=== PATIENT | male | born 1960 | race Caucasian/White ===

== ENCOUNTER 2018-10-25 10:05 | Outpatient (CLI) | payer BC, SELFPAY | END 2018-10-25 10:25 | PROVIDERS: PCP Internal Medicine; Visit Provider Internal Medicine | DX: R73.09 Other abnormal glucose (principal) | CPT/HCPCS: 36415; 83036 ==

== ENCOUNTER 2019-02-09 09:26 | Outpatient (CLI) | payer BC, SELFPAY ==
--- NOTE | 2019-02-09 09:41 | DI.RAD_ITS ---
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 The lungs are clear. The mediastinal structures and pleura appear intact. CONCLUSION: Normal chest.
[2019-02-09 10:16] LABS: TSH 2.57 uIU/mL (0.358-3.74)
== END 2019-02-09 09:46 ==
PROVIDERS: PCP Internal Medicine; Visit Provider Nurse Practitioner Adult Health
DX: C09.9 Malignant neoplasm of tonsil, unspecified (principal)
CPT/HCPCS: 36415; 71046; 84443

== ENCOUNTER 2019-10-29 10:21 | Outpatient (CLI) | payer BC, SELFPAY ==
[2019-10-29 13:05] LABS: ALT 49 U/L (16-63); AST 24 U/L (15-37); Albumin 4.4 g/dL (3.4-5.0); Alkaline Phosphatase 62 U/L (46-116); Anion Gap 9.6 mmol/L (3-11); BUN 18 mg/dL (7-18); Bilirubin, Total 1.1 mg/dL (0.2-1.0); CO2 28.4 mmol/L (21.0-32.0); CREATININE 0.83 mg/dL (0.70-1.30); Calcium 9.5 mg/dL (8.5-10.1); Chloride 102 mmol/L (98-107); Glucose 104 mg/dL (74-106); Potassium 4.2 mmol/L (3.5-5.1); Sodium 140 mmol/L (136-145); TSH 3.53 uIU/mL (0.36-3.74); Total Protein 7.6 g/dL (6.4-8.2)
[2019-10-29 13:22] LABS: Absolute Basophil Count 0.02 k/cumm (0.0-0.2); Absolute Eosinophil Count 0.05 k/cumm (0.0-0.7); Absolute Lymphocyte Count 0.96 k/cumm (1.2-3.4); Absolute Monocyte Count 0.39 k/cumm (0.11-0.7); Absolute Neutrophil Count 3.01 k/cumm (1.2-6.7); Basophils % 0.5; Eosinophils % 1.1; HCT 41.8 % (40.0-50.0); HGB 14.4 g/dL (13.5-17.5); Lymphocytes % 21.7; Mean Corp. HGB Concentration 34.4 g/dL (32.0-36.0); Mean Corpuscular Hemoglobin 32.5 pg (27.0-33.0); Mean Corpuscular Volume 94.4 fL (80-95); Mean Platelet Volume 10.2 fL (8.0-11.0); Monocytes % 8.8; Neutrophils % 67.9; Platelet Count 233 x1000/uL (130-400); RBC 4.43 m/cumm (4.50-6.00); RBC Distribution Width 12.2 % (11.8-14.1); White Blood Cell Count 4.43 k/cumm (4.4-10.8)
[2019-10-30 12:40] LABS: PSA, Screening 2.7 ng/mL (0.0-4.5)
== END 2019-10-29 10:41 ==
PROVIDERS: PCP Internal Medicine; Visit Provider Internal Medicine
DX: Z00.00 Encounter for general adult medical examination without abnormal findings (principal); I10 Essential (primary) hypertension; R50.9 Fever, unspecified; R35.1 Nocturia; E03.9 Hypothyroidism, unspecified; Z12.5 Encounter for screening for malignant neoplasm of prostate
CPT/HCPCS: 36415; 80053; 84153; 84443; 85025

== ENCOUNTER 2020-11-11 02:20 | Outpatient (CLI) | payer BC, SELFPAY ==
[2020-11-11 08:47] LABS: Hemoglobin A1C 5.8 % (<5.7)
[2020-11-11 09:31] LABS: CREATININE 1.08 mg/dL (0.70-1.30); Calculated LDL 128 mg/dL (<100); Cholesterol 203 mg/dL (<200); HDL Cholesterol 40 mg/dL (40-60); Potassium 4.2 mmol/L (3.5-5.1); TSH 4.54 uIU/mL (0.36-3.74); Triglyceride 177 mg/dL (<150)
== END 2020-11-11 02:40 ==
PROVIDERS: PCP Nurse Practitioner; Visit Provider Nurse Practitioner
DX: E03.9 Hypothyroidism, unspecified (principal); I10 Essential (primary) hypertension; Z13.1 Encounter for screening for diabetes mellitus; Z13.6 Encounter for screening for cardiovascular disorders; Z12.5 Encounter for screening for malignant neoplasm of prostate; Z80.42 Family history of malignant neoplasm of prostate
CPT/HCPCS: 36415; 80061; 84153; 82565; 83036; 84132; 84443

== ENCOUNTER 2020-11-28 10:50 | Outpatient (CLI) | payer BC, SELFPAY ==
--- NOTE | 2020-11-28 08:45 | DI.RAD_ITS ---
EXAM: XR KNEE RT 4V AP,LAT,MARLIN,PAT CLINICAL HISTORY: rt knee pain. TECHNIQUE: 2D digital imaging was performed. COMPARISON: CR RIGHT KNEE 3 VIEWS from 01/27/2017 FINDINGS: There is no evidence of acute fracture but there is a joint effusion signifying probable internal saurabh angement. There has been progression of degenerative disease with [id number] apposition in the medial compart ment evident on the AP view. No narrowing of the lateral compartment. Moderate degenerative changes in the patellofemoral compartment. IMPRESSION: Advanced narrowing of the medial compartment-degenerative changes. Significant progression when comp ared to 2017. There is also a joint effusion which may signify an independent internal derangement. DATA REPOSITORY: RADIATION DOSE DELIVERED:
== END 2020-11-28 11:10 ==
PROVIDERS: PCP Nurse Practitioner; Visit Provider Physician Assistant Surgical
DX: M17.11 Unilateral primary osteoarthritis, right knee (principal); M25.461 Effusion, right knee
CPT/HCPCS: 73564

== ENCOUNTER 2020-12-31 04:21 | Outpatient (CLI) | payer BC, SELFPAY ==
[2020-12-31 11:37] LABS: Calculated LDL 43 mg/dL (<100); Cholesterol 108 mg/dL (<200); HDL Cholesterol 46 mg/dL (40-60); TSH 1.95 uIU/mL (0.36-3.74); Triglyceride 96 mg/dL (<150)
== END 2020-12-31 04:22 | disposition home or self-care (01) ==
LOC: LBO 04:21
PROVIDERS: PCP Nurse Practitioner; Visit Provider Nurse Practitioner
DX: E78.5 Hyperlipidemia, unspecified (principal); E03.9 Hypothyroidism, unspecified
CPT/HCPCS: 36415; 80061; 84443

== ENCOUNTER 2021-01-02 11:15 | Outpatient (CLI) | payer BC, SELFPAY ==
--- NOTE | 2021-01-02 09:15 | DI.CT_ITS ---
EXAM: CT ABDOMEN PELVIS W CLINICAL HISTORY: r/o appendicitis R10.31 RLQ PAIN TECHNIQUE: Imaging Protocol: Axial computed tomography images with coronal and sagittal reformatted images were created and reviewed CONTRAST MATERIAL: Intravenous: Omnipaque 350 Contrast volume:100 mL Oral: Yes COMPARISON: CT CT Chest With Contrast from 02/07/2012 FINDINGS: ABDOMEN: Lung Bases: Normal where visualized. Liver: Normal density. There are a few tiny hypodensities in the liver which are too small for furthe r characterization. These likely reflect small cysts. Portal, Superior Mesenteric, and Splenic Veins: Unremarkable. Gallbladder and Biliary Tract: No radiodense calculus or dilation. Pancreas: Normal density, no abnormal calcifications or inflammatory process. Spleen: Normal. Adrenals: There again seen bilateral adrenal calcifications. Kidneys: Normal size, contour and axis. No radiodense stones or obstructive uropathy. There is a 1 cm simple cyst in the superior pole of the right kidney. No further workup is recommended. Abdominal Aorta: Abdominal portion non-dilated. Mild atherosclerosis. Bowel: No obstruction or bowel wall thickening. The appendix is distended measuring 1.7 cm in diamete r. Juliette appendiceal inflammatory changes are seen. There is a hyperdense focus in the proximal append ix which may represent a the appendicoliths. There is a small area of extraluminal air adjacent to th e appendix. No focal fluid collection is seen to suggest an abscess. Small hiatal hernia. Peritoneal Cavity: No ascites, collection or mesenteric inflammatory response. Lymph Nodes: Within normal limits. Bones: Within normal limits for the patient's age. Soft Tissues: There is a small fat containing umbilical and a small fat containing paraumbilical angélica ia. There is a moderate-sized fat containing left inguinal hernia. PELVIS: Bladder: Symmetric distention, no gross wall thickening. Reproductive Organs: Mildly enlarged prostate gland. Lymph Nodes: Within normal limits. Bones: Within normal limits for the patient's age. IMPRESSION: Findings consistent with acute appendicitis with appendicoliths. A small amount of free air is noted adjacent to the appendix suggesting perforation. RADIATION DOSE DELIVERED: 1,408.07mGy.cm Total DLP DATA REPOSITORY: All CT scans at this facility are submitted to the National Radiology Data Registry (NRDR) Dose Index Registry (DIR) with the [employer] [place] [employer] (ACR). RADIATION OPTIMIZATION: All CT scans at this facility use at least one of these dose optimization te chniques: automated exposure control; mA and/or kV adjustment per patient size (includes targeted exa ms where dose is matched to clinical indication); or iterative reconstruction.
[2021-01-02] MEDS: Breeza Beverage 473 ML BTL PO (09:49)
[2021-01-02] MEDS: Omnipaque 350 MG/ML 50 ML BTL IJ ×2 (11:13→11:14)
[2021-01-02] MEDS: Normal Saline - Diluent 50 ML VIAL IV (11:13)
== END 2021-01-02 11:35 ==
PROVIDERS: PCP Nurse Practitioner; Visit Provider Nurse Practitioner
DX: R10.31 Right lower quadrant pain (principal)
CPT/HCPCS: 74177; 82565; Q9967

== ENCOUNTER 2021-01-02 12:05 | Day surgery (SDC) | payer BC, SELFPAY ==
[2021-01-02] VITALS (11 sets, daily range): BP systolic 92–127; BP diastolic 44–78; PULSE 68–79; RESP 14–31; TEMP 36.3–36.8; O2SAT 94–96
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
[2021-01-02 12:31] LABS: Abs Immature Grans 0.04 10^3/uL (0.0-0.06); Absolute Basophil Count 0.03 10^3/uL (0.0-0.2); Absolute Eosinophil Count 0.03 10^3/uL (0.0-0.7); Absolute Monocyte Count 1.17 10^3/uL (0.1-0.8); Basophils % 0.3; Eosinophils % 0.3; HCT 37.8 % (40.0-50.0); HGB 13.2 g/dL (13.5-17.5); Immature Grans % 0.4; Lymphocytes % 5.9; MCH 32.8 pg (27.0-33.0); MCHC 34.9 % (32.0-36.0); Monocytes % 10.5; Neutrophils % 82.6; Nucleated RBC 0 %; Platelet Count 217 10^3/uL (130-400); RBC 4.02 10^6/uL (4.36-5.78); RDW 11.9 % (11.8-14.1); RDW-SD 40.9 fL; WBC 11.11 10^3/uL (4.4-10.8)
[2021-01-02 12:35] LABS: Absolute Lymphocyte Count 0.66 10^3/uL (1.2-3.4); Absolute Neutrophil Count 9.18 10^3/uL (1.2-6.7)
[2021-01-02] MEDS: PIPERACILLIN/TAZO 4.5 GM in Normal Saline 100 ML IVPB (12:41)
[2021-01-02] MEDS: Normal Saline Flush 10 ML SYR IVP (12:43)
[2021-01-02 12:44] LABS: ALT 46 U/L (16-63); AST 18 U/L (15-37); Albumin 3.8 g/dL (3.4-5.0); Alkaline Phosphatase 69 U/L (46-116); Anion Gap 8.6 mmol/L (3-11); BUN 18 mg/dL (7-18); Bilirubin, Total 2.2 mg/dL (0.2-1.0); CO2 29.4 mmol/L (21.0-32.0); Chloride 94 mmol/L (98-107); Glucose 118 mg/dL (74-106); Potassium 3.9 mmol/L (3.5-5.1); Sodium 132 mmol/L (136-145); Total Protein 7.7 g/dL (6.4-8.2)
[2021-01-02 12:47] LABS: PTT Activated 26.1 sec (21.0-27.5); Prothrombin Time 10.3 sec (9.3-11.0)
[2021-01-02] MEDS: HYDROmorphone 2 MG/ML VIAL 1 MG IVP (13:08)
[2021-01-02] MEDS: Normal Saline 1,000 ML 1000 ML IV (13:09)
[2021-01-02 13:11] LABS: Bilirubin Negative (Negative); Blood Trace-intact (Negative); Clarity Clear (Clear); Glucose Negative (Negative); Ketones Negative (Negative); Leukocyte Esterase Negative (Negative); Nitrite Negative (Negative); Urobilinogen 0.2 EU/dL (Up TO 0.2)
[2021-01-02 13:20] LABS: Bacteria Negative HPF (Negative); C & S Indicated? No; Casts Negative LPF (Negative); Crystals Negative HPF (Negative); Epithelial Cells Rare HPF (Negative); Mucus Trace (Negative); WBC 0-2 HPF (0-5)
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
[2021-01-02] MEDS: Lactated Ringers 1,000 ML 30 ML IV (14:59)
[2021-01-02 15:21] LABS: COVID-19 PCR Negative (Negative); Influenza A PCR Negative (Negative); Influenza B PCR Negative (Negative); RSV PCR Negative (Negative)
[2021-01-02] MEDS: Lidocaine 1% Multi-Dose 50 ML VIAL (15:52)
--- NOTE | 2021-01-02 17:05 | APP_PTH ---
PATIENT: Johnathon Shea V LOC: [facility] U#:[id number] AGE/SX: 60/M ROOM: RE01/02/[address]: Jeffrey Guevara MD : [id number] BED: DIS: 01/02/2021 SPEC #: [id number] RECD: 01/02/21 17:53 STATUS: NATALI REQ #: [id number] MATHEUS: 01/02/21 17:[address]: Jeffrey Guevara DEPT: Surgical Specimen RECD BY: Yenny Mendez ENTERED: 01/02/21 17:53 SP TYPE: Appendix OTHR DR: Brandi Mak, PhD AURIST Tissues: 1 - APPENDIX NOT INCIDENTAL Procedures: GROSS AND MICRO LEVEL 3 Comments: [id number]
--- NOTE | 2021-01-02 17:23 | W.PM.OP ---
Date of service: 01/02/21 Time of Service: 15:50 Operative Note Operative Note DATE OF PROCEDURE: 01/02/21 PRE-OP DIAGNOSIS: perforated appendicitis POST-OP DIAGNOSIS: same PROCEDURE: laparoscopic emergency appendectomy SURGEON: Jeffrey Guevara ASSISTING SURGEON: Nisha Larry ANESTHESIA TYPE: General LMA/ETT Refer to Anesthesia Record ESTIMATED BLOOD LOSS: 20 PATHOLOGY: other (appendix) COMPLICATIONS: None Patient was transported to: PACU Patient's condition: stable Indications: CT diagnosed perforated appendix Findings: inflamed thickend appendix with perforation 2cm from base. surrounding rind with inflammation of the mesoappendix Procedure Description: supine, patient prepped/draped. timeout performed. veress needle entry and optiview technique used to gain access through a 5mm incision at palmers point. no entry injury seen. inflammatory changes seein in the RLQ. 1.5cm port placed throug small hernia supraumbilically, and 5mm ports placed in the LLQ and suprapubically. cecum was mobilized up the white line of toldt. large inflammatory changes seen in the RLQ, and appendix base was identified surrounded by thickened mesoappendix. the appendix and mesentery were dissected free from the side wall and the TI. a window was created at the base of the appendix. as the meso was divided a perforation in the appendix was seen with a fecalith about 2cm distal to the appendiceal base. with the base fully dissected, a stapler was placed around the base and fired. staple line was clean, healthy-appearing, and intact. The mesoappendix was then divided distally towards the tip with the ligasure. area was suctioned and irrigated. no purulence or feculence seen. Appendix placed in an endocatch bag and removed from the abdomen. final inspection revealed no abnormalities. ports removed under direct vision and abdomen desufflated. transfascial incision closed with 0 vicryl figure of 8, and skin closed with 4-0 monocryl. patient awakened and taken to PACu in stable condition. all counts correct.
--- NOTE | 2021-01-02 17:55 | PDOC.DSDIS_ITS ---
Discharge Plan Disposition Patient Disposition: HOME Condition: Good Discharge Details Reason For Visit: appendicitis Attending Provider: Jeffrey Guevara Primary Care Provider: Brandi Mak Home Meds and New Rx's Prescriptions: New oxycodone-acetaminophen 5-325 mg tablet 1 tab PO Q4H PRN (Reason: pain) Qty: 20 RF: 0 No Action ibuprofen 600 mg tablet 600 mg PO Q6H PRN Qty: 60 RF: 5 sildenafil [Viagra] 100 mg tablet 100 mg PO PRN Qty: 30 RF: 3 levothyroxine 75 mcg tablet 75 mcg PO DAILY Qty: 60 RF: 0 atorvastatin 40 mg tablet 40 mg PO QPM Qty: 90 RF: 4 hydrochlorothiazide 25 mg tablet 25 mg PO DAILY Qty: 90 RF: 3 lisinopril 40 mg tablet 40 mg PO DAILY Qty: 90 RF: 4 clindamycin HCl [Cleocin HCl] 300 mg capsule 300 mg PO Q6H RF: 0 Discharge Instructions Instructions: Laparoscopic Appendectomy (DC) Additional Instructions: 1) no driving on pain medication 2) shower daily, no baths 3) no lifting over 30 lbs for 6 weeks 4) diet as tolerated 5) call office or seen emergency care for fever >101.5, shaking chills, foul- smelling discharge or spreading redness from incisions, severe right lower quadrant pain, inability to tolerate food or drink 6) F/U with [facility] 1-2 weeks, call [phone] for appointment Activity:: no lifting greater than 30 lbs x 6 weeks Shower/Bathe:: 24 hours Diet:: As Tolerated Discharge Orders Discharge Orders: Discharge Order (Routine); Ordered 01/02/21 Ordered By: Jeffrey Guevara DS: Diagnosis Discharge Diagnosis (1) Acute perforated appendicitis: Status: Acute
[2021-01-02] MEDS: Ibuprofen 600 MG TAB PO (18:38)
[2021-01-02] MEDS: oxyCODONE 5 mg/Acetaminophen 325 mg TAB 1 TAB PO (18:38)
[2021-01-02] MEDS: Clindamycin 300 MG CAP PO (18:38)
[2021-01-02] MEDS: Atorvastatin 40 MG TAB PO (19:43)
== END 2021-01-02 20:26 | disposition home or self-care (01) ==
LOC: ER 13:05 → SUR 14:13 → ER 18:12 → DSU 18:12 → MS 18:13
PROVIDERS: Physician Assistant; Emergency Provider Physician Assistant; PCP Nurse Practitioner; Visit Provider Surgery
PROC: 0DTJ4ZZ Resection of Appendix, Percutaneous Endoscopic Approach (ICD-10-PCS; CPT 44970; principal; 2021-01-02 13:30)
DX: K35.32 Acute appendicitis with perforation, localized peritonitis, and gangrene, without abscess (principal)
CPT/HCPCS: 44970; 36415; 80053; 83690; 96361; 96365; 96366; 96375; 99235; 99285; 81003; 81015; 85025; 85610; 85730; 88304; 99284; G0378; J1100; J1885; J2405; J2543; J2704

== ENCOUNTER 2021-01-08 15:08 | Inpatient (IN) | payer BC, SELFPAY ==
[2021-01-08] VITALS (32 sets, daily range): BP systolic 88–137; BP diastolic 51–84; PULSE 61–71; RESP 17–37; TEMP 36.1–36.9; O2SAT 91–100
[2021-01-08] MEDS: Lactated Ringers 1,000 ML 1000 ML IV ×2 (15:30→16:50)
--- NOTE | 2021-01-08 15:30 | DI.CT_ITS ---
EXAM: CT ABDOMEN PELVIS W CLINICAL HISTORY: abd pain diffuse, distended abd, 5d sp perf appy. TECHNIQUE: Imaging Protocol: Axial computed tomography images with coronal and sagittal reformatted images were created and reviewed CONTRAST MATERIAL: Intravenous: Omnipaque 350 Contrast volume:100cc Oral: no COMPARISON: CT CT ABDOMEN PELVIS W from 01/02/2021 FINDINGS: ABDOMEN: Lung Bases: Mild basilar atelectasis. Liver: Normal density. No measurable mass. Gallbladder and biliary tract: No radiodense calculus or dilation. Pancreas: Normal density, no abnormal calcifications or inflammatory process. Spleen: Normal. Kidneys: Normal size, contour and axis. No radiodense stones or obstructive uropathy. No masses seen. Small cyst upper pole right kidney. Adrenal glands: Bilateral calcifications. No masses seen. Abdominal Aorta: Abdominal portion non-dilated. No significant atherosclerotic changes. Small amount of fluid within previously noted umbilical hernia. PELVIS: Bladder: Symmetric distention, no gross wall thickening. Fatty containing left inguinal hernia. Bowel: Moderate dilatation of loops of small bowel with transition point in the right lower quadrant anteriorly. Distal ileum and colon are decompressed. There is no pneumatosis.. Peritoneal cavity: No free air. There is a fluid collection seen anterior to the cecum measuring 2.6 x 3.2 x 2.5 cm. Posterior inferior to the cecum, there is a fluid collection with air bubbles measu ring 4 x 2.7 x 5 cm. This is located at the site of the previous appendiceal abscess. An additional fluid collection is seen in the low pelvis measuring 3.7 x 2.3 x 2.2 cm. Bones: Degenerative changes. Reproductive organs: Within normal limits. Lymph nodes: Unremarkable. Impression: 1. Mechanical small bowel obstruction with transition point in the right lower quadrant. 2. Developing right lower quadrant abscess measuring 5 cm in greatest dimension. Additional fluid c ollections seen anterior to the cecum and in the low pelvis. RADIATION DOSE DELIVERED: 1,592.35mGy.cm Total DLP DATA REPOSITORY: All CT scans at this facility are submitted to the National Radiology Data Registry (NRDR) Dose Index Registry (DIR) with the [employer] ([employer]). RADIATION OPTIMIZATION: All CT scans at this facility use at least one of these dose optimization te chniques: automated exposure control; mA and/or kV adjustment per patient size (includes targeted exa ms where dose is matched to clinical indication); or iterative reconstruction.
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
[2021-01-08 15:48] LABS: Abs Immature Grans 0.04 10^3/uL (0.0-0.06); Absolute Basophil Count 0.03 10^3/uL (0.0-0.2); Absolute Lymphocyte Count 0.74 10^3/uL (1.2-3.4); Absolute Neutrophil Count 4.12 10^3/uL (1.2-6.7); Basophils % 0.5; Eosinophils % 1.6; HCT 36.9 % (40.0-50.0); HGB 12.8 g/dL (13.5-17.5); Immature Grans % 0.6; Lactate 1.3 mmol/L (0.6-1.4); Lymphocytes % 11.9; MCH 32.4 pg (27.0-33.0); MCHC 34.7 % (32.0-36.0); MCV 93.4 fL (80-95); MPV 9.1 fL (8.0-11.0); Monocytes % 19.3; Neutrophils % 66.1; Nucleated RBC 0 %; RBC 3.95 10^6/uL (4.36-5.78); RDW 12.8 % (11.8-14.1); WBC 6.23 10^3/uL (4.4-10.8)
[2021-01-08] MEDS: Omnipaque 350 MG/ML 100 ML BTL IJ (15:54)
[2021-01-08] MEDS: Normal Saline - Diluent 50 ML VIAL IV (15:55)
[2021-01-08] MEDS: Normal Saline Flush 10 ML SYR IVP ×3 (15:56→18:29)
[2021-01-08 16:02] LABS: Lipase 124 U/L (73-393)
[2021-01-08 16:04] LABS: INR 1.1 (0.9-1.1); Prothrombin Time 10.6 sec (9.3-11.0)
[2021-01-08] MEDS: PIPERACILLIN/TAZO 4.5 GM in Normal Saline 100 ML IVPB ×2 (16:08→23:47)
[2021-01-08 16:14] LABS: ALT 103 U/L (16-63); AST 64 U/L (15-37); Albumin 3.2 g/dL (3.4-5.0); Alkaline Phosphatase 74 U/L (46-116); Anion Gap 11.2 mmol/L (3-11); Bilirubin, Total 1.4 mg/dL (0.2-1.0); CO2 28.8 mmol/L (21.0-32.0); Chloride 93 mmol/L (98-107); Estimated GFR 21.31 (mL/min/1.73m2); Glucose 142 mg/dL (74-106); Potassium 3.5 mmol/L (3.5-5.1); Sodium 133 mmol/L (136-145); Total Protein 7.9 g/dL (6.4-8.2)
[2021-01-08 16:18] LABS: BUN 100 mg/dL (7-18); Platelet Count 388 10^3/uL (130-400); Troponin I < 0.05 ng/mL (<0.06)
[2021-01-08 16:23] LABS: Diff Comment Agrees w/ Instrument; RBC Morphology Normal
--- NOTE | 2021-01-08 16:25 | DI.VRAD_ITS ---
PROCEDURE INFORMATION: Exam: CT Abdomen And Pelvis With Contrast Exam date and time: 01/08/2021 3:51 PM Age: 60 years old Clinical indication: Abdominal pain; Prior surgery; Surgery date: 3-7 days post-operative; Surgery type: Five days post perf appy; Patient HX: Abd pain diffuse, distended abd TECHNIQUE: Imaging protocol: Computed tomography of the abdomen and pelvis with contrast. COMPARISON: CT ABDOMEN PELVIS W 01/02/2021 11:08 AM FINDINGS: Lungs: Mild bibasilar atelectasis. Liver: Diffuse decrease in hepatic parenchymal density, consistent with fatty infiltration. Gallbladder and bile ducts: Normal. No calcified stones. No ductal dilation. Pancreas: Normal. No ductal dilation. Spleen: Normal. No splenomegaly. Adrenal glands: Normal. No mass. Kidneys and ureters: 9 mm cyst right kidney. No hydronephrosis. No ureteral stones. Stomach and bowel: Moderate dilation of proximal small bowel loops, consistent with mechanical small bowel obstruction. Distal small bowel nondistended. Appendix: Status post appendectomy. Several fluid collections right lower quadrant consistent with developing abscesses, 4 x 2.7 by 5 cm posterior cecum and 2.6 x 3.2 by 2.5 cm anterior to the cecum and right colon. Fluid collection at the low pelvis anterior to the rectosigmoid 3.7 x 2.3 by 2.2 cm. Intraperitoneal space: No intraperitoneal free air. Vasculature: Unremarkable. No abdominal aortic aneurysm. Lymph nodes: Unremarkable. No enlarged lymph nodes. Urinary bladder: Unremarkable as visualized. Reproductive: Unremarkable as visualized. Bones/joints: Unremarkable. No acute fracture. Soft tissues: Fat-containing left inguinal hernia without incarceration. Small amount of fluid noted within the previously noted umbilical hernia 2.2 x 0.9 by 1.2 cm. IMPRESSION: 1. Status post appendectomy. Several fluid collections right lower quadrant consistent with developing abscesses, 4 x 2.7 by 5 cm posterior cecum and 2.6 x 3.2 by 2.5 cm anterior to the cecum and right colon. Fluid collection at the low pelvis anterior to the rectosigmoid 3.7 x 2.3 by 2.2 cm. 2. Moderate dilation of proximal small bowel loops, consistent with mechanical small bowel obstruction. 3. Small amount of fluid noted within the previously noted umbilical hernia 2.2 x 0.9 by 1.2 cm. Dictated and Authenticated by: Nirmal Gibson MD. Ordering:EN Mansfield MD
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
[2021-01-08] MEDS: Pantoprazole 40 MG VIAL IVP (18:30)
[2021-01-08 18:44] LABS: Magnesium 2.9 mg/dL (1.8-2.4)
[2021-01-08] MEDS: Lidocaine 2% Jelly 11 ML SYR UR (18:47)
[2021-01-08] MEDS: Normal Saline 1,000 ML 125 ML IV (20:23)
[2021-01-08 22:14] LABS: COVID-19 PCR Negative (Negative)
[2021-01-08] MEDS: ACETAMINOPHEN 1,000 MG/100 ML BTL 400 MG IVPB (22:15)
[2021-01-09] VITALS (7 sets, daily range): BP systolic 102–122; BP diastolic 61–73; PULSE 56–70; RESP 16–18; TEMP 36.2–36.8; O2SAT 95–97
[2021-01-09] MEDS: Normal Saline 1,000 ML 125 ML IV ×3 (04:57→22:22)
[2021-01-09] MEDS: Levothyroxine 75 MCG TAB PO (05:57)
[2021-01-09] MEDS: ACETAMINOPHEN 1,000 MG/100 ML BTL 400 MG IVPB ×3 (05:57→21:57)
[2021-01-09 07:06] LABS: Abs Immature Grans 0.03 10^3/uL (0.0-0.06); HCT 33.6 % (40.0-50.0); HGB 11.6 g/dL (13.5-17.5); MCH 32.6 pg (27.0-33.0); MCHC 34.5 % (32.0-36.0); MCV 94.4 fL (80-95); MPV 8.9 fL (8.0-11.0); Nucleated RBC 0 %; RBC 3.56 10^6/uL (4.36-5.78); RDW-SD 45.1 fL; WBC 6.15 10^3/uL (4.4-10.8)
[2021-01-09 07:24] LABS: ALT 79 U/L (16-63); AST 37 U/L (15-37); Albumin 2.6 g/dL (3.4-5.0); Alkaline Phosphatase 66 U/L (46-116); Anion Gap 6.4 mmol/L (3-11); Bilirubin, Total 1.3 mg/dL (0.2-1.0); C-Reactive Protein 7.32 mg/dL (0.0-0.3); CO2 29.6 mmol/L (21.0-32.0); CREATININE 2.3 mg/dL (0.70-1.30); Calcium 9.1 mg/dL (8.5-10.1); Chloride 98 mmol/L (98-107); Estimated GFR 28.96 (mL/min/1.73m2); Glucose 122 mg/dL (74-106); Magnesium 2.4 mg/dL (1.8-2.4); Potassium 3.8 mmol/L (3.5-5.1); Sodium 134 mmol/L (136-145)
[2021-01-09 07:26] LABS: BUN 80 mg/dL (7-18)
[2021-01-09 07:35] LABS: Absolute Basophil Count 0.06 10^3/uL (0.0-0.2); Absolute Lymphocyte Count 0.68 10^3/uL (1.2-3.4); Absolute Monocyte Count 1.17 10^3/uL (0.1-0.8); Atypical Lymphocytes % 3
[2021-01-09 07:36] LABS: Diff Comment Manual Differential; RBC Morphology Normal
--- NOTE | 2021-01-09 08:08 | PGE_ITS ---
Date of Service Date of service: 01/09/21 Time of Service: 08:08 Assessment and Plan Assessment and plan (1) MORAIMA (acute kidney injury): Status: Acute (2) ATN (acute tubular necrosis): Status: Acute (3) Fluid collection at surgical site: Status: Acute (4) Hypothyroidism: Status: Acute (5) Hypertension: Status: Acute (6) Elevated PSA: Status: Acute (7) Prediabetes: Status: Acute (8) Acute perforated appendicitis: Status: Acute (9) Ileus: Status: Acute Assessment and plan: resolving. -Patient has no fever or white count today. -Patient has passed minimal flatus. He has been up walking around. -Patient has had good urine output and his creatinine is slowly improving. We will DC the Ryan. We will continue IV fluids. Electrolytes were balanced today. -I did review the case with IR at [facility]. I do think it is a beginnings of an abscess. Unfortunately they have not received radiation today and states he is stable and they would not give her with the weekend. I do have him scheduled for 2:00 on Tuesday he would need to be at [facility] by 130 so he would need to leave here at noon. We will see how patient does in the next 36 hours. And I will leave it up to Dr. Daly's discretion. If she thinks he is doing well and does not need to be drained and his ileus resolves then we will cancel appointment on Tuesday otherwise he is on the schedule for IR drainage on Tuesday with drain placement and culture. Continue supportive care -His BP is normal I am going to continue to hold his L lisinopril until his creatinine normalizes/and not going to start any IV beta-abdelrahman at this point. -Continue Zosyn Subjective Subjective Interval history since last seen: in the processes of seeing if the fluid collection is amendable to percutaneous drainage and if [facility] is able to do this today. From 1300 Patient says he is feeling much better than yesterday. He has had good yellow and adequate amount and urine output. He has less pain distention and nausea. He has had about 300 cc of bilious material out of his NG tube since 8 AM. But he is drinking a lot of ice chips and water-this is probably a 50-50 mix. He fowler s not passed any stool. He has had a few puffs of air. He is definitely much less distended and less tender than yesterday. I still do not hear good bowel sounds today however no headaches. No CP or SOB. no productive cough. no dysuria. no leg pain or swelling. No thrush. Exam Narrative Exam Narrative: PHYSICAL EXAM GENERAL APPEARANCE: Alert, healthy appearance, oriented, in no acute distress SKIN: No rashes. No breakdown HYDRATION: Well hydrated HEAD, EYES, EARS, NECK, THROAT: Head is normocephalic, pupils equal, round, reactive to light and accommodation, ocular movement intact, sclera clear and no jaundice. Dentition intact. No sore throat. No jaw pain. No thrush NECK: Supple, Trachea midline. No JVD. LUNGS: normal respiration/nl chest excursion. Clear to auscultation B/l no R/R/W HEART: Regular rate and rhythm, EXTREMITY: No edema or cyanosis no leg pain, redness, swelling. No IV infiltration ABDOMEN: mild tenderness to palpation, mild distention. no hernias. minimal bowel sounds NEURO: no focal neuro deficits. Objective Last Vital Signs Temp 36.2 C L 01/09/21 07:22 Pulse 62 01/09/21 07:22 Resp 18 01/09/21 07:22 BP 113/61 01/09/21 07:22 Pulse Ox 95 01/09/21 07:22 Laboratory Results - last 24 hr 01/08/21 01/08/21 01/08/21 15:35 15:35 15:35 WBC RBC Hgb Hct MCV MCH MCHC RDW Plt Count MPV Immature Gran % Neutrophils % Lymphocytes % Atypical Lymphs % Monocytes % Eosinophils % Basophils % Nucleated RBC % Absolute Neutrophils Absolute Lymphocytes Absolute Monocytes Absolute Eosinophils Absolute Basophils RBC Morphology PT 10.6 INR 1.1 VBG Lactate 1.3 Sodium Potassium Chloride Carbon Dioxide Anion Gap BUN Creatinine Estimated GFR/1.73 m2 Glucose Calcium Magnesium Total Bilirubin AST ALT Alkaline Phosphatase Troponin I C-Reactive Protein Total Protein Albumin Lipase 124 COVID-19 Source SARS-CoV-2 (PCR) Patient ABO/Rh Antibody Screen 01/08/21 01/08/21 01/08/21 15:35 15:35 16:00 WBC 6.23 RBC 3.95 L Hgb 12.8 L Hct 36.9 L MCV 93.4 MCH 32.4 MCHC 34.7 RDW 12.8 Plt Count 388 D MPV 9.1 Immature Gran % 0.6 Neutrophils % 66.1 Lymphocytes % 11.9 Atypical Lymphs % Monocytes % 19.3 Eosinophils % 1.6 Basophils % 0.5 Nucleated RBC % 0 Absolute Neutrophils 4.12 Absolute Lymphocytes 0.74 L Absolute Monocytes 1.20 H Absolute Eosinophils 0.10 Absolute Basophils 0.03 RBC Morphology Normal PT INR VBG Lactate Sodium 133 L Potassium 3.5 Chloride 93 L Carbon Dioxide 28.8 Anion Gap 11.2 H BUN 100 H* Creatinine 3.0 H Estimated GFR/1.73 m2 21.31 Glucose 142 H Calcium 10.0 Magnesium 2.9 H Total Bilirubin 1.4 H AST 64 H ALT 103 H Alkaline Phosphatase 74 Troponin I < 0.05 C-Reactive Protein Total Protein 7.9 Albumin 3.2 L Lipase COVID-19 Source SARS-CoV-2 (PCR) Patient ABO/Rh O Negative Antibody Screen Negative 01/08/21 01/09/21 01/09/21 17:28 06:58 06:58 WBC 6.15 RBC 3.56 L Hgb 11.6 L Hct 33.6 L MCV 94.4 MCH 32.6 MCHC 34.5 RDW 13.0 Plt Count MPV 8.9 Immature Gran % 0.0 Neutrophils % 65.0 Lymphocytes % 8.0 Atypical Lymphs % 3 Monocytes % 19.0 Eosinophils % 0.0 Basophils % 1.0 Nucleated RBC % 0 Absolute Neutrophils 4.00 Absolute Lymphocytes 0.68 L Absolute Monocytes 1.17 H Absolute Eosinophils 0.00 Absolute Basophils 0.06 RBC Morphology Normal PT INR VBG Lactate Sodium 134 L Potassium 3.8 Chloride 98 Carbon Dioxide 29.6 Anion Gap 6.4 BUN 80 H Creatinine 2.3 H D Estimated GFR/1.73 m2 28.96 Glucose 122 H Calcium 9.1 Magnesium 2.4 Total Bilirubin 1.3 H AST 37 ALT 79 H Alkaline Phosphatase 66 Troponin I C-Reactive Protein 7.32 H Total Protein 7.0 Albumin 2.6 L Lipase COVID-19 Source Nasopharyx SARS-CoV-2 (PCR) Negative Patient ABO/Rh Antibody Screen
[2021-01-09] MEDS: PIPERACILLIN/TAZO 4.5 GM in Normal Saline 100 ML IVPB ×3 (08:29→23:50)
--- NOTE | 2021-01-09 10:23 | DI.RAD_ITS ---
EXAM: 2D digital imaging was performed. CLINICAL HISTORY: ILEUS. COMPARISON: CT CT ABDOMEN PELVIS W from 01/08/[address] ABDOMEN PELVIS W from 01/08/2021 TECHNIQUE: Supine views of the abdomen performed. FINDINGS: A nasogastric tube has been placed which projects in the stomach. There has been interval decrease i n dilatation of loops of small bowel when compared with the previous CT. There is mild persistent pr oximal to mid small bowel dilatation. IMPRESSION: 1. Improvement in bowel distention status post placement of NG tube. DATA REPOSITORY: RADIATION DOSE DELIVERED:
[2021-01-09] MEDS: Normal Saline Flush 10 ML SYR IVP ×2 (13:48→17:59)
--- NOTE | 2021-01-09 15:40 | CHAPLAIN ---
Johnathon was up in a chair when I visited. He was pleasant and easily engaged in a conversation. He's feeling better he said. He's been in touch with family by phone. [place]. I explained my role and offered support.
--- NOTE | 2021-01-09 15:48 | NUR.NOTE ---
Denise from case management notified the pt need to be in [facility] at 2pm area 32 for an appointment on tuesday. also he will be NPO after midnight on tuesday Nursing Note:
[2021-01-09] MEDS: Pantoprazole 40 MG VIAL IVP (17:58)
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
[2021-01-10] VITALS (8 sets, daily range): BP systolic 113–122; BP diastolic 65–80; PULSE 55–75; RESP 16–18; TEMP 36.4–37; O2SAT 95–97
[2021-01-10] MEDS: Levothyroxine 75 MCG TAB PO (05:24)
[2021-01-10] MEDS: ACETAMINOPHEN 1,000 MG/100 ML BTL 400 MG IVPB ×3 (05:24→21:21)
[2021-01-10] MEDS: Normal Saline 1,000 ML 125 ML IV ×3 (06:38→23:20)
[2021-01-10 06:52] LABS: Abs Immature Grans 0.06 10^3/uL (0.0-0.06); Absolute Basophil Count 0.04 10^3/uL (0.0-0.2); Absolute Eosinophil Count 0.12 10^3/uL (0.0-0.7); Absolute Lymphocyte Count 0.71 10^3/uL (1.2-3.4); Absolute Monocyte Count 0.99 10^3/uL (0.1-0.8); Absolute Neutrophil Count 5.24 10^3/uL (1.2-6.7); Basophils % 0.6; Eosinophils % 1.7; HCT 33.5 % (40.0-50.0); HGB 11.2 g/dL (13.5-17.5); Immature Grans % 0.8; Lymphocytes % 9.9; MCH 32.7 pg (27.0-33.0); MCHC 33.4 % (32.0-36.0); MPV 9.1 fL (8.0-11.0); Monocytes % 13.8; Neutrophils % 73.2; Nucleated RBC 0 %; Platelet Count 329 10^3/uL (130-400); RBC 3.42 10^6/uL (4.36-5.78); RDW 13.2 % (11.8-14.1); RDW-SD 47.9 fL; WBC 7.16 10^3/uL (4.4-10.8)
[2021-01-10 07:21] LABS: ALT 52 U/L (16-63); AST 22 U/L (15-37); Albumin 2.6 g/dL (3.4-5.0); Alkaline Phosphatase 62 U/L (46-116); Anion Gap 7.3 mmol/L (3-11); BUN 58 mg/dL (7-18); Bilirubin, Total 1.2 mg/dL (0.2-1.0); C-Reactive Protein 5.18 mg/dL (0.0-0.3); CO2 28.7 mmol/L (21.0-32.0); CREATININE 1.7 mg/dL (0.70-1.30); Calcium 8.6 mg/dL (8.5-10.1); Chloride 103 mmol/L (98-107); Estimated GFR 41.04 (mL/min/1.73m2); Glucose 96 mg/dL (74-106); Magnesium 2.2 mg/dL (1.8-2.4); Potassium 3.8 mmol/L (3.5-5.1); Sodium 139 mmol/L (136-145); Total Protein 6.7 g/dL (6.4-8.2)
[2021-01-10] MEDS: PIPERACILLIN/TAZO 4.5 GM in Normal Saline 100 ML IVPB ×3 (08:20→23:20)
--- NOTE | 2021-01-10 10:56 | W.PM.PROGNOT ---
Date of Service Date of service: 01/10/21 Time of Service: 10:56 Assessment and Plan Assessment and plan (1) MORAIMA (acute kidney injury): Status: Acute (2) ATN (acute tubular necrosis): Status: Acute (3) Fluid collection at surgical site: Status: Acute (4) Hypothyroidism: Status: Acute (5) Hypertension: Status: Acute (6) Elevated PSA: Status: Acute (7) Prediabetes: Status: Acute (8) Acute perforated appendicitis: Status: Acute (9) Ileus: Status: Acute Assessment and plan: resolving. -Patient has no fever or white count today. -Patient has passed minimal flatus. He has been up walking around. -Patient has had good urine output and his creatinine is slowly improving. We will continue IV fluids. Electrolytes were balanced today. -CRP is improving -I did review the case with IR at [facility]. I do think it is a beginnings of an abscess. Unfortunately they have not received radiation today and states he is stable and they would not give her with the weekend. I do have him scheduled for 2:00 on Tuesday he would need to be at [facility] by 130 so he would need to leave here at noon. We will see how patient does in the next 36 hours. Continue supportive care -His BP is normal I am going to continue to hold his L lisinopril until his creatinine normalizes/and not going to start any IV beta-abdelrahman at this point. -Continue Zosyn His BS are normoactive. Will clamp his NG tube for 2 hours and check residuals. Recheck labs in am. I spent 45 minutes in reviewing the record, seeing the patient and documenting in the medical record. Subjective Subjective Interval history since last seen: Mr. Shea is doing OK today. He is passing minimal flatus. He has had some crampy abdominal pain which gets better after he passes a little gas. He still has a lot coming from his NG which still looks bilious. He is taking a lot of ice chips though. Exam Const General: cooperative, comfortable and no acute distress Orientation: alert and oriented x3 HENMT Head: normocephalic and atraumatic Resp Effort & Inspection: normal respiratory effort Auscultation: clear to auscultation bilaterally Cardio Rate: regular rate Rhythm: regular rhythm Heart Sounds: no gallops, no murmurs and no rubs GI Inspection: normal to inspection and obesity Palpation: soft, no hepatosplenomegaly and tender (mild lower abdominal tenderness) Auscultation: normal bowel sounds and normoactive bowel sounds Objective Last Vital Signs Temp 98.6 F 01/10/21 03:48 Pulse 55 L 01/10/21 07:00 Resp 17 01/10/21 03:48 BP 115/67 01/10/21 03:48 Pulse Ox 96 01/10/21 03:48 Laboratory Results - last 24 hr 01/10/21 01/10/21 06:05 06:05 WBC 7.16 RBC 3.42 L Hgb 11.2 L Hct 33.5 L MCV 98.0 H D MCH 32.7 MCHC 33.4 RDW 13.2 Plt Count 329 MPV 9.1 Immature Gran % 0.8 Neutrophils % 73.2 Lymphocytes % 9.9 Monocytes % 13.8 Eosinophils % 1.7 Basophils % 0.6 Nucleated RBC % 0 Absolute Neutrophils 5.24 Absolute Lymphocytes 0.71 L Absolute Monocytes 0.99 H Absolute Eosinophils 0.12 Absolute Basophils 0.04 Sodium 139 Potassium 3.8 Chloride 103 Carbon Dioxide 28.7 Anion Gap 7.3 BUN 58 H D Creatinine 1.7 H Estimated GFR/1.73 m2 41.04 Glucose 96 Calcium 8.6 Magnesium 2.2 Total Bilirubin 1.2 H AST 22 ALT 52 Alkaline Phosphatase 62 C-Reactive Protein 5.18 H Total Protein 6.7 Albumin 2.6 L
--- NOTE | 2021-01-10 10:59 | CMPROGNOTE_ITS ---
Care Management Progress Note S/O: Johnathon continues to be closely monitored and treated at this time. He is up independently and his lab values are improving; per MD. Due to continued concern for abscess, Johnathon has an appointment at [facility] IR on Tuesday at 1400. Anticipate if he remains medically stable he will remain at [facility] at this time. CM continues to follow. A: 60 year old male admitted to [facility] 01/08/21 for Ileus P: Johnathon will be closely monitored over the weekend. If he improves, he will likely return home. If he does not improve, he will transfer to [facility]. Transportation will be dependent on disposition. He will follow up with the surgeon, his PCP and discharge plan of care. CM will continue to follow.
--- NOTE | 2021-01-10 12:42 | PHA.REVIEW ---
Pharmacy Admission Review - Admission Clinical Review (Last Updated 01/08/21 @ 21:59 by Kimberly Merida DO) Prerenal azotemia (Acute) MORAIMA (acute kidney injury) (Acute) ATN (acute tubular necrosis) (Acute) Fluid collection at surgical site (Acute) Hypothyroidism (Acute) Hypertension (Acute) Elevated PSA (Acute) Prediabetes (Acute) Hyperlipidemia (Acute) Acute perforated appendicitis (Acute) Ileus (Acute) tramadol Adverse Reaction (Intermediate, Verified 01/08/21 15:18) Dizziness/Lightheaded, shakes Height 6 ft Weight 117.1 kg - Renal Dosing Renal Dosing: BUN 58 mg/dL (7-18) H D 01/10/21 06:05 Creatinine 1.7 mg/dL (0.70-1.30) H 01/10/21 06:05 Medications needing adjustments: Reviewed (crcl ~49ML/MIN) - Anticoagulation Anticoagulation: Hgb 11.2 g/dL (13.5-17.5) L 01/10/21 06:05 Hct 33.5 % (40.0-50.0) L 01/10/21 06:05 Plt Count 329 10^3/uL (130-400) 01/10/21 06:05 INR 1.1 (0.9-1.1) 01/08/21 15:35 Creatinine 1.7 mg/dL (0.70-1.30) H 01/10/21 06:05 DVT Prohphylaxis: N/A (Using SCDS) - Relevant Labs Sodium 139 mmol/L (136-145) 01/10/21 06:05 Potassium 3.8 mmol/L (3.5-5.1) 01/10/21 06:05 Chloride 103 mmol/L (98-107) 01/10/21 06:05 Magnesium 2.2 mg/dL (1.8-2.4) 01/10/21 06:05 C-Reactive Protein 5.18 mg/dL (0.0-0.3) H 01/10/21 06:05 - DM Control DM Control: Glucose 96 mg/dL (74-106) 01/10/21 06:05 - Heart Failure/WV Heart Failure/WV: Troponin I < 0.05 ng/mL (<0.06) 01/08/21 15:35 - BP Control BP Control: Blood Pressure 113/71 Blood Pressure 121/77 Blood Pressure 115/67 If elevated: N/A - Qtc Review If Elevated: N/A - IV to PO Switch IV Medications: Reviewed (has NG tube taking in ice chips, has po order for levothyroxine) - Home Meds Home Med List reviewed: Reviewed Relevent Home Meds Not ordered & why?: atovastatin, hctz, lisinopril - Comments Comments/Follow Ups: will be monitored here over the weekend. If he improves, he will likely return home. If he does not improve, he will transfer to [facility] [place]. possibly beginnings of an abscess. consulted with [facility] [place] [facility]
[2021-01-10] MEDS: Pantoprazole 40 MG VIAL IVP (18:13)
[2021-01-10] MEDS: Normal Saline Flush 10 ML SYR IVP ×2 (18:13→23:29)
[2021-01-11 04:12] VITALS: BP 121/72; PULSE 58; RESP 16; TEMP 36.4; O2SAT 97
[2021-01-11] MEDS: Levothyroxine 75 MCG TAB PO (05:47)
[2021-01-11] MEDS: ACETAMINOPHEN 1,000 MG/100 ML BTL 400 MG IVPB ×3 (05:47→21:51)
[2021-01-11 07:27] LABS: Abs Immature Grans 0.07 10^3/uL (0.0-0.06); Absolute Basophil Count 0.04 10^3/uL (0.0-0.2); Absolute Lymphocyte Count 0.75 10^3/uL (1.2-3.4); Absolute Monocyte Count 0.66 10^3/uL (0.1-0.8); Absolute Neutrophil Count 6.01 10^3/uL (1.2-6.7); Basophils % 0.5; Eosinophils % 1.3; HCT 33.4 % (40.0-50.0); Immature Grans % 0.9; Lymphocytes % 9.8; MCH 32.4 pg (27.0-33.0); MCHC 32.9 % (32.0-36.0); MCV 98.5 fL (80-95); MPV 8.9 fL (8.0-11.0); Monocytes % 8.7; Neutrophils % 78.8; Nucleated RBC 0 %; Platelet Count 318 10^3/uL (130-400); RBC 3.39 10^6/uL (4.36-5.78); RDW-SD 46.7 fL; WBC 7.63 10^3/uL (4.4-10.8)
[2021-01-11 07:42] LABS: ALT 40 U/L (16-63); AST 18 U/L (15-37); Albumin 2.8 g/dL (3.4-5.0); Alkaline Phosphatase 65 U/L (46-116); BUN 38 mg/dL (7-18); Bilirubin, Total 1.1 mg/dL (0.2-1.0); CREATININE 1.5 mg/dL (0.70-1.30); Calcium 8.4 mg/dL (8.5-10.1); Chloride 103 mmol/L (98-107); Estimated GFR 47.42 (mL/min/1.73m2); Glucose 95 mg/dL (74-106); Potassium 3.8 mmol/L (3.5-5.1); Sodium 140 mmol/L (136-145); Total Protein 6.8 g/dL (6.4-8.2)
[2021-01-11] MEDS: PIPERACILLIN/TAZO 4.5 GM in Normal Saline 100 ML IVPB ×2 (08:07→16:40)
[2021-01-11] MEDS: Normal Saline Flush 10 ML SYR IVP ×3 (08:07→17:58)
[2021-01-11] MEDS: Normal Saline 1,000 ML 125 ML IV (09:01)
--- NOTE | 2021-01-11 10:54 | PGE_ITS ---
Date of Service Date of service: 01/11/21 Time of Service: 11:38 Assessment and Plan Assessment and plan (1) MORAIMA (acute kidney injury): Status: Acute (2) ATN (acute tubular necrosis): Status: Acute Assessment and plan: His CR is coming down slowely He is making good urine Will continue to monitor (3) Fluid collection at surgical site: Status: Acute Assessment and plan: No leukocytosis but black oxide coating equipment tender in the RLQ To [facility] [place] Interventional radiology tomorrow for CT guided drain placement Paperwork filled out Qualifiers: Encounter type: subsequent encounter Qualified Code(s): T88.8XXD - Other specified complications of surgical and medical care, not elsewhere classified, subsequent encounter (4) Hypothyroidism: Status: Acute Assessment and plan: Continue Levothyroxin Qualifiers: Hypothyroidism type: unspecified Qualified Code(s): E03.9 - Hypothyroidism, unspecified (5) Hypertension: Status: Acute Assessment and plan: BP's are still within normal range Continue to hold his lisinopril for now No need for IV beta abdelrahman Qualifiers: Hypertension type: essential hypertension Qualified Code(s): I10 - Essential (primary) hypertension (6) Elevated PSA: Status: Acute (7) Prediabetes: Status: Acute (8) Acute perforated appendicitis: Status: Acute (9) Ileus: Status: Acute Assessment and plan: resolved Will start patient on clear liquids. NPO after Breakfast tomorrow I spent 45 minutes in reviewing the record, seeing the patient and documenting in the medical record. Subjective Subjective Interval history since last seen: Ray is doing well this morning. He has had several small soft BM's and is passing more flatus. He is still having some crampy abdominal pain RLQ > LLQ. No N/V. NG tube was accidentaly pulled out yesterday afternoon when he was trying to wash up a little. BP's are still within normal range Exam Const General: cooperative, comfortable and no acute distress Orientation: alert and oriented x3 Resp Effort & Inspection: normal respiratory effort Auscultation: clear to auscultation bilaterally Cardio Rate: regular rate Rhythm: regular rhythm GI Inspection: normal to inspection and obesity Palpation: soft and tender (RLQ with some guarding) Auscultation: normal bowel sounds Objective Last Vital Signs Temp 97.5 F L 01/11/21 04:12 Pulse 58 L 01/11/21 04:12 Resp 16 01/11/21 04:12 BP 121/72 01/11/21 04:12 Pulse Ox 97 01/11/21 04:12 Laboratory Results - last 24 hr 01/11/21 01/11/21 07:20 07:20 WBC 7.63 RBC 3.39 L Hgb 11.0 L Hct 33.4 L MCV 98.5 H MCH 32.4 MCHC 32.9 RDW 13.0 Plt Count 318 MPV 8.9 Immature Gran % 0.9 Neutrophils % 78.8 Lymphocytes % 9.8 Monocytes % 8.7 Eosinophils % 1.3 Basophils % 0.5 Nucleated RBC % 0 Absolute Neutrophils 6.01 Absolute Lymphocytes 0.75 L Absolute Monocytes 0.66 Absolute Eosinophils 0.10 Absolute Basophils 0.04 Sodium 140 Potassium 3.8 Chloride 103 Carbon Dioxide 25.0 Anion Gap 12.0 H BUN 38 H D Creatinine 1.5 H Estimated GFR/1.73 m2 47.42 Glucose 95 Calcium 8.4 L Magnesium 2.0 Total Bilirubin 1.1 H AST 18 ALT 40 Alkaline Phosphatase 65 Total Protein 6.8 Albumin 2.8 L
--- NOTE | 2021-01-11 11:11 | PDOC.CMPRO ---
Care Management Progress Note S/O: Johnathon continues to be closely monitored and treated at this time. He is up independently and his lab values are improving; per MD. Due to continued concern for abscess, Johnathon has an appointment at [facility] on Tuesday at 1400. Anticipate if he remains medically stable he will remain at [facility] at this time. CM continues to follow. A: 60 year old male admitted to [facility] 01/08/21 for Ileus P: Johnathon will be closely monitored over the weekend. If he improves, he will likely return home. If he does not improve, he will transfer to [facility]. Transportation will be dependent on disposition. He will follow up with the surgeon, his PCP and discharge plan of care. CM will continue to follow.
[2021-01-11 11:24] VITALS: BP 125/75; PULSE 60; RESP 18; TEMP 36.6; O2SAT 98
[2021-01-11 15:18] VITALS: BP 139/80; PULSE 62; RESP 18; TEMP 37; O2SAT 98
[2021-01-11] MEDS: Pantoprazole 40 MG VIAL IVP (17:58)
[2021-01-11 19:53] VITALS: BP 127/75; PULSE 59; RESP 17; TEMP 36.5; O2SAT 96
[2021-01-11 23:24] VITALS: BP 146/70; PULSE 56; RESP 17; TEMP 36.5; O2SAT 96
[2021-01-12] MEDS: PIPERACILLIN/TAZO 4.5 GM in Normal Saline 100 ML IVPB ×3 (00:22→19:11)
[2021-01-12 03:25] VITALS: BP 122/74; PULSE 55; RESP 17; TEMP 36.5; O2SAT 97
[2021-01-12] MEDS: Normal Saline 1,000 ML 30 ML IV (04:20)
[2021-01-12] MEDS: Normal Saline Flush 10 ML SYR IVP ×3 (04:20→19:11)
[2021-01-12] MEDS: ACETAMINOPHEN 1,000 MG/100 ML BTL 400 MG IVPB ×2 (06:11→22:30)
[2021-01-12] MEDS: Levothyroxine 75 MCG TAB PO (06:11)
[2021-01-12 07:12] LABS: C-Reactive Protein 2.89 mg/dL (0.0-0.3)
--- NOTE | 2021-01-12 07:46 | W.PM.PROGNOT ---
Documented by User: ISAIAH Baron 01/12/21 07:50 Date of Service Date of service: 01/12/21 Time of Service: 07:46 Assessment and Plan Assessment and plan (1) MORAIMA (acute kidney injury): Status: Acute (2) ATN (acute tubular necrosis): Status: Acute Assessment and plan: His CR is coming down slowely He is making good urine Will continue to monitor (3) Fluid collection at surgical site: Status: Acute Assessment and plan: Appointment later today with [facility] Interventional radiology for CT guided drain placement Paperwork filled out Qualifiers: Encounter type: subsequent encounter Qualified Code(s): T88.8XXD - Other specified complications of surgical and medical care, not elsewhere classified, subsequent encounter (4) Hypothyroidism: Status: Acute Assessment and plan: Continue Levothyroxin Qualifiers: Hypothyroidism type: unspecified Qualified Code(s): E03.9 - Hypothyroidism, unspecified (5) Hypertension: Status: Acute Assessment and plan: BP's are still within normal range Continue to hold his lisinopril for now No need for IV beta abdelrahman Qualifiers: Hypertension type: essential hypertension Qualified Code(s): I10 - Essential (primary) hypertension (6) Elevated PSA: Status: Acute (7) Prediabetes: Status: Acute (8) Acute perforated appendicitis: Status: Acute (9) Ileus: Status: Acute Assessment and plan: resolved Tolerating clear liquids. NPO after Breakfast today. I spent 25 minutes in reviewing the record, seeing the patient and documenting in the medical record. Subjective Subjective Interval history since last seen: Patient reports that he is progressively felt better over the weekend. He is passing flatus and going to the bathroom without any problems. Denies having pain at this time, states that he feels pressure in his abdomen. Exam Const General: cooperative, healthy appearing and comfortable Orientation: alert and oriented x3 Resp Effort & Inspection: normal respiratory effort, no audible wheezes and no cough GI Inspection: non-distended Palpation: soft, no guarding and tender in the LLQ Auscultation: normal bowel sounds Objective Last Vital Signs Temp 36.5 C 01/12/21 03:25 Pulse 55 L 01/12/21 03:25 Resp 17 01/12/21 03:25 BP 122/74 01/12/21 03:25 Pulse Ox 97 01/12/21 03:25 Laboratory Results - last 24 hr 01/12/21 06:45 C-Reactive Protein 2.89 H Documented by User: Ayaka Daly MD 01/12/21 14:23
[2021-01-12 08:05] VITALS: BP 143/82; PULSE 58; RESP 16; TEMP 36.6; O2SAT 97
--- NOTE | 2021-01-12 10:04 | CMPROGNOTE_ITS ---
- If Service Date Differs Date of service: 01/12/21 Time of Service: 10:04 Care Management Progress Note S/O: Johnathon was sitting up in bed when CM met with him. He informed CM that he was feeling much improved and that his pain is better. Due to continued concern for abscess, Johnathon has an appointment at [facility] today at 1400. The plan would be for him to return to [facility] if he remains medically stable. Johnathon denies the need for any services at home as his is home to assist. CM continues to follow. A: 60 year old male admitted to [facility] 01/08/21 for Ileus P: Johnathon will will likely return home with no new services. He will follow up with his community providers and plan of care and transport with family. CM will continue to support patient and assess for discharge planning needs.
[2021-01-12 11:23] VITALS: BP 136/73; PULSE 57; RESP 16; TEMP 36.4; O2SAT 96
[2021-01-12 19:08] VITALS: BP 145/86; PULSE 73; RESP 18; TEMP 35.9; O2SAT 97
[2021-01-12] MEDS: Pantoprazole 40 MG VIAL IVP (19:11)
[2021-01-12 23:32] VITALS: BP 134/20; PULSE 60; RESP 17; TEMP 36.4; O2SAT 98
[2021-01-13 03:14] VITALS: BP 130/24; PULSE 62; RESP 18; TEMP 36.8; O2SAT 98
[2021-01-13] MEDS: PIPERACILLIN/TAZO 4.5 GM in Normal Saline 100 ML IVPB ×3 (04:56→19:38)
[2021-01-13] MEDS: ACETAMINOPHEN 1,000 MG/100 ML BTL 400 MG IVPB ×3 (05:00→22:32)
[2021-01-13] MEDS: Levothyroxine 75 MCG TAB PO (05:00)
[2021-01-13 07:38] VITALS: BP 134/89; PULSE 64; RESP 16; TEMP 36.6; O2SAT 98
--- NOTE | 2021-01-13 09:06 | PGE_ITS ---
Documented by User: ISAIAH Baron 01/13/21 09:11 Date of Service Date of service: 01/13/21 Time of Service: 09:06 Assessment and Plan Assessment and plan (1) MORAIMA (acute kidney injury): Status: Acute (2) ATN (acute tubular necrosis): Status: Acute Assessment and plan: He is making good urine Will continue to monitor (3) Fluid collection at surgical site: Status: Deleted Assessment and plan: s/p visit with interventional radiology yest. 01/12. Drain in place. Mild discomfort around the site. Dressing in place. Patient education on drain management. Qualifiers: Encounter type: subsequent encounter Qualified Code(s): T88.8XXD - Other specified complications of surgical and medical care, not elsewhere classified, subsequent encounter (4) Hypothyroidism: Status: Acute Assessment and plan: Continue Levothyroxin Qualifiers: Hypothyroidism type: unspecified Qualified Code(s): E03.9 - Hypothyroidism, unspecified (5) Hypertension: Status: Acute Qualifiers: Hypertension type: essential hypertension Qualified Code(s): I10 - Essential (primary) hypertension (6) Elevated PSA: Status: Acute (7) Prediabetes: Status: Acute (8) Acute perforated appendicitis: Status: Acute (9) Ileus: Status: Acute Assessment and plan: Resolved Continue clear liquids will progress diet slowly as tolerated by the patient Encouraged ambulation and activity OOB. Continue use of incentive spirometer. I spent 25 minutes in reviewing the record, seeing the patient and documenting in the medical record. Subjective Subjective Interval history since last seen: Patient reports he slept well last night, first night of sleep in a week. He reports working [place] [facility] [place] learning how to empty his drain. He reports that he continues to have lower abdominal 'soreness'. Exam Const General: cooperative, healthy appearing and comfortable Orientation: alert and oriented x3 Resp Effort & Inspection: normal respiratory effort, no audible wheezes and no cough GI Palpation: soft, no guarding and tender in the LLQ and in the RLQ Other: Drain in place in the RLQ. Had recently been emptied by [facility] [place]. Bloody drainage noted in tubing. Objective Last Vital Signs Temp 36.6 C 01/13/21 07:38 Pulse 64 01/13/21 07:38 Resp 16 01/13/21 07:38 BP 134/89 01/13/21 07:38 Pulse Ox 98 01/13/21 07:38 Documented by User: Kimberly Merida DO 01/13/21 22:21 Assessment and Plan Assessment and plan (1) Postoperative intra-abdominal abscess: Status: Acute Assessment and plan: Patient seen and examined. Agree with above. Patient is doing much better. His labs are significantly improved. He is up walking around. He has a little tenderness at the actual drain site but for the most part his pain is much better. He is having purulent drainage from the drain site. The cultures from [facility] show: Citrobacter freundii, gram-negative rods, gram-positive bacilli. He is on Zosyn. We will check a CT tomorrow to make sure the fluid collection is resolving. And decide on his discharge. Continue supportive care. 30 minutes spent today with the patient in examination, and discussing his care plan. Reviewing his cultures from [facility] and his lab work from [facility] including CBC/see MP/CRP discussing his care plan with the nurses and reviewing his medications and in documentation.
--- NOTE | 2021-01-13 10:55 | PDOC.CMPRO ---
- If Service Date Differs Date of service: 01/13/21 Time of Service: 10:56 Care Management Progress Note S/O: Johnathon was sitting up in bed when CM met with him. He remains pleasant and interactive with CM. He denies abdominal pain but admits to soreness especially at the site of the drain that was placed at [facility] yesterday. Johnathon shared that he has been walking in the halls frequently for exercise. CM has seen him on several occasions. Today he received liquids for mealtime and tolerated them well. He shared that he hopes he can have solid food for dinner or at least full liquids. A: 60 year old male admitted to [facility] 01/08/21 for Ileus P: Johnathon will will likely return home with no new services. He will follow up with his community providers and plan of care and transport with family. CM will continue to support patient and assess for discharge planning needs.
[2021-01-13 11:07] VITALS: BP 131/79; PULSE 59; RESP 18; TEMP 37; O2SAT 97
--- NOTE | 2021-01-13 11:17 | CHAPLAIN ---
Johnathon said he is sore, but feeling better. He hopes to be going home soon. Johnathon was admitted on 01/08. He remains pleasant in conversation and seems comfortable being here, but looks forward to discharge.
--- NOTE | 2021-01-13 13:01 | W.NUTRFU ---
Date of service: 01/13/21 Time of Service: 13:01 Nutritional Follow up NOTE: 60 year old male admitted s/p appendectomy(01/02/21) with ileus. BMI indicates class 2 obesity. Diet advanced to clears, tolerating. Will continue to follow. Time Spent in Nutritional Counseling and Treatment: 0
[2021-01-13 15:50] VITALS: BP 119/80; PULSE 60; RESP 18; TEMP 36; O2SAT 97
[2021-01-13] MEDS: Normal Saline Flush 10 ML SYR IVP ×2 (17:41→19:39)
[2021-01-13] MEDS: Pantoprazole 40 MG VIAL IVP (17:41)
[2021-01-13 19:53] VITALS: BP 117/70; PULSE 74; RESP 20; TEMP 36.9; O2SAT 97
[2021-01-13 23:44] VITALS: BP 134/75; PULSE 61; RESP 20; TEMP 36.4; O2SAT 97
[2021-01-14 03:06] VITALS: BP 123/75; PULSE 64; RESP 20; TEMP 36.7; O2SAT 97
[2021-01-14] MEDS: PIPERACILLIN/TAZO 4.5 GM in Normal Saline 100 ML IVPB ×3 (03:48→19:54)
[2021-01-14] MEDS: Levothyroxine 75 MCG TAB PO (05:47)
[2021-01-14] MEDS: ACETAMINOPHEN 1,000 MG/100 ML BTL 400 MG IVPB ×3 (05:47→23:33)
[2021-01-14 07:40] VITALS: BP 121/76; PULSE 71; RESP 20; TEMP 36.7; O2SAT 98
[2021-01-14 07:53] LABS: Abs Immature Grans 0.04 10^3/uL (0.0-0.06); Absolute Basophil Count 0.06 10^3/uL (0.0-0.2); Absolute Eosinophil Count 0.15 10^3/uL (0.0-0.7); Absolute Lymphocyte Count 0.63 10^3/uL (1.2-3.4); Absolute Monocyte Count 0.57 10^3/uL (0.1-0.8); Absolute Neutrophil Count 7.76 10^3/uL (1.2-6.7); Basophils % 0.7; Eosinophils % 1.6; HCT 34.4 % (40.0-50.0); HGB 11.6 g/dL (13.5-17.5); Immature Grans % 0.4; Lymphocytes % 6.8; MCH 32.8 pg (27.0-33.0); MCHC 33.7 % (32.0-36.0); MCV 97.2 fL (80-95); Monocytes % 6.2; Neutrophils % 84.3; Nucleated RBC 0 %; Platelet Count 343 10^3/uL (130-400); RBC 3.54 10^6/uL (4.36-5.78); RDW 12.5 % (11.8-14.1); RDW-SD 45.1 fL; WBC 9.21 10^3/uL (4.4-10.8)
[2021-01-14 08:01] LABS: Anion Gap 8.4 mmol/L (3-11); BUN 12 mg/dL (7-18); CO2 26.6 mmol/L (21.0-32.0); CREATININE 1.2 mg/dL (0.70-1.30); Calcium 8.7 mg/dL (8.5-10.1); Chloride 105 mmol/L (98-107); Glucose 112 mg/dL (74-106); Magnesium 1.8 mg/dL (1.8-2.4); Potassium 4.2 mmol/L (3.5-5.1); Sodium 140 mmol/L (136-145)
[2021-01-14] MEDS: Omnipaque 350 MG/ML 50 ML BTL IJ (08:26)
[2021-01-14] MEDS: Breeza Beverage 473 ML BTL PO ×2 (08:27→08:28)
[2021-01-14] MEDS: Omnipaque 350 MG/ML 100 ML BTL IJ (09:47)
[2021-01-14] MEDS: Normal Saline - Diluent 50 ML VIAL IV (09:49)
--- NOTE | 2021-01-14 09:56 | CMPROGNOTE_ITS ---
- If Service Date Differs Date of service: 01/14/21 Time of Service: 09:56 Care Management Progress Note S/O: Johnathon was ambulating in the hallway when CM met with him. He invited CM to accompany him for a few laps which was done. Johnathon remains pleasant and interactive with CM. he informed CM that he was now eating a regular diet and tolerating it well. The drainage tube placed on Tuesday is draining small amounts - 30 cc yesterday and 5cc so far today. She stated that the tube causes some discomfort but that it is tolerable. He anticipates being able to discharge tomorrow or Tuesday. A: 60 year old male admitted to [facility] 01/08/21 for Ileus P: Johnathon will will likely return home with no new services. He will follow up with his community providers and plan of care and transport with family. CM will continue to support patient and assess for discharge planning needs.
--- NOTE | 2021-01-14 09:58 | W.PM.PROGNOT ---
Date of Service Date of service: 01/14/21 Time of Service: 09:58 Assessment and Plan Assessment and plan (1) MORAIMA (acute kidney injury): Status: Acute (2) ATN (acute tubular necrosis): Status: Acute Assessment and plan: He is making good urine Will continue to monitor (3) Fluid collection at surgical site: Status: Deleted Assessment and plan: s/p visit with interventional radiology yest. 01/12. Drain in place. Mild discomfort around the site. Dressing in place. Patient education on drain management. Awaiting CT scan results for today to reassess fluid collections. Qualifiers: Encounter type: subsequent encounter Qualified Code(s): T88.8XXD - Other specified complications of surgical and medical care, not elsewhere classified, subsequent encounter (4) Hypothyroidism: Status: Acute Assessment and plan: Continue Levothyroxin Qualifiers: Hypothyroidism type: unspecified Qualified Code(s): E03.9 - Hypothyroidism, unspecified (5) Hypertension: Status: Acute Qualifiers: Hypertension type: essential hypertension Qualified Code(s): I10 - Essential (primary) hypertension (6) Elevated PSA: Status: Acute (7) Prediabetes: Status: Acute (8) Acute perforated appendicitis: Status: Acute (9) Ileus: Status: Acute Assessment and plan: Resolved Tolerating regular diet. Encouraged ambulation and activity OOB. Continue use of incentive spirometer. I spent 25 minutes in reviewing the record, seeing the patient and documenting in the medical record. Subjective Subjective Interval history since last seen: Patient is ambulating in the hallway. He reports continues to feel better. He is tolerating a regular diet. He also reports taking an active role in learning about his drain and how to manage it's care. Exam Const General: cooperative, healthy appearing and comfortable Orientation: alert and oriented x3 Resp Effort & Inspection: normal respiratory effort, no audible wheezes and no cough Objective Last Vital Signs Temp 36.7 C 01/14/21 07:40 Pulse 71 01/14/21 07:40 Resp 20 01/14/21 07:40 BP 121/76 01/14/21 07:40 Pulse Ox 98 01/14/21 07:40 Laboratory Results - last 24 hr 01/14/21 01/14/21 07:35 07:35 WBC 9.21 RBC 3.54 L Hgb 11.6 L Hct 34.4 L MCV 97.2 H MCH 32.8 MCHC 33.7 RDW 12.5 Plt Count 343 MPV 9.0 Immature Gran % 0.4 Neutrophils % 84.3 Lymphocytes % 6.8 Monocytes % 6.2 Eosinophils % 1.6 Basophils % 0.7 Nucleated RBC % 0 Absolute Neutrophils 7.76 H Absolute Lymphocytes 0.63 L Absolute Monocytes 0.57 Absolute Eosinophils 0.15 Absolute Basophils 0.06 Sodium 140 Potassium 4.2 Chloride 105 Carbon Dioxide 26.6 Anion Gap 8.4 BUN 12 Creatinine 1.2 Estimated GFR/1.73 m2 >= 60.00 Glucose 112 H Calcium 8.7 Magnesium 1.8
[2021-01-14 11:14] VITALS: BP 132/78; PULSE 67; RESP 19; TEMP 36.8; O2SAT 97
[2021-01-14] MEDS: Normal Saline Flush 10 ML SYR IVP ×4 (12:40→22:24)
[2021-01-14] MEDS: Normal Saline 500 ML 30 ML IV ×2 (12:41→19:55)
--- NOTE | 2021-01-14 14:00 | DI.CT_ITS ---
EXAM: CT ABDOMEN PELVIS W CLINICAL HISTORY: f/u abscess. TECHNIQUE: Imaging Protocol: Axial computed tomography images with coronal and sagittal reformatted images were created and reviewed CONTRAST MATERIAL: Intravenous: Omnipaque 100cc Oral: Yes COMPARISON: CT CT ABDOMEN PELVIS W from 01/08/2021 FINDINGS: VISUALIZED LUNG BASES: No nodules nor pleural effusions evident. ABDOMEN: There is now a pigtail drainage catheter in the upper right iliac fossa servicing the previously desc ribed area of abscess and the size of the abscess at this location has almost completely resolved.. However, the fluid collection-probable smaller abscess in the dependent aspect of the pelvis interpos ed between the seminal vesicles and rectum is still present, presently measuring 3.2 cm wide by 1.8 c m AP, perhaps minimally decreased in size but still present. There are no new additional abscesses i n the abdomen and pelvis. There is no ascites. There has also been significant improvement in the previously present bowel obstruction pattern. There is abnormal density in the proximal stomach just beyond the GE junction noted. This requires e ndoscopy to rule out malignancy. LIVER: There are no obvious focal hepatic lesions evident. No evidence of intrahepatic abscess. No air-gas seen within intrahepatic portal veins. GALLBLADDER/BILIARY: No obvious gallbladder pathology. CBD is not dilated. PANCREAS: No evidence of pancreatic mass nor dilatation of the pancreatic duct. SPLEEN: Spleen is not enlarged. No obvious intrasplenic lesions. Splenic and portal veins are paten t. ADRENALS: Multiple calcifications are again noted in the right adrenal gland. A single calcification is noted in the opposite-left adrenal gland. There are no ominous adrenal masses KIDNEYS:There is a small benign cyst in the superior pole of the right kidney again noted measuring 7 millimeters. No other significant focal renal findings. No calculi nor hydronephrosis. No hydrour eter. Urinary bladder is not distended. There is no gas in the urinary bladder.. ABDOMINAL AORTA: Abdominal aorta is not enlarged. LYMPH NODES:There is no prominent retroperitineal nor paraaortic adenopathy. ABDOMINAL WALL/GI: There is anterior abdominal wall umbilical hernia which contains small amount of p reviously described fluid, unchanged. PELVIS: GI: As above.No evidence of sigmoid diverticulitis. LYMPH NODES: There is no intrapelvic nor inguinal adenopathy. REPRODUCTIVE: Prostate size upper normal. URINARY BLADDER: Not distended. No gas therein to suggest fistulous communication. No calculi. OSSEOUS: No significant osseous lesions. IMPRESSION: 1. Compared to prior CT scan 01/08/2021 there has been interval placement of right iliac fossa pigtai l drainage catheter and there has been almost complete resolution of the abscess at this level. [place], the previously described other fluid collection-probable abscess in the deep pelvis interposed b etween the seminal vesicles and rectum is again noted. 2. Previously present small-bowel obstruction has mostly resolved. 3. Small fluid containing umbilical hernia is again noted, unchanged. Adrenal calcifications are again noted RADIATION DOSE DELIVERED: 1,370.59mGy.cm Total DLP DATA REPOSITORY: All CT scans at this facility are submitted to the National Radiology Data Registry (NRDR) Dose Index Registry (DIR) with the [employer] (A[employer]). RADIATION OPTIMIZATION: All CT scans at this facility use at least one of these dose optimization te chniques: automated exposure control; mA and/or kV adjustment per patient size (includes targeted exa ms where dose is matched to clinical indication); or iterative reconstruction.
[2021-01-14 15:43] VITALS: BP 117/78; PULSE 67; RESP 18; TEMP 36.3; O2SAT 97
[2021-01-14] MEDS: Pantoprazole 40 MG VIAL IVP (18:50)
[2021-01-14 19:47] VITALS: BP 123/70; PULSE 64; RESP 18; TEMP 36.1; O2SAT 97
[2021-01-14 23:43] VITALS: BP 112/83; PULSE 63; RESP 18; TEMP 36.6; O2SAT 98
[2021-01-15 02:55] VITALS: BP 127/83; PULSE 55; RESP 16; TEMP 36.3; O2SAT 98
[2021-01-15] MEDS: Levothyroxine 75 MCG TAB PO (05:06)
[2021-01-15] MEDS: PIPERACILLIN/TAZO 4.5 GM in Normal Saline 100 ML IVPB ×3 (05:07→20:09)
[2021-01-15] MEDS: Normal Saline Flush 10 ML SYR IVP ×4 (05:07→20:10)
[2021-01-15 07:47] VITALS: BP 119/73; PULSE 60; RESP 19; TEMP 36; O2SAT 97
[2021-01-15 11:24] VITALS: BP 153/75; PULSE 69; RESP 19; TEMP 35.9; O2SAT 97
[2021-01-15 15:53] VITALS: BP 130/74; PULSE 63; RESP 19; TEMP 36.5; O2SAT 98
--- NOTE | 2021-01-15 17:55 | PDOC.CMPRO ---
- If Service Date Differs Date of service: 01/15/21 Time of Service: 17:55 Care Management Progress Note S/O: Johnathon was walking the halls today, and CM greeted him in the miles. CM later met with him in his room, and he reported that he was hoping to return home today or tomorrow. CM discussed HH services, as it was recommended by the provider. He stated that he does not feel that he needs any services at home at this time. CM will continue to follow. A: 60 year old male admitted to [facility] 01/08/21 for Ileus P: Johnathon will will likely return home with no new services. He will follow up with his community providers and plan of care and transport with family. CM will continue to support patient and assess for discharge planning needs.
[2021-01-15] MEDS: Pantoprazole 40 MG VIAL IVP (17:56)
[2021-01-15] MEDS: Normal Saline 500 ML 30 ML IV (20:09)
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
[2021-01-15 23:54] VITALS: BP 128/77; PULSE 50; RESP 17; TEMP 36.1; O2SAT 97
[2021-01-16] MEDS: PIPERACILLIN/TAZO 4.5 GM in Normal Saline 100 ML IVPB (04:07)
[2021-01-16] MEDS: Levothyroxine 75 MCG TAB PO (05:50)
[2021-01-16 07:35] VITALS: BP 120/75; PULSE 63; RESP 18; TEMP 36.5; O2SAT 96
--- NOTE | 2021-01-16 07:54 | W.PM.PROGNOT ---
Date of Service Date of service: 01/16/21 Time of Service: 07:54 Assessment and Plan Assessment and plan (1) MORAIMA (acute kidney injury): Status: Acute (2) ATN (acute tubular necrosis): Status: Acute Assessment and plan: He is making good urine (3) Fluid collection at surgical site: Status: Deleted Assessment and plan: Mild discomfort around the site where the drain was. Qualifiers: Encounter type: subsequent encounter Qualified Code(s): T88.8XXD - Other specified complications of surgical and medical care, not elsewhere classified, subsequent encounter (4) Hypothyroidism: Status: Acute Assessment and plan: Continue Levothyroxin Qualifiers: Hypothyroidism type: unspecified Qualified Code(s): E03.9 - Hypothyroidism, unspecified (5) Hypertension: Status: Acute Qualifiers: Hypertension type: essential hypertension Qualified Code(s): I10 - Essential (primary) hypertension (6) Acute perforated appendicitis: Status: Acute Assessment and plan: Will continue PO antibiotics upon d/c for fluid collections. D/C later today. (7) Ileus: Status: Acute Assessment and plan: Resolved I spent 25 minutes in reviewing the record, seeing the patient and documenting in the medical record. Subjective Subjective Interval history since last seen: Patient is feeling great. He reports soreness around his drain site. Exam Const General: cooperative, healthy appearing and comfortable Orientation: alert and oriented x3 Resp Effort & Inspection: normal respiratory effort, no audible wheezes and no cough Objective Last Vital Signs Temp 36.5 C 01/16/21 07:35 Pulse 63 01/16/21 07:35 Resp 18 01/16/21 07:35 BP 120/75 01/16/21 07:35 Pulse Ox 96 01/16/21 07:35
--- NOTE | 2021-01-16 18:18 | PDOC.CMDIS ---
- If Service Date Differs Date of service: 01/16/21 Time of Service: 18:18 LACE Index Scoring Tool - Questions: Length of Stay (in days): 7 - 13 Acuity (Admit via E.D.?): Yes Comorbidities: Any Tumor E.D. Visits: 2 - Answers: Total Score: 12 Risk of Readmission: High Risk Care Management Discharge Reason for Hospitalization: Ileus Discharge Plan: Ray will return home with no new services. He will follow up with his community providers and plan of care and transport with family. Patient/Family Education Needs: Discharge plan, limitations, follow up plan, Ask Me Three
== END 2021-01-16 10:34 | disposition home or self-care (01) | DRG 862 ==
LOC: ER 17:22 → MS 17:31
PROVIDERS: Surgery; Admitting Provider Surgery; Emergency Provider Student in an Organized Health Care Education/Training Program; PCP Nurse Practitioner; Visit Provider Surgery
DX: T81.43XA Infection following a procedure, organ and space surgical site, initial encounter (principal); N17.0 Acute kidney failure with tubular necrosis; K65.1 Peritoneal abscess; K56.7 Ileus, unspecified; E03.9 Hypothyroidism, unspecified; I10 Essential (primary) hypertension; R73.03 Prediabetes; I95.9 Hypotension, unspecified; Z85.818 Personal history of malignant neoplasm of other sites of lip, oral cavity, and pharynx; K76.0 Fatty (change of) liver, not elsewhere classified; H91.90 Unspecified hearing loss, unspecified ear; E89.0 Postprocedural hypothyroidism; R97.20 Elevated prostate specific antigen [PSA]
CPT/HCPCS: 36415; 80048; 80053; 83690; 86850; 86900; 86901; 87040; 96361; 96365; 99223; 99232; 99233; 99238; 99285; 74018; 74177; 83605; 83735; 84484; 85025; 85610; 86140; J0131; J1650; J2543; J3490; Q9967

== ENCOUNTER 2021-01-22 08:27 | Outpatient (CLI) | payer BC, SELFPAY ==
[2021-01-22 10:46] LABS: Source Nasal/Nares
[2021-01-22 14:32] LABS: COVID-19 PCR Negative (Negative)
== END 2021-01-22 08:28 | disposition home or self-care (01) ==
PROVIDERS: PCP Nurse Practitioner; Visit Provider Family Medicine
DX: Z20.822 Contact with and (suspected) exposure to COVID-19 (principal)
CPT/HCPCS: 87635

== ENCOUNTER 2021-05-07 02:51 | Outpatient (CLI) | payer BC, SELFPAY ==
[2021-05-07 12:30] LABS: Abs Immature Grans 0.03 10^3/uL (0.0-0.06); Absolute Basophil Count 0.03 10^3/uL (0.0-0.2); Absolute Eosinophil Count 0.14 10^3/uL (0.0-0.7); Absolute Lymphocyte Count 0.73 10^3/uL (1.2-3.4); Absolute Neutrophil Count 5.87 10^3/uL (1.2-6.7); Basophils % 0.4; Eosinophils % 1.9; HCT 39.4 % (40.0-50.0); HGB 13.4 g/dL (13.5-17.5); Immature Grans % 0.4; Lymphocytes % 9.9; MCH 32.7 pg (27.0-33.0); MCV 96.1 fL (80-95); MPV 8.9 fL (8.0-11.0); Monocytes % 8.1; Neutrophils % 79.3; Nucleated RBC 0 %; Platelet Count 183 10^3/uL (130-400); RDW 11.9 % (11.8-14.1); RDW-SD 41.9 fL
[2021-05-07 12:46] LABS: ALT 42 U/L (16-63); AST 24 U/L (15-37); Albumin 4.1 g/dL (3.4-5.0); Alkaline Phosphatase 79 U/L (46-116); Bilirubin, Direct 0.3 mg/dL (0.0-0.2); Bilirubin, Total 1.4 mg/dL (0.2-1.0); Total Protein 7.7 g/dL (6.4-8.2)
[2021-05-07 13:15] LABS: C-Reactive Protein 0.77 mg/dL (0.0-0.3)
[2021-05-10 16:18] LABS: Testosterone, Total 302 ng/dL (240-950)
== END 2021-05-07 02:52 | disposition home or self-care (01) ==
LOC: LBO 02:52
PROVIDERS: Surgery; PCP Nurse Practitioner; Visit Provider Radiology Radiation Oncology
DX: C61 Malignant neoplasm of prostate (principal); T81.43XA Infection following a procedure, organ and space surgical site, initial encounter
CPT/HCPCS: 36415; 80076; 84153; 84403; 85025; 86140

== ENCOUNTER 2021-06-05 13:25 | Outpatient (CLI) | payer BC, SELFPAY ==
[2021-06-05 14:32] LABS: ALT 76 U/L (16-63); AST 43 U/L (15-37); Albumin 4.4 g/dL (3.4-5.0); Alkaline Phosphatase 79 U/L (46-116); Bilirubin, Direct 0.3 mg/dL (0.0-0.2); Bilirubin, Total 1.4 mg/dL (0.2-1.0); Total Protein 7.4 g/dL (6.4-8.2)
[2021-06-08 12:05] LABS: PSA, Ultrasensitive 3.3 ng/mL (<= 4.5)
[2021-06-10 14:13] LABS: Testosterone, Total 27 ng/dL (240-950)
== END 2021-06-05 13:26 | disposition home or self-care (01) ==
LOC: LBO 13:25
PROVIDERS: PCP Nurse Practitioner; Visit Provider Radiology Radiation Oncology
DX: C61 Malignant neoplasm of prostate (principal)
CPT/HCPCS: 36415; 80076; 84153; 84403

== ENCOUNTER 2021-06-10 10:59 | Outpatient (CLI) | payer BC, SELFPAY ==
[2021-06-10 14:10] LABS: ALT 73 U/L (16-63); AST 45 U/L (15-37); Albumin 4.5 g/dL (3.4-5.0); Alkaline Phosphatase 75 U/L (46-116); Bilirubin, Direct 0.4 mg/dL (0.0-0.2); Bilirubin, Total 1.6 mg/dL (0.2-1.0); Total Protein 7.5 g/dL (6.4-8.2)
[2021-06-11 17:52] LABS: PSA, Ultrasensitive 2.4 ng/mL (<= 4.5)
[2021-06-14 11:32] LABS: Testosterone, Total 19 ng/dL (240-950)
== END 2021-06-10 11:00 | disposition home or self-care (01) ==
LOC: LBO 11:00
PROVIDERS: PCP Nurse Practitioner; Visit Provider Radiology Radiation Oncology
DX: C61 Malignant neoplasm of prostate (principal)
CPT/HCPCS: 36415; 80076; 84153; 84403

== ENCOUNTER 2021-10-13 03:11 | Outpatient (CLI) | payer BC, SELFPAY ==
[2021-10-13 10:12] LABS: ALT 86 U/L (16-63); AST 39 U/L (15-37); Albumin 4.4 g/dL (3.4-5.0); Alkaline Phosphatase 50 U/L (46-116); Bilirubin, Direct 0.3 mg/dL (0.0-0.2); Bilirubin, Total 1.1 mg/dL (0.2-1.0); Total Protein 7.2 g/dL (6.4-8.2)
[2021-10-14 22:47] LABS: PSA, Ultrasensitive 0.31 ng/mL (<= 4.5)
[2021-10-16 16:55] LABS: Testosterone, Total 16 ng/dL (240-950)
== END 2021-10-13 03:12 | disposition home or self-care (01) ==
LOC: LBO 03:11
PROVIDERS: PCP Nurse Practitioner; Visit Provider Radiology Radiation Oncology
DX: C61 Malignant neoplasm of prostate (principal)
CPT/HCPCS: 36415; 80076; 84153; 84403

== ENCOUNTER 2021-12-01 02:15 | Outpatient (CLI) | payer BC, SELFPAY ==
[2021-12-01 09:27] LABS: Hemoglobin A1C 5.6 % (<5.7)
[2021-12-01 10:43] LABS: Anion Gap 10.2 mmol/L (3-11); BUN 19 mg/dL (7-18); CO2 27.8 mmol/L (21.0-32.0); CREATININE 0.9 mg/dL (0.70-1.30); Calcium 9.1 mg/dL (8.5-10.1); Calculated LDL 59 mg/dL (<100); Chloride 101 mmol/L (98-107); Cholesterol 123 mg/dL (<200); Glucose 98 mg/dL (74-106); HDL Cholesterol 53 mg/dL (40-60); Potassium 4.1 mmol/L (3.5-5.1); Sodium 139 mmol/L (136-145); Triglyceride 56 mg/dL (<150)
== END 2021-12-01 02:16 | disposition home or self-care (01) ==
LOC: LBO 02:15
PROVIDERS: PCP Nurse Practitioner; Visit Provider Nurse Practitioner
DX: I10 Essential (primary) hypertension (principal); E78.5 Hyperlipidemia, unspecified; E03.9 Hypothyroidism, unspecified; R73.03 Prediabetes
CPT/HCPCS: 36415; 80048; 80061; 83036; 84443

== ENCOUNTER 2022-01-13 02:37 | Outpatient (CLI) | payer BC, SELFPAY ==
[2022-01-14 20:28] LABS: PSA, Ultrasensitive 0.23 ng/mL (<= 4.5)
[2022-01-16 12:11] LABS: Testosterone, Total 11 ng/dL (240-950)
== END 2022-01-13 02:38 | disposition home or self-care (01) ==
LOC: LBO 02:37
PROVIDERS: PCP Nurse Practitioner; Visit Provider Radiology Radiation Oncology
DX: C61 Malignant neoplasm of prostate (principal)
CPT/HCPCS: 36415; 84153; 84403

== ENCOUNTER 2022-01-21 11:07 | Outpatient (RCR) | payer BC, SELFPAY ==
[2022-01-21 12:07] LABS: Absolute Basophil Count 0.03 10^3/uL (0.0-0.2); Absolute Eosinophil Count 0.07 10^3/uL (0.0-0.7); Absolute Lymphocyte Count 0.56 10^3/uL (1.2-3.4); Absolute Monocyte Count 0.38 10^3/uL (0.1-0.8); Absolute Neutrophil Count 1.97 10^3/uL (1.2-6.7); Eosinophils % 2.3; HCT 34.2 % (40.0-50.0); HGB 11.7 g/dL (13.5-17.5); Lymphocytes % 18.6; MCH 33.7 pg (27.0-33.0); MCHC 34.2 % (32.0-36.0); MCV 98.6 fL (80-95); MPV 8.9 fL (8.0-11.0); Monocytes % 12.6; Neutrophils % 65.5; Nucleated RBC 0 %; Platelet Count 170 10^3/uL (130-400); RBC 3.47 10^6/uL (4.36-5.78); RDW-SD 43.7 fL; WBC 3.01 10^3/uL (4.4-10.8)
[2022-01-21 12:24] LABS: ALT 76 U/L (16-63); AST 37 U/L (15-37); Albumin 4.6 g/dL (3.4-5.0); Alkaline Phosphatase 65 U/L (46-116); Anion Gap 9.1 mmol/L (3-11); BUN 21 mg/dL (7-18); Bilirubin, Total 1.4 mg/dL (0.2-1.0); CO2 27.9 mmol/L (21.0-32.0); CREATININE 0.9 mg/dL (0.70-1.30); Calcium 9.3 mg/dL (8.5-10.1); Chloride 101 mmol/L (98-107); Glucose 104 mg/dL (74-106); Potassium 3.9 mmol/L (3.5-5.1); Sodium 138 mmol/L (136-145); Total Protein 7.8 g/dL (6.4-8.2)
== END 2022-01-28 23:59 | disposition home or self-care (01) ==
LOC: INF 11:07
PROVIDERS: Nurse Practitioner Family; PCP Nurse Practitioner; Visit Provider Radiology Radiation Oncology
DX: C61 Malignant neoplasm of prostate (principal)
CPT/HCPCS: 36415; 80053; 85025

== ENCOUNTER 2022-01-29 02:00 | Outpatient (CLI) | payer BC, SELFPAY ==
[2022-01-29 11:41] LABS: Source Nasal/Nares
[2022-01-29 14:08] LABS: COVID-19 PCR Negative (Negative)
== END 2022-01-29 02:01 | disposition home or self-care (01) ==
PROVIDERS: PCP Nurse Practitioner; Visit Provider Surgery
DX: Z20.822 Contact with and (suspected) exposure to COVID-19 (principal)
CPT/HCPCS: 87635

== ENCOUNTER 2022-02-01 09:05 | Day surgery (SDC) | payer BC, SELFPAY ==
--- NOTE | 2022-02-01 06:44 | W.COLOREPORT ---
Colonoscopy Report Date of procedure: 02/01/22 Pre-op diagnosis general: Colon Cancer Screening/ Hx of polyps Post-op diagnosis procedure note: other (polyps) Procedure: Colonoscopy with polypectomy Surgeon: Ayaka Daly Anesthesia Type: General:No Airway Complications: None Disposition: same day Indications: Mr. Shea is a pleasant 61-year-old gentleman who is here today to discuss another colonoscopy.? His last colonoscopy was in 2014 and he was noted to have a tubular adenoma.? He also has a family history of colon cancer in his brother and father.? The procedure was described in detail using a picture.? Risks, benefits and complications were reviewed in layman's terms. Risks, benefits and complications have been reviewed. Complications include but are not limited to bleeding, pain, perforation, missed small lesion/polyp, sore throat, aspiration and adverse reaction to the medications. Questions were entertained and answered to their satisfaction and they wished to proceed. No guarantees were given or implied. Proceed with colonoscopy under sedation Prep: Miralax/Dulcolax Procedure Start Time: 11:12 Procedure End Time: 11:38 Retraction Time: 12 minutes Findings: 3 small polyps Procedure Description: After informed consent was obtained the patient was taken to the procedure room and placed in a left decubitous position. Monitors were applied and a time out was done. The patients name, date of , procedure, allergies to medications and metal in their body was reviewed. The patient was then sedated. Once sedated and comfortable a rectal exam was done. External exam was normal. Internal exam revealed a normal sphincter tone and no palpable masses. Prostate was not felt. The scope was then introduced and retro-flexed. No internal hemorrhoids, polyps or masses were identified on retro-flexion. The scope was then advanced to the cecum without difficulty. The ileocecal vlave and appendiceal orifice were identified. The prep was good. The scope was then slowly retracted over 12 minutes back into the rectum. Polyps were removed with cold forceps in the cecum, ascending colon and descending colon. There was no diverticulosis noted. The scope was removed and the patient was woken up and taken back to Same day surgery in stable condition. The patient tolerated the procedure well and there were no immediate complications. Follow up: The patient should follow up in 5 years unless they develop changes in bowel habits or other new gastrointestinal complaints.
--- NOTE | 2022-02-01 06:45 | W.PM.DSUDISC ---
Discharge Plan Disposition Patient Disposition: HOME Condition: Good Discharge Details Reason For Visit: Colonoscopy Attending Provider: Ayaka Daly Primary Care Provider: Brandi Mak Home Meds and New Rx's Prescriptions: Continued ibuprofen 600 mg tablet 600 mg PO Q6H PRN Qty: 60 5RF cholecalciferol (vitamin D3) 25 mcg (1,000 unit) capsule 25 mcg PO DAILY 0RF One-A-Day Maximum Formula Tablet 1 tab PO DAILY 0RF atorvastatin 40 mg tablet 40 mg PO QPM Qty: 90 4RF levothyroxine 75 mcg tablet 75 mcg PO DAILY Qty: 90 4RF lisinopril 40 mg tablet 40 mg PO DAILY Qty: 90 4RF Hold Instructions: Home Medication placed on hold at Doctor's office tamsulosin 0.4 mg capsule 0.4 mg PO DAILY 0RF omega 7-qxo-vsy-fish oil [Fish Oil] 60-90-500 mg capsule 1 cap PO DAILY 0RF sildenafil [Viagra] 100 mg tablet 100 mg PO PRN Qty: 30 3RF Rx Instructions: take one hour prior to intercourse diclofenac sodium [Voltaren] 1 % gel 2 g topical QID Qty: 100 11RF Rx Instructions: apply to single elbow, wrist or hand; for hand includes palm/fingers/back of hand Discontinued bisacodyl [Dulcolax (bisacodyl)] 5 mg tablet,delayed release (DR/EC) 5 mg PO ONCE Qty: 4 0RF Rx Instructions: Take according to provider's instructions for colonoscopy prep. polyethylene glycol 3350 17 gram/dose powder 17 g PO ONCE Qty: 238 0RF Rx Instructions: To be taken as directed by prescriber's office for colonoscopy prep. Discharge Instructions Instructions: Colorectal Polyps (DC) Additional Instructions: Findings: 3 polyps Follow up: 5 years Please call if you develop: fevers >101.5 Nausea or Vomiting Abdominal pain that is not transient Rectal bleeding that is more then a tbsp A hard abdomen and inability to pass gas DAY SURGERY UNIT POST ENDOSCOPY INSTRUCTIONS Instructions for everyone who is given Anesthesia: For your safety, please do the following for the next 24 Hours: a. Do not drive or operate dangerous equipment b. Do not drink alcohol beverages or use any recreational drugs for the first 24 hours or while taking pain medications. The medications in your body may have a reaction that can be dangerous. c. Do not make any important decisions or sign any important papers 1. Generally there are no restrictions on your activity after a day or so has gone by, but you may feel a bit fatigued for a few days. 2. After you arrive home you may have a light meal and return to a normal diet as you can tolerate it without feeling sick to your stomach. 3. After surgery, you may feel pain or discomfort. This should be only transient, but if it persists please contact your doctor. 4. If there are any questions regarding the findings of your procedure, please feel free to contact your doctor. 6. If you are unable to contact your doctor with a problem, contact the hospital at [phone]. 7. Continue all your regular medications unless directed otherwise. I understand the above instructions and have no questions. Signature of Patient or Responsible Adult Escort Date/Time Name of Responsible Adult Escort Signature of Nurse Date/Time Activity:: Activity as Tolerated Diet:: As Tolerated Discharge Orders Discharge Orders: Discharge Order (Routine); Ordered 02/01/22 Ordered By: Ayaka Daly
[2022-02-01 09:33] VITALS: BP 117/89; PULSE 60; RESP 16; TEMP 36; O2SAT 99
[2022-02-01] MEDS: Lactated Ringers 1,000 ML 80 ML IV (09:53)
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
[2022-02-01 10:04] VITALS: BMI 32.5
--- NOTE | 2022-02-01 11:25 | BOWEL_PTH ---
PATIENT: Johnathon Shea V LOC: [facility] U#:[id number] AGE/SX: 61/M ROOM: RE02/01/[address]: Ayaka Daly MD : 1960 BED: DIS: 02/01/2022 SPEC #: [id number] RECD: 02/01/22 12:57 STATUS: NATALI RE #: [id number] MATHEUS: 02/01/22 11:[address]: Ayaka Daly DEPT: Surgical Specimen RECD BY: Yenny Mendez ENTERED: 02/01/22 12:59 SP TYPE: Bowel OTHR DR: Brandi Mak, PhD [employer] Tissues: 1 - BIOPSY BOWEL 2 - BIOPSY BOWEL 3 - BIOPSY BOWEL Procedures: GROSS AND MICRO LEVEL 4 Comments: [id number]
[2022-02-01 12:14] VITALS: BP 126/91; PULSE 54; RESP 16; TEMP 36; O2SAT 99
--- NOTE | 2022-02-01 12:18 | W.ANESPOSTOP ---
Postoperative Evaluation Date, Time and Location Date Performed: 02/01/22 Time Performed: 12:18 Patient Location: Day Surgery Unit Vital Signs Most Recent Imported Vital Signs: Most Recent Vital Signs Temp Pulse Resp BP Pulse Ox 36 C L 54 L 16 126/91 H 99 02/01/22 12:14 02/01/22 12:14 02/01/22 12:14 02/01/22 12:14 02/01/22 12:14 Pain Score Most Recent Pain Score: Most Recent Pain Score Pain Level 0 02/01/22 12:14 Assessment Mental Status: Awake (Alert & Oriented to Patient Baseline) Airway and Respiratory Function: Patent airway with normal (patient baseline) respiratory exam Cardiovascular Function: Hemodynamically Stable Hydration Status: Adequately Hydrated Nausea & Vomiting: No Nausea or Vomiting Pain: Pt. Denies Any Pain Peripheral Nerve Block: Patient did not receive a nerve block
== END 2022-02-01 12:40 | disposition home or self-care (01) ==
LOC: SUR 09:05
PROVIDERS: PCP Nurse Practitioner; Visit Provider Surgery
PROC: 0DJD8ZZ Inspection of Lower Intestinal Tract, Via Natural or Artificial Opening Endoscopic (ICD-10-PCS; CPT 45378; principal; 2022-02-01 10:45)
DX: Z12.11 Encounter for screening for malignant neoplasm of colon (principal); Z86.010 Personal history of colon polyps; Z80.0 Family history of malignant neoplasm of digestive organs; K63.5 Polyp of colon
CPT/HCPCS: 45380; 88305

== ENCOUNTER 2022-04-22 03:30 | Outpatient (CLI) | payer BC, SELFPAY ==
[2022-04-22 12:21] LABS: Abs Immature Grans 0.01 10^3/uL (0.0-0.06); Absolute Basophil Count 0.02 10^3/uL (0.0-0.2); Absolute Eosinophil Count 0.07 10^3/uL (0.0-0.7); Absolute Lymphocyte Count 0.52 10^3/uL (1.2-3.4); Absolute Monocyte Count 0.44 10^3/uL (0.1-0.8); Basophils % 0.5; Eosinophils % 1.8; HCT 32.3 % (40.0-50.0); HGB 11.4 g/dL (13.5-17.5); Immature Grans % 0.3; Lymphocytes % 13.1; MCH 34.4 pg (27.0-33.0); MCHC 35.3 % (32.0-36.0); MCV 98 fL (80-95); MPV 9.1 fL (8.0-11.0); Monocytes % 11.1; Neutrophils % 73.2; Platelet Count 189 10^3/uL (130-400); RBC 3.31 10^6/uL (4.36-5.78); RDW 11.7 % (11.8-14.1); RDW-SD 42.4 fL; WBC 3.96 10^3/uL (4.4-10.8)
[2022-04-22 12:58] LABS: ALT 69 U/L (16-63); AST 39 U/L (15-37); Albumin 4.2 g/dL (3.4-5.0); Alkaline Phosphatase 63 U/L (46-116); Anion Gap 7.7 mmol/L (3-11); BUN 18 mg/dL (7-18); Bilirubin, Total 1.5 mg/dL (0.2-1.0); CO2 28.3 mmol/L (21.0-32.0); CREATININE 0.9 mg/dL (0.70-1.30); Calcium 9.7 mg/dL (8.5-10.1); Chloride 100 mmol/L (98-107); Glucose 104 mg/dL (74-106); Potassium 3.9 mmol/L (3.5-5.1); Sodium 136 mmol/L (136-145); Total Protein 7.3 g/dL (6.4-8.2)
[2022-04-23 17:51] LABS: PSA, Ultrasensitive 0.85 ng/mL (<= 4.5)
[2022-04-27 09:22] LABS: Testosterone, Total 11 ng/dL (240-950)
== END 2022-04-22 03:31 | disposition home or self-care (01) ==
LOC: LBO 03:30
PROVIDERS: PCP Nurse Practitioner; Visit Provider Nurse Practitioner Family
DX: C61 Malignant neoplasm of prostate (principal)
CPT/HCPCS: 36415; 80053; 84153; 84403; 85025

== ENCOUNTER 2022-05-10 07:33 | Inpatient (IN) | payer BC, SELFPAY ==
[2022-05-10] VITALS (31 sets, daily range): BP systolic 133–162; BP diastolic 75–91; PULSE 52–62; RESP 16–20; TEMP 36.3–36.7; O2SAT 96–100
--- NOTE | 2022-05-10 08:15 | DI.CT_ITS ---
Exam(s) CT THORAX ABD/PEL CTA EXAM: CT THORAX ABD/PEL CTA CLINICAL HISTORY: abdominal pain, back pain. TECHNIQUE: Imaging Protocol: Axial computed tomography images with coronal and sagittal reformatted images were created and reviewed CONTRAST MATERIAL: Intravenous: Omnipaque 350 Contrast volume:100 ml Oral: None COMPARISON: CT CT ABDOMEN PELVIS W from 01/14/2021 FINDINGS: CHEST: AORTA: The diameter of the ascending thoracic aorta is 3.6 cm and there is no evidence of dissection. Appearance of the junction of the aortic arch and descending thoracic aorta is that of pseudo-coarc tation. Diameter of the proximal descending thoracic aorta is prominent measuring 3.7 cm. Diameter of the descending thoracic aorta is slightly prominent, measuring 3 cm mid aspect and 2.9 cm distally . There is no evidence of aortic dissection nor pseudoaneurysm nor other acute aortic wall abnormali ty. Abdominal aorta diameter is within normal limits. Aortoiliac segments are patent as are the com mon femoral arteries. No dissection. No significant atherosclerotic plaque within the abdominal aor ta nor within the aortoiliac segments and there is no evidence of significant disease at the aortic b ifurcation. Celiac and superior mesenteric arteries are patent as is the inferior mesenteric artery. Renal arteries are patent with no significant ostial stenosis. LUNGS: No infiltrates nor significant nodules. No pleural effusions. No significant focal findings in the trachea and mainstem bronchi.. MEDIASTINUM: There is no hilar nor mediastinal adenopathy. Visualized thyroid unremarkable. CARDIAC: Heart size upper normal. No pericardial effusion. AORTA: As abovethere is no evidence of aortic dissection. ABDOMEN: There is no ascites. LIVER: Liver is hypodense implying steatosis. GALLBLADDER/BILIARY: Gallbladder is distended. No obvious gallbladder wall edema. No calcified gall stones seen CBD diameter is upper normal. PANCREAS: No evidence of pancreatic mass nor dilatation of the pancreatic duct. SPLEEN: Spleen is not enlarged. There are no intrasplenic lesions. Splenic and portal veins are baron nt. ADRENALS: Right adrenal gland calcifications again noted. No new mass. Left adrenal gland remains u nremarkable. KIDNEYS: Small cyst in the superior pole of the right kidney again noted. Measures less than 1 cm. No calculi nor hydronephrosis. No solid renal masses. ABDOMINAL AORTA: The abdominal aorta is not enlarged. LYMPH NODES: There is no retroperitoneal nor para-aortic adenopathy. No obvious mesenteric masses. ABDOMINAL WALL: No evidence of significant anterior abdominal wall hernia. GI: There is no evidence of bowel obstruction, free air, nor abscess.Previously present right-side pi gtail drainage catheter has been removed. No remaining abscess at this time. No bowel obstruction. PELVIS: LYMPH NODES: There is no intrapelvic nor inguinal adenopathy. GI: Appendix is surgically absent.There are few sigmoid diverticuli. No diverticulitis. URINARY BLADDER: No calculi nor masses evident REPRODUCTIVE: Radiation seeds are now noted in the prostate gland. Prostate size normal. Seminal ve sicles unremarkable. OSSEOUS: No significant osseous lesions. Advanced disc space narrowing at L4-5 and L5-S1 levels noted. IMPRESSION: 1. No evidence of aortic dissection, as per request. See aortic discussion above. However, gallblad saurabh is distended. Clinically indicated gallbladder ultrasound could be performed. 2. No evidence of abdominal aortic aneurysm. However, the descending thoracic aorta is slightly prom inent in caliber and the aortic arch-proximal descending thoracic aorta configuration is that of pseu do-coarctation. 3. The previously present abscess in the right-side of the abdomen has resolved and the pigtail drain age catheter previously present is no longer seen. 4. There are now radiation seeds in the prostate gland, not previously present. No obturator adenopa thy nor adenopathy elsewhere in the pelvis. No blastic nor lytic lesions identified Called to ER physician. RADIATION DOSE DELIVERED: 1,388.19mGy.cm Total DLP DATA REPOSITORY: All CT scans at this facility are submitted to the National Radiology Data Registry (NRDR) Dose Index Registry (DIR) with the [employer] ([employer]). RADIATION OPTIMIZATION: All CT scans at this facility use at least one of these dose optimization te chniques: automated exposure control; mA and/or kV adjustment per patient size (includes targeted exa ms where dose is matched to clinical indication); or iterative reconstruction.
--- NOTE | 2022-05-10 08:15 | RT.EKG_ITS ---
APPROVED REPORT Exam: Resting ECG Reason for Exam: upper abdominal pain Patient Location: E HR:54 bpm ECG Measurements Heart Rate 54 AXIS TX 149 P 43 QRSd 111 QRS -19 QT 452 T 21 QTc 429 Conclusion Sinus bradycardia...rate< 60 sinus bradycardia 54, normal axis, no STEMI, nondiagnostic EKG
[2022-05-10 08:48] LABS: Absolute Basophil Count 0.01 10^3/uL (0.0-0.2); Absolute Eosinophil Count 0.03 10^3/uL (0.0-0.7); Absolute Lymphocyte Count 0.26 10^3/uL (1.2-3.4); Absolute Monocyte Count 0.42 10^3/uL (0.1-0.8); Absolute Neutrophil Count 2.41 10^3/uL (1.2-6.7); Basophils % 0.3; HCT 35.1 % (40.0-50.0); Lymphocytes % 8.3; MCH 33.4 pg (27.0-33.0); MCHC 34.2 % (32.0-36.0); MCV 98 fL (80-95); MPV 9.1 fL (8.0-11.0); Monocytes % 13.4; Platelet Count 204 10^3/uL (130-400); RBC 3.59 10^6/uL (4.36-5.78); RDW 11.9 % (11.8-14.1); RDW-SD 43.1 fL; WBC 3.13 10^3/uL (4.4-10.8)
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
[2022-05-10 08:58] LABS: ALT 440 U/L (16-63); AST 303 U/L (15-37); Albumin 4.1 g/dL (3.4-5.0); Alkaline Phosphatase 283 U/L (46-116); Anion Gap 8.5 mmol/L (3-11); BUN 20 mg/dL (7-18); Bilirubin, Total 4.2 mg/dL (0.2-1.0); CO2 27.5 mmol/L (21.0-32.0); CREATININE 0.9 mg/dL (0.70-1.30); Calcium 9.4 mg/dL (8.5-10.1); Chloride 101 mmol/L (98-107); Glucose 112 mg/dL (74-106); Lipase 343 U/L (73-393); Potassium 3.9 mmol/L (3.5-5.1); Sodium 137 mmol/L (136-145); Total Protein 7.4 g/dL (6.4-8.2); Troponin I < 50 ng/L (<or=60)
[2022-05-10 09:10] LABS: Bilirubin Small (Negative); Blood Negative (Negative); Clarity Sl Cloudy (Clear); Glucose Negative (Negative); Ketones 15 mg/dL (Negative); Leukocyte Esterase Negative (Negative); Nitrite Negative (Negative); pH 7.5 (5-8)
[2022-05-10] MEDS: Omnipaque 350 MG/ML 100 ML BTL IJ (09:27)
--- NOTE | 2022-05-10 10:00 | DI.US_ITS ---
Exam(s) US ABDOMEN LIMITED EXAM: US ABDOMEN LIMITED CLINICAL HISTORY: upper abdominal pain, enlarged GB on CT TECHNIQUE: Ultrasound abdomen performed using standard protocol. COMPARISON: CT CT THORAX ABD/PEL CTA from 05/10/2022 FINDINGS: There is no ascites evident. LIVER: Slightly prominent size. Mildly heterogeneous echotexture. No focal hepatic lesions identifi ed. GALLBLADDER/BILIARY: The gallbladder is distended, as evident on CT scan, measuring approximately 13 x 5 cm. There are few small gallstones in the dependent wall of the gallbladder. Gallbladder wall t hickness is normal and there is no pericholecystic fluid. The cystic duct is dilated (15 millimeters ). Common hepatic duct is also dilated, measuring 11 millimeters.. PANCREAS: There is no evidence of pancreatic mass nor dilatation of the pancreatic duct. RIGHT KIDNEY:No evidence of solid mass, calculus, nor hydronephrosis. No cortical cysts evident. IMPRESSION: 1. Small gallstones noted in the gallbladder lumen. No obvious gallstones seen in the gallbladder n amy and cystic duct but the cystic duct is significantly dilated (15 millimeters). The common hepati c duct is also dilated (11 millimeters). 2. No other significant ultrasound findings in the right upper quadrant. 3. Clinically indicated follow-up nuclear hepatobiliary imaging can be performed to determine if the re is obstruction of the cystic duct. DATA REPOSITORY:
--- NOTE | 2022-05-10 12:00 | RT.EKG_ITS ---
APPROVED REPORT Exam: Resting ECG Reason for Exam: 2nd trop Patient Location: E HR:59 bpm ECG Measurements Heart Rate 59 AXIS NM 143 P 39 QRSd 117 QRS -12 QT 469 T 30 QTc 466 Conclusion Sinus bradycardia...rate< 60 Nonspecific intraventricular conduction delay...QRSd >115mS, not LBBB/RBBB sinus bradycardia at 59, normal axis, no STEMI, nondiagnostic EKG
[2022-05-10 12:44] LABS: Troponin I < 50 ng/L (<or=60)
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
[2022-05-10 12:52] LABS: Source Nasal/Nares
[2022-05-10 13:45] LABS: COVID-19 PCR Negative (Negative)
[2022-05-10] MEDS: Lactated Ringers 1,000 ML 125 ML IV ×2 (14:08→22:16)
[2022-05-10] MEDS: Pantoprazole 40 MG VIAL IVP (16:16)
[2022-05-10] MEDS: Normal Saline Flush 10 ML SYR IVP (16:16)
[2022-05-10] MEDS: PIPERACILLIN/TAZO 3.375 GM in Normal Saline 50 ML IVPB ×2 (16:16→20:58)
[2022-05-10] MEDS: ACETAMINOPHEN 1,000 MG/100 ML BTL 400 MG IVPB (17:15)
[2022-05-10] MEDS: Tamsulosin 0.4 MG CAPCR PO (22:18)
[2022-05-11] MEDS: PIPERACILLIN/TAZO 3.375 GM in Normal Saline 50 ML IVPB ×4 (02:33→19:53)
[2022-05-11] MEDS: Normal Saline Flush 10 ML SYR IVP ×4 (02:33→19:54)
[2022-05-11 02:39] VITALS: BP 123/70; PULSE 58; RESP 16; TEMP 36.5; O2SAT 94
[2022-05-11 06:21] LABS: Absolute Basophil Count 0.03 10^3/uL (0.0-0.2); Absolute Eosinophil Count 0.06 10^3/uL (0.0-0.7); Absolute Lymphocyte Count 0.48 10^3/uL (1.2-3.4); Absolute Neutrophil Count 1.66 10^3/uL (1.2-6.7); Basophils % 1.2; Eosinophils % 2.4; HCT 35.1 % (40.0-50.0); HGB 11.9 g/dL (13.5-17.5); MCH 34.3 pg (27.0-33.0); MCHC 33.9 % (32.0-36.0); MCV 101 fL (80-95); MPV 9.2 fL (8.0-11.0); Monocytes % 11.9; Neutrophils % 65.5; Platelet Count 183 10^3/uL (130-400); RBC 3.47 10^6/uL (4.36-5.78); RDW 12.5 % (11.8-14.1); RDW-SD 46.5 fL; WBC 2.53 10^3/uL (4.4-10.8)
[2022-05-11 06:41] LABS: ALT 331 U/L (16-63); AST 151 U/L (15-37); Albumin 3.9 g/dL (3.4-5.0); Alkaline Phosphatase 262 U/L (46-116); Anion Gap 7.6 mmol/L (3-11); BUN 14 mg/dL (7-18); Bilirubin, Total 2.4 mg/dL (0.2-1.0); CO2 29.4 mmol/L (21.0-32.0); Calcium 9.5 mg/dL (8.5-10.1); Chloride 106 mmol/L (98-107); Glucose 106 mg/dL (74-106); Lipase 91 U/L (73-393); Potassium 4.4 mmol/L (3.5-5.1); Sodium 143 mmol/L (136-145); Total Protein 7.1 g/dL (6.4-8.2)
[2022-05-11] MEDS: Levothyroxine 25 MCG TAB 75 MCG PO (06:42)
[2022-05-11] MEDS: Lactated Ringers 1,000 ML 125 ML IV ×2 (06:42→21:31)
--- NOTE | 2022-05-11 07:35 | W.PM.PROGNOT ---
Date of Service Date of service: 05/11/22 Time of Service: 07:36 Assessment and Plan Assessment and plan (1) Prostate cancer: Status: Chronic (2) Hypothyroidism: Status: Acute Qualifiers: Hypothyroidism type: unspecified Qualified Code(s): E03.9 - Hypothyroidism, unspecified (3) Hypertension: Status: Acute Qualifiers: Hypertension type: essential hypertension Qualified Code(s): I10 - Essential (primary) hypertension (4) Prediabetes: Status: Acute (5) Hyperlipidemia: Status: Acute (6) Cancer of neck: (7) Snuff user: (8) Cholelithiasis and acute cholecystitis with obstruction: Status: Acute Assessment and plan: ERCP at [facility] [place] this morning Continue antibiotics supportive care plan lap samara in 2 wks time pain is well controlled at this time. (9) Acute cholecystitis due to biliary calculus: Status: Acute (10) Gallstones, common bile duct: Status: Acute (11) S/P ERCP: Status: Acute Assessment and plan: Patient did well following his ERCP and sphincterotomy. They found sludge and sand. He has no pain currently. Clear liquids today. continues zosyn labs in am. ADAT Hopefully DC home in a.m. and follow-up in the office in a week or 2 to schedule lap samara Subjective Subjective Interval history since last seen: Arrived with patient resting comfortably in bed. He states his pain is well controlled at this time. He denies any nausea or vomiting. Denies fevers, chills or night sweats. Exam Const General: cooperative, healthy appearing and comfortable Orientation: alert and oriented x3 Resp Effort & Inspection: normal respiratory effort, no audible wheezes and no cough Objective Last Vital Signs Temp 36.5 C 05/11/22 02:39 Pulse 58 L 05/11/22 02:39 Resp 16 05/11/22 02:39 BP 123/70 05/11/22 02:39 Pulse Ox 94 05/11/22 02:39 Laboratory Results - last 24 hr 05/10/22 05/10/22 05/10/22 08:29 08:29 08:52 WBC 3.13 L RBC 3.59 L Hgb 12.0 L Hct 35.1 L MCV 98 H MCH 33.4 H MCHC 34.2 RDW 11.9 Plt Count 204 MPV 9.1 Immature Gran % 0.0 Neutrophils % 77.0 Lymphocytes % 8.3 Monocytes % 13.4 Eosinophils % 1.0 Basophils % 0.3 Nucleated RBC % 0.0 Absolute Neutrophils 2.41 Absolute Lymphocytes 0.26 L Absolute Monocytes 0.42 Absolute Eosinophils 0.03 Absolute Basophils 0.01 Sodium 137 Potassium 3.9 Chloride 101 Carbon Dioxide 27.5 Anion Gap 8.5 BUN 20 H Creatinine 0.9 Estimated GFR/1.73 m2 >= 60.00 Glucose 112 H Calcium 9.4 Total Bilirubin 4.2 H AST 303 H ALT 440 H Alkaline Phosphatase 283 H Troponin I < 50 Total Protein 7.4 Albumin 4.1 Lipase 343 Urine Color Yellow Urine Clarity Sl Cloudy Urine pH 7.5 Ur Specific Stanford 1.020 Urine Protein Negative Urine Ketones 15 H Urine Blood Negative Urine Nitrite Negative Urine Bilirubin Small H Urine Urobilinogen 1.0 H Ur Leukocyte Esterase Negative Urine Glucose Negative COVID-19 Source SARS-CoV-2 (PCR) 05/10/22 05/10/22 05/11/22 12:05 12:15 06:00 WBC RBC Hgb Hct MCV MCH MCHC RDW Plt Count MPV Immature Gran % Neutrophils % Lymphocytes % Monocytes % Eosinophils % Basophils % Nucleated RBC % Absolute Neutrophils Absolute Lymphocytes Absolute Monocytes Absolute Eosinophils Absolute Basophils Sodium 143 Potassium 4.4 Chloride 106 Carbon Dioxide 29.4 Anion Gap 7.6 BUN 14 Creatinine 1.0 Estimated GFR/1.73 m2 >= 60.00 Glucose 106 Calcium 9.5 Total Bilirubin 2.4 H AST 151 H ALT 331 H Alkaline Phosphatase 262 H Troponin I < 50 Total Protein 7.1 Albumin 3.9 Lipase 91 Urine Color Urine Clarity Urine pH Ur Specific Stanford Urine Protein Urine Ketones Urine Blood Urine Nitrite Urine Bilirubin Urine Urobilinogen Ur Leukocyte Esterase Urine Glucose COVID-19 Source Nasal/Nares SARS-CoV-2 (PCR) Negative 05/11/22 06:00 WBC 2.53 L RBC 3.47 L Hgb 11.9 L Hct 35.1 L MCV 101 H MCH 34.3 H MCHC 33.9 RDW 12.5 Plt Count 183 MPV 9.2 Immature Gran % 0.0 Neutrophils % 65.5 Lymphocytes % 19.0 Monocytes % 11.9 Eosinophils % 2.4 Basophils % 1.2 Nucleated RBC % 0.0 Absolute Neutrophils 1.66 Absolute Lymphocytes 0.48 L Absolute Monocytes 0.30 Absolute Eosinophils 0.06 Absolute Basophils 0.03 Sodium Potassium Chloride Carbon Dioxide Anion Gap BUN Creatinine Estimated GFR/1.73 m2 Glucose Calcium Total Bilirubin AST ALT Alkaline Phosphatase Troponin I Total Protein Albumin Lipase Urine Color Urine Clarity Urine pH Ur Specific Stanford Urine Protein Urine Ketones Urine Blood Urine Nitrite Urine Bilirubin Urine Urobilinogen Ur Leukocyte Esterase Urine Glucose COVID-19 Source SARS-CoV-2 (PCR) PAWSS Have you Been Recently Intoxicated or Drunk Within the Last 30 days?: No Have you Ever Experienced Previous Episodes of Alcohol Withdrawal?: No Have you ever Experienced Withdrawal Seizures?: No Have you ever Experienced Delirium Tremens(DT)s?: No Have you ever undergone Alcohol Rehabilitation Treatment (i.e, inpt ot outpatient treatment programs)?: No Have you ever Experienced Blackouts?: No Have you ever Combined Alcohol with other Downers within the last 90 days?: No Have you ever Combined Alcohol with any other Substance of Abuse during the last 90 days?: No Positive Blood Alcohol level on Presentation? [PCS.BAL]: No Evidence of Increased Autonomic Activity (i.e. HR>120, tremor, sweating, agitation, nausea)?: No Result: 0
[2022-05-11] MEDS: Pantoprazole 40 MG VIAL IVP (07:50)
[2022-05-11 07:59] VITALS: BP 158/86; PULSE 54; RESP 18; TEMP 36.8; O2SAT 96
--- NOTE | 2022-05-11 08:40 | NUR.NOTE ---
Addendum entered by Tg Erickson RN 05/11/22 10:54: Report given to SOHA Roberts at [facility] [place]. Original Note: Nursing Note:
--- NOTE | 2022-05-11 11:59 | NUR.NOTE ---
Nursing Note:Report received from SOHA Roberts at [facility] [place]. Patient to be transferred back to [facility] in about 30 mins.
[2022-05-11 14:05] VITALS: BP 145/75; PULSE 57; RESP 12; TEMP 35.6; O2SAT 98
[2022-05-11 15:16] VITALS: BP 126/82; PULSE 58; RESP 18; TEMP 36.8; O2SAT 99
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
[2022-05-11] MEDS: Tamsulosin 0.4 MG CAPCR PO (19:54)
[2022-05-11 23:16] VITALS: BP 133/82; PULSE 52; RESP 18; TEMP 35.7; O2SAT 97
[2022-05-12] VITALS (15 sets, daily range): BP systolic 112–198; BP diastolic 70–95; PULSE 53–66; RESP 16–24; TEMP 35.4–36.5; O2SAT 97–100; BMI 32.2
[2022-05-12] MEDS: Normal Saline 500 ML 30 ML IV (02:47)
[2022-05-12] MEDS: Normal Saline Flush 10 ML SYR IVP ×2 (02:47→09:00)
[2022-05-12] MEDS: PIPERACILLIN/TAZO 3.375 GM in Normal Saline 50 ML IVPB ×4 (02:47→20:02)
[2022-05-12] MEDS: Levothyroxine 25 MCG TAB 75 MCG PO (05:40)
[2022-05-12] MEDS: Lactated Ringers 1,000 ML 125 ML IV ×2 (06:47→19:03)
[2022-05-12 07:09] LABS: ALT 238 U/L (16-63); AST 76 U/L (15-37); Albumin 3.7 g/dL (3.4-5.0); Alkaline Phosphatase 202 U/L (46-116); Anion Gap 9.8 mmol/L (3-11); BUN 14 mg/dL (7-18); Bilirubin, Total 1.8 mg/dL (0.2-1.0); CO2 27.2 mmol/L (21.0-32.0); Calcium 9.1 mg/dL (8.5-10.1); Chloride 103 mmol/L (98-107); Glucose 106 mg/dL (74-106); Lipase 81 U/L (73-393); Potassium 3.6 mmol/L (3.5-5.1); Sodium 140 mmol/L (136-145); Total Protein 6.8 g/dL (6.4-8.2)
[2022-05-12] MEDS: Pantoprazole 40 MG VIAL IVP (09:00)
--- NOTE | 2022-05-12 09:09 | PDOC.CMPRO ---
- If Service Date Differs Date of service: 05/12/22 Time of Service: 09:09 Care Management Progress Note S/O: Johnathon was sitting up in bed when CM met with him. He is alert, oriented and easy to engage in conversation. He is NPO and waiting to go to the OR this afternoon to have his gallbladder out. He is staying busy with puzzle books and TV. He has no questions of concerns at this time. CM will continue to support Johnathon and his discharge planning needs. A:61 year old male admitted to [facility] on 05/10/22 for Acute cholecystitis/CBD stones. P: Johnathon will return home when ready per MD. He will follow up with his PCP and plan of care as prescribed. He will transport via private vehicle with his .
--- NOTE | 2022-05-12 12:44 | CHAPLAIN ---
Johnathon said he was waiting to go to the OR to have his gallbladder removed. He has his apendix out before and expects this to be a similar surgery and recovery. He's been in touch with his by phone a couple of times this morning to keep her updated.
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
[2022-05-12] MEDS: Lactated Ringers 1,000 ML 30 ML IV (14:45)
[2022-05-12] MEDS: Bupivacaine 0.25% Pres-Free 30 ML VIAL (16:27)
--- NOTE | 2022-05-12 16:27 | GB_PTH ---
PATIENT: Johnathon Shea V LOC: [facility]#:[id number] AGE/SX: 61/M ROOM: 231 RE05/10/[address]: Kimberly Merida : 1960 BED: A DIS: 05/13/2022 SPEC #: [id number] RECD: 05/12/22 17:30 STATUS: NATALI REQ #: [id number] MATHEUS: 05/12/22 16:[address]: Kimberly Merida DEPT: Surgical Specimen RECD BY: Yenny Mendez ENTERED: 05/12/22 17:30 SP TYPE: GB OTHR DR: Brandi Mak, PhD ANTHROPOLOGY INSTRUCTOR Tissues: 1 - GALLBLADDER Procedures: GROSS AND MICRO LEVEL 3 Comments: [id number]
--- NOTE | 2022-05-12 16:36 | ROE_ITS ---
Date of service: 05/12/22 Time of Service: 16:36 Operative Note Operative Note DATE OF PROCEDURE: 05/12/22 PRE-OP DIAGNOSIS: Acute cholecystitis Acute cholecystitis PROCEDURE: Laparoscopic cholecystectomy SURGEON: Remy Rush VACUUM SYSTEM TESTER: Nisha Larry ANESTHESIA TYPE: General LMA/ETT Refer to Anesthesia Record ESTIMATED BLOOD LOSS: 50 PATHOLOGY: other (Gallbladder) COMPLICATIONS: None Patient was transported to: PACU Patient's condition: stable Indications: Johnathon Shea is a 61-year-old male who presented with a chief complaint of abdominal pain. He underwent a CAT scan of the abdomen and pelvis that demonstrated cholelithiasis and some inflammation of the gallbladder suggesting acute cholecystitis. Additionally, he had mild dilatation of his common bile duct and elevated liver function test. He was admitted to the hospital, ultrasound did not support the diagnosis of acute cholecystitis. He was brought [facility] to [facility] for an ERCP which was negative for choledocholithiasis. Upon return to [facility], he was interested in urgent cholecystectomy to reduce future complications of cholelithiasis. Findings: Acute cholecystitis with gallbladder wall inflammation and adhesions. Procedure Description: We started by prepping and draping the anterior abdominal wall. Next, I made a supraumbilical incision and dissected down to the fascia using blunt dissection. I grasped the fascia and elevated into the operative field. I opened it longitudinally and entered the peritoneal cavity under direct vision. Next I fixed 10 mm port with an 0 Vicryl suture. I then inserted a 10 mm 0 degree scope. I inspected the underlying viscera and found no evidence of injury created upon entry into the peritoneal cavity. I then turned my attention to the right upper quadrant. There was evidence of acute and chronic cholecystitis with inflammation of the gallbladder wall, and filmy adhesions of the greater omentum onto the dome and body of the gallbladder. Therefore, I inserted a 5 mm port in the right upper quadrant which allowed me to perform some blunt dissection to expose the fundus of the gallbladder. It was quite distended. It was difficult to grasp. Using the large needle, I evacuated bile until I was ab le to better grasp the gallbladder. Once this was done I gently elevated cephalad. This allowed me to expose the area of the infundibulum and gain a sense of where the dissection should occur. Next, I inserted another 5 mm port in the right upper quadrant as well as a 5 mm port in the mid epigastrium. With the dome of the gallbladder retracted cephalad, I continued to dissect from the lateral to medial fashion down to the infundibulum of the gallbladder. Once this was done I was able to grasp it to help expose the area of the cystic duct. After lysing adhesions in this area I was able to identify the cystic duct proper and see it clearly arising from the infundibulum of the gallbladder. It was a bit dilated, and I was unable to pass a small clip nurse ldr to gain full control of the cystic duct. Therefore, I exchanged the 5 mm port in the mid epigastrium for a 10 mm port to accommodate the large clip nurse ldr. I doubly clipped and divided the cystic duct to better expose the triangle of Calot in the area of the cystic artery. Again, using blunt dissection I was able to identify the cystic artery coursing towards the body of the gallbladder. I doubly clipped and divided this. I then used electrocautery to divide the gallbladder off the gallbladder fossa. Once this dissection was complete, I passed it into a Endo Catch bag, and removed the specimen by way of the umbilic al port site. I then examined the surgical field. It was hemostatic. I gently irrigated the area. Again, I saw no evidence of bleeding. Therefore, I removed to the midepigastric as well as the 2 right upper quadrant port sites under the direct vision and the laparoscope. Finally, I evacuated the pneumoperitoneum and remove the umbilical port site. I closed the umbilical fascia using interru pted 0 Vicryl sutures. I irrigated the wound and closed the skin prior to bandaging. The patient was then awakened from anesthesia and transferred to the recovery unit.
[2022-05-12] MEDS: fentaNYL 100 MCG/2 ML VIAL IVP ×2 (17:03→17:12)
[2022-05-12] MEDS: HYDROmorphone 2 MG/ML VIAL IVP ×3 (17:26→17:55)
[2022-05-12] MEDS: Normal Saline 10 ML VIAL ×2 (17:27→17:28)
[2022-05-12] MEDS: ACETAMINOPHEN 1,000 MG/100 ML BTL 400 MG IVPB (17:39)
--- NOTE | 2022-05-12 18:17 | W.ANESPOSTOP ---
Postoperative Evaluation Date, Time and Location Date Performed: 05/12/22 Time Performed: 18:17 Patient Location: PACU Vital Signs Most Recent Imported Vital Signs: Most Recent Vital Signs Temp Pulse Resp BP Pulse Ox 36.5 C 59 L 24 188/92 H 100 05/12/22 18:04 05/12/22 18:04 05/12/22 18:04 05/12/22 18:04 05/12/22 18:04 Pain Score Most Recent Pain Score: Most Recent Pain Score Pain Level 3 05/12/22 18:04 Assessment Mental Status: Awake (Alert & Oriented to Patient Baseline) Airway and Respiratory Function: Patent airway with normal (patient baseline) respiratory exam Cardiovascular Function: Hemodynamically Stable Hydration Status: Adequately Hydrated Nausea & Vomiting: No Nausea or Vomiting Pain: Pain is tolerable per patient Peripheral Nerve Block: Patient did not receive a nerve block
[2022-05-12] MEDS: Lisinopril 20 MG TAB 40 MG PO (18:50)
[2022-05-12] MEDS: Tamsulosin 0.4 MG CAPCR PO (20:02)
[2022-05-13] MEDS: PIPERACILLIN/TAZO 3.375 GM in Normal Saline 50 ML IVPB ×2 (01:21→07:38)
[2022-05-13] MEDS: Lactated Ringers 1,000 ML 125 ML IV (01:21)
[2022-05-13 01:22] VITALS: BP 151/84; PULSE 60; RESP 16; TEMP 36.3; O2SAT 99
[2022-05-13] MEDS: Levothyroxine 25 MCG TAB 75 MCG PO (06:31)
[2022-05-13 06:44] LABS: ALT 208 U/L (16-63); AST 72 U/L (15-37); Albumin 3.7 g/dL (3.4-5.0); Alkaline Phosphatase 175 U/L (46-116); Anion Gap 11.3 mmol/L (3-11); BUN 16 mg/dL (7-18); Bilirubin, Total 1.2 mg/dL (0.2-1.0); CO2 27.7 mmol/L (21.0-32.0); Calcium 9.1 mg/dL (8.5-10.1); Chloride 100 mmol/L (98-107); Glucose 115 mg/dL (74-106); Potassium 3.9 mmol/L (3.5-5.1); Sodium 139 mmol/L (136-145); Total Protein 6.9 g/dL (6.4-8.2)
[2022-05-13 07:20] VITALS: BP 153/92; PULSE 58; RESP 18; TEMP 36.4; O2SAT 99
[2022-05-13] MEDS: Pantoprazole 40 MG VIAL IVP (07:38)
[2022-05-13] MEDS: Normal Saline Flush 10 ML SYR IVP (07:39)
[2022-05-13] MEDS: Enoxaparin 40 MG/0.4 ML SYR SC (08:45)
--- NOTE | 2022-05-13 09:39 | W.PM.PROGNOT ---
Date of Service Date of service: 05/13/22 Time of Service: 09:39 Assessment and Plan Assessment and plan (1) Prostate cancer: Status: Chronic (2) Hypothyroidism: Status: Acute Qualifiers: Hypothyroidism type: unspecified Qualified Code(s): E03.9 - Hypothyroidism, unspecified (3) Hypertension: Status: Acute Qualifiers: Hypertension type: essential hypertension Qualified Code(s): I10 - Essential (primary) hypertension (4) Prediabetes: Status: Acute (5) Hyperlipidemia: Status: Acute (6) Cancer of neck: (7) Snuff user: (8) Cholelithiasis and acute cholecystitis with obstruction: Status: Acute (9) Acute cholecystitis due to biliary calculus: Status: Acute Assessment and plan: The patient is postop day #1 status post laparoscopic cholecystectomy Pain is well controlled He is tolerating a low-fat diet Encouraged continued ambulation, sitting up in the chair and activities within his room. Discharge home later today. pt seen and examined. agree w/ above see d/c orders (10) Gallstones, common bile duct: Status: Acute (11) S/P ERCP: Status: Acute Assessment and plan: ERCP at on 05/11 showed moderate hyperechoic material consistent with sludge in the common bile duct. Subjective Subjective Interval history since last seen: Patient just finished breakfast upon this provider's arrival. He states he is feeling very well. Pain has been well managed, he states that the ice packs seem to help with surgical site discomfort. He denies any abdominal pain, nausea or vomiting. He is eager to be discharged home. Exam Const General: cooperative, healthy appearing and comfortable Orientation: alert and oriented x3 Resp Effort & Inspection: normal respiratory effort, no audible wheezes and no cough GI Inspection: normal to inspection and non-distended Palpation: soft, no guarding and tender Auscultation: normal bowel sounds Other: Incision sites are dressed with Steri-Strips and Band-Aids. Objective Last Vital Signs Temp 36.4 C L 05/13/22 07:20 Pulse 58 L 05/13/22 07:20 Resp 18 05/13/22 07:20 BP 153/92 H 05/13/22 07:20 Pulse Ox 99 05/13/22 07:20 Laboratory Results - last 24 hr 05/13/22 06:05 Sodium 139 Potassium 3.9 Chloride 100 Carbon Dioxide 27.7 Anion Gap 11.3 H BUN 16 Creatinine 1.0 Estimated GFR/1.73 m2 >= 60.00 Glucose 115 H Calcium 9.1 Total Bilirubin 1.2 H AST 72 H ALT 208 H Alkaline Phosphatase 175 H Total Protein 6.9 Albumin 3.7 PAWSS Have you Been Recently Intoxicated or Drunk Within the Last 30 days?: No Have you Ever Experienced Previous Episodes of Alcohol Withdrawal?: No Have you ever Experienced Withdrawal Seizures?: No Have you ever Experienced Delirium Tremens(DT)s?: No Have you ever undergone Alcohol Rehabilitation Treatment (i.e, inpt ot outpatient treatment programs)?: No Have you ever Experienced Blackouts?: No Have you ever Combined Alcohol with other Downers within the last 90 days?: No Have you ever Combined Alcohol with any other Substance of Abuse during the last 90 days?: No Positive Blood Alcohol level on Presentation? [PCS.BAL]: No Evidence of Increased Autonomic Activity (i.e. HR>120, tremor, sweating, agitation, nausea)?: No Result: 0
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
--- NOTE | 2022-05-13 11:18 | PDOC.CMDIS ---
- If Service Date Differs Date of service: 05/13/22 Time of Service: 11:18 LACE Index Scoring Tool - Questions: Length of Stay (in days): 3 Acuity (Admit via E.D.?): Yes Comorbidities: Any Tumor E.D. Visits: 1 - Answers: Total Score: 9 Risk of Readmission: Low Risk Care Management Discharge Reason for Hospitalization: Acute cholecystitis/CBD stones Discharge Plan: Ray will return home when ready per MD. He will follow up with his PCP and plan of care as prescribed. He will transport via private vehicle with his . Patient/Family Education Needs: Review discharge instructions, discuss Ask Me Three.
--- NOTE | 2022-05-13 12:46 | PDOC.DSDIS_ITS ---
Discharge Plan Disposition Patient Disposition: HOME Condition: Good Discharge Details Reason For Visit: Acute Cholecystitis/CBD Stones Admit Date/Time: 05/10/22 12:42 Admit Provider: Kimberly Merida Attending Provider: Kimberly Merida Primary Care Provider: [facility] Hospital Course Hospital Course: 61-year-old male with a history of hypertension, prediabetes, hypothyroidism and hyperlipidemia was admitted to the hospital for gallstones and elevated size of the common bile duct. He underwent an ERCP at [facility] [place] on 05/11 and they found sludge and performed a sphincterotomy at that time. Patient did well following this procedure. He then underwent a laparoscopic cholecystectomy with Dr. Rush on 05/12. Patient's pain was well controlled through the night following the procedure and the patient is tolerating a low-fat diet. Patient is ambulating without difficulty. Discharge home Follow-up with Dr. Rush in 2 weeks Home Meds and New Rx's Prescriptions: New hydrocodone-acetaminophen 5-325 mg tablet 1 tab PO Q4H PRNQty: 10 0RF amoxicillin-pot clavulanate 875-125 mg tablet 1 tab PO BID 3 Days Qty: 6 0RF Rx Instructions: yogurt daily while on antibiotics finish all Continued cholecalciferol (vitamin D3) 25 mcg (1,000 unit) capsule 25 mcg PO DAILY One-A-Day Maximum Formula Tablet 1 tab PO DAILY atorvastatin 40 mg tablet 40 mg PO QPM Qty: 90 4RF levothyroxine 75 mcg tablet 75 mcg PO DAILY Qty: 90 4RF lisinopril 40 mg tablet 40 mg PO DAILY Qty: 90 4RF Hold Instructions: Home Medication placed on hold at Doctor's office tamsulosin 0.4 mg capsule 0.4 mg PO DAILY omega 4-miy-arh-fish oil [Fish Oil] 60-90-500 mg capsule 1 cap PO DAILY sildenafil [Viagra] 100 mg tablet 100 mg PO PRN Qty: 30 3RF Rx Instructions: take one hour prior to intercourse diclofenac sodium [Voltaren] 1 % gel 2 g topical QID Qty: 100 11RF Rx Instructions: apply to single elbow, wrist or hand; for hand includes palm/fingers/back of hand ibuprofen 600 mg tablet 600 mg PO Q6H PRN Qty: 60 5RF Discharge Instructions Instructions: Laparoscopic Cholecystectomy (DC) Additional Instructions: Care after Gallbladder Surgery -Pain control: ?For the first 72 hours after surgery, take you pain meds continuously and not just when you have pain.?? Alternate Tylenol 1000mg by mouth every 8 hours, and Ibuprofen 600mg every 6 hours.? Make sure you take ibuprofen with food and not on an empty stomach.? ??Use the Vicodin for breakthrough pain- pain that is greater than a 7. -Finish all antibiotics. Yogurt daily while on antibiotics. ?- Use ICE! Ice really helps to keep the swelling down, and swelling causes pain. ??Twenty minutes on, and then off, continuously for the first 72hours.? After the first 72hrs, you can just use the Tylenol, ibuprofen or Celebrex, and ice, ?when you have pain.?? If you are taking narcotic pain medication, follow the instructions on the label and do not drive. Pain medications can make you very constipated. Make sure you are moving your bowels daily. If not, take Miralax, milk of magnesia or magnesium citrate.? - Anesthesia makes you very constipated.? Take a dose of milk of magnesia the morning after surgery. ? Use an ice bag for the first 72 hours. This helps to decrease swelling, which causes pain. It is normal to be more sore/painful and swollen towards the end of the day and first thing in the morning. ? Use milk of magnesia or prune juice to prevent constipation (this is a particular side effect of pain medication and anesthesia). Do not allow yourself to become constipated. ? Avoid fatty or greasy foods; introduce these slowly, with care, after about 1 month. High-fat foods include: ? Foods that are fried, like Malaysian fries and potato chips ? High-fat meats, such as mar, bologna, sausage, ground beef, and ribs, pork products ? High-fat dairy products, such as cheese, ice cream, cream, whole milk, and sour cream ? Pizza ? Foods made with lard or butter ? Creamy soups or sauces ? Meat gravies ? Chocolate ? Oils, such as palm and coconut oil ? Skin of chicken or turkey ? Nuts and nut butters ? Avacadoes ? Start out eating very small, bland amounts of food. Do not take pain pills on an empty stomach. - You do have steri strips on your incisions. These will fall in about 1 weeks time. It is OK to shower after 24hrs.? You do not need to cover the incisions. -You should walk frequently, gradually, increasing the distance. You may climb stairs, just go slowly. ? Do not go swimming or sit in a hot tub for two weeks. ? There are no stitches to remove. ? Do not drive your car x72hrs and then only if you have no pain and can move freely. Do not drive if you are taking pain narcotic pain medications. ? You may resume sexual activity whenever pain and soreness subside, usually in 2 weeks. ? Do no lift anything over 5 lbs. for two weeks. ? You may return to work in one week, or when you feel able, provided you do not have to do any heavy lifting or prolonged standing. ? You should return [facility] for a post-op appointment about two weeks after surgery. A follow-up should have been scheduled for you already.? If there is not, please call the Surgical Clinic at: [phone] to schedule an appointment. My Medications for pain and nausea are: Tylenol/ibuprofen ?and vicodin- for severe paian When to Call the Office: ? If the incision becomes red or swollen, or there is more than a little drainage from it. ? If you develop a temperature higher than 100.5 F. ? If your eyes turn yellow ? Vomiting and can?t keep fluids down Stand Alone Forms: Nursing Discharge Form Referrals: Remy Rush MD [ [facility] STAFF PHYSICIAN] - 05/19/22 11:30 am Activity:: see above Equipment/Supplies:: No Equipment Needed Diet:: Low fat Diet Discharge Orders Discharge Orders: Discharge Order (Routine); Ordered 05/13/22 Ordered By: Kimberly Merida DS: Diagnosis Discharge Diagnosis (1) Prostate cancer: Status: Chronic (2) Hypothyroidism: Status: Acute (3) Hypertension: Status: Acute (4) Prediabetes: Status: Acute (5) Hyperlipidemia: Status: Acute (6) Cancer of neck: (7) Snuff user: (8) Cholelithiasis and acute cholecystitis with obstruction: Status: Acute (9) Acute cholecystitis due to biliary calculus: Status: Acute (10) Gallstones, common bile duct: Status: Acute (11) S/P ERCP: Status: Acute
== END 2022-05-13 14:27 | disposition home or self-care (01) | DRG 419 ==
LOC: ER 13:14 → ICU 14:10 → MS 19:43
PROVIDERS: Surgery; Admitting Provider Surgery; Emergency Provider Student in an Organized Health Care Education/Training Program; PCP Nurse Practitioner; Visit Provider Surgery
PROC: 0FT44ZZ Resection of Gallbladder, Percutaneous Endoscopic Approach (ICD-10-PCS; CPT 47562; principal; 2022-05-12 14:30)
DX: K80.67 Calculus of gallbladder and bile duct with acute and chronic cholecystitis with obstruction (principal); K82.8 Other specified diseases of gallbladder; C61 Malignant neoplasm of prostate; I10 Essential (primary) hypertension; E78.5 Hyperlipidemia, unspecified; R73.03 Prediabetes; E89.0 Postprocedural hypothyroidism; Z96.651 Presence of right artificial knee joint; Z87.891 Personal history of nicotine dependence; Z85.89 Personal history of malignant neoplasm of other organs and systems
CPT/HCPCS: 47562; 36415; 71275; 80053; 83690; 87635; 93005; 99285; J1650; 74174; 76705; 81003; 84484; 85025; 88304; 93010; J0131; J1100; J1885; J2405; J2543; J3010; J3490

== ENCOUNTER 2022-05-28 02:02 | Outpatient (CLI) | payer BC, SELFPAY ==
[2022-05-28 13:22] LABS: Absolute Basophil Count 0.02 10^3/uL (0.0-0.2); Absolute Eosinophil Count 0.04 10^3/uL (0.0-0.7); Absolute Lymphocyte Count 0.53 10^3/uL (1.2-3.4); Absolute Monocyte Count 0.28 10^3/uL (0.1-0.8); Absolute Neutrophil Count 1.61 10^3/uL (1.2-6.7); Basophils % 0.8; Eosinophils % 1.6; HCT 30.4 % (40.0-50.0); HGB 10.7 g/dL (13.5-17.5); Lymphocytes % 21.4; MCH 34.5 pg (27.0-33.0); MCHC 35.2 % (32.0-36.0); MCV 98 fL (80-95); MPV 9.6 fL (8.0-11.0); Monocytes % 11.3; Neutrophils % 64.9; Platelet Count 210 10^3/uL (130-400); RDW 11.8 % (11.8-14.1); RDW-SD 42.4 fL; WBC 2.48 10^3/uL (4.4-10.8)
[2022-05-28 14:16] LABS: ALT 39 U/L (16-63); AST 20 U/L (15-37); Albumin 4.1 g/dL (3.4-5.0); Alkaline Phosphatase 90 U/L (46-116); Anion Gap 9.5 mmol/L (3-11); BUN 18 mg/dL (7-18); CO2 27.5 mmol/L (21.0-32.0); Calcium 9.1 mg/dL (8.5-10.1); Chloride 105 mmol/L (98-107); Glucose 102 mg/dL (74-106); Potassium 3.9 mmol/L (3.5-5.1); Sodium 142 mmol/L (136-145); Total Protein 7.1 g/dL (6.4-8.2)
[2022-06-03 17:23] LABS: Testosterone, Total 9.1 ng/dL (240-950)
== END 2022-05-28 02:03 | disposition home or self-care (01) ==
LOC: LBO 02:02
PROVIDERS: PCP Nurse Practitioner; Visit Provider Nurse Practitioner Family
DX: C61 Malignant neoplasm of prostate (principal)
CPT/HCPCS: 36415; 80053; 84153; 84403; 85025

== ENCOUNTER 2022-07-20 01:32 | Outpatient (CLI) | payer BC, SELFPAY ==
[2022-07-20 12:32] LABS: Abs Immature Grans 0.01 10^3/uL (0.0-0.06); Absolute Basophil Count 0.04 10^3/uL (0.0-0.2); Absolute Eosinophil Count 0.07 10^3/uL (0.0-0.7); Absolute Lymphocyte Count 0.52 10^3/uL (1.2-3.4); Absolute Monocyte Count 0.35 10^3/uL (0.1-0.8); Absolute Neutrophil Count 1.92 10^3/uL (1.2-6.7); Basophils % 1.4; Eosinophils % 2.4; HCT 38.1 % (40.0-50.0); HGB 12.4 g/dL (13.5-17.5); Immature Grans % 0.3; Lymphocytes % 17.9; MCH 33.5 pg (27.0-33.0); MCHC 32.5 % (32.0-36.0); MCV 103 fL (80-95); Platelet Count 207 10^3/uL (130-400); RDW 12.2 % (11.8-14.1); RDW-SD 46.7 fL; WBC 2.91 10^3/uL (4.4-10.8)
[2022-07-20 13:05] LABS: ALT 191 U/L (16-63); AST 49 U/L (15-37); Albumin 4.2 g/dL (3.4-5.0); Alkaline Phosphatase 159 U/L (46-116); Anion Gap 8.5 mmol/L (3-11); BUN 17 mg/dL (7-18); Bilirubin, Total 1.2 mg/dL (0.2-1.0); CO2 30.5 mmol/L (21.0-32.0); CREATININE 0.9 mg/dL (0.70-1.30); Chloride 101 mmol/L (98-107); Estimated GFR 95.37 (mL/min/1.73m2); Glucose 106 mg/dL (74-106); Potassium 4.1 mmol/L (3.5-5.1); Sodium 140 mmol/L (136-145)
[2022-07-22 19:22] LABS: PSA, Ultrasensitive 1.6 ng/mL (<= 4.5)
[2022-07-23 11:47] LABS: Testosterone, Total 12 ng/dL (240-950)
== END 2022-07-20 01:33 | disposition home or self-care (01) ==
LOC: LOS 01:32
PROVIDERS: PCP Nurse Practitioner; Visit Provider Nurse Practitioner Family
DX: C61 Malignant neoplasm of prostate (principal)
CPT/HCPCS: 36415; 80053; 84153; 84403; 85025

== ENCOUNTER 2022-07-31 12:07 | Inpatient (IN) | payer BC, SELFPAY ==
[2022-07-31] VITALS (9 sets, daily range): BP systolic 117–160; BP diastolic 68–90; PULSE 51–64; RESP 1–20; TEMP 35.5–37; O2SAT 97–100
[2022-07-31 12:47] LABS: Absolute Basophil Count 0.03 10^3/uL (0.0-0.2); Absolute Eosinophil Count 0.02 10^3/uL (0.0-0.7); Absolute Lymphocyte Count 0.17 10^3/uL (1.2-3.4); Absolute Monocyte Count 0.28 10^3/uL (0.1-0.8); Absolute Neutrophil Count 1.02 10^3/uL (1.2-6.7); Eosinophils % 1.3; HCT 34.9 % (40.0-50.0); HGB 12.3 g/dL (13.5-17.5); Lymphocytes % 11.2; MCH 34.2 pg (27.0-33.0); MCHC 35.2 % (32.0-36.0); MCV 97 fL (80-95); MPV 9.6 fL (8.0-11.0); Monocytes % 18.4; Neutrophils % 67.1; Platelet Count 156 10^3/uL (130-400); RDW 11.5 % (11.8-14.1); RDW-SD 41.4 fL
[2022-07-31 12:50] LABS: WBC 1.52 10^3/uL (4.4-10.8)
[2022-07-31 13:01] LABS: ALT 778 U/L (16-63); AST 555 U/L (15-37); Albumin 4.1 g/dL (3.4-5.0); Alkaline Phosphatase 240 U/L (46-116); Anion Gap 9.3 mmol/L (3-11); BUN 14 mg/dL (7-18); Bilirubin, Total 4.5 mg/dL (0.2-1.0); CO2 26.7 mmol/L (21.0-32.0); CREATININE 0.8 mg/dL (0.70-1.30); Calcium 9.2 mg/dL (8.5-10.1); Chloride 99 mmol/L (98-107); Estimated GFR 98.83 (mL/min/1.73m2); Glucose 102 mg/dL (74-106); Lipase 66 U/L (73-393); Magnesium 1.8 mg/dL (1.8-2.4); Potassium 3.8 mmol/L (3.5-5.1); Sodium 135 mmol/L (136-145); Total Protein 7.3 g/dL (6.4-8.2)
[2022-07-31] MEDS: Normal Saline 1,000 ML 1000 ML IV (13:05)
[2022-07-31 13:08] LABS: Bilirubin Negative (Negative); Blood Trace-intact (Negative); Clarity Clear (Clear); Glucose Negative (Negative); Ketones Negative (Negative); Leukocyte Esterase Negative (Negative); Nitrite Negative (Negative); Urobilinogen 0.2 EU/dL (Up TO 0.2)
[2022-07-31 13:12] LABS: Diff Comment Agrees w/ Instrument; RBC Morphology Normal
[2022-07-31 13:15] LABS: Bacteria Negative HPF (Negative); C & S Indicated? No; Casts Negative LPF (Negative); Crystals Negative HPF (Negative); Epithelial Cells Negative HPF (Negative); Mucus Negative (Negative); Other Cells Negative (Negative); WBC 0-2 HPF (0-5)
[2022-07-31] MEDS: Omnipaque 350 MG/ML 100 ML BTL IJ (13:21)
--- NOTE | 2022-07-31 13:40 | DI.CT_ITS ---
Exam(s) CT CHEST/ABD/PEL W EXAM: CT CHEST/ABD/PEL W CLINICAL HISTORY: HX of CA with back and abd pain. TECHNIQUE: Imaging Protocol: Axial computed tomography images with coronal and sagittal reformatted images were created and reviewed CONTRAST MATERIAL: Intravenous: Omnipaque 350 Contrast volume:100 ml Oral: None COMPARISON: CT CT THORAX ABD/PEL CTA from 05/10/2022 FINDINGS: CHEST: LUNGS: There are no pulmonary infiltrates nor pleural effusions and there are no metastatic appearing nodules. No significant focal findings in the trachea and mainstem bronchi.. MEDIASTINUM: There is no hilar nor mediastinal adenopathy. No new thyroid findings evident. The left thyroid lobe is again noted to be atrophic or surgically absent. Right thyroid lobe appears unremar kable. CARDIAC: Heart size is normal. There is no pericardial effusion.Mild prominence of the thoracic aort a is again noted but there is no evidence of dissection. No pericardial effusion. OSSEOUS: Very subtle nonexpansile sclerotic density is evident in the lateral aspect of the right 8th rib, unchanged from 05/10/2022. there are no other focal osseous findings.. ABDOMEN: There is no ascites in the upper abdomen. LIVER: There has been interval cholecystectomy. There are dilated intrahepatic ducts now evident in both hepatic lobes and the common hepatic duct is dilated to 14 millimeters. CBD is 11 millimeter di ameter. There is noncalcified density within the lower CBD. GALLBLADDER/BILIARY: The gallbladder is now surgically absent. Dilated biliary tree as discussed abo ve. PANCREAS: No evidence of obvious pancreatic mass nor dilatation of the pancreatic duct. SPLEEN: Spleen is not enlarged. There are no intrasplenic lesions. Splenic and portal veins are baron nt. ADRENALS: Calcified right adrenal gland again noted without evidence of mass. Minimal calcification also noted in the opposite-left adrenal gland, also without a mass. KIDNEYS: No calculi nor hydronephrosis. No solid renal masses. Small benign 8 millimeter cyst in supe rior pole of the right kidney noted. No focal renal masses. No hydronephrosis nor hydroureter. Uri nary bladder is not distended but exhibits uniformly thickened wall. ABDOMINAL AORTA: Abdominal aorta is not enlarged. LYMPH NODES: Are slightly enlarged lymph nodes in the vicky hepatis region. ABDOMINAL WALL: Anterior abdominal wall midline fat containing umbilical hernia is again noted. Does not contain bowel loops and there is no bowel obstruction. GI: There is no evidence of bowel obstruction. PELVIS: LYMPH NODES: There is no intrapelvic nor inguinal adenopathy. GI: The appendix is surgically absent.No evidence of sigmoid diverticulitis. URINARY BLADDER: Uniform moderate thickening of the urinary bladder wall. REPRODUCTIVE: Prostate size upper normal. Radiation seeds again noted. Seminal vesicles unremarkabl e. OSSEOUS: No significant osseous lesions. IMPRESSION: 1. Compared to the prior CT scan of 05/10/2022 there has been interval cholecystectomy. However, the re is now significant dilatation of the biliary tree, both intra and extrahepatic with subtle intralu ti density noted in the CBD as it traverses the pancreatic head. Pancreatic duct is not dilated. Subtle suggestion pancreatic head mass. Recommend follow-up MRI and MRCP. 2. Small subtle sclerotic density noted in the lateral aspect of the right 8th rib, unchanged from . Although this is small and solitary, cannot exclude a very early blastic osseous metastati c lesion. 3. Other findings as above. First read by [facility]. RADIATION DOSE DELIVERED: 2352.51 mGy.cm Total DLP DATA REPOSITORY: All CT scans at this facility are submitted to the National Radiology Data Registry (NRDR) Dose Index Registry (DIR) with the [employer] (ACR). RADIATION OPTIMIZATION: All CT scans at this facility use at least one of these dose optimization te chniques: automated exposure control; mA and/or kV adjustment per patient size (includes targeted exa ms where dose is matched to clinical indication); or iterative reconstruction.
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
--- NOTE | 2022-07-31 13:50 | DI.CT_ITS ---
Exam(s) CT THORACIC LUMBAR SPINE REC EXAM: CT THORACIC LUMBAR SPINE REC CLINICAL HISTORY: T L spine- CA with back pain TECHNIQUE: COMPARISON: CT CT CHEST/ABD/PEL W from 07/31/2022 FINDINGS: Thoracic spinal column: No evidence of compression fracture or listhesis. No facet malalignment. No acute compromise of the spinal canal. Lumbosacral spinal column: No evidence of fracture or listhesis. Facet arthropathy but no facet malalignment evident. Chronic advanced disc space narrowing at L4-5 and L5-S1 levels. No significant scoliosis. Sacroiliac joint s unremarkable. No sacral fracture identified. IMPRESSION: No fractures evident in the thoracic and lumbar spines.
[2022-07-31] MEDS: MORPHine 4 MG/ML SYR IVP (13:55)
[2022-07-31] MEDS: Ondansetron 4 MG/2 ML VIAL IVP (13:56)
--- NOTE | 2022-07-31 14:37 | DI.VRAD_ITS ---
PROCEDURE INFORMATION: Exam: CT Thoracic Spine Without Contrast Exam date and time: 07/31/2022 1:30 PM Age: 62 years old Clinical indication: Other: Generalized back pain; Patient HX: HX of prostate cancer. TECHNIQUE: Imaging protocol: Computed tomography of the thoracic spine without contrast. Radiation optimization: All CT scans at this facility use at least one of these dose optimization techniques: automated exposure control; mA and/or kV adjustment per patient size (includes targeted exams where dose is matched to clinical indication); or iterative reconstruction. COMPARISON: CT THORAX ABD/PEL CTA 05/10/2022 8:59 AM FINDINGS: Bones/joints: The thoracic kyphosis is preserved. There is normal vertebral alignment. There is no acute fracture or traumatic subluxation. There is a 3 mm sclerotic focus in the LEFT side of the T8 vertebral body. No other focal osseous lesions are noted. There are multilevel degenerative changes throughout the thoracic spine. Soft tissues: The soft tissues are unremarkable. Mediastinum: For discussion of mediastinal and thoracic findings please see dedicated CT scan of the chest performed concurrently. IMPRESSION: 3 mm sclerotic lesion T8 vertebral body unchanged since previous CT scan of the chest. This most likely represents a benign bone island. Given the patient's clinical history of prostate cancer, and isotopic bone scan or PET-CT scan could be performed as clinically indicated. PROCEDURE INFORMATION: Exam: CT Lumbar Spine Without Contrast Exam date and time: 07/31/2022 1:30 PM Age: 62 years old Clinical indication: Other: Generalized back pain; Patient HX: HX of prostate cancer. TECHNIQUE: Imaging protocol: Computed tomography of the lumbar spine without contrast. Radiation optimization: All CT scans at this facility use at least one of these dose optimization techniques: automated exposure control; mA and/or kV adjustment per patient size (includes targeted exams where dose is matched to clinical indication); or iterative reconstruction. COMPARISON: CT THORAX ABD/PEL CTA 05/10/2022 8:59 AM FINDINGS: Bones/joints: The lumbar lordosis and sacral kyphosis are preserved. There is normal vertebral alignment. No focal osseous lesions are present. Vertebrae normal in height. No acute fracture or dislocation. Multilevel degenerative changes of the lumbar spine. Findings are most pronounced at L4-L5 and L5-S1. At each of these levels there is disc space narrowing with vacuum phenomena, endplate osteophyte formation, facet arthropathy, and moderate bilateral foraminal stenosis. LEFT lateral recess stenosis at L4-L5 is present. There is no central canal stenosis. Intraperitoneal space: For findings in the abdomen and pelvis, please see dedicated CT scan of the abdomen and pelvis performed concurrently. Soft tissues: Unremarkable soft tissues. IMPRESSION: 1. No acute findings. 2. Degenerative changes most pronounced at L4-L5 and L5-S1. Dictated and Authenticated by: Kristie Curran MD. Ordering:OMRGAN Drew MD
--- NOTE | 2022-07-31 14:37 | DI.VRAD_ITS ---
Addendum created by Kristie Curran MD on 07/31/2022 2:42:06 PM EDT: The findings were verbally communicated by me via telephone conference with AUSTIN RANGEL at 2:41 PM EDT on 07/31/2022. The findings were acknowledged and understood. Initial report created on 07/31/2022 2:37:07 PM EDT: PROCEDURE INFORMATION: Exam: CT Chest With Contrast; Diagnostic Exam date and time: 07/31/2022 1:30 PM Age: 62 years old Clinical indication: Other: HX of prostate cancer, back and generalized abdominal pain. Patient HX: HX of prostate cancer. TECHNIQUE: Imaging protocol: Diagnostic computed tomography of the chest with contrast. 3D rendering (Not supervised by radiologist): MIP and/or 3D reconstructed images were created by the technologist. Radiation optimization: All CT scans at this facility use at least one of these dose optimization techniques: automated exposure control; mA and/or kV adjustment per patient size (includes targeted exams where dose is matched to clinical indication); or iterative reconstruction. Contrast material: OMNIPAQUE 350; Contrast route: INTRAVENOUS (IV); COMPARISON: CT THORAX ABD/PEL CTA 05/10/2022 8:59 AM FINDINGS: Thyroid: The LEFT thyroid lobe is absent, possibly postsurgical. There is redemonstration of a hypoattenuating 1 cm nodule in the lower pole of the RIGHT thyroid lobe/isthmus. Lungs: Mild bilateral dependent atelectasis. New 1 mm perifissural pulmonary nodule along the RIGHT major fissure (series 11, image 369. No LEFT lung nodules. Pleural spaces: There is no evidence of pleural effusion or pneumothorax. Heart: The heart is normal in size. There is no evidence of pericardial effusion. Mild coronary artery calcification. Lymph nodes: See Vasculature finding. Vasculature: Minimal atherosclerotic calcification of the thoracic aorta. There is mild aneurysmal dilatation of the descending aorta which measures 3.5 cm in diameter. No enlarged or suspicious mediastinal, hilar, or axillary adenopathy. Bones/joints: No acute fracture. 3 mm sclerotic focus in the LEFT side of the T8 vertebral body (sagittal series 10, image 71). This is stable since the previous exam. Degenerative changes in the cervical and thoracic spine. Soft tissues: The soft tissues are unremarkable. IMPRESSION: 1. New 1 mm perifissural pulmonary nodule. Recommend follow-up CT Chest in 6-12 months. (References: Le and Iesha) 2. Unchanged 3 mm sclerotic focus in the T8 vertebral body. While this may represent a benign bone island, consider isotopic bone scan or PET-CT scan given the patient's clinical history of prostate carcinoma. 3. Stable mild dilatation of the descending aorta. REFERENCES: 1. Le German, et al. Guidelines for Management of Incidental Pulmonary Nodules Detected on CT Images: From the Fleischner Society 2017. Radiology. 2017;284(1):228-243. 2. Iesha Hammonds, et al. Updated Fleischner Society Guidelines for Managing Incidental Pulmonary Nodules: Common Questions and Challenging Scenarios. Radiographics. 2018;38(5):2207-5616. PROCEDURE INFORMATION: Exam: CT Abdomen And Pelvis With Contrast Exam date and time: 07/31/2022 1:30 PM Age: 62 years old Clinical indication: Other: HX of prostate cancer, back and generalized abdominal pain. Patient HX: HX of prostate cancer. TECHNIQUE: Imaging protocol: Computed tomography of the abdomen and pelvis with contrast. 3D rendering (Not supervised by radiologist): MIP and/or 3D reconstructed images were created by the technologist. Radiation optimization: All CT scans at this facility use at least one of these dose optimization techniques: automated exposure control; mA and/or kV adjustment per patient size (includes targeted exams where dose is matched to clinical indication); or iterative reconstruction. Contrast material: OMNIPAQUE 350; Contrast volume: 100 ml; Contrast route: INTRAVENOUS (IV); COMPARISON: CT THORAX ABD/PEL CTA 05/10/2022 8:59 AM FINDINGS: Liver: No hepatomegaly or focal hepatic mass. Gallbladder and bile ducts: Status post interval cholecystectomy. There is moderate dilatation of the common duct which measures 13 mm in diameter. There is also moderate dilatation of the intrahepatic bile ducts. On the previous examination the gallbladder was distended and there is mild dilatation of the intrahepatic ducts and the common duct measured 8 mm. There is a poorly delineated soft tissue mass in the region of the pancreatic head/distal common duct measuring up to 5 cm (series 5, image 72 and series 14, image 28). This appears to extend into the distal common duct. Pancreatic duct is not dilated. MRCP is recommended for further assessment. Pancreas: See Gallbladder and bile ducts finding. Spleen: The spleen is normal in size. No focal splenic lesions are noted. Adrenal glands: Extensive RIGHT adrenal gland calcification. Focal LEFT adrenal gland calcification. No adrenal Mass. Kidneys and ureters: There is prompt symmetric excretion of contrast material by the kidneys. 8 mm upper pole RIGHT renal cyst. There are no focal LEFT renal masses. No radioopaque renal calculi are noted. There is no hydronephosis. Stomach and bowel: Scattered sigmoid diverticula without diverticulitis. Appendix: Appendix appears to be surgically absent. Intraperitoneal space: No free air. No significant fluid collection. Vasculature: The splenic and portal veins are patent. Abdominal aorta and inferior vena cava are unremarkable. Lymph nodes: There is an enlarged peripancreatic/precaval lymph node measuring up to 2.4 cm which is similar to the previous exam. No enlarged or suspicious abdominal or pelvic lymph nodes. Urinary bladder: Bladder is incompletely distended which may account in part for its thick-walled appearance. Outlet obstruction or cystitis could be contributory. Reproductive: Radiation seeds in the prostate gland which is of normal size. Seminal vesicles are unremarkable. Bones/joints: No acute fracture. Degenerative changes of the lumbar spine. Degenerative changes of the hip joints. No focal osseous lesions. Soft tissues: Small hiatus hernia. Small LEFT inguinal hernia containing fat. IMPRESSION: 1. Status post interval cholecystectomy with more prominent dilatation of the common and intrahepatic bile ducts. Mass in the region of the pancreatic head/distal common duct. This is progressive since the previous exam. MRCP is recommended. 2. Additional stable incidental/nonemergent findings as discussed above. Dictated and Authenticated by: Kristie Curran MD. Ordering:MORGAN Drew MD
[2022-07-31] MEDS: HYDROmorphone 2 MG/ML SYR 1 MG IVP (15:59)
[2022-07-31 16:07] LABS: Source Nasal/Nares
[2022-07-31 17:03] LABS: COVID-19 PCR POSITIVE (Negative)
[2022-07-31 18:43] LABS: Creatine Kinase 151 U/L (39-308)
[2022-07-31] MEDS: HYDROmorphone 2 MG/ML SYR 0.5 MG IVP (19:05)
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
[2022-07-31] MEDS: Enoxaparin 40 MG/0.4 ML SYR SC (19:57)
[2022-07-31] MEDS: Albuterol/Ipratropium 3 ML UPD VIAL UPD (23:32)
[2022-07-31] MEDS: Tamsulosin 0.4 MG CAPCR PO (23:32)
[2022-08-01] VITALS (13 sets, daily range): BP systolic 119–146; BP diastolic 69–77; PULSE 55–73; RESP 1–16; TEMP 35.7–36.9; O2SAT 96–99
[2022-08-01] MEDS: Levothyroxine 75 MCG TAB PO (06:10)
[2022-08-01] MEDS: Albuterol/Ipratropium 3 ML UPD VIAL UPD ×3 (06:10→18:28)
[2022-08-01 07:50] LABS: Absolute Basophil Count 0.01 10^3/uL (0.0-0.2); Absolute Lymphocyte Count 0.24 10^3/uL (1.2-3.4); Absolute Neutrophil Count 1.16 10^3/uL (1.2-6.7); Basophils % 0.6; HCT 34.6 % (40.0-50.0); HGB 11.9 g/dL (13.5-17.5); MCH 33.6 pg (27.0-33.0); MCHC 34.4 % (32.0-36.0); MCV 98 fL (80-95); MPV 9.9 fL (8.0-11.0); Monocytes % 17.5; Neutrophils % 67.9; Platelet Count 169 10^3/uL (130-400); RBC 3.54 10^6/uL (4.36-5.78); RDW 12.1 % (11.8-14.1); RDW-SD 43.9 fL
[2022-08-01 07:59] LABS: WBC 1.71 10^3/uL (4.4-10.8)
[2022-08-01 08:16] LABS: Prothrombin Time 10.3 sec (9.3-11.0)
[2022-08-01 08:37] LABS: ALT 554 U/L (16-63); AST 289 U/L (15-37); Alkaline Phosphatase 267 U/L (46-116); Anion Gap 10.5 mmol/L (3-11); BUN 11 mg/dL (7-18); Bilirubin, Direct 2.8 mg/dL (0.0-0.2); Bilirubin, Total 4.5 mg/dL (0.2-1.0); CO2 26.5 mmol/L (21.0-32.0); CREATININE 0.8 mg/dL (0.70-1.30); Chloride 101 mmol/L (98-107); Creatine Kinase 89 U/L (39-308); Estimated GFR 98.83 (mL/min/1.73m2); Glucose 107 mg/dL (74-106); Lipase 102 U/L (73-393); Magnesium 1.7 mg/dL (1.8-2.4); Potassium 3.4 mmol/L (3.5-5.1); Sodium 138 mmol/L (136-145); Total Protein 7.2 g/dL (6.4-8.2)
[2022-08-01 08:45] LABS: D-Dimer 1590 ng/mlFEU (<500)
[2022-08-01 08:56] LABS: Diff Comment Agrees w/ Instrument; RBC Morphology Normal
[2022-08-01 09:06] LABS: Procalcitonin 0.1 ng/mL
[2022-08-01] MEDS: Lisinopril 20 MG TAB 40 MG PO (09:13)
[2022-08-01] MEDS: Cholecalciferol (Vitamin D3) 1,000 UNIT TAB 1000 UNITS PO (09:13)
[2022-08-01] MEDS: Multivitamin w/Minerals TAB 1 TAB PO (09:13)
[2022-08-01] MEDS: Omega-3 Fatty Acids 1000 MG CAP PO (09:13)
[2022-08-01 09:32] LABS: Ferritin > 2000 ng/mL (26-388)
[2022-08-01] MEDS: Normal Saline 500 ML 30 ML IV (12:12)
[2022-08-01] MEDS: MAGNESIUM SULFATE 2 GM/50 ML BAG IVPB (12:12)
--- NOTE | 2022-08-01 17:25 | W.PM.PROGNOT ---
Date of Service Date of service: 08/01/22 Time of Service: 17:25 Assessment and Plan Assessment and plan (1) Abdominal mass: Status: Acute Assessment and plan: For EUS/ERCP tomorrow. NPO after midnight. Hold lovenox. (2) Elevated LFTs: Status: Acute Assessment and plan: In setting of pancreatic mass as well as COVID-19. AST and ALT are both better. Continue to hold statin. Remdesivir contraindicated. Plan as above. (3) COVID-19: Status: Acute Assessment and plan: Not requiring O2. Hold remdesivir given elevated LFTs. (4) Neutropenia: Status: Acute Assessment and plan: Monitor for fever and consider prophylactic antibiotic. I have updated [facility] [place] re neutropenia. We will update the GI team tomorrow with the latest values to finalize plans re ERCP. (5) Prostate cancer: Status: Chronic Assessment and plan: May benefit from a thoracic MRI if back pain persists after intervention on the pancreatic mass (6) DVT prophylaxis: Status: Acute Assessment and plan: SC enoxaparin (7) Discharge planning issues: Status: Acute Assessment and plan: Full code Subjective Subjective Interval history since last seen: Mr Shea states that his back is bothering him a little bit but his epigastric pain has entirely resolved. He remains on room air, without sore throat, cough, shortness of breath, nausea, diarrhea. He is tolerating PO. Exam Narrative Exam Narrative: General: A&Ox3, NAD, on RA,looks degroot HEENT: EOMI, MMM, scleral icterus Cardiovascular: RRR, no m/r/g Lungs: CTAB Gastrointestinal: soft, nontender, nondistended Extremities: no edema BLE's, 1+ pedal edema Objective Last Vital Signs Temp 35.7 C L 08/01/22 15:13 Pulse 55 L 08/01/22 16:01 Resp 14 08/01/22 15:13 BP 134/71 08/01/22 15:13 Pulse Ox 98 08/01/22 15:13 Laboratory Results - last 24 hr 07/31/22 08/01/22 08/01/22 12:38 07:08 07:08 WBC RBC Hgb Hct MCV MCH MCHC RDW Plt Count MPV Immature Gran % Neutrophils % Lymphocytes % Monocytes % Eosinophils % Basophils % Nucleated RBC % Absolute Neutrophils Absolute Lymphocytes Absolute Monocytes Absolute Eosinophils Absolute Basophils RBC Morphology PT INR D-Dimer Sodium 138 Potassium 3.4 L Chloride 101 Carbon Dioxide 26.5 Anion Gap 10.5 BUN 11 Creatinine 0.8 Est GFR (CKD-EPI 2020) 98.83 Glucose 107 H Calcium 9.0 Magnesium 1.7 L Ferritin > 2000 H Total Bilirubin 4.5 H Conjugated Bilirubin 2.8 H AST 289 H ALT 554 H Alkaline Phosphatase 267 H Creatine Kinase 151 89 C-Reactive Protein 0.40 H Total Protein 7.2 Albumin 4.0 Lipase 102 Procalcitonin 0.1 08/01/22 08/01/22 07:08 07:08 WBC 1.71 L* RBC 3.54 L Hgb 11.9 L Hct 34.6 L MCV 98 H MCH 33.6 H MCHC 34.4 RDW 12.1 Plt Count 169 MPV 9.9 Immature Gran % 0.0 Neutrophils % 67.9 Lymphocytes % 14.0 Monocytes % 17.5 Eosinophils % 0.0 Basophils % 0.6 Nucleated RBC % 0.0 Absolute Neutrophils 1.16 L Absolute Lymphocytes 0.24 L Absolute Monocytes 0.30 Absolute Eosinophils 0.00 Absolute Basophils 0.01 RBC Morphology Normal PT 10.3 INR 1.0 D-Dimer 1590 H Sodium Potassium Chloride Carbon Dioxide Anion Gap BUN Creatinine Est GFR (CKD-EPI 2020) Glucose Calcium Magnesium Ferritin Total Bilirubin Conjugated Bilirubin AST ALT Alkaline Phosphatase Creatine Kinase C-Reactive Protein Total Protein Albumin Lipase Procalcitonin
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
[2022-08-01] MEDS: Tamsulosin 0.4 MG CAPCR 0.8 MG PO (22:33)
[2022-08-02] VITALS (9 sets, daily range): BP systolic 111–139; BP diastolic 64–75; PULSE 52–70; RESP 14–18; TEMP 35.5–36.2; O2SAT 97–99
[2022-08-02] MEDS: Levothyroxine 75 MCG TAB PO (06:23)
[2022-08-02 06:48] LABS: Vitamin D 25 Total 42.6 ng/mL (30-100)
[2022-08-02 07:08] LABS: Absolute Basophil Count 0.02 10^3/uL (0.0-0.2); Absolute Eosinophil Count 0.02 10^3/uL (0.0-0.7); Absolute Lymphocyte Count 0.27 10^3/uL (1.2-3.4); Absolute Monocyte Count 0.37 10^3/uL (0.1-0.8); Absolute Neutrophil Count 1.59 10^3/uL (1.2-6.7); Basophils % 0.9; Eosinophils % 0.9; HCT 37.1 % (40.0-50.0); HGB 12.7 g/dL (13.5-17.5); Lymphocytes % 11.9; MCHC 34.2 % (32.0-36.0); MCV 100 fL (80-95); MPV 9.7 fL (8.0-11.0); Monocytes % 16.3; Platelet Count 162 10^3/uL (130-400); RBC 3.73 10^6/uL (4.36-5.78); RDW 12.1 % (11.8-14.1); RDW-SD 44.5 fL; WBC 2.27 10^3/uL (4.4-10.8)
[2022-08-02 07:33] LABS: ALT 440 U/L (16-63); AST 187 U/L (15-37); Albumin 4.1 g/dL (3.4-5.0); Alkaline Phosphatase 299 U/L (46-116); Anion Gap 7.1 mmol/L (3-11); BUN 9 mg/dL (7-18); Bilirubin, Direct 1.6 mg/dL (0.0-0.2); Bilirubin, Total 3.1 mg/dL (0.2-1.0); C-Reactive Protein 0.27 mg/dL (0.0-0.3); CO2 29.9 mmol/L (21.0-32.0); CREATININE 0.9 mg/dL (0.70-1.30); Calcium 9.6 mg/dL (8.5-10.1); Chloride 102 mmol/L (98-107); Estimated GFR 95.37 (mL/min/1.73m2); Glucose 112 mg/dL (74-106); Potassium 4.5 mmol/L (3.5-5.1); Sodium 139 mmol/L (136-145); Total Protein 7.7 g/dL (6.4-8.2)
[2022-08-02] MEDS: Normal Saline Flush 10 ML SYR IVP ×2 (07:42→15:02)
[2022-08-02] MEDS: Lisinopril 20 MG TAB PO (07:42)
--- NOTE | 2022-08-02 09:13 | CMPROGNOTE_ITS ---
- If Service Date Differs Date of service: 08/02/22 Time of Service: 09:13 Care Management Progress Note S/O: CM called and spoke to Johnathon over the phone. He was pleasant and engaged in conversation. He reported that he is feeling good, and is not symptomatic of Covid. He was recently informed that his ERCP procedure at [facility] has been postponed until tomorrow afternoon. He expressed frustration about this, but also understanding of the schedule/availability of the procedure. He stated that he is comfortable with the plan to remain at [facility] in anticipation of this procedure. CM will continue to follow. A: Johnathon is a 62 year old male admitted to [facility] on 07/31/22 for pancreatic mass, Covid. P: Anticipate Johnathon will return home when medically cleared. He will follow up with his PCP and discharge plan of care, and his will drive him home when medically ready. CM will continue to follow.
[2022-08-02] MEDS: Ipratropium/Albuterol 4 GM 120 PUFF INH IH ×2 (16:46→20:02)
--- NOTE | 2022-08-02 18:54 | PGE_ITS ---
Date of Service Date of service: 08/02/22 Time of Service: 18:54 Assessment and Plan Assessment and plan (1) Abdominal mass: Status: Acute Assessment and plan: For EUS/ERCP tomorrow (rescheduled) NPO after midnight. Hold lovenox. (2) Elevated LFTs: Status: Acute Assessment and plan: In setting of pancreatic mass as well as COVID-19. AST and ALT are improving. Continue to hold statin. Remdesivir contraindicated. Plan as above. (3) COVID-19: Status: Acute Assessment and plan: Not requiring O2. Hold remdesivir given elevated LFTs. S/p MAB today. Remains asymptomatic. (4) Neutropenia: Status: Acute Assessment and plan: Monitor for fever and consider prophylactic antibiotic. This has, however, improved. Recheck CBC w/ diff in am. (5) Prostate cancer: Status: Chronic Assessment and plan: May benefit from a thoracic MRI if back pain persists after intervention on the pancreatic mass (6) DVT prophylaxis: Status: Acute Assessment and plan: SC enoxaparin on hold Bridging with SCDs. (7) Discharge planning issues: Status: Acute Assessment and plan: Full code Subjective Subjective Interval history since last seen: Our visit happened over the phone today. EUS/ERCP by [facility] were postponed today due to COVID positivity. The patient states he is not short of breath, has not had any pain, including abdominal or back pain, is not nauseated, and has no other complaints. Exam Narrative Exam Narrative: Exam done over the phone today due to patient's stability and his diagnosis of COVID-19 Patient is A&Ox3, not dyspneic/tachypneic, appropriate speech pattern/content. Objective Last Vital Signs Temp 36.2 C L 08/02/22 15:13 Pulse 55 L 08/02/22 15:55 Resp 16 08/02/22 15:13 BP 132/75 08/02/22 15:13 Pulse Ox 98 08/02/22 15:13 Laboratory Results - last 24 hr 08/01/22 08/02/22 08/02/22 07:08 06:55 06:55 WBC 2.27 L RBC 3.73 L Hgb 12.7 L Hct 37.1 L MCV 100 H MCH 34.0 H MCHC 34.2 RDW 12.1 Plt Count 162 MPV 9.7 Immature Gran % 0.0 Neutrophils % 70.0 Lymphocytes % 11.9 Monocytes % 16.3 Eosinophils % 0.9 Basophils % 0.9 Nucleated RBC % 0.0 Absolute Neutrophils 1.59 Absolute Lymphocytes 0.27 L Absolute Monocytes 0.37 Absolute Eosinophils 0.02 Absolute Basophils 0.02 Sodium 139 Potassium 4.5 D Chloride 102 Carbon Dioxide 29.9 Anion Gap 7.1 BUN 9 Creatinine 0.9 Est GFR (CKD-EPI 2020) 95.37 Glucose 112 H Calcium 9.6 Magnesium 2.0 Total Bilirubin 3.1 H Conjugated Bilirubin 1.6 H AST 187 H ALT 440 H Alkaline Phosphatase 299 H C-Reactive Protein 0.27 Total Protein 7.7 Albumin 4.1 25-OH Vitamin D Total 42.6
[2022-08-02] MEDS: Tamsulosin 0.4 MG CAPCR 0.8 MG PO (21:47)
[2022-08-03] VITALS (7 sets, daily range): BP systolic 108–145; BP diastolic 65–88; PULSE 57–70; RESP 16–18; TEMP 35.6–36.1; O2SAT 97–99
[2022-08-03] MEDS: Levothyroxine 75 MCG TAB PO (06:45)
[2022-08-03 06:49] LABS: Absolute Basophil Count 0.03 10^3/uL (0.0-0.2); Absolute Eosinophil Count 0.04 10^3/uL (0.0-0.7); Absolute Lymphocyte Count 0.36 10^3/uL (1.2-3.4); Absolute Monocyte Count 0.45 10^3/uL (0.1-0.8); Absolute Neutrophil Count 2.18 10^3/uL (1.2-6.7); Eosinophils % 1.3; Lymphocytes % 11.8; MCH 33.5 pg (27.0-33.0); MCHC 34.2 % (32.0-36.0); MCV 98 fL (80-95); MPV 9.6 fL (8.0-11.0); Monocytes % 14.7; Neutrophils % 71.2; Platelet Count 199 10^3/uL (130-400); RBC 3.88 10^6/uL (4.36-5.78); RDW-SD 43.6 fL; WBC 3.06 10^3/uL (4.4-10.8)
[2022-08-03 07:13] LABS: ALT 343 U/L (16-63); AST 117 U/L (15-37); Albumin 4.3 g/dL (3.4-5.0); Alkaline Phosphatase 332 U/L (46-116); Anion Gap 7.5 mmol/L (3-11); BUN 16 mg/dL (7-18); Bilirubin, Total 2.2 mg/dL (0.2-1.0); C-Reactive Protein 0.19 mg/dL (0.0-0.3); CO2 31.5 mmol/L (21.0-32.0); CREATININE 0.9 mg/dL (0.70-1.30); Calcium 9.6 mg/dL (8.5-10.1); Chloride 99 mmol/L (98-107); Estimated GFR 95.37 (mL/min/1.73m2); Glucose 118 mg/dL (74-106); Magnesium 1.8 mg/dL (1.8-2.4); Potassium 3.8 mmol/L (3.5-5.1); Sodium 138 mmol/L (136-145); Total Protein 8.1 g/dL (6.4-8.2)
[2022-08-03 07:24] LABS: D-Dimer 692 ng/mlFEU (<500)
[2022-08-03] MEDS: Multivitamin w/Minerals TAB 1 TAB PO (07:49)
[2022-08-03] MEDS: Cholecalciferol (Vitamin D3) 1,000 UNIT TAB 1000 UNITS PO (07:49)
[2022-08-03] MEDS: Lisinopril 20 MG TAB PO (07:49)
[2022-08-03] MEDS: Omega-3 Fatty Acids 1000 MG CAP PO (07:49)
[2022-08-03 08:05] LABS: Ferritin 1980 ng/mL (26-388)
[2022-08-03] MEDS: Ipratropium/Albuterol 4 GM 120 PUFF INH IH ×3 (09:02→20:02)
--- NOTE | 2022-08-03 10:29 | PDOC.CMPRO ---
- If Service Date Differs Date of service: 08/03/22 Time of Service: 10:29 Care Management Progress Note S/O: Johnathon is anticipating going down and back to [facility] this afternoon for an ERCP. CM will continue to follow. A: Johnathon is a 62 year old male admitted to [facility] on 07/31/22 for pancreatic mass, Covid. P: Anticipate Johnathon will return home when medically cleared. He will follow up with his PCP and discharge plan of care, and his will drive him home when medically ready. CM will continue to follow.
--- NOTE | 2022-08-03 18:53 | PGE_ITS ---
Date of Service Date of service: 08/03/22 Time of Service: 18:53 Subjective Subjective Interval history since last seen: Patient is at [facility] for a procedure and has not yet returned. Unable to examine him today. Objective Last Vital Signs Temp 35.6 C L 08/03/22 11:48 Pulse 61 08/03/22 11:48 Resp 16 08/03/22 11:48 BP 108/73 08/03/22 11:48 Pulse Ox 97 08/03/22 11:48 Laboratory Results - last 24 hr 08/03/22 08/03/22 08/03/22 06:27 06:27 06:27 WBC 3.06 L RBC 3.88 L Hgb 13.0 L Hct 38.0 L MCV 98 H MCH 33.5 H MCHC 34.2 RDW 12.0 Plt Count 199 MPV 9.6 Immature Gran % 0.0 Neutrophils % 71.2 Lymphocytes % 11.8 Monocytes % 14.7 Eosinophils % 1.3 Basophils % 1.0 Nucleated RBC % 0.0 Absolute Neutrophils 2.18 Absolute Lymphocytes 0.36 L Absolute Monocytes 0.45 Absolute Eosinophils 0.04 Absolute Basophils 0.03 D-Dimer 692 H Sodium 138 Potassium 3.8 Chloride 99 Carbon Dioxide 31.5 Anion Gap 7.5 BUN 16 Creatinine 0.9 Est GFR (CKD-EPI 2020) 95.37 Glucose 118 H Calcium 9.6 Magnesium 1.8 Ferritin 1980 H Total Bilirubin 2.2 H Conjugated Bilirubin 1.0 H AST 117 H ALT 343 H Alkaline Phosphatase 332 H C-Reactive Protein 0.19 Total Protein 8.1 Albumin 4.3
[2022-08-03] MEDS: Normal Saline Flush 10 ML SYR IVP (20:03)
[2022-08-03] MEDS: Ibuprofen 600 MG TAB PO (20:12)
[2022-08-03] MEDS: Tamsulosin 0.4 MG CAPCR 0.8 MG PO (21:45)
[2022-08-04 03:38] VITALS: BP 136/75; PULSE 60; RESP 16; TEMP 36.7; O2SAT 99
[2022-08-04] MEDS: Ibuprofen 600 MG TAB PO ×2 (03:40→10:25)
[2022-08-04] MEDS: Levothyroxine 75 MCG TAB PO (06:22)
[2022-08-04 06:26] VITALS: BP 114/65; PULSE 58; RESP 16; TEMP 36; O2SAT 100
[2022-08-04 06:42] LABS: Absolute Basophil Count 0.02 10^3/uL (0.0-0.2); Absolute Eosinophil Count 0.05 10^3/uL (0.0-0.7); Absolute Lymphocyte Count 0.35 10^3/uL (1.2-3.4); Absolute Monocyte Count 0.35 10^3/uL (0.1-0.8); Absolute Neutrophil Count 1.78 10^3/uL (1.2-6.7); Basophils % 0.8; HCT 36.1 % (40.0-50.0); HGB 12.5 g/dL (13.5-17.5); Lymphocytes % 13.7; MCH 33.9 pg (27.0-33.0); MCHC 34.6 % (32.0-36.0); MCV 98 fL (80-95); MPV 9.5 fL (8.0-11.0); Monocytes % 13.7; Neutrophils % 69.8; Platelet Count 185 10^3/uL (130-400); RBC 3.69 10^6/uL (4.36-5.78); RDW 11.9 % (11.8-14.1); RDW-SD 43.2 fL; WBC 2.55 10^3/uL (4.4-10.8)
[2022-08-04 06:50] LABS: ALT 249 U/L (16-63); AST 70 U/L (15-37); Albumin 4.1 g/dL (3.4-5.0); Alkaline Phosphatase 292 U/L (46-116); BUN 18 mg/dL (7-18); Bilirubin, Direct 0.7 mg/dL (0.0-0.2); Bilirubin, Total 1.7 mg/dL (0.2-1.0); C-Reactive Protein 0.17 mg/dL (0.0-0.3); CREATININE 0.9 mg/dL (0.70-1.30); Calcium 9.5 mg/dL (8.5-10.1); Chloride 98 mmol/L (98-107); Estimated GFR 95.37 (mL/min/1.73m2); Glucose 152 mg/dL (74-106); Lipase 171 U/L (73-393); Magnesium 1.8 mg/dL (1.8-2.4); Potassium 3.7 mmol/L (3.5-5.1); Sodium 136 mmol/L (136-145); Total Protein 7.7 g/dL (6.4-8.2)
[2022-08-04] MEDS: Ipratropium/Albuterol 4 GM 120 PUFF INH IH ×2 (07:56→12:40)
[2022-08-04] MEDS: Multivitamin w/Minerals TAB 1 TAB PO (08:27)
[2022-08-04 08:28] VITALS: BP 122/57; PULSE 61; RESP 16; TEMP 35.6; O2SAT 100
[2022-08-04] MEDS: Lisinopril 20 MG TAB PO (08:28)
[2022-08-04] MEDS: Cholecalciferol (Vitamin D3) 1,000 UNIT TAB 1000 UNITS PO (08:28)
[2022-08-04] MEDS: Omega-3 Fatty Acids 1000 MG CAP PO (08:28)
[2022-08-04 12:17] VITALS: BP 121/67; PULSE 64; RESP 18; TEMP 35.8; O2SAT 98
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
--- NOTE | 2022-08-04 16:47 | PDOC.CMDIS ---
- If Service Date Differs Date of service: 08/04/22 Time of Service: 16:48 LACE Index Scoring Tool - Questions: Length of Stay (in days): 4 - 6 Acuity (Admit via E.D.?): Yes Comorbidities: Metastatic Solid Tumor E.D. Visits: 2 - Answers: Total Score: 14 Risk of Readmission: High Risk Care Management Discharge Reason for Hospitalization: Pancreatic mass, Covid 19 Discharge Plan: Johnathon will return home today with no services. His will drive him home via private vehicle. He will follow up with his PCP and discharge plan of care. Patient/Family Education Needs: Review discharge instructions and limitations, discussion of self care needs including ask me three.
== END 2022-08-04 17:20 | disposition home or self-care (01) | DRG 438 ==
LOC: ER 17:49 → MS 19:28
PROVIDERS: Nurse Practitioner Family; Admitting Provider Internal Medicine; Emergency Provider Registered Nurse Emergency; PCP Nurse Practitioner; Visit Provider Internal Medicine
DX: K86.89 Other specified diseases of pancreas (principal); U07.1 COVID-19; D70.9 Neutropenia, unspecified; I10 Essential (primary) hypertension; E78.5 Hyperlipidemia, unspecified; R73.03 Prediabetes; Z79.899 Other long term (current) drug therapy; R74.01 Elevation of levels of liver transaminase levels; C61 Malignant neoplasm of prostate; Z92.3 Personal history of irradiation; E03.9 Hypothyroidism, unspecified; Z85.89 Personal history of malignant neoplasm of other organs and systems; K76.0 Fatty (change of) liver, not elsewhere classified; Z87.891 Personal history of nicotine dependence
CPT/HCPCS: 36415; 74177; 80048; 80053; 80076; 82306; 82550; 83690; 84145; 87635; 94640; 96361; 96374; 96375; 96376; 99285; J1650; Q0222; 71260; 81003; 81015; 82728; 83735; 85025; 85379; 85610; 86140; 94664; 99223; 99231; 99232; 99239; 99284; J1170; J2270; J2405; J3490; J7620

== ENCOUNTER 2022-08-20 01:39 | Outpatient (CLI) | payer BC, SELFPAY ==
[2022-08-20 10:05] LABS: Absolute Basophil Count 0.03 10^3/uL (0.0-0.2); Absolute Eosinophil Count 0.05 10^3/uL (0.0-0.7); Absolute Lymphocyte Count 0.38 10^3/uL (1.2-3.4); Absolute Monocyte Count 0.44 10^3/uL (0.1-0.8); Absolute Neutrophil Count 2.01 10^3/uL (1.2-6.7); Eosinophils % 1.7; HCT 33.9 % (40.0-50.0); HGB 11.7 g/dL (13.5-17.5); Lymphocytes % 13.1; MCH 32.8 pg (27.0-33.0); MCHC 34.5 % (32.0-36.0); MCV 95 fL (80-95); MPV 9.1 fL (8.0-11.0); Monocytes % 15.1; Neutrophils % 69.1; Platelet Count 197 10^3/uL (130-400); RBC 3.57 10^6/uL (4.36-5.78); RDW 11.5 % (11.8-14.1); WBC 2.91 10^3/uL (4.4-10.8)
[2022-08-20 10:19] LABS: ALT 774 U/L (16-63); AST 602 U/L (15-37); Albumin 4.2 g/dL (3.4-5.0); Alkaline Phosphatase 271 U/L (46-116); Anion Gap 8.2 mmol/L (3-11); BUN 12 mg/dL (7-18); Bilirubin, Total 1.1 mg/dL (0.2-1.0); CO2 29.8 mmol/L (21.0-32.0); CREATININE 0.8 mg/dL (0.70-1.30); Calcium 9.6 mg/dL (8.5-10.1); Chloride 97 mmol/L (98-107); Estimated GFR 98.83 (mL/min/1.73m2); Glucose 97 mg/dL (74-106); Sodium 135 mmol/L (136-145); Total Protein 7.8 g/dL (6.4-8.2)
[2022-08-25 20:43] LABS: Testosterone, Total 13 ng/dL (240-950)
== END 2022-08-20 01:40 | disposition home or self-care (01) ==
PROVIDERS: PCP Nurse Practitioner; Visit Provider Nurse Practitioner Family
DX: C61 Malignant neoplasm of prostate (principal)
CPT/HCPCS: 36415; 80053; 84153; 84403; 85025

== ENCOUNTER 2022-08-27 01:51 | Outpatient (CLI) | payer BC, SELFPAY ==
[2022-08-27 08:41] LABS: Abs Immature Grans 0.01 10^3/uL (0.0-0.06); Absolute Basophil Count 0.04 10^3/uL (0.0-0.2); Absolute Eosinophil Count 0.11 10^3/uL (0.0-0.7); Absolute Lymphocyte Count 0.49 10^3/uL (1.2-3.4); Absolute Monocyte Count 0.53 10^3/uL (0.1-0.8); Absolute Neutrophil Count 2.14 10^3/uL (1.2-6.7); Basophils % 1.2; Eosinophils % 3.3; HCT 31.2 % (40.0-50.0); HGB 10.6 g/dL (13.5-17.5); Immature Grans % 0.3; Lymphocytes % 14.8; MCH 33.2 pg (27.0-33.0); MCV 98 fL (80-95); MPV 9.9 fL (8.0-11.0); Neutrophils % 64.4; Platelet Count 170 10^3/uL (130-400); RBC 3.19 10^6/uL (4.36-5.78); RDW 11.6 % (11.8-14.1); RDW-SD 41.8 fL; WBC 3.32 10^3/uL (4.4-10.8)
[2022-08-27 08:50] LABS: ALT 247 U/L (16-63); AST 61 U/L (15-37); Albumin 3.8 g/dL (3.4-5.0); Alkaline Phosphatase 289 U/L (46-116); Anion Gap 3.7 mmol/L (3-11); BUN 13 mg/dL (7-18); Bilirubin, Total 1.2 mg/dL (0.2-1.0); CO2 31.3 mmol/L (21.0-32.0); CREATININE 0.9 mg/dL (0.70-1.30); Calcium 9.3 mg/dL (8.5-10.1); Chloride 99 mmol/L (98-107); Estimated GFR 95.37 (mL/min/1.73m2); Glucose 132 mg/dL (74-106); Potassium 4.1 mmol/L (3.5-5.1); Sodium 134 mmol/L (136-145)
== END 2022-08-27 01:52 | disposition home or self-care (01) ==
LOC: LBO 01:51
PROVIDERS: PCP Nurse Practitioner; Visit Provider Internal Medicine Hematology & Oncology
DX: C7A.8 Other malignant neuroendocrine tumors (principal)
CPT/HCPCS: 36415; 80053; 85025

== ENCOUNTER 2022-09-09 12:16 | Outpatient (CLI) | payer BC, SELFPAY ==
[2022-09-09 11:01] LABS: Abs Immature Grans 0.04 10^3/uL (0.0-0.06); HGB 10.6 g/dL (13.5-17.5); MCH 33.9 pg (27.0-33.0); MCHC 35.3 % (32.0-36.0); MCV 96 fL (80-95); MPV 9.7 fL (8.0-11.0); Platelet Count 155 10^3/uL (130-400); RBC 3.13 10^6/uL (4.36-5.78); RDW 11.5 % (11.8-14.1); RDW-SD 40.2 fL; WBC 3.45 10^3/uL (4.4-10.8)
[2022-09-09 11:19] LABS: Absolute Lymphocyte Count 0.72 10^3/uL (1.2-3.4); Absolute Neutrophil Count 2.52 10^3/uL (1.2-6.7); Bands % 0
[2022-09-09 11:20] LABS: Absolute Monocyte Count 0.21 10^3/uL (0.1-0.8); Atypical Lymphocytes % 0; Diff Comment Manual Differential; RBC Morphology Normal
[2022-09-09 11:27] LABS: ALT 62 U/L (16-63); AST 25 U/L (15-37); Albumin 3.8 g/dL (3.4-5.0); Alkaline Phosphatase 185 U/L (46-116); Anion Gap 5.6 mmol/L (3-11); BUN 20 mg/dL (7-18); Bilirubin, Total 0.7 mg/dL (0.2-1.0); CO2 32.4 mmol/L (21.0-32.0); CREATININE 0.8 mg/dL (0.70-1.30); Calcium 9.1 mg/dL (8.5-10.1); Chloride 99 mmol/L (98-107); Estimated GFR 98.83 (mL/min/1.73m2); Glucose 123 mg/dL (74-106); Potassium 4.4 mmol/L (3.5-5.1); Sodium 137 mmol/L (136-145); Total Protein 7.2 g/dL (6.4-8.2)
[2022-09-10 18:28] LABS: PSA, Ultrasensitive 1.1 ng/mL (<= 4.5)
[2022-09-15 00:17] LABS: Testosterone, Total 7.7 ng/dL (240-950)
== END 2022-09-09 12:17 | disposition home or self-care (01) ==
LOC: LBO 12:17
PROVIDERS: PCP Nurse Practitioner; Visit Provider Internal Medicine
DX: C61 Malignant neoplasm of prostate (principal); C79.51 Secondary malignant neoplasm of bone
CPT/HCPCS: 36415; 80053; 84153; 84403; 85025

== ENCOUNTER 2022-09-20 02:24 | Outpatient (RCR) | payer BC, SELFPAY ==
[2022-09-20] MEDS: Normal Saline Flush 10 ML SYR IVP (07:15)
[2022-09-20 07:24] LABS: Abs Immature Grans 0.02 10^3/uL (0.0-0.06); Absolute Basophil Count 0.02 10^3/uL (0.0-0.2); Absolute Eosinophil Count 0.02 10^3/uL (0.0-0.7); Absolute Lymphocyte Count 0.51 10^3/uL (1.2-3.4); Absolute Monocyte Count 0.42 10^3/uL (0.1-0.8); Basophils % 0.5; Eosinophils % 0.5; HCT 29.9 % (40.0-50.0); HGB 10.3 g/dL (13.5-17.5); Immature Grans % 0.5; Lymphocytes % 13.5; MCH 33.2 pg (27.0-33.0); MCHC 34.4 % (32.0-36.0); MCV 97 fL (80-95); MPV 9.1 fL (8.0-11.0); Monocytes % 11.1; Neutrophils % 73.9; Platelet Count 190 10^3/uL (130-400); RDW 12.3 % (11.8-14.1); RDW-SD 41.2 fL; WBC 3.77 10^3/uL (4.4-10.8)
[2022-09-20 07:27] LABS: Absolute Neutrophil Count 2.79 10^3/uL (1.2-6.7)
[2022-09-20 07:43] LABS: ALT 36 U/L (16-63); AST 22 U/L (15-37); Albumin 3.9 g/dL (3.4-5.0); Alkaline Phosphatase 156 U/L (46-116); Anion Gap 7.8 mmol/L (3-11); BUN 17 mg/dL (7-18); Bilirubin, Total 0.6 mg/dL (0.2-1.0); CO2 30.2 mmol/L (21.0-32.0); CREATININE 0.8 mg/dL (0.70-1.30); Calcium 9.3 mg/dL (8.5-10.1); Chloride 98 mmol/L (98-107); Estimated GFR 98.83 (mL/min/1.73m2); Glucose 119 mg/dL (74-106); Potassium 3.6 mmol/L (3.5-5.1); Sodium 136 mmol/L (136-145); Total Protein 7.5 g/dL (6.4-8.2)
== END 2022-09-29 23:59 | disposition home or self-care (01) ==
LOC: INF 02:24
PROVIDERS: PCP Nurse Practitioner Family; Visit Provider Internal Medicine Hematology & Oncology
DX: C7A.8 Other malignant neuroendocrine tumors (principal); Z45.2 Encounter for adjustment and management of vascular access device
CPT/HCPCS: 36591; 80053; 85025

== ENCOUNTER 2022-10-15 07:42 | Inpatient (IN) | payer BC, SELFPAY ==
[2022-10-15] VITALS (54 sets, daily range): BP systolic 91–142; BP diastolic 52–96; PULSE 60–79; RESP 9–26; TEMP 36.4–36.7; O2SAT 96–100
--- NOTE | 2022-10-15 07:45 | RT.EKG_ITS ---
APPROVED REPORT Exam: Resting ECG Reason for Exam: epigastric pain Patient Location: E HR:65 bpm ECG Measurements Heart Rate [address] 135 P 33 QRSd 105 QRS -12 QT 414 T 31 QTc 431 Conclusion Sinus rhythm...normal P axis, V-rate 60- 99 Ventricular premature complex...V complex w/ short R-R interval sinus rhythm, normal axis, normal interals, non ischemic
[2022-10-15 08:39] LABS: Abs Immature Grans 0.19 10^3/uL (0.0-0.06); HGB 9.3 g/dL (13.5-17.5); MCH 34.7 pg (27.0-33.0); MCHC 34.4 % (32.0-36.0); MCV 101 fL (80-95); MPV 9.3 fL (8.0-11.0); Platelet Count 243 10^3/uL (130-400); RBC 2.68 10^6/uL (4.36-5.78); RDW-SD 61.1 fL; WBC 24.63 10^3/uL (4.4-10.8)
[2022-10-15] MEDS: Lactated Ringers 1,000 ML 1000 ML IV (08:42)
[2022-10-15] MEDS: Breeza Beverage 473 ML BTL PO (08:45)
[2022-10-15] MEDS: Gastrografin 120 ML BTL 13 ML IVP (08:45)
[2022-10-15 09:02] LABS: Absolute Lymphocyte Count 0.74 10^3/uL (1.2-3.4); Absolute Monocyte Count 0.25 10^3/uL (0.1-0.8); Absolute Neutrophil Count 23.64 10^3/uL (1.2-6.7); Atypical Lymphocytes % 0; Bands % 0; Diff Comment Manual Differential; RBC Morphology Normal
[2022-10-15 09:04] LABS: ALT 61 U/L (16-63); AST 39 U/L (15-37); Albumin 3.7 g/dL (3.4-5.0); Alkaline Phosphatase 86 U/L (46-116); Anion Gap 5.3 mmol/L (3-11); BUN 22 mg/dL (7-18); Bilirubin, Total 2.9 mg/dL (0.2-1.0); CO2 29.7 mmol/L (21.0-32.0); CREATININE 0.8 mg/dL (0.70-1.30); Calcium 8.9 mg/dL (8.5-10.1); Chloride 97 mmol/L (98-107); Estimated GFR 98.83 (mL/min/1.73m2); Glucose 120 mg/dL (74-106); Lipase 60 U/L (73-393); Potassium 3.7 mmol/L (3.5-5.1); Sodium 132 mmol/L (136-145); Total Protein 6.9 g/dL (6.4-8.2); Troponin I < 50 ng/L (<or=60)
[2022-10-15] MEDS: Omnipaque 350 MG/ML 500 ML BTL-Imaging package 100 ML IJ (10:09)
[2022-10-15] MEDS: Normal Saline - Diluent 50 ML VIAL IV (10:10)
[2022-10-15] MEDS: Normal Saline Flush 10 ML SYR IVP ×2 (10:12→22:38)
--- NOTE | 2022-10-15 10:14 | DI.CT_ITS ---
Exam(s) CT ABDOMEN PELVIS W EXAM: CT ABDOMEN PELVIS W CLINICAL HISTORY: epigast pain, mets frm prostrate to liver/pancreas. TECHNIQUE: Imaging Protocol: Axial computed tomography images with coronal and sagittal reformatted images were created and reviewed CONTRAST MATERIAL: Intravenous: Omnipaque-350 100cc Oral: None COMPARISON: CT CT CHEST/ABD/PEL W from 07/31/2022 FINDINGS: VISUALIZED LUNG BASES: No nodules nor pleural effusions evident. ABDOMEN: LIVER/BILIARY/PANCREAS: There is now a long silastic-type stent in the CBD and ending in the right hepatic lobe. The distal aspect of the stent is at the duodenal wall level. There is a mass in this region measuring approxim ately 3 x 3.5 cm which is intimately related to the duodenum in this region. There is also significa nt streaking in the surrounding fat around this region. Suspect that this may be a combination of ma ss and hematoma, possibly related to the recent ERCP procedure. There is mild dilatation of intrahep atic ducts in both lobes, more so in the left lobe. The CBD diameter is upper normal. Gallbladder s urgically absent. Uncinate process of the pancreas appears unremarkable as does the remainder of the pancreas. Pancreatic duct is not dilated. SPLEEN: Spleen is not enlarged. No obvious intrasplenic lesions. Splenic and portal veins are paten t. ADRENALS: There are multiple calcifications in the nonenlarged right adrenal gland. Tiny calcificati ons are also noted in the opposite-nonenlarged left adrenal gland. KIDNEYS:Small cyst in superior pole right kidney. No solid renal masses. No calculi nor hydronephro sis.. ABDOMINAL AORTA: Abdominal aorta is not enlarged. LYMPH NODES:There is slightly prominent lymph nodes noted in the region the pancreatic neck-. ABDOMINAL WALL: No evidence of significant anterior abdominal wall nor inguinal hernia. PELVIS: GI: No evidence of appendicitis.No evidence of sigmoid diverticulitis. LYMPH NODES: There is no intrapelvic nor inguinal adenopathy. REPRODUCTIVE: Prostate gland contains radiation implants both sides. Prostate itself is not enlarged . Some adjacent circumferential thickening of the rectal wall is noted. Urinary bladder unremarkabl e. URINARY BLADDER: No calculi nor obvious masses evident OSSEOUS: No fractures. No lytic osseous lesions. Advanced disc space narrowing in the lower LS spin e noted. IMPRESSION: 1. Compared to the prior CT scan of 07/31/2022 there has been interval ERCP procedure with placement of CBD silastic stent. There is 3 centimeter mass density in this region which is either adjacent t o the distal stomach-duodenum and is suspicious for hematoma or possible abscess.. There is abundant fat stranding in this region. This may be related to recent ERCP procedure. There does not appear to be obvious free air. Pancreatic duct is not dilated. There does not appear to be evidence of miller creatitis. 2. Gallbladder surgically absent. 3. Mild dilatation of intrahepatic ducts in both hepatic lobes despite presence of the long silastic CBD stent. Discussed with ER provider. RADIATION DOSE DELIVERED: 1,859.05mGy.cm Total DLP DATA REPOSITORY: All CT scans at this facility are submitted to the National Radiology Data Registry (NRDR) Dose Index Registry (DIR) with the [employer] (ACR). RADIATION OPTIMIZATION: All CT scans at this facility use at least one of these dose optimization te chniques: automated exposure control; mA and/or kV adjustment per patient size (includes targeted exa ms where dose is matched to clinical indication); or iterative reconstruction.
[2022-10-15 12:02] LABS: Lactate 0.8 mmol/L (0.6-1.4)
--- NOTE | 2022-10-15 13:10 | W.PM.HP.N ---
Date of service: 10/15/22 Time of Service: 13:10 Assessment and Plan Assessment and plan (1) Elevated LFTs: Status: Acute Assessment and plan: with abdominal pain and finding on CT of abscess vs hematoma. ED discussed case with oncology, gi and general surgery. plan is to transfer to [facility] when bed available or sooner for fever or worsening pain continue zosyn day 1 trend labs avoid hepatotoxic drugs. will need ERCP and further evalution by GI will place apixaban on hold, heparin drip pending planned procedure (2) High grade neuroendocrine carcinoma: Status: Chronic Assessment and plan: followed by oncology at [facility]. received neulasta last tuesday (3) Prostate cancer metastatic to bone: Status: Chronic Assessment and plan: see above (4) Hypothyroidism: Status: Chronic Assessment and plan: last TSH in 11.19 continue levothyroxine Qualifiers: Hypothyroidism type: unspecified Qualified Code(s): E03.9 - Hypothyroidism, unspecified (5) Hypertension: Status: Chronic Assessment and plan: continue monitor and home medication as directed. discussed with DR Mckeon Qualifiers: Hypertension type: essential hypertension Qualified Code(s): I10 - Essential (primary) hypertension History of Present Illness History of Present Illness Chief Complaint: abdominal pain Narrative: This is a 62 year old male with history of prostate cancer with metastasis to bone and high grade neuroendocrine carcinoma under the care of oncology at [facility], currently receiving chemotherapy who developed epigastric pain the day prior to presentation. there was no fever, nausea or vomiting. constipation but no diarrhea. His work up in the ED showed a 3 cm hematoma versus abscess adjacent to his duodenum on CT scan. Labs notable for elevated bilirubin at 2.9 with his previous level at 0.5. His case was discussed with oncology, GI and general surgery. recommendations are for ERCP but no beds available so plan is to admit here for monitoring and IV antibiotics with plan to transfer when bed available or sooner if he decompensates. He is being admitted to medicine on med/surg. Review of Systems All systems reviewed & are unremarkable except as noted in HPI and below Constitutional Constitutional: Denies fever(s) ENT Ears, Nose, Mouth, and Throat: Denies vertigo and Denies dizziness Cardiovascular Cardiovascular: Denies chest pain and Denies dyspnea Respiratory Respiratory: Denies dyspnea Gastrointestinal Gastrointestinal: Reports abdominal pain, Denies diarrhea and Denies vomiting Integumentary/Breasts Skin/Breast: Denies rash Neurologic Neurologic: Denies confusion, Denies vertigo and Denies dizziness Psychiatric Psychiatric: Denies confusion PFSH All Active Problems (Updated 09/06/22 @ 09:50 by Sarita Casillas NP) Prostate cancer metastatic to bone (Chronic ~2020) High grade neuroendocrine carcinoma (Chronic ~07/2022) Of unknown primary Elevated LFTs (Acute ~07/2022) Secondary to dilated hepatic ducts. S/p stent to right intraheptic duct Jul 2022. Hypothyroidism (Chronic) Secondary to radiation for tonsil cancer Hypertension (Chronic) Prediabetes (Chronic) Hyperlipidemia (Chronic) Tubular adenoma of colon (Chronic) 2014 Medical History (Updated 09/06/22 @ 09:50 by Sarita Casillas NP) COVID-19 (~07/2022) Fatty liver Malignant neoplasm of tonsil (~2009) S/p chemo, radiation Surgical History (Updated 09/06/22 @ 09:28 by Sarita Casillas NP) History of arthroplasty of right knee History of carpal tunnel surgery of left wrist History of colonoscopy (~01/2022) History of hip surgery Hx of right knee surgery (07/18/14) S/P appendectomy S/P ERCP spcinterotmy. no stones S/P partial thyroidectomy Left thyroid lobe S/P tonsillectomy (~2010) Status post cholecystectomy (04/2022) Family History Mother , 64 Diabetes Essential hypertension Father , 79 Essential hypertension Heart disease Hyperlipidemia Stroke Prostate cancer Sister Ovarian cyst Brother , age 67 Prostate cancer Non Hodgkin's lymphoma Son No problems noted. Son No problems noted. Social History Smoking/Tobacco Use Status: Former Tobacco Use tobacco type: smokeless tobacco Quit Date: 10/02/10 Tobacco: How many years used: 30 Smokeless tobacco user: snuff Second Hand Exposure: Yes Smoking risk assessment performed?: Yes Alcohol Intake: former Drug use: Never Substance use type: does not use Caregiver/Support person: No Household members: spouse Housing: house Communication Needs: Hard of Hearing Do you need help understanding health information?: Never current occupation: [employer] Pets and animals: No Do you think of yourself as: straight/heterosexual Current gender identity: male What is your relationship status?: How often do you talk on the phone with friends or family?: decline to answer How often do you get together with friends or relatives?: decline to answer How often do you attend sabianism or jainism services?: decline to answer Do you belong to any clubs or organized social groups?: decline to answer Panel score (0-1 are the most socially isolated patients): 1 What type of physical activity do you participate in: walking Duration: 15-30 minutes/day Frequency: 5-6 times per week Yelena/Yazdanism: Mandaeism Special yelena needs: No Seatbelt use: always Drive intox or 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 w/intox 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: No Do you feel safe at home: Yes Do you feel safe in your relationship?: Yes Victim of physical abuse: No Victim of emotional abuse: No Victim of sexual abuse: No Would you like helpful sources: No Meds Allergies and Home Medications Allergies Allergy/AdvReac Type Severity Reaction Status Date / Time tramadol AdvReac Intermediate Dizziness/Lightheaded, Verified 10/15/22 08:52 shakes Home Medications Medication Instructions Recorded Confirmed Type sildenafil 100 mg tablet (Viagra) 100 mg PO PRN #30 tabs 01/30/21 10/15/22 Rx cholecalciferol (vitamin D3) 25 25 mcg PO DAILY 02/12/21 10/15/22 History mcg (1,000 unit) capsule multivitamin with minerals 1 tab PO DAILY 02/12/21 10/15/22 History (One-A-Day Maximum Formula tablet) levothyroxine 75 mcg tablet 75 mcg PO DAILY #90 tabs 11/24/21 10/15/22 Rx omega 2-cue-hox-fish oil 60 mg-90 1 cap PO DAILY 01/26/22 10/15/22 History mg-500 mg capsule (Fish Oil) tamsulosin 0.4 mg capsule 0.8 mg PO HS 01/26/22 10/16/22 History ibuprofen 600 mg tablet 600 mg PO Q6H PRN #60 tab-caps 08/17/22 10/15/22 Rx fluoride (sodium) 1.1 % dental gel 1 applic dental DAILY #56 grams 09/06/22 10/15/22 Rx amlodipine 2.5 mg tablet 2.5 mg PO DAILY #30 tabs 09/28/22 10/16/22 Rx diclofenac sodium 1 % topical gel 4 g topical QID #100 grams 09/28/22 10/15/22 Rx (Voltaren Arthritis Pain) apixaban 5 mg tablet (Eliquis) 1 tab PO BID 10/15/22 10/15/22 History ondansetron 4 mg disintegrating 4 mg PO Q8H PRN 10/16/22 10/16/22 History tablet prochlorperazine maleate 10 mg 10 mg PO Q6H PRN 10/16/22 10/16/22 History tablet (Compazine) Exam Const General: cooperative, healthy appearing, comfortable and no acute distress Nutritional Appearance: average body habitus Orientation: alert, awake and oriented x3 HENMT Head: normal to inspection Mouth: oral mucosae normal Chest Chest: normal inspection of the chest Resp Effort & Inspection: normal respiratory effort Auscultation: clear to auscultation bilaterally Cardio Rate: regular rate Rhythm: regular rhythm GI Inspection: normal to inspection Palpation: soft and tender Auscultation: normal bowel sounds Skin General skin exam: no rashes or lesions noted Neuro General: patient alert, patient awake, patient oriented x3 and no focal motor deficits Results Labs Result diagrams: 10/16/22 04:32 10/16/22 04:32 Labs: Laboratory Results - last 24 hr 10/15/22 10/15/22 10/15/22 08:30 08:30 11:50 WBC 24.63 H RBC 2.68 L Hgb 9.3 L Hct 27.0 L MCV 101 H MCH 34.7 H MCHC 34.4 RDW 17.0 H Plt Count 243 MPV 9.3 Immature Gran % 0.0 Neutrophils % 96.0 Band Neutrophils % 0 Lymphocytes % 3.0 Atypical Lymphs % 0 Monocytes % 1.0 Eosinophils % 0.0 Basophils % 0.0 Nucleated RBC % 0.0 Absolute Neutrophils 23.64 H Absolute Lymphocytes 0.74 L Absolute Monocytes 0.25 Absolute Eosinophils 0.00 Absolute Basophils 0.00 RBC Morphology Normal VBG Lactate 0.8 Sodium 132 L Potassium 3.7 Chloride 97 L Carbon Dioxide 29.7 Anion Gap 5.3 BUN 22 H Creatinine 0.8 Est GFR (CKD-EPI 2020) 98.83 Glucose 120 H Calcium 8.9 Total Bilirubin 2.9 H AST 39 H ALT 61 Alkaline Phosphatase 86 Troponin I < 50 Total Protein 6.9 Albumin 3.7 Lipase 60 Last Vital Signs Temp 36.7 C 10/15/22 07:46 Pulse 72 10/15/22 07:46 Resp 18 10/15/22 07:46 BP 126/73 10/15/22 07:46 Pulse Ox 99 10/15/22 07:46
[2022-10-15] MEDS: PIPERACILLIN/TAZO 3.375 GM in Normal Saline 50 ML IVPB (13:16)
--- NOTE | 2022-10-15 13:23 | W.ED.GENAD ---
Discharge Plan Disposition Specific Acute Inpt Facility: [facility] Condition: Stable Discharge Details Chief Complaint: Epigastric Pain/Over45 Admit Date/Time: 10/15/22 13:12 Admit Provider: Teresa Mckeon Attending Provider: Teresa Mckeon Primary Care Provider: Felicia Parikh ED Provider: Yenny Abreu Discharge Instructions Activity:: Activity as Tolerated Equipment/Supplies:: No Equipment Needed Diet:: npo Discharge Data Discharge Date/Time-TO BE ENTERED AT DEPARTURE: 10/15/22 15:17 Medical Decision Making This 62-year-old gentleman who has complex oncological medical history consistent with neuroendocrine tumor, receiving chemotherapy, last received on Tuesday of this week followed by [facility] and was administered Presents with epigastric pain which started last evening. Denies any nausea, vomiting. Has had some intermittent constipation but was able to move his bowels on . Denies any chest pain or shortness of breath. Denies any blood in stool Given his complexities, CT abdomen and pelvis with contrast and labs are ordered CT shows evidence of possible 3 cm hematoma versus abscess adjacent to his duodenum Biliary stent in place radiology interpretation, discussion, and my review Labs consistent with a elevated bilirubin, increased from 0.5-2.9 in the past week Alk phos is within normal limits AST of 39, increased from baseline, ALT within normal limits Leukocytosis, 23,000 with a neutrophil count of 23%, suspect related to Neulasta administration, however will need close observation Spoke with oncology, who recommends speaking with GI and surgery Spoke with Dr. Grimaldo, GI recommends ERCP assessment, [facility] transfer line states they will list patient for this weekend Pen return call from hospitalist Spoke with Dr. Rush, our general surgeon and he recommends broad-spectrum antibiotics and observation regarding abscess versus hematoma Of note, patient is on Eliquis although his hemoglobin and hematocrit are not grossly changed from prior, decreased from 10.3-9.3 and hematocrit decrease from 29-27 although in the presence of recent chemotherapy administration, this is not a significant change At this time, patient is hemodynamically stable, alert, oriented, and without obvious active bleeding Case is discussed with Dr. Mckeon who will admit patient to her service at this time Medical Records Medical records reviewed: Yes I reviewed the patient's medical records. HPI General Date/Time Provider Initiated Documentation: 10/15/22 08:01. HPI Narrative: This 62-year-old gentleman with history of prostate cancer, high-grade neuroendocrine tumor, hypothyroidism, hypertension, hyperlipidemia presents with epigastric pain that started last evening. Of note, he is approximately 48 hours post receiving his last chemotherapy and received Neulasta in yesterday empirically. He denies history of pain similar to this in the past. He denies any nausea, vomiting, diarrhea. He has had some mild constipation. Denies any blood in his stools. Denies any fever or chills last had a stent placed on 102 at [facility], biliary. Related Data Home Medications Medication Instructions Recorded Confirmed sildenafil 100 mg tablet (Viagra) 100 mg PO PRN #30 tabs 01/30/21 10/15/22 cholecalciferol (vitamin D3) 25 25 mcg PO DAILY 02/12/21 10/15/22 mcg (1,000 unit) capsule multivitamin with minerals 1 tab PO DAILY 02/12/21 10/15/22 (One-A-Day Maximum Formula tablet) levothyroxine 75 mcg tablet 75 mcg PO DAILY #90 tabs 11/24/21 10/15/22 omega 0-erv-kjx-fish oil 60 mg-90 1 cap PO DAILY 01/26/22 10/15/22 mg-500 mg capsule (Fish Oil) tamsulosin 0.4 mg capsule 0.8 mg PO HS 01/26/22 10/16/22 ibuprofen 600 mg tablet 600 mg PO Q6H PRN #60 tab-caps 08/17/22 10/15/22 fluoride (sodium) 1.1 % dental gel 1 applic dental DAILY #56 grams 09/06/22 10/15/22 amlodipine 2.5 mg tablet 2.5 mg PO DAILY #30 tabs 09/28/22 10/16/22 diclofenac sodium 1 % topical gel 4 g topical QID #100 grams 09/28/22 10/15/22 (Voltaren Arthritis Pain) apixaban 5 mg tablet (Eliquis) 1 tab PO BID 10/15/22 10/15/22 ondansetron 4 mg disintegrating 4 mg PO Q8H PRN 10/16/22 10/16/22 tablet prochlorperazine maleate 10 mg 10 mg PO Q6H PRN 10/16/22 10/16/22 tablet (Compazine) Previous Rx's Medication Instructions Recorded sildenafil 100 mg tablet (Viagra) 100 mg PO PRN #30 tabs 01/30/21 levothyroxine 75 mcg tablet 75 mcg PO DAILY #90 tabs 11/24/21 ibuprofen 600 mg tablet 600 mg PO Q6H PRN #60 tab-caps 08/17/22 fluoride (sodium) 1.1 % dental gel 1 applic dental DAILY #56 grams 09/06/22 amlodipine 2.5 mg tablet 2.5 mg PO DAILY #30 tabs 09/28/22 diclofenac sodium 1 % topical gel 4 g topical QID #100 grams 09/28/22 (Voltaren Arthritis Pain) Allergies Allergy/AdvReac Type Severity Reaction Status Date / Time tramadol AdvReac Intermediate Dizziness/Lightheaded, Verified 10/15/22 08:52 shakes General Stated Complaint: Epigastric Pain/Over45 DAMION: 3 Review of Systems All systems reviewed & are unremarkable except as noted in HPI and below PFSH All Active Problems (Updated 10/17/22 @ 16:31 by Elvira Baig NP) Discharge planning issues (Acute) Prostate cancer metastatic to bone (Chronic ~2020) High grade neuroendocrine carcinoma (Chronic ~07/2022) Of unknown primary Elevated LFTs (Acute ~07/2022) Secondary to dilated hepatic ducts. S/p stent to right intraheptic duct Jul 2022. Hypothyroidism (Chronic) Secondary to radiation for tonsil cancer Hypertension (Chronic) Prediabetes (Chronic) Hyperlipidemia (Chronic) Tubular adenoma of colon (Chronic) 2014 Medical History (Updated 10/17/22 @ 16:31 by Elvira Baig NP) COVID-19 (~07/2022) Fatty liver Malignant neoplasm of tonsil (~2009) S/p chemo, radiation Surgical History (Updated 09/06/22 @ 09:28 by Sarita Casillas NP) History of arthroplasty of right knee History of carpal tunnel surgery of left wrist History of colonoscopy (~01/2022) History of hip surgery Hx of right knee surgery (07/18/14) S/P appendectomy S/P ERCP spcinterotmy. no stones S/P partial thyroidectomy Left thyroid lobe S/P tonsillectomy (~2010) Status post cholecystectomy (04/2022) Family History Mother , 64 Diabetes Essential hypertension Father , 79 Essential hypertension Heart disease Hyperlipidemia Stroke Prostate cancer Sister Ovarian cyst Brother , age 67 Prostate cancer Non Hodgkin's lymphoma Son No problems noted. Son No problems noted. Social History Smoking/Tobacco Use Status: Former Tobacco Use tobacco type: smokeless tobacco Quit Date: 10/02/10 Tobacco: How many years used: 30 Smokeless tobacco user: snuff Second Hand Exposure: Yes Smoking risk assessment performed?: Yes Alcohol Intake: former Drug use: Never Substance use type: does not use Caregiver/Support person: No Household members: spouse Housing: house Communication Needs: Hard of Hearing Do you need help understanding health information?: Never current occupation: [employer] Pets and animals: No Do you think of yourself as: straight/heterosexual Current gender identity: male What is your relationship status?: How often do you talk on the phone with friends or family?: decline to answer How often do you get together with friends or relatives?: decline to answer How often do you attend rastafari or gnosticism services?: decline to answer Do you belong to any clubs or organized social groups?: decline to answer Panel score (0-1 are the most socially isolated patients): 1 What type of physical activity do you participate in: walking Duration: 15-30 minutes/day Frequency: 5-6 times per week Yelena/Voodoo: Episcopal Special yelena needs: No Seatbelt use: always Drive intox or ride 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 Do you feel safe at home: Yes Do you feel safe in your relationship?: Yes Victim of physical abuse: No Victim of emotional abuse: No Victim of sexual abuse: No Would you like helpful sources: No Exam Const General: cooperative, comfortable and no acute distress Orientation: alert and oriented x3 HENMT Head: normal to inspection Mouth: oral mucosae normal Eyes Sclera: sclerae normal Resp Effort & Inspection: normal respiratory effort Cardio Rate: regular rate GI Other: epigastric tenderness no rebound or guarding Skin General skin exam: no rashes or lesions noted Neuro General: patient alert and patient oriented x3 Course Vital Signs Vital signs: Vital Signs Temperature 36.7 C 10/15/22 07:46 Pulse 72 10/15/22 07:46 Respiratory Rate 18 10/15/22 07:46 Blood Pressure 126/73 10/15/22 07:46 Pulse Oximetry 99 10/15/22 07:46 Temperature 36.7 C 10/15/22 07:46 Temperature Source Temporal Artery Scan 10/15/22 07:46 Pulse 72 10/15/22 07:46 Respiratory Rate 18 10/15/22 07:46 Respiratory Effort Non-Labored 10/15/22 08:44 Blood Pressure 126/73 10/15/22 07:46 Blood Pressure Position Sitting 10/15/22 07:46 Pulse Oximetry 99 10/15/22 07:46 Oxygen Delivery Method Room Air 10/15/22 07:46 Oxygen Flow Rate 0 10/15/22 07:46 Lab/Test Results Lab/Test Results: 10/15/22 11:55 Blood Blood Culture - Pending 10/15/22 11:50 Blood Blood Culture - Pending Laboratory Tests Range/Units 10/15/22 10/15/22 10/15/22 08:30 08:30 11:50 WBC (4.4-10.8) 10^3/uL 24.63 H RBC (4.36-5.78) 10^6/uL 2.68 L Hgb (13.5-17.5) g/dL 9.3 L Hct (40.0-50.0) % 27.0 L MCV (80-95) fL 101 H MCH (27.0-33.0) pg 34.7 H MCHC (32.0-36.0) % 34.4 RDW (11.8-14.1) % 17.0 H Plt Count (130-400) 10^3/uL 243 MPV (8.0-11.0) fL 9.3 Immature Gran % 0.0 Neutrophils % 96.0 Band Neutrophils % 0 Lymphocytes % 3.0 Atypical Lymphs % 0 Monocytes % 1.0 Eosinophils % 0.0 Basophils % 0.0 Nucleated RBC % (0.0-0.3) % 0.0 Absolute Neutrophils (1.2-6.7) 10^3/uL 23.64 H Absolute Lymphocytes (1.2-3.4) 10^3/uL 0.74 L Absolute Monocytes (0.1-0.8) 10^3/uL 0.25 Absolute Eosinophils (0.0-0.7) 10^3/uL 0.00 Absolute Basophils (0.0-0.2) 10^3/uL 0.00 RBC Morphology Normal VBG Lactate (0.6-1.4) mmol/L 0.8 Sodium (136-145) mmol/L 132 L Potassium (3.5-5.1) mmol/L 3.7 Chloride (98-107) mmol/L 97 L Carbon Dioxide (21.0-32.0) mmol/L 29.7 Anion Gap (3-11) mmol/L 5.3 BUN (7-18) mg/dL 22 H Creatinine (0.70-1.30) mg/dL 0.8 Est GFR (CKD-EPI 2020) (mL/min/1.73m2) 98.83 Glucose (74-106) mg/dL 120 H Calcium (8.5-10.1) mg/dL 8.9 Total Bilirubin (0.2-1.0) mg/dL 2.9 H AST (15-37) U/L 39 H ALT (16-63) U/L 61 Alkaline Phosphatase (46-116) U/L 86 Troponin I (<or=60) ng/L < 50 Total Protein (6.4-8.2) g/dL 6.9 Albumin (3.4-5.0) g/dL 3.7 Lipase (73-393) U/L 60
[2022-10-15 13:45] LABS: Source Nasal/Nares
[2022-10-15 14:18] LABS: COVID-19 PCR Negative (Negative)
[2022-10-15 14:58] LABS: PTT Activated 25.6 sec (21.0-27.5); Prothrombin Time 10.1 sec (9.3-11.0)
[2022-10-15] MEDS: Tamsulosin 0.4 MG CAPCR PO (22:01)
[2022-10-16] MEDS: amLODIPine 2.5 MG TAB PO ×2 (00:31→22:36)
[2022-10-16] MEDS: Tamsulosin 0.4 MG CAPCR PO (00:32)
[2022-10-16] MEDS: PIPERACILLIN/TAZO 3.375 GM in Normal Saline 50 ML IVPB ×5 (00:35→23:14)
[2022-10-16] MEDS: Normal Saline Flush 10 ML SYR ×2 (04:40→09:51)
[2022-10-16 04:45] LABS: Abs Immature Grans 0.58 10^3/uL (0.0-0.06); HCT 25.4 % (40.0-50.0); HGB 8.8 g/dL (13.5-17.5); MCH 35.3 pg (27.0-33.0); MCHC 34.6 % (32.0-36.0); MCV 102 fL (80-95); MPV 9.1 fL (8.0-11.0); Platelet Count 216 10^3/uL (130-400); RBC 2.49 10^6/uL (4.36-5.78); RDW 17.2 % (11.8-14.1); RDW-SD 61.9 fL
[2022-10-16] MEDS: Levothyroxine 75 MCG TAB PO (04:47)
--- NOTE | 2022-10-16 04:51 | NUR.NOTE ---
0420 am-Nursing Note: aptt drawn per protocol and other am labs as ordered. awaiting lab results. pt currently on 18units/hour of heparin gtt.
[2022-10-16 04:52] LABS: WBC 27.31 10^3/uL (4.4-10.8)
[2022-10-16 05:01] LABS: Absolute Eosinophil Count 0.27 10^3/uL (0.0-0.7); Absolute Lymphocyte Count 0.55 10^3/uL (1.2-3.4); Absolute Monocyte Count 0.27 10^3/uL (0.1-0.8); Absolute Neutrophil Count 26.22 10^3/uL (1.2-6.7); Atypical Lymphocytes % 0; Diff Comment Manual Differential; RBC Morphology Normal
[2022-10-16 05:07] LABS: ALT 43 U/L (16-63); AST 24 U/L (15-37); Albumin 3.4 g/dL (3.4-5.0); Alkaline Phosphatase 93 U/L (46-116); Anion Gap 7.4 mmol/L (3-11); BUN 18 mg/dL (7-18); Bilirubin, Total 1.8 mg/dL (0.2-1.0); CO2 30.6 mmol/L (21.0-32.0); CREATININE 0.7 mg/dL (0.70-1.30); Calcium 8.7 mg/dL (8.5-10.1); Chloride 100 mmol/L (98-107); Estimated GFR 102.89 (mL/min/1.73m2); Glucose 107 mg/dL (74-106); Potassium 3.9 mmol/L (3.5-5.1); Sodium 138 mmol/L (136-145); Total Protein 6.7 g/dL (6.4-8.2)
[2022-10-16 05:33] LABS: PTT Activated 96.7 sec (21.0-27.5)
[2022-10-16 07:16] VITALS: BP 111/65; PULSE 66; RESP 20; TEMP 36.7; O2SAT 98
--- NOTE | 2022-10-16 08:31 | INITIAL_ITS ---
- If Service Date Differs Date of service: 10/16/22 Time of Service: 08:31 Care Management Initial Assess REASON FOR HOSPITALIZATION:: Elevated EFT. PAST MEDICAL HISTORY/PAST SURGICAL HISTORY:: All Active Problems: Prostate cancer metastatic to bone (Chronic ~2020),. High grade neuroendocrine carcinoma (Chronic ~07/2022) - Of unknown primary, Elevated LFTs (Acute ~07/2022) - Secondary to dilated hepatic ducts. S/p stent to right intraheptic duct Aug 19, Hypothyroidism (Chronic) - Secondary to radiation for tonsil cancer, Hypertension (Chronic),. Prediabetes (Chronic), Hyperlipidemia (Chronic), and Tubular adenoma of colon (Chronic) - 2014. Medical History: COVID-19 (~07/2022), Fatty liver, and Malignant neoplasm of tonsil (~2009) - S/p chemo, radiation. Surgical History: History of arthroplasty of right knee, History of carpal tunnel surgery of left wrist, History of colonoscopy (~01/2022), History of hip surgery, Hx of right knee surgery (07/18/14), S/P appendectomy,. S/P ERCP - spcinterotmy. no stones, S/P partial thyroidectomy - Left thyroid lobe, S/P tonsillectomy (~2010), and Status post cholecystectomy (04/2022). PREVIOUS FUNCTIONAL STATUS/SOCIAL/FAMILY SUPPORTS:: Johnathon lives in [facility] with his , Sandra. He has two adult sons who live locally and are supportive. Johnathon is retired but formerly worked many years for the [employer]. He is independent at baseline. CURRENT FUNCTIONAL STATUS:: Johnathon is sitting up in bed when CM comes by to see him. He is pleasant and easily engages in conversation. He states he has scans scheduled on Tuesday at [facility] and is concerned he will miss those appointments. He is relieved to learn the plan is to transfer him to [facility] as soon as a bed opens up. ADVANCE DIRECTIVES:: None on file; patient says he has the form at home and is in the process of filling it out. Has patient been provided with info about the portal/API?: Yes Did the patient sign up for the portal?: No CODE STATUS:: Full Code INSURANCE COVERAGE / FINANCIAL ISSUES:: [facility]. CURRENT HOME/COMMUNITY SERVICES/EQUIPMENT:: No home services or equipment. Johnathon is currently receiving chemotherapy at [facility]. PRIMARY CARE PHYSICIAN:: Felicia Parikh NP ([facility]). POTENTIAL DISCHARGE NEEDS:: Follow up appointments with PCP and oncology. PATIENT/FAMILY EDUCATION NEEDS:: Review of discharge instructions re medications, limitations and follow up plan of care; discuss Ask Me Three. ANTICIPATED BARRIERS TO DISCHARGE:: None identified at this time. TRANSPORTATION:: Via EMS. PLAN:: Johnathon will be transferred to [facility] as soon as a bed is available. He will be transported via EMS. CM will continue to follow.
[2022-10-16] MEDS: Prochlorperazine 10 MG/2 ML VIAL IVP (09:51)
[2022-10-16] MEDS: Pantoprazole 40 MG VIAL IVP (12:10)
[2022-10-16] MEDS: Normal Saline Flush 10 ML SYR IVP ×2 (12:10→20:12)
[2022-10-16 13:48] LABS: PTT Activated 41.7 sec (21.0-27.5)
[2022-10-16 15:33] VITALS: BP 120/61; PULSE 60; RESP 20; TEMP 36.6; O2SAT 98
--- NOTE | 2022-10-16 16:21 | PGE_ITS ---
Date of Service Date of service: 10/16/22 Time of Service: : Assessment and Plan Assessment and plan (1) Elevated LFTs: Status: Acute Assessment and plan: with abdominal pain and finding on CT of abscess vs hematoma. ED discussed case with oncology, gi and general surgery. plan is to transfer to [facility] when bed available or sooner for fever or worsening pain continue zosyn day 2 trend labs avoid hepatotoxic drugs. will need ERCP and further evaluation by GI will place apixaban on hold, heparin drip pending planned procedure (2) High grade neuroendocrine carcinoma: Status: Chronic Assessment and plan: followed by oncology at [facility]. received neulasta last tuesday (3) Prostate cancer metastatic to bone: Status: Chronic Assessment and plan: see above (4) Hypothyroidism: Status: Chronic Assessment and plan: last TSH in 11.19 continue levothyroxine Qualifiers: Hypothyroidism type: unspecified Qualified Code(s): E03.9 - Hypothyroidism, unspecified (5) Hypertension: Status: Chronic Assessment and plan: continue monitor and home medication as directed. discussed with DR Mckeon Qualifiers: Hypertension type: essential hypertension Qualified Code(s): I10 - Essential (primary) hypertension Subjective Subjective Patient reports: no new complaints, feels better, tolerating liquids well, tolerating a regular diet, voiding w/o difficulty and afebrile; denies shortness of breath Exam Const General: cooperative, comfortable and no acute distress Orientation: alert and oriented x3 HENMT Head: normal to inspection Mouth: oral mucosae normal Eyes Sclera: sclerae normal Resp Effort & Inspection: normal respiratory effort Cardio Rate: regular rate GI Other: epigastric tenderness no rebound or guarding Skin General skin exam: no rashes or lesions noted Neuro General: patient alert and patient oriented x3 Objective Last Vital Signs Temp 36.6 C 10/16/22 15:33 Pulse 60 10/16/22 15:33 Resp 20 10/16/22 15:33 BP 120/61 10/16/22 15:33 Pulse Ox 98 10/16/22 15:33 Laboratory Results - last 24 hr 10/16/22 10/16/22 10/16/22 04:32 04:32 04:32 WBC 27.31 H* RBC 2.49 L Hgb 8.8 L Hct 25.4 L MCV 102 H MCH 35.3 H MCHC 34.6 RDW 17.2 H Plt Count 216 MPV 9.1 Immature Gran % 0.0 Neutrophils % 96.0 Lymphocytes % 2.0 Atypical Lymphs % 0 Monocytes % 1.0 Eosinophils % 1.0 Basophils % 0.0 Nucleated RBC % 0.0 Absolute Neutrophils 26.22 H Absolute Lymphocytes 0.55 L Absolute Monocytes 0.27 Absolute Eosinophils 0.27 Absolute Basophils 0.00 RBC Morphology Normal APTT 96.7 H* Sodium 138 Potassium 3.9 Chloride 100 Carbon Dioxide 30.6 Anion Gap 7.4 BUN 18 Creatinine 0.7 Est GFR (CKD-EPI 2020) 102.89 Glucose 107 H Calcium 8.7 Total Bilirubin 1.8 H AST 24 ALT 43 Alkaline Phosphatase 93 Total Protein 6.7 Albumin 3.4 10/16/22 10/16/22 05:35 13:15 WBC RBC Hgb Hct MCV MCH MCHC RDW Plt Count MPV Immature Gran % Neutrophils % Lymphocytes % Atypical Lymphs % Monocytes % Eosinophils % Basophils % Nucleated RBC % Absolute Neutrophils Absolute Lymphocytes Absolute Monocytes Absolute Eosinophils Absolute Basophils RBC Morphology APTT Cancelled 41.7 H Sodium Potassium Chloride Carbon Dioxide Anion Gap BUN Creatinine Est GFR (CKD-EPI 2020) Glucose Calcium Total Bilirubin AST ALT Alkaline Phosphatase Total Protein Albumin
--- NOTE | 2022-10-16 17:00 | W.PM.DS.N ---
Date of service: 10/16/22 Time of Service: 17:00 DS: Diagnosis Discharge Diagnosis (1) Elevated LFTs: Status: Acute (2) High grade neuroendocrine carcinoma: Status: Chronic (3) Prostate cancer metastatic to bone: Status: Chronic (4) Hypothyroidism: Status: Chronic (5) Hypertension: Status: Chronic Discharge Plan Disposition Patient Disposition: Transfer-Acute Inpatient Care Specific Acute Inpt Facility: [facility] Condition: Stable Discharge Details Reason For Visit: Elevated EFT Admit Date/Time: 10/15/22 13:12 Admit Provider: Teresa Mckeon Attending Provider: Teresa Mckeon Primary Care Provider: Kati,[facility] Course Hospital Course: This is a 62 year old male with history of prostate cancer with metastasis to bone and high grade neuroendocrine carcinoma under the care of oncology at [facility], currently receiving chemotherapy who developed epigastric pain the day prior to presentation.? there was no fever, nausea or vomiting. constipation but no diarrhea.? His work up in the ED showed a 3 cm hematoma versus abscess adjacent to his duodenum on CT scan.? Labs notable for elevated bilirubin at 2.9 with his previous level at 0.5.? His case was discussed with oncology, GI and general surgery.? recommendations are for ERCP but no beds available so plan is to admit here for monitoring and IV antibiotics with plan to transfer when bed available or sooner if he decompensates.? He is being admitted to medicine on med/surg. His eliquis was held and he was placed on heparin drip. Overnight he remained afebrile and hemodynamically stable, no worsening pain, or vomiting. he experienced some nausea that responded to compazine. He has been receiving zosyn. His white count remains elevated at 27 but his bilirubin improved to 1.8. a bed has been secured and he is being transported by ground EMS to [facility], accepting is Dr Arriaza. discussed with DR Mckeon Home Meds and New Rx's Prescriptions: No Action cholecalciferol (vitamin D3) 25 mcg (1,000 unit) capsule 25 mcg PO DAILY One-A-Day Maximum Formula Tablet 1 tab PO DAILY levothyroxine 75 mcg tablet 75 mcg PO DAILY Qty: 90 4RF tamsulosin 0.4 mg capsule 0.8 mg PO HS omega 4-ota-ysl-fish oil [Fish Oil] 60-90-500 mg capsule 1 cap PO DAILY fluoride (sodium) 1.1 % gel 1 applic dental DAILY Qty: 56 3RF sildenafil [Viagra] 100 mg tablet 100 mg PO PRN Qty: 30 3RF Rx Instructions: take one hour prior to intercourse diclofenac sodium [Voltaren Arthritis Pain] 1 % gel 4 g topical QID Qty: 100 1RF Rx Instructions: apply to single knee, ankle, foot; for foot includes sole/toes/top of foot amlodipine 2.5 mg tablet 2.5 mg PO DAILY Qty: 30 3RF ibuprofen 600 mg tablet 600 mg PO Q6H PRN Qty: 60 5RF Eliquis 5 mg tablet 1 tab PO BID Label Comments: TAKE ONE TABLET BY MOUTH TWICE DAILY prochlorperazine maleate [Compazine] 10 mg Tablet 10 mg PO Q6H PRN ondansetron 4 mg Tablet,Disintegrating 4 mg PO Q8H PRN Discharge Instructions Activity:: Activity as Tolerated Equipment/Supplies:: No Equipment Needed Diet:: npo Discharge Orders Discharge Orders: Discharge Order (Routine); Ordered 10/16/22 Ordered By: Elvira Baig DS: Summary Time Spent with Patient providing and/or coordinating discharge services: Less than 30 minutes Status at Discharge Functional status at discharge: independent ambulation Overall status at discharge: patient is not back to baseline Mental Status: mental status grossly normal Speech and Movement: speech and movement normal Mood: congruent mood Affect: normal affect Exam Const General: cooperative, comfortable and no acute distress Orientation: alert and oriented x3 HENMT Head: normal to inspection Mouth: oral mucosae normal Eyes Sclera: sclerae normal Resp Effort & Inspection: normal respiratory effort Cardio Rate: regular rate GI Other: epigastric tenderness no rebound or guarding Skin General skin exam: no rashes or lesions noted Neuro General: patient alert and patient oriented x3 Psych Mental Status: mental status grossly normal Speech and Movement: speech and movement normal Mood: congruent mood Affect: normal affect DS: Data Vitals/I&O Vitals and I&O: Vital Signs Temperature 36.6 C 10/16/22 15:33 Temperature Source Tympanic 10/16/22 15:33 Pulse 60 10/16/22 15:33 Pulse Rhythm Regular 10/16/22 10:28 Pulse 79 10/15/22 14:31 Respiratory Rate 20 10/16/22 15:33 Respiratory Effort Non-Labored 10/16/22 10:28 Respiratory Depth Normal 10/16/22 10:28 Respiratory Pattern Normal 10/16/22 10:28 Blood Pressure 120/61 10/16/22 15:33 Blood Pressure Mean 63 10/15/22 14:30 Blood Pressure Position Sitting 10/15/22 07:46 Pulse Oximetry 98 10/16/22 15:33 Oxygen Delivery Method Room Air 10/16/22 15:33 Oxygen Flow Rate 0 10/16/22 15:33 Pain Level 2 10/16/22 07:16 Intake & Output 10/15/22 10/16/22 10/16/22 23:59 11:59 23:59 Intake Total 50 / 1050 263.3 / 384.8 121.5 / 384.8 Balance 50 / 1050 263.3 / 384.8 121.5 / 384.8 Intake: IV 50 / 1050 263.3 / 384.8 121.5 / 384.8 Other: Comment pT independent Voiding Methods Toilet Data Completed and Pending Labs on day of discharge: Labs from last 24 hours 10/16/22 10/16/22 10/16/22 20:00 13:15 05:35 WBC RBC Hgb Hct MCV MCH MCHC RDW Plt Count MPV Immature Gran % Neutrophils % Lymphocytes % Atypical Lymphs % Monocytes % Eosinophils % Basophils % Nucleated RBC % Absolute Neutrophils Absolute Lymphocytes Absolute Monocytes Absolute Eosinophils Absolute Basophils RBC Morphology APTT Pending 41.7 H Cancelled Sodium Potassium Chloride Carbon Dioxide Anion Gap BUN Creatinine Est GFR (CKD-EPI 2020) Glucose Calcium Total Bilirubin AST ALT Alkaline Phosphatase Total Protein Albumin 10/16/22 10/16/22 10/16/22 04:32 04:32 04:32 WBC 27.31 H* RBC 2.49 L Hgb 8.8 L Hct 25.4 L MCV 102 H MCH 35.3 H MCHC 34.6 RDW 17.2 H Plt Count 216 MPV 9.1 Immature Gran % 0.0 Neutrophils % 96.0 Lymphocytes % 2.0 Atypical Lymphs % 0 Monocytes % 1.0 Eosinophils % 1.0 Basophils % 0.0 Nucleated RBC % 0.0 Absolute Neutrophils 26.22 H Absolute Lymphocytes 0.55 L Absolute Monocytes 0.27 Absolute Eosinophils 0.27 Absolute Basophils 0.00 RBC Morphology Normal APTT 96.7 H* Sodium 138 Potassium 3.9 Chloride 100 Carbon Dioxide 30.6 Anion Gap 7.4 BUN 18 Creatinine 0.7 Est GFR (CKD-EPI 2020) 102.89 Glucose 107 H Calcium 8.7 Total Bilirubin 1.8 H AST 24 ALT 43 Alkaline Phosphatase 93 Total Protein 6.7 Albumin 3.4 Preliminary micro results at discharge 10/15/22 11:50 Blood Culture - Preliminary Blood NO GROWTH 24 HOURS 10/15/22 11:55 Blood Culture - Preliminary Blood NO GROWTH 24 HOURS PFSH All Active Problems (Updated 09/06/22 @ 09:50 by Sarita Casillas NP) Prostate cancer metastatic to bone (Chronic ~2020) High grade neuroendocrine carcinoma (Chronic ~07/2022) Of unknown primary Elevated LFTs (Acute ~07/2022) Secondary to dilated hepatic ducts. S/p stent to right intraheptic duct Jul 2022. Hypothyroidism (Chronic) Secondary to radiation for tonsil cancer Hypertension (Chronic) Prediabetes (Chronic) Hyperlipidemia (Chronic) Tubular adenoma of colon (Chronic) 2014 Medical History (Updated 09/06/22 @ 09:50 by Sarita Casillas NP) COVID-19 (~07/2022) Fatty liver Malignant neoplasm of tonsil (~2009) S/p chemo, radiation Surgical History (Updated 09/06/22 @ 09:28 by Sarita Casillas NP) History of arthroplasty of right knee History of carpal tunnel surgery of left wrist History of colonoscopy (~01/2022) History of hip surgery Hx of right knee surgery (07/18/14) S/P appendectomy S/P ERCP spcinterotmy. no stones S/P partial thyroidectomy Left thyroid lobe S/P tonsillectomy (~2010) Status post cholecystectomy (04/2022) Family History Mother , 64 Diabetes Essential hypertension Father , 79 Essential hypertension Heart disease Hyperlipidemia Stroke Prostate cancer Sister Ovarian cyst Brother , age 67 Prostate cancer Non Hodgkin's lymphoma Son No problems noted. Son No problems noted. Social History Smoking/Tobacco Use Status: Former Tobacco Use tobacco type: smokeless tobacco Quit Date: 10/02/10 Tobacco: How many years used: 30 Smokeless tobacco user: snuff Second Hand Exposure: Yes Smoking risk assessment performed?: Yes Alcohol Intake: former Drug use: Never Substance use type: does not use Caregiver/Support person: No Household members: spouse Housing: house Communication Needs: Hard of Hearing Do you need help understanding health information?: Never current occupation: [employer] Pets and animals: No Do you think of yourself as: straight/heterosexual Current gender identity: male What is your relationship status?: How often do you talk on the phone with friends or family?: decline to answer How often do you get together with friends or relatives?: decline to answer How often do you attend tenriism or spiritism services?: decline to answer Do you belong to any clubs or organized social groups?: decline to answer Panel score (0-1 are the most socially isolated patients): 1 What type of physical activity do you participate in: walking Duration: 15-30 minutes/day Frequency: 5-6 times per week Yelena/Catholic: Zoroastrianism Special yelena needs: No Seatbelt use: always Drive intox or ride w/intox recycle driver: No Do you feel safe at home: Yes Do you feel safe in your relationship?: Yes Victim of physical abuse: No Victim of emotional abuse: No Victim of sexual abuse: No Would you like helpful sources: No
[2022-10-16] MEDS: Tamsulosin 0.4 MG CAPCR 0.8 MG PO (20:11)
[2022-10-16 23:10] VITALS: BP 113/71; PULSE 91; RESP 19; TEMP 36.6; O2SAT 96
[2022-10-17] MEDS: PIPERACILLIN/TAZO 3.375 GM in Normal Saline 50 ML IVPB ×3 (05:46→17:52)
[2022-10-17] MEDS: Levothyroxine 75 MCG TAB PO (05:47)
[2022-10-17] MEDS: Normal Saline Flush 10 ML SYR IVP ×7 (05:48→21:30)
[2022-10-17 06:04] VITALS: BP 128/75; PULSE 64; RESP 19; TEMP 35.9; O2SAT 98
[2022-10-17 07:15] VITALS: BP 123/52; PULSE 68; RESP 19; TEMP 36.8; O2SAT 99
[2022-10-17 07:43] LABS: Abs Immature Grans 0.64 10^3/uL (0.0-0.06); Absolute Basophil Count 0.08 10^3/uL (0.0-0.2); Absolute Eosinophil Count 0.08 10^3/uL (0.0-0.7); Basophils % 0.5; Eosinophils % 0.5; HCT 25.2 % (40.0-50.0); HGB 8.8 g/dL (13.5-17.5); Immature Grans % 4.1; Lymphocytes % 2.6; MCH 35.3 pg (27.0-33.0); MCHC 34.9 % (32.0-36.0); MCV 101 fL (80-95); MPV 9.9 fL (8.0-11.0); Neutrophils % 91.3; Platelet Count 225 10^3/uL (130-400); RBC 2.49 10^6/uL (4.36-5.78); RDW 17.1 % (11.8-14.1); RDW-SD 62.1 fL; WBC 15.58 10^3/uL (4.4-10.8)
[2022-10-17 07:53] LABS: Absolute Lymphocyte Count 0.41 10^3/uL (1.2-3.4); Absolute Monocyte Count 0.16 10^3/uL (0.1-0.8); Absolute Neutrophil Count 14.22 10^3/uL (1.2-6.7)
[2022-10-17 07:54] LABS: PTT Activated 63.7 sec (21.0-27.5)
[2022-10-17 08:21] LABS: BUN 18 mg/dL (7-18); CREATININE 0.8 mg/dL (0.70-1.30); Calcium 8.9 mg/dL (8.5-10.1); Chloride 101 mmol/L (98-107); Estimated GFR 98.83 (mL/min/1.73m2); Glucose 102 mg/dL (74-106); Potassium 3.2 mmol/L (3.5-5.1); Sodium 137 mmol/L (136-145)
[2022-10-17 08:47] LABS: Diff Comment Agrees w/ Instrument; RBC Morphology Normal
[2022-10-17 11:03] LABS: Magnesium 1.9 mg/dL (1.8-2.4)
[2022-10-17] MEDS: Potassium Chloride 20 MEQ TABCR PO ×3 (12:27→21:00)
[2022-10-17] MEDS: Pantoprazole 40 MG VIAL IVP (12:28)
[2022-10-17 14:42] VITALS: BP 116/74; PULSE 64; RESP 19; TEMP 36.6; O2SAT 98
--- NOTE | 2022-10-17 16:29 | W.PM.PROGNOT ---
Date of Service Date of service: 10/17/22 Time of Service: 16:30 Assessment and Plan Assessment and plan (1) Elevated LFTs: Status: Acute Assessment and plan: with abdominal pain and finding on CT of abscess vs hematoma. ED discussed case with oncology, gi and general surgery. plan is to transfer to [facility] when bed available or sooner for fever or worsening pain continue zosyn day 3 trend labs avoid hepatotoxic drugs. will need ERCP and further evaluation by GI will place apixaban on hold, heparin drip pending planned procedure (2) High grade neuroendocrine carcinoma: Status: Chronic Assessment and plan: followed by oncology at [facility]. received neulasta last tuesday (3) Prostate cancer metastatic to bone: Status: Chronic Assessment and plan: see above (4) Hypothyroidism: Status: Chronic Assessment and plan: last TSH in 11.19 continue levothyroxine Qualifiers: Hypothyroidism type: unspecified Qualified Code(s): E03.9 - Hypothyroidism, unspecified (5) Hypertension: Status: Chronic Assessment and plan: continue monitor and home medication as directed. Qualifiers: Hypertension type: essential hypertension Qualified Code(s): I10 - Essential (primary) hypertension (6) Discharge planning issues: Status: Acute Assessment and plan: bed at [facility] yesterday but unfortunately no transport available. hoping for bed today, he will be transported by ground EMS discussed with Dr Alvarez. Subjective Subjective Patient reports: no new complaints, still having pain, tolerating liquids well, tolerating a regular diet, voiding w/o difficulty and afebrile; denies shortness of breath Exam Const General: cooperative, comfortable and no acute distress Orientation: alert and oriented x3 HENNC Head: normal to inspection Mouth: oral mucosae normal Eyes Sclera: sclerae normal Resp Effort & Inspection: normal respiratory effort Cardio Rate: regular rate GI Other: epigastric tenderness no rebound or guarding Skin General skin exam: no rashes or lesions noted Neuro General: patient alert and patient oriented x3 Psych Mental Status: mental status grossly normal Speech and Movement: speech and movement normal Mood: congruent mood Affect: normal affect Objective Last Vital Signs Temp 36.6 C 10/17/22 14:42 Pulse 64 10/17/22 14:42 Resp 19 10/17/22 14:42 BP 116/74 10/17/22 14:42 Pulse Ox 98 10/17/22 14:42 Laboratory Results - last 24 hr 10/16/22 10/17/22 10/17/22 20:20 06:00 06:00 WBC 15.58 H RBC 2.49 L Hgb 8.8 L Hct 25.2 L MCV 101 H MCH 35.3 H MCHC 34.9 RDW 17.1 H Plt Count 225 MPV 9.9 Immature Gran % 4.1 Neutrophils % 91.3 Lymphocytes % 2.6 Monocytes % 1.0 Eosinophils % 0.5 Basophils % 0.5 Nucleated RBC % 0.0 Absolute Neutrophils 14.22 H Absolute Lymphocytes 0.41 L Absolute Monocytes 0.16 Absolute Eosinophils 0.08 Absolute Basophils 0.08 RBC Morphology Normal APTT 62.0 H 63.7 H Sodium Potassium Chloride Carbon Dioxide Anion Gap BUN Creatinine Est GFR (CKD-EPI 2020) Glucose Calcium Magnesium 10/17/22 10/17/22 06:00 06:00 WBC RBC Hgb Hct MCV MCH MCHC RDW Plt Count MPV Immature Gran % Neutrophils % Lymphocytes % Monocytes % Eosinophils % Basophils % Nucleated RBC % Absolute Neutrophils Absolute Lymphocytes Absolute Monocytes Absolute Eosinophils Absolute Basophils RBC Morphology APTT Sodium 137 Potassium 3.2 L Chloride 101 Carbon Dioxide 29.0 Anion Gap 7.0 BUN 18 Creatinine 0.8 Est GFR (CKD-EPI 2020) 98.83 Glucose 102 Calcium 8.9 Magnesium 1.9
[2022-10-17 17:14] LABS: ALT 791 U/L (16-63); AST 450 U/L (15-37); Albumin 3.7 g/dL (3.4-5.0); Alkaline Phosphatase 268 U/L (46-116); Bilirubin, Direct 0.5 mg/dL (0.0-0.2); Bilirubin, Total 1.8 mg/dL (0.2-1.0)
[2022-10-17] MEDS: amLODIPine 2.5 MG TAB PO (20:59)
[2022-10-17] MEDS: Tamsulosin 0.4 MG CAPCR 0.8 MG PO (21:00)
[2022-10-17] MEDS: Enoxaparin 100 MG/ML SYR SC (21:30)
== END 2022-10-17 21:45 | disposition short-term general hospital (02) | DRG 920 ==
LOC: ER 13:40 → MS 15:25
PROVIDERS: Family Medicine; Nurse Practitioner Acute Care; Admitting Provider Internal Medicine; Emergency Provider Physician Assistant; PCP Nurse Practitioner Family; Visit Provider Internal Medicine
DX: K91.870 Postprocedural hematoma of a digestive system organ or structure following a digestive system procedure (principal); C79.51 Secondary malignant neoplasm of bone; C7A.1 Malignant poorly differentiated neuroendocrine tumors; K63.0 Abscess of intestine; I10 Essential (primary) hypertension; Z79.899 Other long term (current) drug therapy; R73.03 Prediabetes; K76.0 Fatty (change of) liver, not elsewhere classified; E78.5 Hyperlipidemia, unspecified; E89.0 Postprocedural hypothyroidism; Y84.2 Radiological procedure and radiotherapy as the cause of abnormal reaction of the patient, or of later complication, without mention of misadventure at the time of the procedure; Z86.16 Personal history of COVID-19; Z87.891 Personal history of nicotine dependence; Z85.89 Personal history of malignant neoplasm of other organs and systems; Z79.01 Long term (current) use of anticoagulants; R79.89 Other specified abnormal findings of blood chemistry
CPT/HCPCS: 36410; 36415; 36591; 80048; 80053; 80076; 83690; 85027; 87040; 87635; 93005; 96361; 96365; 99285; 74177; 83605; 83735; 84484; 85025; 85610; 85730; 93010; 99222; 99233; 99238; J0780; J1650; J2543

== ENCOUNTER 2022-10-29 00:38 | Outpatient (RCR) | payer BC, SELFPAY ==
[2022-10-08] MEDS: Normal Saline Flush 10 ML SYR IVP (11:59)
[2022-10-08] MEDS: Heparin 500 UNITS/5 ML SYRINGE IV (11:59)
[2022-10-08 12:01] LABS: Abs Immature Grans 0.02 10^3/uL (0.0-0.06); Absolute Basophil Count 0.02 10^3/uL (0.0-0.2); Absolute Eosinophil Count 0.03 10^3/uL (0.0-0.7); Absolute Lymphocyte Count 0.63 10^3/uL (1.2-3.4); Absolute Monocyte Count 0.51 10^3/uL (0.1-0.8); Absolute Neutrophil Count 3.29 10^3/uL (1.2-6.7); Basophils % 0.4; Eosinophils % 0.7; HCT 29.6 % (40.0-50.0); HGB 10.3 g/dL (13.5-17.5); Immature Grans % 0.4; MCH 34.6 pg (27.0-33.0); MCHC 34.8 % (32.0-36.0); MCV 99 fL (80-95); MPV 9.1 fL (8.0-11.0); Monocytes % 11.3; Neutrophils % 73.2; Platelet Count 141 10^3/uL (130-400); RBC 2.98 10^6/uL (4.36-5.78); RDW 15.9 % (11.8-14.1); RDW-SD 53.1 fL
[2022-10-08 12:16] LABS: ALT 35 U/L (16-63); AST 23 U/L (15-37); Alkaline Phosphatase 105 U/L (46-116); BUN 17 mg/dL (7-18); Bilirubin, Total 0.5 mg/dL (0.2-1.0); CREATININE 0.8 mg/dL (0.70-1.30); Calcium 8.9 mg/dL (8.5-10.1); Chloride 100 mmol/L (98-107); Estimated GFR 98.83 (mL/min/1.73m2); Glucose 107 mg/dL (74-106); Sodium 137 mmol/L (136-145); Total Protein 7.3 g/dL (6.4-8.2)
[2022-10-29] MEDS: Heparin 500 UNITS/5 ML SYRINGE IV (12:06)
[2022-10-29] MEDS: Normal Saline Flush 10 ML SYR IVP (12:06)
[2022-10-29 12:14] LABS: Abs Immature Grans 0.05 10^3/uL (0.0-0.06); Absolute Basophil Count 0.03 10^3/uL (0.0-0.2); Absolute Eosinophil Count 0.04 10^3/uL (0.0-0.7); Absolute Lymphocyte Count 0.66 10^3/uL (1.2-3.4); Absolute Monocyte Count 0.64 10^3/uL (0.1-0.8); Absolute Neutrophil Count 3.93 10^3/uL (1.2-6.7); Basophils % 0.6; Eosinophils % 0.7; HCT 27.7 % (40.0-50.0); HGB 9.6 g/dL (13.5-17.5); Immature Grans % 0.9; Lymphocytes % 12.3; MCH 36.9 pg (27.0-33.0); MCHC 34.7 % (32.0-36.0); MCV 107 fL (80-95); MPV 9.4 fL (8.0-11.0); Neutrophils % 73.5; Platelet Count 212 10^3/uL (130-400); RDW 18.6 % (11.8-14.1); RDW-SD 70.4 fL; WBC 5.35 10^3/uL (4.4-10.8)
[2022-10-29 12:29] LABS: Diff Comment RBC Morph Reviewed; Macrocytosis 1+
[2022-10-29 12:30] LABS: ALT 53 U/L (16-63); AST 27 U/L (15-37); Albumin 3.9 g/dL (3.4-5.0); Alkaline Phosphatase 105 U/L (46-116); Anion Gap 4.2 mmol/L (3-11); BUN 16 mg/dL (7-18); Bilirubin, Total 0.5 mg/dL (0.2-1.0); CO2 30.8 mmol/L (21.0-32.0); CREATININE 0.8 mg/dL (0.70-1.30); Calcium 8.9 mg/dL (8.5-10.1); Chloride 103 mmol/L (98-107); Estimated GFR 98.83 (mL/min/1.73m2); Glucose 111 mg/dL (74-106); Sodium 138 mmol/L (136-145); Total Protein 7.2 g/dL (6.4-8.2)
== END 2022-10-30 23:59 | disposition home or self-care (01) ==
LOC: INF 00:38
PROVIDERS: PCP Nurse Practitioner Family; Visit Provider Internal Medicine Hematology & Oncology
DX: Z45.2 Encounter for adjustment and management of vascular access device (principal); C61 Malignant neoplasm of prostate; C79.51 Secondary malignant neoplasm of bone
CPT/HCPCS: 36591; 80053; 85025

== ENCOUNTER 2022-11-19 01:12 | Outpatient (RCR) | payer BC, SELFPAY ==
[2022-11-19] MEDS: Heparin 500 UNITS/5 ML SYRINGE IV (10:33)
[2022-11-19] MEDS: Normal Saline Flush 10 ML SYR IVP (10:33)
[2022-11-19 10:41] LABS: Abs Immature Grans 0.03 10^3/uL (0.0-0.06); Absolute Basophil Count 0.03 10^3/uL (0.0-0.2); Absolute Eosinophil Count 0.01 10^3/uL (0.0-0.7); Absolute Lymphocyte Count 0.58 10^3/uL (1.2-3.4); Absolute Monocyte Count 0.64 10^3/uL (0.1-0.8); Absolute Neutrophil Count 4.89 10^3/uL (1.2-6.7); Basophils % 0.5; Eosinophils % 0.2; HCT 26.8 % (40.0-50.0); HGB 9.1 g/dL (13.5-17.5); Immature Grans % 0.5; Lymphocytes % 9.4; MCH 37.1 pg (27.0-33.0); MCV 109 fL (80-95); MPV 9.4 fL (8.0-11.0); Monocytes % 10.4; Platelet Count 146 10^3/uL (130-400); RBC 2.45 10^6/uL (4.36-5.78); RDW 17.5 % (11.8-14.1); RDW-SD 69.6 fL; WBC 6.18 10^3/uL (4.4-10.8)
[2022-11-19 10:57] LABS: ALT 28 U/L (16-63); AST 22 U/L (15-37); Albumin 3.9 g/dL (3.4-5.0); Alkaline Phosphatase 81 U/L (46-116); Anion Gap 7.4 mmol/L (3-11); BUN 16 mg/dL (7-18); Bilirubin, Total 0.5 mg/dL (0.2-1.0); CO2 28.6 mmol/L (21.0-32.0); CREATININE 0.9 mg/dL (0.70-1.30); Calcium 8.9 mg/dL (8.5-10.1); Chloride 104 mmol/L (98-107); Estimated GFR 95.37 (mL/min/1.73m2); Glucose 127 mg/dL (74-106); Potassium 3.8 mmol/L (3.5-5.1); Sodium 140 mmol/L (136-145); Total Protein 6.9 g/dL (6.4-8.2)
[2022-11-19 11:03] LABS: Diff Comment Diff Reviewed; Macrocytosis 2+
[2022-11-20 12:07] LABS: PSA, Ultrasensitive 0.13 ng/mL (<= 4.5)
[2022-11-24 07:12] LABS: Testosterone, Total 7.1 ng/dL (240-950)
== END 2022-11-30 23:59 | disposition home or self-care (01) ==
LOC: INF 01:12
PROVIDERS: Internal Medicine; PCP Nurse Practitioner Family; Visit Provider Internal Medicine Hematology & Oncology
DX: C61 Malignant neoplasm of prostate (principal); C79.51 Secondary malignant neoplasm of bone; Z45.2 Encounter for adjustment and management of vascular access device
CPT/HCPCS: 36591; 80053; 84153; 84403; 85025

== ENCOUNTER 2022-11-30 14:15 | Inpatient (IN) | payer BC, SELFPAY ==
[2022-11-30] VITALS (56 sets, daily range): BP systolic 110–180; BP diastolic 55–86; PULSE 63–92; RESP 10–26; TEMP 36.7–37.9; O2SAT 92–100
--- NOTE | 2022-11-30 14:30 | DI.CT_ITS ---
Exam(s) CT ABDOMEN PELVIS W EXAM: CT ABDOMEN PELVIS W CLINICAL HISTORY: mid to upper abdominal pain TECHNIQUE: Imaging Protocol: Axial computed tomography images with coronal and sagittal reformatted images were created and reviewed CONTRAST MATERIAL: Intravenous: Contrast Contrast volume:100 mL Oral: Yes COMPARISON: CT CT ABDOMEN PELVIS W from 10/15/2022 FINDINGS: ABDOMEN: Lung Bases: There are linear infiltrate seen in the lung bases. These may represent atelectasis or p neumonia. There is oral contrast seen in the distal esophagus which may have refluxed. Liver: Diffuse decreased attenuation. No measurable mass. Portal, Superior Mesenteric, and Splenic Veins: Unremarkable. Gallbladder and Biliary Tract: Status post cholecystectomy. There is again seen a biliary stent in p lace. There has been interval increase in size of the mass centered in the gallbladder fossa now jose david suring 12 x 11 x 13 cm. Air is noted within the gallbladder fossa mass. The air in the mass lies ad jacent to the distal stomach and duodenum. No oral contrast is seen within this mass. There are dil ated intrahepatic biliary ducts. Pancreas: Normal density, no abnormal calcifications or inflammatory process. Spleen: Normal. Adrenals: There again seen calcifications in the right adrenal gland. The left adrenal gland is unre markable. Kidneys: Normal size, contour and axis. No radiodense stones or obstructive uropathy. There is a stab le right renal cyst. Abdominal Aorta: Abdominal portion non-dilated. Bowel: The stomach is distended with oral contrast and food contents. The large right upper quadrant mass does cause a mass effect on the proximal duodenum. There are clips seen in the cecum suggestin g prior appendectomy. Peritoneal Cavity: There is a small amount of fluid around the liver. No free air. Lymph Nodes: Within normal limits. Bones: Within normal limits for the patient's age. No aggressive osseous lesions are seen. Soft Tissues: There is a small fat containing umbilical hernia. PELVIS: Bladder: Symmetric distention, no gross wall thickening. Reproductive Organs: Metallic bars are again seen in the prostate gland. Lymph Nodes: Within normal limits. Bones: Within normal limits for the patient's age. IMPRESSION: 1. Interval significant enlargement of the mass centered in the region of the gallbladder fossa. Cur rently it measures 12 x 11 x 13 cm. There is air seen within this mass. Concern for defect involvin g the wall of the adjacent bowel should be considered. 2. Bilateral basilar pulmonary infiltrates which may represent atelectasis or pneumonia. 3. Common bile duct stent is again seen. There is mild intrahepatic biliary ductal dilatation. RADIATION DOSE DELIVERED: 1,200.5mGy.cm Total DLP DATA REPOSITORY: All CT scans at this facility are submitted to the National Radiology Data Registry (NRDR) Dose Index Registry (DIR) with the [employer] ([employer]). RADIATION OPTIMIZATION: All CT scans at this facility use at least one of these dose optimization te chniques: automated exposure control; mA and/or kV adjustment per patient size (includes targeted exa ms where dose is matched to clinical indication); or iterative reconstruction.
--- NOTE | 2022-11-30 14:43 | ED.GENADUL_ITS ---
Discharge Plan Disposition Patient Disposition: Admit to [facility] Condition: Stable Discharge Details Clinical Impression: Intra-abdominal abscess Primary Care Provider: Felicia Parikh ED Provider: Jasper López Home Meds and New Rx's Prescriptions: No Action cholecalciferol (vitamin D3) 25 mcg (1,000 unit) capsule 25 mcg PO DAILY One-A-Day Maximum Formula Tablet 1 tab PO DAILY levothyroxine 75 mcg tablet 75 mcg PO DAILY Qty: 90 4RF tamsulosin 0.4 mg capsule 0.8 mg PO HS omega 0-klb-qxz-fish oil [Fish Oil] 60-90-500 mg capsule 1 cap PO DAILY fluoride (sodium) 1.1 % gel 1 applic dental DAILY Qty: 56 3RF sildenafil [Viagra] 100 mg tablet 100 mg PO PRN Qty: 30 3RF Rx Instructions: take one hour prior to intercourse diclofenac sodium [Voltaren Arthritis Pain] 1 % gel 4 g topical QID Qty: 100 1RF Rx Instructions: apply to single knee, ankle, foot; for foot includes sole/toes/top of foot amlodipine 2.5 mg tablet 2.5 mg PO DAILY Qty: 30 3RF ibuprofen 600 mg tablet 600 mg PO Q6H PRN Qty: 60 5RF Eliquis 5 mg tablet 1 tab PO BID Label Comments: TAKE ONE TABLET BY MOUTH TWICE DAILY prochlorperazine maleate [Compazine] 10 mg Tablet 10 mg PO Q6H PRN ondansetron 4 mg Tablet,Disintegrating 4 mg PO Q8H PRN Medical Decision Making ?62 year old male with history of prostate cancer with metastasis to bone and high grade neuroendocrine carcinoma under the care of [place] [facility] [place] in with onek week of no bowel movements and abdominal discomfort. He denies fevers, chills, chest pain, dyspnea, vomiting, has had some intermittent nausea. He has tried miralax without relief. He arrives stable speaking clearly caox4 in no distress. He has tenderness in the mid abdomen that he states he's had chronically. He has no distention or gurading. He has no impaction on rectal exam, brown guiac negative soft stool. Given his history will obtain cbc, cmp, lipase and ct abd/pelvis to evaluate for possible sbo. pt stable, no n/v here. His ct shows enlarging gallbladder fossa mass with free air measuring [id number] in size compared to CT here in September 2022, and on [facility] [place] a [facility] [place] this month and was measured at 6.8x6.4x6.6cm. Radiology questions also placing ng tube, patient hasn't had any vomiting and declines this currently. Will consult [facility] surgery and zosyn ordered for likely abscess. spoke with Dr. Chou from surgery at [facility], they are at capacity and can't accept transfers. She did recommend discussing with IR as this would be the procedure they would proceed with if he were there and would likely be on their medical service. Discussed with radiololgy resident Dr. Juan Santana who advised they should be able to do a down and back IR drainage tomorrow or Tuesday. Pt hemodymically stable, will discuss with general surgeon about admiss ion here until that can be arranged. spoke with Dr. Finnegan who reviewed the case, requested hostpitalist admission, awaiting hospitalist call back. Pt stable, aware of plan of likely admission here and transfer to [facility] [place] procedure and return afterwards. Differential Diagnosis Differential Diagnosis: constipation, sbo Medical Records Medical records reviewed: Yes I reviewed the patient's medical records. Imaging Data Radiologic Study: Attestation: I personally reviewed and interpreted this imaging study as follows: Imaging: CT Scan Radiologist's impression: IMPRESSION: 1. Enlarging gallbladder fossa mass with free air measuring 12 x 11 x 13 cm in size compared with October 15, 2022 of concern for enlarging absces s. 2. The common bile duct stent is in place similar to prior study. Surgically absent gallbladder. Dilated intrahepatic biliary ducts. Trace free fluid around the liver. 3. Bilateral infiltrates. 4. Multiple additional findings as discussed above. Lab Data Lab results reviewed: Yes I reviewed the patient's lab results. HPI General Mode of arrival: ambulatory . Date/Time Provider Initiated Documentation: 11/30/22 14:31 . Limitations to Documentation: no limitations . Information obtained by: patient . History of Present Illness 62 year old M presents to the emergency department with the chief complaint of constipation, described as moderate, and is localized to the abdomen. Patient reports no radiation. Patient started experiencing this week(s) (1) and it has been constant. No relieving factors improve symptom(s), No exacerbating factors reported . Patient notes denies fever/chills. Patient did receive the following treatments prior to arrival, none Related Data Home Medications Medication Instructions Recorded Confirmed sildenafil 100 mg tablet (Viagra) 100 mg PO PRN #30 tabs 01/30/21 11/30/22 cholecalciferol (vitamin D3) 25 25 mcg PO DAILY 02/12/21 11/30/22 mcg (1,000 unit) capsule multivitamin with minerals 1 tab PO DAILY 02/12/21 11/30/22 (One-A-Day Maximum Formula tablet) levothyroxine 75 mcg tablet 75 mcg PO DAILY #90 tabs 11/24/21 11/30/22 omega 9-ofy-dtz-fish oil 60 mg-90 1 cap PO DAILY 01/26/22 11/30/22 mg-500 mg capsule (Fish Oil) tamsulosin 0.4 mg capsule 0.8 mg PO HS 01/26/22 11/30/22 ibuprofen 600 mg tablet 600 mg PO Q6H PRN #60 tab-caps 08/17/22 11/30/22 fluoride (sodium) 1.1 % dental gel 1 applic dental DAILY #56 grams 09/06/22 11/30/22 amlodipine 2.5 mg tablet 2.5 mg PO DAILY #30 tabs 09/28/22 11/30/22 diclofenac sodium 1 % topical gel 4 g topical QID #100 grams 09/28/22 11/30/22 (Voltaren Arthritis Pain) apixaban 5 mg tablet (Eliquis) 1 tab PO BID 10/15/22 11/30/22 ondansetron 4 mg disintegrating 4 mg PO Q8H PRN 10/16/22 11/30/22 tablet prochlorperazine maleate 10 mg 10 mg PO Q6H PRN 10/16/22 11/30/22 tablet (Compazine) Previous Rx's Medication Instructions Recorded sildenafil 100 mg tablet (Viagra) 100 mg PO PRN #30 tabs 01/30/21 levothyroxine 75 mcg tablet 75 mcg PO DAILY #90 tabs 11/24/21 ibuprofen 600 mg tablet 600 mg PO Q6H PRN #60 tab-caps 08/17/22 fluoride (sodium) 1.1 % dental gel 1 applic dental DAILY #56 grams 09/06/22 amlodipine 2.5 mg tablet 2.5 mg PO DAILY #30 tabs 09/28/22 diclofenac sodium 1 % topical gel 4 g topical QID #100 grams 09/28/22 (Voltaren Arthritis Pain) Allergies Allergy/AdvReac Type Severity Reaction Status Date / Time tramadol AdvReac Intermediate Dizziness/Lightheaded, Verified 10/15/22 08:52 shakes General Stated Complaint: Abd Prob DAMION: 3 Review of Systems All systems reviewed & are unremarkable except as noted in HPI and below Constitutional Constitutional: Denies chills, Denies fever(s) and Denies weakness Cardiovascular Cardiovascular: Denies chest pain and Denies dyspnea Respiratory Respiratory: Denies cough and Denies dyspnea Gastrointestinal Gastrointestinal: Denies vomiting Integumentary/Breasts Skin/Breast: Denies rash Neurologic Neurologic: Denies weakness Endocrine Endocrine: Denies cold intolerance PFSH All Active Problems (Updated 11/30/22 @ 18:55 by Jasper López MD) Intra-abdominal abscess (Acute) Discharge planning issues (Acute) Prostate cancer metastatic to bone (Chronic ~2020) High grade neuroendocrine carcinoma (Chronic ~07/2022) Of unknown primary Elevated LFTs (Acute ~07/2022) Secondary to dilated hepatic ducts. S/p stent to right intraheptic duct Jul 2022. Hypothyroidism (Chronic) Secondary to radiation for tonsil cancer Hypertension (Chronic) Prediabetes (Chronic) Hyperlipidemia (Chronic) Tubular adenoma of colon (Chronic) 2014 Medical History (Updated 11/30/22 @ 18:55 by Jasper López MD) COVID-19 (~07/2022) Fatty liver Malignant neoplasm of tonsil (~2009) S/p chemo, radiation Surgical History (Updated 09/06/22 @ 09:28 by Sarita Casillas NP) History of arthroplasty of right knee History of carpal tunnel surgery of left wrist History of colonoscopy (~01/2022) History of hip surgery Hx of right knee surgery (07/18/14) S/P appendectomy S/P ERCP spcinterotmy. no stones S/P partial thyroidectomy Left thyroid lobe S/P tonsillectomy (~2010) Status post cholecystectomy (04/2022) Family History Mother , 64 Diabetes Essential hypertension Father , 79 Essential hypertension Heart disease Hyperlipidemia Stroke Prostate cancer Sister Ovarian cyst Brother , age 67 Prostate cancer Non Hodgkin's lymphoma Son No problems noted. Son No problems noted. Social History Smoking/Tobacco Use Status: Former Tobacco Use tobacco type: smokeless tobacco Quit Date: 10/02/10 Tobacco: How many years used: 30 Smokeless tobacco user: snuff Second Hand Exposure: Yes Smoking risk assessment performed?: Yes Alcohol Intake: former Drug use: Never Substance use type: does not use Caregiver/Support person: No Household members: spouse Housing: house Communication Needs: Hard of Hearing Do you need help understanding health information?: Never current occupation: [employer] Pets and animals: No Do you think of yourself as: straight/heterosexual Current gender identity: male What is your relationship status?: How often do you talk on the phone with friends or family?: decline to answer How often do you get together with friends or relatives?: decline to answer How often do you attend latter day or advent services?: decline to answer Do you belong to any clubs or organized social groups?: decline to answer Panel score (0-1 are the most socially isolated patients): 1 What type of physical activity do you participate in: walking Duration: 15-30 minutes/day Frequency: 5-6 times per week Yelena/Buddhist: Orthodoxy Special yelena needs: No Seatbelt use: always Drive intox or ride w/intox [employer] delivery driver: No Do you feel safe at home: Yes Do you feel safe in your relationship?: Yes Victim of physical abuse: No Victim of emotional abuse: No Victim of sexual abuse: No Would you like helpful sources: No Exam Const General: no acute distress Orientation: alert [facility] Head: normal to inspection Ears: external ears normal General nose exam: external nose normal Mouth: moist mucous membranes Eyes General: appearance normal, both eyes and all related structures Neck Neck: normal visual inspection Resp Effort & Inspection: normal respiratory effort and able to speak in complete sentences Cardio Rate: regular rate GI Inspection: non-distended Palpation: soft and no guarding Skin General skin exam: no rashes or lesions noted Neuro General: patient alert and patient oriented x3 Extrem General: normal to inspection Psych Mental Status: mental status grossly normal Course Vital Signs Vital signs: Vital Signs Temperature 36.7 C 11/30/22 14:20 Pulse 81 11/30/22 14:20 Respiratory Rate 18 11/30/22 14:20 Blood Pressure 180/86 H 11/30/22 14:20 Pulse Oximetry 100 11/30/22 14:20 Temperature 36.7 C 11/30/22 14:20 Temperature Source Oral 11/30/22 14:20 Pulse 81 11/30/22 14:20 Respiratory Rate 18 11/30/22 14:20 Blood Pressure 180/86 H 11/30/22 14:20 Blood Pressure Position Sitting 11/30/22 14:20 Pulse Oximetry 100 11/30/22 14:20 Oxygen Delivery Method Room Air 11/30/22 14:20 Oxygen Flow Rate 0 11/30/22 14:20 Pain Level 7 11/30/22 14:20
[2022-11-30] MEDS: Normal Saline 1,000 ML 1000 ML IV (14:57)
[2022-11-30] MEDS: Normal Saline Flush 10 ML SYR IVP ×2 (15:07→16:47)
[2022-11-30 15:08] LABS: Abs Immature Grans 0.03 10^3/uL (0.0-0.06); Absolute Eosinophil Count 0.04 10^3/uL (0.0-0.7); Absolute Monocyte Count 1.46 10^3/uL (0.1-0.8); Absolute Neutrophil Count 9.91 10^3/uL (1.2-6.7); Basophils % 0.3; Eosinophils % 0.3; HCT 23.4 % (40.0-50.0); HGB 7.9 g/dL (13.5-17.5); Immature Grans % 0.3; MCH 36.1 pg (27.0-33.0); MCHC 33.8 % (32.0-36.0); MCV 107 fL (80-95); Monocytes % 12.3; Neutrophils % 83.8; Platelet Count 371 10^3/uL (130-400); RBC 2.19 10^6/uL (4.36-5.78); RDW 15.6 % (11.8-14.1); RDW-SD 60.5 fL; WBC 11.83 10^3/uL (4.4-10.8)
[2022-11-30 15:09] LABS: Absolute Basophil Count 0.04 10^3/uL (0.0-0.2); Absolute Lymphocyte Count 0.35 10^3/uL (1.2-3.4)
[2022-11-30 15:23] LABS: ALT 116 U/L (16-63); AST 22 U/L (15-37); Albumin 3.4 g/dL (3.4-5.0); Alkaline Phosphatase 122 U/L (46-116); Anion Gap 6.6 mmol/L (3-11); BUN 16 mg/dL (7-18); Bilirubin, Direct 0.3 mg/dL (0.0-0.2); CO2 32.4 mmol/L (21.0-32.0); CREATININE 0.8 mg/dL (0.70-1.30); Calcium 9.3 mg/dL (8.5-10.1); Chloride 92 mmol/L (98-107); Estimated GFR 98.83 (mL/min/1.73m2); Glucose 126 mg/dL (74-106); Lipase 13 U/L (16-77); Magnesium 1.6 mg/dL (1.8-2.4); Potassium 3.8 mmol/L (3.5-5.1); Sodium 131 mmol/L (136-145); Total Protein 7.2 g/dL (6.4-8.2)
[2022-11-30 15:26] LABS: Diff Comment RBC Morph Reviewed; Macrocytosis 1+; Polychromasia Present
[2022-11-30 15:33] LABS: PTT Activated 30.3 sec (21.0-27.5); Prothrombin Time 10.5 sec (9.3-11.0)
[2022-11-30 16:28] LABS: Bilirubin Negative (Negative); Blood Negative (Negative); Clarity Clear (Clear); Glucose Negative (Negative); Ketones 15 mg/dL (Negative); Leukocyte Esterase Negative (Negative); Nitrite Negative (Negative); Urobilinogen 0.2 EU/dL (Up TO 0.2); pH 6.5 (5-8)
[2022-11-30] MEDS: Omnipaque 350 MG/ML 100 ML BTL IJ (16:46)
[2022-11-30] MEDS: Normal Saline - Diluent 50 ML VIAL IV (16:47)
--- NOTE | 2022-11-30 17:53 | DI.VRAD_ITS ---
Addendum created by Raysa Penaloza MD on 11/30/2022 6:01:55 PM EST: THIS REPORT CONTAINS FINDINGS THAT MAY BE CRITICAL TO PATIENT CARE. Additional findings were discussed with Dr. López about possible placement of a nasogastric tube. The findings were verbally communicated via telephone conference with Jasper López at 6:01 PM EST on 11/30/2022. The findings were acknowledged and understood. Addendum created by Raysa Penaloza MD on 11/30/2022 5:57:56 PM EST: THIS REPORT CONTAINS FINDINGS THAT MAY BE CRITICAL TO PATIENT CARE. The findings were verbally communicated via telephone conference with Jasper López at 5:45 PM EST on 11/30/2022. The findings were acknowledged and understood. The source of the free air is possibly from the duodenum. No definite oral contrast is seen within the gallbladder fossa mass however there is no pre oral contrast images. Patient could benefit from a nasogastric tube to remove the oral contrast from the distended stomach to prevent possible enlarging gallbladder fossa mass and possible aspiration given the findings of reflux. Initial report created on 11/30/2022 5:53:16 PM EST: PROCEDURE INFORMATION: Exam: CT Abdomen And Pelvis With Contrast Exam date and time: 11/30/2022 4:37 PM Age: 62 years old Clinical indication: Other: Mid abd pain TECHNIQUE: Imaging protocol: Computed tomography of the abdomen and pelvis with contrast. Radiation optimization: All CT scans at this facility use at least one of these dose optimization techniques: automated exposure control; mA and/or kV adjustment per patient size (includes targeted exams where dose is matched to clinical indication); or iterative reconstruction. Contrast material: OMNIPAQUE 350; Contrast volume: 100 ml; Contrast route: INTRAVENOUS (IV); COMPARISON: CT ABDOMEN PELVIS W 15/10/2022 10:14 FINDINGS: Lungs: Right middle lobe, right lower lobe, left lower lobe, and lingular infiltrates. Mediastinal space: Oral contrast refluxed into the distal esophagus. Liver: Decreased attenuation. Fluid around the outside of the liver. No mass. Gallbladder and bile ducts: Cholecystectomy. Biliary stent in place similar to prior study. Enlarging mass in the gallbladder fossa measuring 12 x 11 x 13 cm in size compared to the prior study October 15, 2022. There is air within the gallbladder fossa mass but there is no evidence for oral contrast. The air within the mass is adjacent to the compressed duodenum with air in the compressed duodenum Dilated intrahepatic biliary ducts. Pancreas: There is infiltration of fat around the pancreatic head, secondary to the enlarging mass in the gallbladder fossa. Spleen: Normal. No splenomegaly. Adrenal glands: Amorphous calcifications of the right adrenal gland similar to prior study. Kidneys and ureters: Stable right renal cyst. Prominent right extra renal pelvis similar to prior study. Stomach and bowel: Oral contrast is seen within a distended stomach and a majority of the small bowel. There is no oral contrast seen within the colon. Markedly distended stomach with contrast and food. Large solid stool volume. Marked compression of the pylorus and the duodenum secondary to the gallbladder fossa mass. The free air within the gallbladder fossa mass may be secondary to duodenal defect. Appendix: Appendectomy. Intraperitoneal space: Free fluid around the liver. Infiltration of the mesenteric fat anterior to the mass in the gallbladder fossa. Vasculature: Unremarkable. No abdominal aortic aneurysm. Lymph nodes: Unremarkable. No enlarged lymph nodes. Urinary bladder: Distended urinary bladder. Reproductive: Metallic clips in the prostate. Bones/joints: Multilevel degenerative changes of the spine. Soft tissues: Umbilical hernia. Fat distension of the inguinal canals greater on the left than right. Asymmetric muscle atrophy of the right thigh muscle similar to prior study. IMPRESSION: 1. Enlarging gallbladder fossa mass with free air measuring 12 x 11 x 13 cm in size compared with October 15, 2022 of concern for enlarging abscess. 2. The common bile duct stent is in place similar to prior study. Surgically absent gallbladder. Dilated intrahepatic biliary ducts. Trace free fluid around the liver. 3. Bilateral infiltrates. 4. Multiple additional findings as discussed above. THIS REPORT CONTAINS FINDINGS THAT MAY BE CRITICAL TO PATIENT CARE. The findings were verbally communicated via telephone conference with Jasper López at 5:45 PM EST on 11/30/2022. The findings were acknowledged and understood. Dictated and Authenticated by: Raysa Penaloza MD. Ordering:SHYANNE Hutchinson MD
[2022-11-30] MEDS: PIPERACILLIN/TAZO 4.5 GM in Normal Saline 100 ML IVPB (18:05)
[2022-11-30 18:37] LABS: Source Nasal/Nares
[2022-11-30] MEDS: MAGNESIUM SULFATE 2 GM/50 ML BAG IVPB (18:41)
[2022-11-30 19:24] LABS: COVID-19 PCR Negative (Negative)
[2022-11-30] MEDS: DEXTROSE 5%-LACTATED RINGERS 1,000 ML 150 ML IV (21:20)
--- NOTE | 2022-11-30 23:45 | W.PM.HP.N ---
Date of service: 11/30/22 Time of Service: 23:45 Assessment and Plan Assessment and plan (1) Intra-abdominal abscess: Status: Acute Assessment and plan: Suspected necrotic tumor +/- abscess +/- possible bleeding. For irng-rxa-ohip IR drainage at [facility] in the morning. (Accepting MD: Dr Jimenez). Treat empirically with zosyn. Await blood cultures. Monitor H/Hs and for signs of hemodynamic instability. Hold anticoagulation. NPO after midnight. (2) High grade neuroendocrine carcinoma: Status: Chronic Assessment and plan: Followed by [facility] oncology. As above. (3) Acute on chronic anemia: Status: Acute Assessment and plan: Check anemia studies including hematest. The patient is on anticoagulation. (4) Portal vein thrombosis: Status: Acute Assessment and plan: Hold anticoagulation in light of anticipated procedure. (5) Hypothyroidism: Status: Chronic Assessment and plan: check TSH. Continue levothyroxine Qualifiers: Hypothyroidism type: unspecified Qualified Code(s): E03.9 - Hypothyroidism, unspecified (6) Hypertension: Status: Chronic Assessment and plan: Continue amlodipine Qualifiers: Hypertension type: essential hypertension Qualified Code(s): I10 - Essential (primary) hypertension (7) Constipation: Status: Acute Assessment and plan: Schedule a bowel regimen. No evidence of obstruction by CT or impaction by rectal exam by the ER provider (8) DVT prophylaxis: Status: Acute Assessment and plan: Therapeutic eliquis for portal vein thrombosis is currently on hold in anticipation of procedure. SCDs. (9) Discharge planning issues: Status: Acute Assessment and plan: DNR/DNI as per my conversation with the patient. He is not interested in a palliative care consult. History of Present Illness History of Present Illness Chief Complaint: Constipation and intermittent abdominal pain Narrative: Mr Shea is a 62 year old male with PMHx of a high grade neuroendocrine carcinoma on chemo and s/p biliary stent, as well as h/o prostate cancer metastatic to the bone, h/o tonsillar cancer s/p tonsillectomies, chemo, XRT, in remission, portal vein thrombosis on eliquis, hypertension, hyperlipidemia, who presented to [facility] ED today c/o no bowel movements x 1 week accompanied by epigastic abdominal discomfort and nausea. He has not vomited. He has had very little flatus. He has not had a fever. His normal BM frequency is every 2-3 days. He takes daily colace. Miralax at home x 2 days did not work. He states it hurts to take a deep breath. He does correlate the worsening of constipation with being started on opioid therapy by Dr Payan. There was no evidence of impaction on exam in the ED. CT abdomen/pelvis w/ contrast showed a significant interval enlargement of the mass centered in the gallbladder fossa with air within the mass. This was suspicious for an abscess. There was a question as to adjacent bowel was involved, also of whether the patient had pneumonia. He was empirically initiated on zosyn. The case was reviewed with [facility] general surgery. The patient was not accepted in transfer due to lack of available beds, and consultation with IR was recommended. The case was discussed with Dr Juan Santana (I also personally discussed this case with him) who recommended a [id number] transfer for decompression and drainage of what he felt likely represented a necrotic mass with a possible abscess and/or bleeding. He did recommend that we consider bleeding and recheck an H/H should the patient become hemodynamically unstable. He recommended holding eliquis tonight and tomorrow morning. The patient is not interested in talking to palliative care and decided to make himself DNR/DNI. Review of Systems All systems reviewed & are unremarkable except as noted in HPI and below PFSH All Active Problems (Updated 12/01/22 @ 01:12 by Teresa Mckeon MD) Portal vein thrombosis (Acute) Constipation (Acute) Discharge planning issues (Acute) DVT prophylaxis (Acute) Acute on chronic anemia (Acute) Intra-abdominal abscess (Acute) Discharge planning issues (Acute) Prostate cancer metastatic to bone (Chronic ~2020) High grade neuroendocrine carcinoma (Chronic ~07/2022) Of unknown primary Elevated LFTs (Acute ~07/2022) Secondary to dilated hepatic ducts. S/p stent to right intraheptic duct Jul 2022. Hypothyroidism (Chronic) Secondary to radiation for tonsil cancer Hypertension (Chronic) Prediabetes (Chronic) Hyperlipidemia (Chronic) Tubular adenoma of colon (Chronic) 2014 Medical History (Updated 12/01/22 @ 01:12 by Teresa Mckeon MD) COVID-19 (~07/2022) Fatty liver Malignant neoplasm of tonsil (~2009) S/p chemo, radiation Surgical History (Updated 09/06/22 @ 09:28 by Sarita Casillas NP) History of arthroplasty of right knee History of carpal tunnel surgery of left wrist History of colonoscopy (~01/2022) History of hip surgery Hx of right knee surgery (07/18/14) S/P appendectomy S/P ERCP spcinterotmy. no stones S/P partial thyroidectomy Left thyroid lobe S/P tonsillectomy (~2010) Status post cholecystectomy (04/2022) Family History Mother , 64 Diabetes Essential hypertension Father , 79 Essential hypertension Heart disease Hyperlipidemia Stroke Prostate cancer Sister Ovarian cyst Brother , age 67 Prostate cancer Non Hodgkin's lymphoma Son No problems noted. Son No problems noted. Social History Smoking/Tobacco Use Status: Former Tobacco Use tobacco type: smokeless tobacco Quit Date: 10/02/10 Tobacco: How many years used: 30 Smokeless tobacco user: snuff Second Hand Exposure: Yes Smoking risk assessment performed?: Yes Alcohol Intake: former Drug use: Never Substance use type: does not use Caregiver/Support person: No Household members: spouse Housing: house Communication Needs: Hard of Hearing Do you need help understanding health information?: Never current occupation: [employer] Pets and animals: No Do you think of yourself as: straight/heterosexual Current gender identity: male What is your relationship status?: How often do you talk on the phone with friends or family?: decline to answer How often do you get together with friends or relatives?: decline to answer How often do you attend religion or jainism services?: decline to answer Do you belong to any clubs or organized social groups?: decline to answer Panel score (0-1 are the most socially isolated patients): 1 What type of physical activity do you participate in: walking Duration: 15-30 minutes/day Frequency: 5-6 times per week Yelena/Orthodoxy: Confucianism Special yelena needs: No Seatbelt use: always Drive intox or ride w/intox school bus driver/custodian: No Do you feel safe at home: Yes Do you feel safe in your relationship?: Yes Victim of physical abuse: No Victim of emotional abuse: No Victim of sexual abuse: No Would you like helpful sources: No Meds Allergies and Home Medications Allergies Allergy/AdvReac Type Severity Reaction Status Date / Time tramadol AdvReac Intermediate Dizziness/Lightheaded, Verified 10/15/22 08:52 shakes Home Medications Medication Instructions Recorded Confirmed Type sildenafil 100 mg tablet (Viagra) 100 mg PO PRN #30 tabs 01/30/21 11/30/22 Rx cholecalciferol (vitamin D3) 25 25 mcg PO DAILY 02/12/21 11/30/22 History mcg (1,000 unit) capsule multivitamin with minerals 1 tab PO DAILY 02/12/21 11/30/22 History (One-A-Day Maximum Formula tablet) levothyroxine 75 mcg tablet 75 mcg PO DAILY #90 tabs 11/24/21 11/30/22 Rx omega 5-yoz-lhk-fish oil 60 mg-90 1 cap PO DAILY 01/26/22 11/30/22 History mg-500 mg capsule (Fish Oil) tamsulosin 0.4 mg capsule 0.8 mg PO HS 01/26/22 11/30/22 History ibuprofen 600 mg tablet 600 mg PO Q6H PRN #60 tab-caps 08/17/22 11/30/22 Rx fluoride (sodium) 1.1 % dental gel 1 applic dental DAILY #56 grams 09/06/22 11/30/22 Rx amlodipine 2.5 mg tablet 2.5 mg PO DAILY #30 tabs 09/28/22 11/30/22 Rx diclofenac sodium 1 % topical gel 4 g topical QID #100 grams 09/28/22 11/30/22 Rx (Voltaren Arthritis Pain) apixaban 5 mg tablet (Eliquis) 1 tab PO BID 10/15/22 11/30/22 History ondansetron 4 mg disintegrating 4 mg PO Q8H PRN 10/16/22 11/30/22 History tablet prochlorperazine maleate 10 mg 10 mg PO Q6H PRN 10/16/22 11/30/22 History tablet (Compazine) oxycodone 10 mg tablet 1 - 2 tab PO Q4H PRN PRN 12/01/22 12/01/22 History oxycodone 15 mg tablet,crush 1 tab PO BID 12/01/22 12/01/22 History resistant,extended release 12 hr (OxyContin) Exam Narrative Exam Narrative: General: Pleasant middle-aged male who is A&Ox3, NAD, appears comfortable in bed Neurological: A&Ox3, No focal deficits Psychiatric: Appropriate speech pattern/content Skin: Visible skin intact, including at the site of the infusaport HEENT: Atraumatic, normocephalic, EOMI, MMM, clear oropharynx, no submandibular or cervical lymphadenopathy, no goiter or JVD. Cardiovascular: RRR, no m/r/g Lungs: CTAB Gastrointestinal: soft, RUQ fullness, TTP in epigastrium but especially in RUQ Genitourinary: deferred Extremities: trace edema BLEs, 1+ pedal pulses B Results Imaging Additional studies: CT abdomen/pelvis w/ contrast: 1. Interval significant enlargement of the mass centered in the region of the gallbladder fossa.? Currently it measures 12 x 11 x 13 cm.? There is air seen within this mass.? Concern for defect involving the wall of the adjacent bowel should be considered. 2. Bilateral basilar pulmonary infiltrates which may represent atelectasis or pneumonia. 3. Common bile duct stent is again seen.? There is mild intrahepatic biliary ductal dilatation.? Labs Result diagrams: 11/30/22 14:34 11/30/22 14:34 Labs: Laboratory Results - last 24 hr 11/30/22 11/30/22 11/30/22 14:34 14:34 14:34 WBC 11.83 H RBC 2.19 L Hgb 7.9 L Hct 23.4 L MCV 107 H MCH 36.1 H MCHC 33.8 RDW 15.6 H Plt Count 371 MPV 9.0 Immature Gran % 0.3 Neutrophils % 83.8 Lymphocytes % 3.0 Monocytes % 12.3 Eosinophils % 0.3 Basophils % 0.3 Nucleated RBC % 0.0 Absolute Neutrophils 9.91 H Absolute Lymphocytes 0.35 L Absolute Monocytes 1.46 H Absolute Eosinophils 0.04 Absolute Basophils 0.04 RBC Morphology See Below Polychromasia Present Macrocytosis 1+ PT 10.5 INR 1.0 APTT 30.3 H Sodium 131 L Potassium 3.8 Chloride 92 L Carbon Dioxide 32.4 H Anion Gap 6.6 BUN 16 Creatinine 0.8 Est GFR (CKD-EPI 2020) 98.83 Glucose 126 H Calcium 9.3 Magnesium 1.6 L Total Bilirubin 1.0 Conjugated Bilirubin 0.3 H AST 22 ALT 116 H Alkaline Phosphatase 122 H Total Protein 7.2 Albumin 3.4 Lipase 13 L Urine Color Urine Clarity Urine pH Ur Specific [place] Urine Protein Urine Ketones Urine Blood Urine Nitrite Urine Bilirubin Urine Urobilinogen Ur Leukocyte Esterase Urine Glucose COVID-19 Source SARS-CoV-2 (PCR) 11/30/22 11/30/22 16:21 18:33 WBC RBC Hgb Hct MCV MCH MCHC RDW Plt Count MPV Immature Gran % Neutrophils % Lymphocytes % Monocytes % Eosinophils % Basophils % Nucleated RBC % Absolute Neutrophils Absolute Lymphocytes Absolute Monocytes Absolute Eosinophils Absolute Basophils RBC Morphology Polychromasia Macrocytosis PT INR APTT Sodium Potassium Chloride Carbon Dioxide Anion Gap BUN Creatinine Est GFR (CKD-EPI 2020) Glucose Calcium Magnesium Total Bilirubin Conjugated Bilirubin AST ALT Alkaline Phosphatase Total Protein Albumin Lipase Urine Color Yellow Urine Clarity Clear Urine pH 6.5 Ur Specific [place] 1.010 Urine Protein Negative Urine Ketones 15 H Urine Blood Negative Urine Nitrite Negative Urine Bilirubin Negative Urine Urobilinogen 0.2 Ur Leukocyte Esterase Negative Urine Glucose Negative COVID-19 Source Nasal/Nares SARS-CoV-2 (PCR) Negative Last Vital Signs Temp 37.9 C H 11/30/22 23:00 Pulse 68 11/30/22 23:00 Resp 16 11/30/22 23:00 BP 122/70 11/30/22 23:00 Pulse Ox 97 11/30/22 23:00 Time Spent Time spent with Patient: 55-74 minutes Time was spent: preparing to see the patient(eg.review tests), obtaining and/or reviewing separately otained hiistory, ordering medications,tests, procedures, referring, communicating with other health healthcare economics manager, indepentently interpreting results, counseling the patient and care coordination
[2022-12-01] VITALS (13 sets, daily range): BP systolic 108–149; BP diastolic 62–77; PULSE 63–74; RESP 14–19; TEMP 36.4–37.1; O2SAT 96–100
[2022-12-01] MEDS: PIPERACILLIN/TAZO 4.5 GM in Normal Saline 100 ML IVPB ×4 (00:15→23:17)
[2022-12-01] MEDS: DEXTROSE 5%-LACTATED RINGERS 1,000 ML 150 ML IV ×3 (03:59→20:53)
[2022-12-01 06:57] LABS: Abs Immature Grans 0.04 10^3/uL (0.0-0.06); Absolute Basophil Count 0.04 10^3/uL (0.0-0.2); Absolute Eosinophil Count 0.05 10^3/uL (0.0-0.7); Absolute Lymphocyte Count 0.48 10^3/uL (1.2-3.4); Absolute Monocyte Count 1.59 10^3/uL (0.1-0.8); Absolute Neutrophil Count 6.82 10^3/uL (1.2-6.7); Basophils % 0.4; Eosinophils % 0.6; HCT 22.2 % (40.0-50.0); HGB 7.4 g/dL (13.5-17.5); Immature Grans % 0.4; Lymphocytes % 5.3; MCH 35.4 pg (27.0-33.0); MCHC 33.3 % (32.0-36.0); MCV 106 fL (80-95); MPV 9.2 fL (8.0-11.0); Monocytes % 17.6; Neutrophils % 75.7; Platelet Count 351 10^3/uL (130-400); RBC 2.09 10^6/uL (4.36-5.78); RDW 15.9 % (11.8-14.1); RDW-SD 61.6 fL; WBC 9.02 10^3/uL (4.4-10.8)
[2022-12-01 07:24] LABS: Iron 11 ug/dL (65-175); Total Iron Binding Capacity 165 ug/dL (250-450); Transferrin Sat 7 % (20-55)
[2022-12-01 07:27] LABS: ALT 90 U/L (16-63); AST 27 U/L (15-37); Alkaline Phosphatase 150 U/L (46-116); Anion Gap 4.7 mmol/L (3-11); BUN 10 mg/dL (7-18); Bilirubin, Direct 0.3 mg/dL (0.0-0.2); Bilirubin, Total 0.8 mg/dL (0.2-1.0); CO2 32.3 mmol/L (21.0-32.0); CREATININE 0.8 mg/dL (0.70-1.30); Calcium 8.9 mg/dL (8.5-10.1); Chloride 97 mmol/L (98-107); Estimated GFR 98.83 (mL/min/1.73m2); Glucose 136 mg/dL (74-106); Lipase 14 U/L (16-77); Magnesium 1.8 mg/dL (1.8-2.4); Potassium 3.7 mmol/L (3.5-5.1); Sodium 134 mmol/L (136-145); Total Protein 6.4 g/dL (6.4-8.2)
[2022-12-01 07:32] LABS: TSH 1.21 uIU/mL (0.36-3.74)
[2022-12-01 07:42] LABS: Diff Comment Diff Reviewed; Macrocytosis 2+
[2022-12-01 07:47] LABS: Ferritin 904 ng/mL (26-388); Vitamin B12 1947 pg/mL (193-986)
[2022-12-01 07:51] LABS: Folate > 20.0 ng/mL (8.6-20.0)
[2022-12-01] MEDS: Normal Saline Flush 10 ML SYR IVP ×2 (08:30→20:52)
[2022-12-01 08:54] LABS: HCT 19.4 % (40.0-50.0); HGB 6.4 g/dL (13.5-17.5)
--- NOTE | 2022-12-01 13:15 | NUR.NOTE ---
Nursing Note: Blood ended by EMS while in transport to [facility]. Vital signs reported by EMS staff. No signs or symptoms of reaction noted.
[2022-12-01] MEDS: oxyCODONE 10 MG TAB PO ×2 (17:41→19:44)
--- NOTE | 2022-12-01 18:25 | PDOC.CMIN ---
- If Service Date Differs Date of service: 12/01/22 Time of Service: 18:25 Care Management Initial Assess REASON FOR HOSPITALIZATION:: Intrabdominal abscess PAST MEDICAL HISTORY/PAST SURGICAL HISTORY:: All Active Problems. Portal vein thrombosis (Acute). Constipation (Acute). Discharge planning issues (Acute). DVT prophylaxis (Acute). Acute on chronic anemia (Acute). Intra-abdominal abscess (Acute). Discharge planning issues (Acute). Prostate cancer metastatic to bone (Chronic ~2020). High grade neuroendocrine carcinoma (Chronic ~07/2022). Of unknown primary. Elevated LFTs (Acute ~07/2022). Secondary to dilated hepatic ducts. S/p stent to right intraheptic duct Jul 2022. Hypothyroidism (Chronic). Secondary to radiation for tonsil cancer. Hypertension (Chronic). Prediabetes (Chronic). Hyperlipidemia (Chronic). Tubular adenoma of colon (Chronic). 2014. Medical History. COVID-19 (~07/2022). Fatty liver. Malignant neoplasm of tonsil (~2009). S/p chemo, radiation. Surgical History. History of arthroplasty of right knee. History of carpal tunnel surgery of left wrist. History of colonoscopy (~01/2022). History of hip surgery. Hx of right knee surgery (07/18/14). S/P appendectomy. S/P ERCP. spcinterotmy. no stones. S/P partial thyroidectomy. Left thyroid lobe. S/P tonsillectomy (~2010). Status post cholecystectomy (04/2022) PREVIOUS FUNCTIONAL STATUS/SOCIAL/FAMILY SUPPORTS:: Johnathon lives in [facility] with his , Sandra. He has two adult sons who live locally and are supportive. Johnathon is retired but formerly worked many years for the [employer]. He is independent at baseline. CURRENT FUNCTIONAL STATUS:: Johnathon went down and back to [facility] [facility] today for drainage of his abscess. He was not available for CM to meet today. CM will continue to follow. ADVANCE DIRECTIVES:: Not on file. Has patient been provided with info about the portal/API?: Yes Did the patient sign up for the portal?: No CODE STATUS:: DNR/DNI INSURANCE COVERAGE / FINANCIAL ISSUES:: [facility] CURRENT HOME/COMMUNITY SERVICES/EQUIPMENT:: No home services or equipment. Johnathon is currently receiving chemotherapy at [facility]. PRIMARY CARE PHYSICIAN:: Felicia Parikh NP ([facility]). POTENTIAL DISCHARGE NEEDS:: Follow up appointments with PCP. PATIENT/FAMILY EDUCATION NEEDS:: Review of discharge instructions re medications, limitations and follow up plan of care; discuss Ask Me Three. ANTICIPATED BARRIERS TO DISCHARGE:: None. TRANSPORTATION:: To be determined by disposition. PLAN:: Johnathon went to [facility] for a procedure today, and will return. His plan will be determined after this procedure. He will likely return home when medically cleared. He will follow up with his PCP and discharge plan of care. CM will continue to follow.
[2022-12-01] MEDS: Normal Saline 500 ML 30 ML IV (18:43)
[2022-12-01] MEDS: Docusate Sodium 100 MG CAP PO (19:44)
[2022-12-01 21:52] LABS: HCT 25.4 % (40.0-50.0); HGB 8.5 g/dL (13.5-17.5)
[2022-12-01] MEDS: Tamsulosin 0.4 MG CAPCR 0.8 MG PO (23:15)
[2022-12-02] MEDS: DEXTROSE 5%-LACTATED RINGERS 1,000 ML 150 ML IV ×2 (03:14→10:18)
[2022-12-02] MEDS: oxyCODONE 10 MG TAB PO ×3 (03:29→13:13)
[2022-12-02 03:36] VITALS: BP 148/86; PULSE 82; RESP 17; TEMP 36.9; O2SAT 99
[2022-12-02] MEDS: Normal Saline Flush 10 ML SYR IVP ×2 (06:12→19:00)
[2022-12-02] MEDS: PIPERACILLIN/TAZO 4.5 GM in Normal Saline 100 ML IVPB ×3 (06:13→17:46)
[2022-12-02] MEDS: Levothyroxine 75 MCG TAB PO (06:13)
[2022-12-02 06:52] VITALS: BP 148/77; PULSE 72; RESP 15; TEMP 36.6; O2SAT 98
[2022-12-02 07:02] LABS: Abs Immature Grans 0.04 10^3/uL (0.0-0.06); Absolute Basophil Count 0.05 10^3/uL (0.0-0.2); Absolute Eosinophil Count 0.04 10^3/uL (0.0-0.7); Absolute Lymphocyte Count 0.38 10^3/uL (1.2-3.4); Absolute Monocyte Count 1.43 10^3/uL (0.1-0.8); Absolute Neutrophil Count 6.35 10^3/uL (1.2-6.7); Basophils % 0.6; Eosinophils % 0.5; HCT 27.3 % (40.0-50.0); Immature Grans % 0.5; Lymphocytes % 4.6; MCV 103 fL (80-95); MPV 9.1 fL (8.0-11.0); Monocytes % 17.2; Neutrophils % 76.6; Platelet Count 357 10^3/uL (130-400); RBC 2.65 10^6/uL (4.36-5.78); RDW 19.3 % (11.8-14.1); RDW-SD 71.7 fL; WBC 8.29 10^3/uL (4.4-10.8)
[2022-12-02 07:08] LABS: Anion Gap 5.8 mmol/L (3-11); BUN 9 mg/dL (7-18); CO2 31.2 mmol/L (21.0-32.0); CREATININE 0.8 mg/dL (0.70-1.30); Calcium 8.6 mg/dL (8.5-10.1); Chloride 99 mmol/L (98-107); Estimated GFR 98.83 (mL/min/1.73m2); Glucose 130 mg/dL (74-106); Potassium 3.7 mmol/L (3.5-5.1); Sodium 136 mmol/L (136-145)
[2022-12-02] MEDS: Docusate Sodium 100 MG CAP PO (07:17)
[2022-12-02] MEDS: Cholecalciferol (Vitamin D3) 1,000 UNIT TAB 1000 UNITS PO (07:17)
[2022-12-02] MEDS: Multivitamin w/Minerals TAB 1 TAB PO (07:17)
--- NOTE | 2022-12-02 10:21 | CMPROGNOTE_ITS ---
- If Service Date Differs Date of service: 12/02/22 Time of Service: 10:21 Care Management Progress Note S/O: Johnathon was sitting up in his chair when CM met with him. He reported that he was feeling ok today. He stated that his down and back to [facility] [place] went well yesterday. Per report, awaiting blood cultures, and he is being treated empirically with zosyn. Johnathon stated that he is very independent and plans to return home once he is medically cleared with no services needed. CM will continue to follow. A: Johnathon is a 62 year old male admitted to [facility] on 11/30/22 for intra abdominal abscess. P: Johnathon will likely return home when medically cleared. His will drive him home via private vehicle. He will follow up with his PCP and discharge plan of care. CM will continue to follow.
[2022-12-02 11:19] VITALS: BP 145/83; PULSE 87; RESP 18; TEMP 36.5; O2SAT 99
--- NOTE | 2022-12-02 14:20 | CHAPLAIN ---
Johnathon was up in the chair when I visited. He told me about going to [facility] [place] [facility] yesterday for short procedure. He said he's in touch with family. Johnathon was pleasant and engaged in a conversation. I explained my role and offered support.
[2022-12-02 15:19] VITALS: BP 116/63; PULSE 67; RESP 16; TEMP 37.1; O2SAT 99
[2022-12-02 17:34] LABS: Abs Immature Grans 0.03 10^3/uL (0.0-0.06); Absolute Basophil Count 0.04 10^3/uL (0.0-0.2); Absolute Eosinophil Count 0.05 10^3/uL (0.0-0.7); Absolute Lymphocyte Count 0.51 10^3/uL (1.2-3.4); Absolute Monocyte Count 1.56 10^3/uL (0.1-0.8); Absolute Neutrophil Count 6.23 10^3/uL (1.2-6.7); Basophils % 0.5; Eosinophils % 0.6; HCT 26.8 % (40.0-50.0); HGB 8.9 g/dL (13.5-17.5); Immature Grans % 0.4; Lymphocytes % 6.1; MCHC 33.2 % (32.0-36.0); MCV 102 fL (80-95); MPV 8.5 fL (8.0-11.0); Monocytes % 18.5; Neutrophils % 73.9; Platelet Count 321 10^3/uL (130-400); RBC 2.62 10^6/uL (4.36-5.78); RDW 18.6 % (11.8-14.1); RDW-SD 68.3 fL; WBC 8.42 10^3/uL (4.4-10.8)
[2022-12-02 18:11] LABS: Diff Comment Agrees w/ Instrument; RBC Morphology Normal
--- NOTE | 2022-12-02 18:31 | W.PM.DS.N ---
Date of service: 12/02/22 Time of Service: 18:31 DS: Diagnosis Discharge Diagnosis (1) Intra-abdominal abscess: Status: Acute (2) High grade neuroendocrine carcinoma: Status: Chronic (3) Acute on chronic anemia: Status: Acute (4) Constipation: Status: Resolved Discharge Plan Disposition Patient Disposition: Home Condition: Fair Discharge Details Reason For Visit: Intraabdominal Abscess Admit Date/Time: 11/30/22 19:45 Admit Provider: Teresa Mckeon Attending Provider: Teresa Mckeon Primary Care Provider: [facility] Hospital Course: Mr Shea is a 62 year old male with PMHx of a 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 hypertension, hyperlipidemia, who presented to [facility] ED on day of admission c/o no bowel movements x 1 week accompanied by epigastic abdominal discomfort and nausea. He did not vomited. He had very little flatus. He did not have a fever. His normal BM frequency is every 2-3 days. He takes daily colace. Miralax at home x 2 days did not work. He stated it hurt to take a deep breath. He did correlate the worsening of constipation with being started on opioid therapy by Dr Payan. There was no evidence of impaction on exam in the ED. CT abdomen/pelvis w/ contrast showed a significant interval enlargement of the mass centered in the gallbladder fossa with air within the mass. This was suspicious for an abscess. There was a question as to if adjacent bowel was involved, also of whether the patient had pneumonia.? He was empirically initiated on zosyn. The case was reviewed with [facility] general surgery. The patient was not accepted in transfer due to lack of available beds, and consultation with IR was recommended. The case was discussed with Dr Juan Santana (I also personally discussed this case with him) who recommended a [id number] transfer for decompression and drainage of what he felt likely represented a necrotic mass? with a possible abscess and/or bleeding. He did recommend that we consider bleeding and recheck an H/H should the patient become hemodynamically unstable. He recommended holding eliquis tonight and tomorrow morning. The patient is not interested in talking to palliative care and decided to make himself DNR/DNI.? He did go to [facility] and they were unable to extract any fluid from the mass, however they did do 6 biopsies which remain pending.? He received 2 units of blood while hospitalized and prior to discharge his H/H was checked and stable 8.9 and 26.8.? He has an appointment with Dr Payan Tuesday morning.? He is feeling fine and would like to go home.? We agree he is stable to go home, vital signs are within normal limits.? He was discharged to home, his picked him up. He will see surgery @ [facility] as outpatient, referral has been sent. Discussed with Dr Koroma ? Home Meds and New Rx's Prescriptions: Continued cholecalciferol (vitamin D3) 25 mcg (1,000 unit) capsule 25 mcg PO DAILY One-A-Day Maximum Formula Tablet 1 tab PO DAILY levothyroxine 75 mcg tablet 75 mcg PO DAILY Qty: 90 4RF tamsulosin 0.4 mg capsule 0.8 mg PO HS omega 7-bau-lay-fish oil [Fish Oil] 60-90-500 mg capsule 1 cap PO DAILY fluoride (sodium) 1.1 % gel 1 applic dental DAILY Qty: 56 3RF sildenafil [Viagra] 100 mg tablet 100 mg PO PRN Qty: 30 3RF Rx Instructions: take one hour prior to intercourse diclofenac sodium [Voltaren Arthritis Pain] 1 % gel 4 g topical QID Qty: 100 1RF Rx Instructions: apply to single knee, ankle, foot; for foot includes sole/toes/top of foot amlodipine 2.5 mg tablet 2.5 mg PO DAILY Qty: 30 3RF ibuprofen 600 mg tablet 600 mg PO Q6H PRN Qty: 60 5RF oxycodone 10 mg tablet 1 - 2 tab PO Q4H PRN PRN oxycodone [OxyContin] 15 mg tablet,oral only,ext.rel.12 hr 1 tab PO BID Label Comments: TAKE ONE TABLET BY MOUTH EVERY 12 HOURS Eliquis 5 mg tablet 1 tab PO BID Label Comments: TAKE ONE TABLET BY MOUTH TWICE DAILY prochlorperazine maleate [Compazine] 10 mg Tablet 10 mg PO Q6H PRN ondansetron 4 mg Tablet,Disintegrating 4 mg PO Q8H PRN Discharge Instructions Additional Instructions: Follow up as planned with [facility] Dr. Payan tomorrow 12/03/2022 @ 9:30 am. I did order a consult with surgery here to see you - they will see you as an out patient, they will call you tomorrow with an appointment. Stand Alone Forms: Nursing Discharge Form Referrals: Felicia Parikh NP [Primary Care Provider] - 12/03/22 9:30 am () Avery Payan MD [ CONSULTING PHYSICIAN] - 12/03/22 9:30 am (@ [facility]) Remy Rush MD [ [facility] STAFF PHYSICIAN] - (Call Tuesday to make an Appointment in the next 1-2 weeks [phone] Juliette-duodenal/juliette-hepatic mass - heterogenous lesion without internal flow on US; down and back to IR @ [facility] - mass is solid, unable to aspirate; 6 bx collected and pending.) Activity:: Activity as Tolerated Equipment/Supplies:: No Equipment Needed Diet:: Normal Diet Discharge Orders Discharge Orders: Discharge Order (Routine); Ordered 12/02/22 Ordered By: Carla Rico Discharge Data Discharge Date/Time-TO BE ENTERED AT DEPARTURE: 12/02/22 19:22 DS: Summary Time Spent with Patient providing and/or coordinating discharge services: Greater than 30 minutes Status at Discharge Functional status at discharge: independent ambulation Overall status at discharge: patient is back to baseline Mental Status: mental status grossly normal Speech and Movement: speech and movement normal Mood: congruent mood Affect: normal affect Exam Psych Mental Status: mental status grossly normal Speech and Movement: speech and movement normal Mood: congruent mood Affect: normal affect DS: Data Vitals/I&O Vitals and I&O: Vital Signs Temperature 37.1 C 12/02/22 15:19 Temperature Source Tympanic 12/02/22 15:19 Pulse 67 12/02/22 15:19 Pulse Rhythm Regular 12/02/22 08:30 Pulse 74 11/30/22 20:21 Respiratory Rate 16 12/02/22 15:19 Respiratory Effort Non-Labored 12/02/22 08:30 Respiratory Depth Normal 12/02/22 08:30 Respiratory Pattern Normal 12/02/22 08:30 Blood Pressure 116/63 02/02/23 15:19 Blood Pressure Mean 97 11/30/22 20:20 Blood Pressure Position Sitting 11/30/22 14:20 Pulse Oximetry 99 12/02/22 15:19 Oxygen Delivery Method Room Air 12/02/22 15:19 Oxygen Flow Rate 0 12/02/22 15:19 Pain Level 2 12/02/22 15:19 Intake & Output 12/01/22 12/02/22 12/02/22 23:59 11:59 23:59 Intake Total 1266 / 3426.0 2681.0 / 3121.0 440 / 3121.0 Output Total 400 / 400 1350 / 1875 525 / 1875 Balance 866 / 3026.0 1331.0 / 1246.0 -85 / 1246.0 Intake: IV 596 / 2756.0 2321.0 / 2521.0 200 / 2521.0 Oral 360 / 600 240 / 600 Blood Product 670 / 670 Rbc Leuko Reduced Unit 330 / 330 [id number] Rbc Leuko Reduced Unit 340 / 340 [id number] Output: Urine 400 / 400 1350 / 1875 525 / 1875 Other: Urine Color Light Dottie Light Dottie Light Dottie Urine Appearance Clear Urine Odor None Comment Pt voiding independently Stool Size Large Stool Characteristics Soft Brown Voiding Methods Toilet Toilet Toilet Data Completed and Pending Labs on day of discharge: Labs from last 24 hours 12/02/22 12/02/22 12/02/22 17:25 06:09 06:09 WBC 8.42 8.29 RBC 2.62 L 2.65 L Hgb 8.9 L 9.0 L Hct 26.8 L 27.3 L MCV 102 H 103 H MCH 34.0 H 34.0 H MCHC 33.2 33.0 RDW 18.6 H 19.3 H Plt Count 321 357 MPV 8.5 9.1 Immature Gran % 0.4 0.5 Neutrophils % 73.9 76.6 Lymphocytes % 6.1 4.6 Monocytes % 18.5 17.2 Eosinophils % 0.6 0.5 Basophils % 0.5 0.6 Nucleated RBC % 0.0 0.0 Absolute Neutrophils 6.23 6.35 Absolute Lymphocytes 0.51 L 0.38 L Absolute Monocytes 1.56 H 1.43 H Absolute Eosinophils 0.05 0.04 Absolute Basophils 0.04 0.05 RBC Morphology Normal Sodium 136 Potassium 3.7 Chloride 99 Carbon Dioxide 31.2 Anion Gap 5.8 BUN 9 Creatinine 0.8 Est GFR (CKD-EPI 2020) 98.83 Glucose 130 H Calcium 8.6 Crossmatch 12/01/22 12/01/22 21:47 08:30 WBC RBC Hgb 8.5 L D Hct 25.4 L MCV MCH MCHC RDW Plt Count MPV Immature Gran % Neutrophils % Lymphocytes % Monocytes % Eosinophils % Basophils % Nucleated RBC % Absolute Neutrophils Absolute Lymphocytes Absolute Monocytes Absolute Eosinophils Absolute Basophils RBC Morphology Sodium Potassium Chloride Carbon Dioxide Anion Gap BUN Creatinine Est GFR (CKD-EPI 2020) Glucose Calcium Crossmatch See Detail Preliminary micro results at discharge 11/30/22 18:44 Blood Culture - Preliminary Blood NO GROWTH 24 HOURS 11/30/22 18:00 Blood Culture - Preliminary Blood NO GROWTH 24 HOURS PFSH All Active Problems (Updated 12/03/22 @ 00:02 by PING HERMOSILLO) Acute on chronic anemia (Acute) Intra-abdominal abscess (Acute) Discharge planning issues (Acute) Prostate cancer metastatic to bone (Chronic ~2020) High grade neuroendocrine carcinoma (Chronic ~07/2022) Of unknown primary Elevated LFTs (Acute ~07/2022) Secondary to dilated hepatic ducts. S/p stent to right intraheptic duct Jul 2022. Prediabetes (Chronic) Hyperlipidemia (Chronic) Tubular adenoma of colon (Chronic) 2014 Medical History (Updated 12/03/22 @ 00:02 by PING HERMOSILLO) COVID-19 (~07/2022) Fatty liver Hypertension Hypothyroidism Secondary to radiation for tonsil cancer Malignant neoplasm of tonsil (~2009) S/p chemo, radiation Portal vein thrombosis Surgical History (Updated 09/06/22 @ 09:28 by Sarita Casillas NP) History of arthroplasty of right knee History of carpal tunnel surgery of left wrist History of colonoscopy (~01/2022) History of hip surgery Hx of right knee surgery (07/18/14) S/P appendectomy S/P ERCP spcinterotmy. no stones S/P partial thyroidectomy Left thyroid lobe S/P tonsillectomy (~2010) Status post cholecystectomy (04/2022) Family History Mother , 64 Diabetes Essential hypertension Father , 79 Essential hypertension Heart disease Hyperlipidemia Stroke Prostate cancer Sister Ovarian cyst Brother , age 67 Prostate cancer Non Hodgkin's lymphoma Son No problems noted. Son No problems noted. Social History Smoking/Tobacco Use Status: Former Tobacco Use tobacco type: smokeless tobacco Quit Date: 10/02/10 Tobacco: How many years used: 30 Smokeless tobacco user: snuff Second Hand Exposure: Yes Smoking risk assessment performed?: Yes Alcohol Intake: former Drug use: Never Substance use type: does not use Caregiver/Support person: No Household members: spouse Housing: house Communication Needs: Hard of Hearing Do you need help understanding health information?: Never current occupation: [employer] Pets and animals: No Sexually active: Yes Do you think of yourself as: straight/heterosexual Current gender identity: male What is your relationship status?: How often do you talk on the phone with friends or family?: decline to answer How often do you get together with friends or relatives?: decline to answer How often do you attend denominational or mandaen services?: decline to answer Do you belong to any clubs or organized social groups?: decline to answer Panel score (0-1 are the most socially isolated patients): 1 What type of physical activity do you participate in: walking Duration: 15-30 minutes/day Frequency: 5-6 times per week Yelena/Orthodoxy: Nondenominational Special yelena needs: No Seatbelt use: always Helmet use: Yes Helmet use: always Drive intox or ride w/intox bung driver: No Do you feel safe at home: Yes Do you feel safe in your relationship?: Yes Victim of physical abuse: No Victim of emotional abuse: No Victim of sexual abuse: No Would you like helpful sources: No Time Spent with Patient Time Spent with Patient: 45-69 minutes Time was spent: preparing to see the patient(eg.review tests), obtaining and/or reviewing separately otained hiistory, ordering medications,tests, procedures, referring, communicating with other health personal care service provider, indepentently interpreting results, counseling the patient and care coordination
[2022-12-02] MEDS: Heparin 500 UNITS/5 ML SYRINGE IVP (19:00)
== END 2022-12-02 19:22 | disposition home or self-care (01) | DRG 371 ==
LOC: ER 20:26 → MS 20:35
PROVIDERS: Internal Medicine; Nurse Practitioner Acute Care; Nurse Practitioner Family; Admitting Provider Internal Medicine; Emergency Provider Emergency Medicine; PCP Nurse Practitioner Family; Visit Provider Internal Medicine
DX: K65.1 Peritoneal abscess (principal); I81 Portal vein thrombosis; C7A.1 Malignant poorly differentiated neuroendocrine tumors; C79.51 Secondary malignant neoplasm of bone; C61 Malignant neoplasm of prostate; Z79.01 Long term (current) use of anticoagulants; I10 Essential (primary) hypertension; R73.03 Prediabetes; E78.5 Hyperlipidemia, unspecified; K76.0 Fatty (change of) liver, not elsewhere classified; Z85.89 Personal history of malignant neoplasm of other organs and systems; E89.0 Postprocedural hypothyroidism; Y84.2 Radiological procedure and radiotherapy as the cause of abnormal reaction of the patient, or of later complication, without mention of misadventure at the time of the procedure; Z87.891 Personal history of nicotine dependence; D64.9 Anemia, unspecified; Z66 Do not resuscitate; K59.09 Other constipation
CPT/HCPCS: 36415; 36430; 80048; 80053; 80076; 83690; 86850; 86900; 86901; 86920; 87040; 87635; 96361; 96365; 96366; 96367; 99285; 74177; 81003; 82248; 82270; 82607; 82728; 82746; 83540; 83550; 83735; 84443; 85014; 85018; 85025; 85610; 85730; 99223; 99239; J2543; J3490; P9016

== ENCOUNTER 2022-12-17 12:07 | Inpatient (IN) | payer BC, SELFPAY ==
[2022-12-17] VITALS (39 sets, daily range): BP systolic 90–141; BP diastolic 54–78; PULSE 68–99; RESP 1–24; TEMP 36.7–39.1; O2SAT 92–100
--- NOTE | 2022-12-17 12:30 | RT.EKG_ITS ---
APPROVED REPORT Exam: Resting ECG Reason for Exam: sick pt over 61 Patient Location: E HR:91 bpm ECG Measurements Heart Rate 91 AXIS NM 128 P 41 QRSd 105 QRS -20 QT 386 T 80 QTc 475 Conclusion Sinus rhythm...normal P axis, V-rate 60- 99 Nonspecific repol abnormality, diffuse leads...ST dep, T flat/neg, ant/lat/inf
[2022-12-17 12:55] LABS: Abs Immature Grans 0.09 10^3/uL (0.0-0.06); Absolute Eosinophil Count 0.02 10^3/uL (0.0-0.7); Basophils % 0.1; Eosinophils % 0.1; HGB 7.8 g/dL (13.5-17.5); Immature Grans % 0.4; Lymphocytes % 0.5; MCH 32.9 pg (27.0-33.0); MCHC 33.9 % (32.0-36.0); MCV 97 fL (80-95); MPV 9.7 fL (8.0-11.0); Monocytes % 2.6; Neutrophils % 96.3; Platelet Count 382 10^3/uL (130-400); RBC 2.37 10^6/uL (4.36-5.78); RDW 19.5 % (11.8-14.1); RDW-SD 69.5 fL; WBC 20.78 10^3/uL (4.4-10.8)
[2022-12-17] MEDS: Normal Saline 250 ML 500 ML IV (12:57)
--- NOTE | 2022-12-17 12:58 | ED.GENADUL_ITS ---
Discharge Plan Disposition Patient Disposition: Admit to [facility] Discharge Details Chief Complaint: GenMedical Clinical Impression: Community acquired bilateral lower lobe pneumonia, Anemia, Acute hypokalemia, Hypomagnesemia, Cancer associated pain Primary Care Provider: Felicia Parikh ED Provider: Eric Dong Home Meds and New Rx's Prescriptions: No Action cholecalciferol (vitamin D3) 25 mcg (1,000 unit) capsule 25 mcg PO DAILY One-A-Day Maximum Formula Tablet 1 tab PO DAILY levothyroxine 75 mcg tablet 75 mcg PO DAILY Qty: 90 4RF tamsulosin 0.4 mg capsule 0.8 mg PO HS omega 1-jdh-yox-fish oil [Fish Oil] 60-90-500 mg capsule 1 cap PO DAILY fluoride (sodium) 1.1 % gel 1 applic dental DAILY Qty: 56 3RF amoxicillin 875 mg tablet 875 mg PO BID hydrochlorothiazide 12.5 mg tablet 12.5 mg PO QAM Qty: 90 1RF sildenafil [Viagra] 100 mg tablet 100 mg PO PRN Qty: 30 3RF Rx Instructions: take one hour prior to intercourse diclofenac sodium [Voltaren Arthritis Pain] 1 % gel 4 g topical QID Qty: 100 1RF Rx Instructions: apply to single knee, ankle, foot; for foot includes sole/toes/top of foot ibuprofen 600 mg tablet 600 mg PO Q6H PRN Qty: 60 5RF prochlorperazine maleate [Compazine] 10 mg Tablet 10 mg PO Q6H PRN ondansetron 4 mg Tablet,Disintegrating 4 mg PO Q8H PRN amlodipine 2.5 mg Tablet 2.5 mg PO DAILY capecitabine 500 mg Tablet 1,500 mg PO BID Rx Instructions: take within 30 minutes of eating calcium carbonate 600 mg calcium (1,500 mg) Tablet 1,200 mg PO DAILY docusate sodium [Colace] 100 mg Capsule 100 mg PO QHS omeprazole 20 mg Capsule,Delayed Release(Dr/Ec) 20 mg PO DAILY polyethylene glycol 3350 [Miralax] 17 gram/dose Powder 17 g PO DAILY oxycodone 5 mg Tablet 10 - 30 mg PO Q4H PRN oxycodone [OxyContin] 30 mg Tablet,Oral Only,Ext.Rel.12 Hr 30 mg PO BID Medical Decision Making Mr. Shea is a 62-year-old gentleman who is undergoing cancer staging for malignant neoplasm of the. Stage Aparna. Also undergoing palliative treatment with a large pancreatic head mass that has been the source of pain and gastric outlet obstruction. He has a high-grade neuroendocrine carcinoma of unknown primary. Presents today after his first radiation therapy for the pancreatic mass. He was found to be febrile with some rigors and fatigue sent to the emergency department. Bilateral pneumonia. Work-up in the emergency department reveal a high white count. CT of the abdomen pelvis detected bilateral basal pneumonias. He also has worsening of his mass without any signs of obstruction. Treated with cefepime and azithromycin in the ED Anemia. Hemoglobin 7.8 and hematocrit of 23 which is a decrease from 26 from 2 weeks ago. Will require transfusion, T&S ordered. Hypomagnesemia 1.5 (treated in the ED) Hyponatremia 129 from 136 2 weeks ago Hypokalemia 3.1 (treated in ED) Liver enzymes: These have decreased from previous determination. However his total bilirubins have increased at expense of the conjugated bilirubin CT scan results: Marked interval increase in size of previously noted mass centered around the duodenum. Duodenal stent in place. Liver metastases and masses of in the subcapsular capsular region of the liver are now seen. Increased biliary dilatation. Infiltrates noted in the bilateral lung bases suspicious for pneumonia. Component of metastatic disease not excluded. The case was discussed with Dr. Vyas the patient's oncologist. At this time Dr. Rayo would like the patient to not receive any of his oral chemotherapy agents. HPI General Date/Time Provider Initiated Documentation: 12/17/22 12:27 . HPI Narrative: 62-year-old gentleman sent from the cancer center for blood work and further evaluation. The patient handout call reported that the patient has a high-grade neuroendocrine carcinoma of unknown primary. He also has a history of prostate CA. He recently started radiation therapy and chemotherapy this past Tuesday. He sent to the emergency room because he knows that he is jaundice. Someone reported some rigors. He is short of breath more so on exertion and very fatigued. Patient tells me last time he felt like this he required a transfusion. The patient endorses fatigue and malaise. He denies any fevers or chills. He has not had any nausea nor vomiting. No chest pain. No shortness of breath at rest. Related Data Home Medications Medication Instructions Recorded Confirmed sildenafil 100 mg tablet (Viagra) 100 mg PO PRN #30 tabs 01/30/21 12/17/22 cholecalciferol (vitamin D3) 25 25 mcg PO DAILY 02/12/21 12/17/22 mcg (1,000 unit) capsule multivitamin with minerals 1 tab PO DAILY 02/12/21 12/17/22 (One-A-Day Maximum Formula tablet) levothyroxine 75 mcg tablet 75 mcg PO DAILY #90 tabs 11/24/21 12/17/22 omega 8-iqd-dfr-fish oil 60 mg-90 1 cap PO DAILY 01/26/22 12/17/22 mg-500 mg capsule (Fish Oil) tamsulosin 0.4 mg capsule 0.8 mg PO HS 01/26/22 12/17/22 ibuprofen 600 mg tablet 600 mg PO Q6H PRN #60 tab-caps 08/17/22 12/17/22 fluoride (sodium) 1.1 % dental gel 1 applic dental DAILY #56 grams 09/06/22 12/06/22 diclofenac sodium 1 % topical gel 4 g topical QID #100 grams 09/28/22 12/17/22 (Voltaren Arthritis Pain) ondansetron 4 mg disintegrating 4 mg PO Q8H PRN 10/16/22 12/06/22 tablet prochlorperazine maleate 10 mg 10 mg PO Q6H PRN 10/16/22 12/17/22 tablet (Compazine) amoxicillin 875 mg tablet 875 mg PO BID 12/06/22 12/06/22 hydrochlorothiazide 12.5 mg tablet 12.5 mg PO QAM #90 tabs 12/06/22 12/17/22 amlodipine 2.5 mg tablet 2.5 mg PO DAILY 12/17/22 12/17/22 calcium carbonate 600 mg calcium 1,200 mg PO DAILY 12/17/22 12/17/22 (1,500 mg) tablet capecitabine 500 mg tablet 1,500 mg PO BID 12/17/22 12/17/22 docusate sodium 100 mg capsule 100 mg PO QHS 12/17/22 12/17/22 (Colace) omeprazole 20 mg capsule,delayed 20 mg PO DAILY 12/17/22 12/17/22 release oxycodone 30 mg tablet,crush 30 mg PO BID 12/17/22 12/17/22 resistant,extended release 12 hr (OxyContin) oxycodone 5 mg tablet 10 - 30 mg PO Q4H PRN 12/17/22 12/17/22 polyethylene glycol 3350 17 17 g PO DAILY 12/17/22 12/17/22 gram/dose oral powder (Miralax) Previous Rx's Medication Instructions Recorded sildenafil 100 mg tablet (Viagra) 100 mg PO PRN #30 tabs 01/30/21 levothyroxine 75 mcg tablet 75 mcg PO DAILY #90 tabs 11/24/21 ibuprofen 600 mg tablet 600 mg PO Q6H PRN #60 tab-caps 08/17/22 fluoride (sodium) 1.1 % dental gel 1 applic dental DAILY #56 grams 09/06/22 diclofenac sodium 1 % topical gel 4 g topical QID #100 grams 09/28/22 (Voltaren Arthritis Pain) hydrochlorothiazide 12.5 mg tablet 12.5 mg PO QAM #90 tabs 12/06/22 Allergies Allergy/AdvReac Type Severity Reaction Status Date / Time tramadol AdvReac Intermediate Dizziness/Lightheaded, Verified 12/17/22 12:09 aleksey General Stated Complaint: GenMedical DAMION: 3 Review of Systems Narrative: Constitutional see HPI positive fatigue malaise. Negative for fevers negative for chills HEENT negative no sore throat no thrush Cardiovascular no chest pressure no chest pain Respiratory no shortness of breath at rest. Fourth of breath on exertion GI chronic abdominal pain, no change in his pain pattern. No nausea no vomiting mild decrease in urine output MSK no myalgias or arthralgias Neuro intermittent headaches. No facial weakness no numbness Endo no unexplained weight gain or weight loss Psych negative PFSH All Active Problems (Updated 12/17/22 @ 16:08 by Eric Dong MD) Community acquired bilateral lower lobe pneumonia (Acute) Anemia (Chronic) Acute hypokalemia (Acute) Hypomagnesemia (Acute) Cancer associated pain (Acute) Edema of both lower extremities (Acute) Acute on chronic anemia (Acute) Intra-abdominal abscess (Acute) Discharge planning issues (Acute) Prostate cancer metastatic to bone (Chronic ~2020) High grade neuroendocrine carcinoma (Chronic ~07/2022) Of unknown primary Elevated LFTs (Acute ~07/2022) Secondary to dilated hepatic ducts. S/p stent to right intraheptic duct Jul 2022. Prediabetes (Chronic) Hyperlipidemia (Chronic) Tubular adenoma of colon (Chronic) 2014 Medical History (Updated 12/17/22 @ 16:08 by Eric Dong MD) COVID-19 (~07/2022) Fatty liver Hypertension Hypothyroidism Secondary to radiation for tonsil cancer Malignant neoplasm of tonsil (~2009) S/p chemo, radiation Portal vein thrombosis Surgical History (Updated 09/06/22 @ 09:28 by Sarita Casillas NP) History of arthroplasty of right knee History of carpal tunnel surgery of left wrist History of colonoscopy (~01/2022) History of hip surgery Hx of right knee surgery (07/18/14) S/P appendectomy S/P ERCP spcinterotmy. no stones S/P partial thyroidectomy Left thyroid lobe S/P tonsillectomy (~2010) Status post cholecystectomy (04/2022) Family History Mother , 64 Diabetes Essential hypertension Father , 79 Essential hypertension Heart disease Hyperlipidemia Stroke Prostate cancer Sister Ovarian cyst Brother , age 67 Prostate cancer Non Hodgkin's lymphoma Son No problems noted. Son No problems noted. Social History Smoking/Tobacco Use Status: Former Tobacco Use tobacco type: smokeless tobacco Quit Date: 10/02/10 Tobacco: How many years used: 30 Smokeless tobacco user: snuff Second Hand Exposure: Yes Smoking risk assessment performed?: Yes Alcohol Intake: former Drug use: Never Substance use type: does not use Caregiver/Support person: No Household members: spouse Housing: house Communication Needs: Hard of Hearing Do you need help understanding health information?: Never current occupation: [employer] Pets and animals: No Sexually active: Yes Do you think of yourself as: straight/heterosexual Current gender identity: male What is your relationship status?: How often do you talk on the phone with friends or family?: decline to answer How often do you get together with friends or relatives?: decline to answer How often do you attend mandaen or episcopal services?: decline to answer Do you belong to any clubs or organized social groups?: decline to answer Panel score (0-1 are the most socially isolated patients): 1 What type of physical activity do you participate in: walking Duration: 15-30 minutes/day Frequency: 5-6 times per week Yelena/Anglican: Anabaptist Special yelena needs: No Seatbelt use: always Helmet use: Yes Helmet use: always Drive intox or ride w/intox trackless trolley driver: No Do you feel safe at home: Yes Do you feel safe in your relationship?: Yes Victim of physical abuse: No Victim of emotional abuse: No Victim of sexual abuse: No Would you like helpful sources: No Exam Narrative Exam Narrative: Awake alert oriented x3 calm cooperative resting in bed in no acute distress No cephalic atraumatic PERRLA EOMI MMM positive icterus positive paler Neck supple no JVD Chest clear to auscultation bilaterally Heart regular rhythm and rate colic ejection murmur Abdomen diffuse discomfort on palpation. No rebound. Patient stated his abdominal exam is at baseline Extremities no edema Back normal inspection Neuro grossly intact Skin icteric Course Vital Signs Vital signs: Vital Signs Temperature 37.1 C 12/17/22 12:23 Pulse 99 H 12/17/22 12:23 Respiratory Rate 16 12/17/22 12:23 Blood Pressure 140/78 12/17/22 12:23 Pulse Oximetry 93 12/17/22 12:23 Temperature 37.1 C 12/17/22 12:23 Temperature Source Temporal Artery Scan 12/17/22 12:23 Pulse 99 H 12/17/22 12:23 Respiratory Rate 16 12/17/22 12:23 Blood Pressure 140/78 12/17/22 12:23 Blood Pressure Position Supine 12/17/22 12:23 Pulse Oximetry 93 12/17/22 12:23 Oxygen Delivery Method Room Air 12/17/22 12:23 Oxygen Flow Rate 0 12/17/22 12:23
--- NOTE | 2022-12-17 13:00 | DI.CT_ITS ---
Exam(s) CT ABDOMEN PELVIS W EXAM: CT ABDOMEN PELVIS W CLINICAL HISTORY: pain fever. TECHNIQUE: Imaging Protocol: Axial computed tomography images with coronal and sagittal reformatted images were created and reviewed CONTRAST MATERIAL: Intravenous: Omnipaque 350 Contrast volume:100 ml Oral: / no COMPARISON: CT CT THORAX ABD/PEL CTA from 05/10/[address] CHEST/ABD/PEL W from 07/31/[address] ABDOMEN PELVIS W from 10/15/[address] ABDOMEN PELVIS W from 11/30/2022 FINDINGS: ABDOMEN: Lung Bases: Patchy bilateral infiltrates at both lung bases. Port present with tip in right atrium. Coronary artery calcifications noted. Mild left ventricular dilatation. Liver: Normal density. Multiple liver metastases noted. Masses seen between liver and diaphragm. Gallbladder and biliary tract: Dilatation of intrahepatic bile ducts, worsening from prior. A biliary stent is seen. Masslike material is noted near distal aspect of stent. Pancreas: Head of pancreas not well seen, blending with adjacent duodenal mass.. Spleen: Normal. Ascites now seen around spleen. Kidneys: Normal size, contour and axis. No radiodense stones or obstructive uropathy. No masses seen. Adrenal glands: No masses seen. Abdominal Aorta: Abdominal portion non-dilated. Soft tissue: Nodular density seen at the umbilicus. Stomach and small bowel: Stent now noted in duodenum. Debris versus mass noted at the lower aspect of stent. Further increase in previously noted mass surrounding the region of the duodenal stent. Appro ximate measurements 17 cm AP and transverse by 12 cm cephalo caudad. The mass causes impression on th e base of the base of the liver. Some air is again noted within the mass. Lymph nodes: Multiple small lymph node seen along para-aortic chain. Lymph nodes at celiac axis PELVIS: Bladder: No gross wall thickening. No calculi.No focal mass. Bowel: No obstruction or bowel wall thickening. Appendix not seen. Large quantity of fecal material f rom cecum through splenic flexure. No small bowel dilatation. Peritoneal cavity: A small amount of ascites is noted. Bones: No lytic or blastic lesions identified. Reproductive organs: Metallic densities in prostate. Size of prostate is small, consistent with treat ment. Impression: Marked interval increase in size of previously noted mass centered around the duodenum. Duodenal sten t in place. Liver metastases and masses of in the subcapsular capsular region of the liver are now se en. Increased biliary dilatation. Infiltrates noted in the bilateral lung bases suspicious for pneumonia. Component of metastatic disea se not excluded. Findings discussed with Dr. Dong, emergency department provider. RADIATION DOSE DELIVERED: 1,459.18mGy.cm Total DLP DATA REPOSITORY: All CT scans at this facility are submitted to the National Radiology Data Registry (NRDR) Dose Index Registry (DIR) with the [employer] (A[employer]). RADIATION OPTIMIZATION: All CT scans at this facility use at least one of these dose optimization te chniques: automated exposure control; mA and/or kV adjustment per patient size (includes targeted exa ms where dose is matched to clinical indication); or iterative reconstruction.
--- NOTE | 2022-12-17 13:00 | DI.RAD_ITS ---
Exam(s) XR CHEST 2V PA LATERAL EXAM: XR CHEST 2V PA LATERAL CLINICAL HISTORY: sob TECHNIQUE: 2D digital imaging was performed. COMPARISON: CT CT ABDOMEN PELVIS W from 10/15/[address] ABDOMEN PELVIS W from 11/30/[address] ABDOMEN PELVIS W from 12/17/2022 FINDINGS: Port is noted over the right upper chest with tip in right atrium. HEART: Mildly enlarged. Aorta: Mildly tortuous. PULMONARY VASCULATURE: Normal. LUNGS: Suboptimally inflated. Infiltrate seen in right upper lobe. Increased densities in both lung bases suspicious for pneumonia. No effusion. No pneumothorax. PLEURAL SPACE: No pleural effusion or pneumothorax. BONE:Unremarkable for age. IMPRESSION: Right upper and bilateral lower lobe infiltrates. DATA REPOSITORY: RADIATION DOSE DELIVERED:
[2022-12-17 13:03] LABS: Absolute Basophil Count 0.02 10^3/uL (0.0-0.2); Absolute Monocyte Count 0.54 10^3/uL (0.1-0.8); Absolute Neutrophil Count 20.01 10^3/uL (1.2-6.7)
[2022-12-17 13:08] LABS: Lipase 19 U/L (16-77)
[2022-12-17 13:14] LABS: ALT 68 U/L (16-63); AST 77 U/L (15-37); Albumin 2.3 g/dL (3.4-5.0); Alkaline Phosphatase 325 U/L (46-116); Anion Gap 6.5 mmol/L (3-11); BUN 17 mg/dL (7-18); Bilirubin, Direct 1.1 mg/dL (0.0-0.2); CO2 32.5 mmol/L (21.0-32.0); CREATININE 0.8 mg/dL (0.70-1.30); Calcium 8.5 mg/dL (8.5-10.1); Chloride 90 mmol/L (98-107); Estimated GFR 98.83 (mL/min/1.73m2); Glucose 142 mg/dL (74-106); Magnesium 1.5 mg/dL (1.8-2.4); Potassium 3.1 mmol/L (3.5-5.1); Sodium 129 mmol/L (136-145); Total Protein 7.4 g/dL (6.4-8.2); Troponin I < 50 ng/L (<or=60)
[2022-12-17] MEDS: Ibuprofen 400 MG TAB PO (13:34)
[2022-12-17] MEDS: Normal Saline 1,000 ML 1000 ML IV (13:34)
[2022-12-17 13:43] LABS: Bilirubin Small (Negative); Blood Negative (Negative); Clarity Clear (Clear); Glucose Negative (Negative); Ketones Negative (Negative); Leukocyte Esterase Negative (Negative); Nitrite Negative (Negative); Specific Gravity 1.025 (1.005-1.025)
[2022-12-17 13:50] LABS: Bacteria Negative HPF (Negative); C & S Indicated? No; Casts 5-10 Hyaline LPF (Negative); Crystals Negative HPF (Negative); Epithelial Cells Rare HPF (Negative); Mucus Trace (Negative); RBC Negative HPF (0-2); WBC Negative HPF (0-5)
[2022-12-17 14:01] LABS: COVID-19 PCR Negative (Negative); Influenza A PCR Negative (Negative); Influenza B PCR Negative (Negative); RSV PCR Negative (Negative)
[2022-12-17 14:02] LABS: Source Nasopharynx
[2022-12-17] MEDS: Normal Saline - Diluent 50 ML VIAL IJ (14:42)
[2022-12-17] MEDS: Omnipaque 350 MG/ML 100 ML BTL IJ (14:42)
[2022-12-17] MEDS: Normal Saline Flush 10 ML SYR IVP (14:45)
[2022-12-17] MEDS: MAGNESIUM SULFATE 1 GM/100 ML BAG IVPB (15:39)
[2022-12-17] MEDS: CEFEPIME 1 GM in Normal Saline 50 ML IVPB ×2 (15:39→21:03)
[2022-12-17] MEDS: Potassium Chloride 20 MEQ TABCR 40 MEQ PO (15:39)
[2022-12-17] MEDS: AZITHROMYCIN 500 MG in Normal Saline 250 ML 250 MG IVPB (16:15)
[2022-12-17 16:30] LABS: Troponin I < 50 ng/L (<or=60)
--- NOTE | 2022-12-17 19:16 | W.PM.HP.N ---
Date of service: 12/17/22 Time of Service: 19:16 Assessment and Plan Assessment and plan (1) Community acquired bilateral lower lobe pneumonia: Status: Acute Assessment and plan: Continue azithromycin and cefepime, attempt obtain sputum culture, obtain urine Legionella antigen and strep antigen. (2) Anemia: Status: Chronic Assessment and plan: Transfuse 1 unit of packed red blood cells monitor H&H (3) Acute hypokalemia: Status: Acute Assessment and plan: Replace with oral and parenteral potassium supplementation recheck labs in the morning (4) Cancer associated pain: Status: Acute Assessment and plan: Continues home regimen of OxyContin as well as oxycodone IR for breakthrough pain (5) Hypomagnesemia: Status: Acute Assessment and plan: Replace with oral and parenteral supplementation. Consider switching his omeprazole to an H2 abdelrahman (6) Edema of both lower extremities: Status: Acute Assessment and plan: DC hydrochlorothiazide replace with Lasix (7) High grade neuroendocrine carcinoma: Status: Chronic Assessment and plan: Chemotherapy on hold while he receives treatment of his pneumonia (8) Full code status: Status: Acute Assessment and plan: Although his previous hospital visit he was made DNR/DNI present time he is indicating he wants full resuscitation but if full resuscitation efforts fail then he would like any life support to be withdrawn. I will ask palliative care to readdress this with him and to discuss completion of a C.O.L.S.T. form. History of Present Illness History of Present Illness Chief Complaint: ill appearing per his oncologist, sent to ED by cancer center Narrative: 62-year-old male former smokeless tobacco user and former drinker has been abstinent since 2009 who has had metastatic prostate cancer on hormonal treatment was diagnosed in July with a pancreatic mass and diagnosed with a neuroendocrine tumor high-grade of unknown primary source. He also has hx of tonsillar cancer s/p tonsillectomy, and portal vein thrombosis treated w/ Eliquis. He was recently hospitalized at [facility] 11/30 to 12/02/22 for intraabdominal necrotic mass vs abscess in the GB fossa (he is s/p remote cholecystecomy) and he underwent a down and back trip to [facility] for IR guided biopsy of the abdominal mass. Patient was taken off his Eliquis. he has required transfusions for his anemia. It is unclear as to whether or not he had any intraabdominal bleeding. Patient's been on radiation treatment for this as well as on oral chemotherapy medications including Xeloda. Initially the patient denied any symptoms to me such as shortness of breath chest pain or fever however per ED report patient presented after his first radiation treatment and presented to the cancer center was found to be febrile with rigors and fatigue and was sent to the emergency department. Work-up in the ED showed bilateral pneumonia with elevated white cell count. Blood cultures were obtained he was started on parenteral antibiotics including cefepime and azithromycin. For the lab work showed he was anemic hemoglobin 7.8 g hematocrit 23% which is a decrease from his hematocrit 26% 2 weeks ago. He was found to be hypomagnesemic with a magnesium of 1.5 for which she received 1 g IV in the emergency department. He is also found to be hyponatremic serum sodium 129 and hypokalemic 3.1. Patient is now being admitted for treatment of his pneumonia. Patient's case was discussed with Dr. Eric Dong emergency room department. Dr. Dong also discussed the case with the patient's oncologist Dr. Vyas who request that he not receive his oral chemotherapy. Review of Systems Constitutional Constitutional: Reports as per HPI and Reports fatigue Cardiovascular Cardiovascular: Reports system reviewed and no additional complaints, except as documented Respiratory Respiratory: Reports as per HPI Gastrointestinal Gastrointestinal: Reports system reviewed and no additional complaints, except as documented, Denies melena, Denies hematochezia, Denies coffee ground emesis and Reports early satiety Genitourinary Genitourinary: Reports system reviewed and no additional complaints, except as documented Musculoskeletal Musculoskeletal: Reports system reviewed and no additional complaints, except as documented Integumentary/Breasts Skin/Breast: Reports system reviewed and no additional complaints, except as documented Neurologic Neurologic: Reports system reviewed and no additional complaints, except as documented Endocrine Endocrine: Reports cold intolerance and Reports fatigue Hematologic/Lymphatic Hematologic/Lymphatic: Reports system reviewed and no additional complaints, except as documented PFSH All Active Problems (Updated 12/17/22 @ 20:21 by Daron Koroma MD) Full code status (Acute) Community acquired bilateral lower lobe pneumonia (Acute) Anemia (Chronic) Acute hypokalemia (Acute) Hypomagnesemia (Acute) Cancer associated pain (Acute) Edema of both lower extremities (Acute) Acute on chronic anemia (Acute) Intra-abdominal abscess (Acute) Discharge planning issues (Acute) Prostate cancer metastatic to bone (Chronic ~2020) High grade neuroendocrine carcinoma (Chronic ~07/2022) Of unknown primary Elevated LFTs (Acute ~07/2022) Secondary to dilated hepatic ducts. S/p stent to right intraheptic duct Jul 2022. Prediabetes (Chronic) Hyperlipidemia (Chronic) Tubular adenoma of colon (Chronic) 2014 Medical History COVID-19 (~07/2022) Fatty liver Hypertension Hypothyroidism Secondary to radiation for tonsil cancer Malignant neoplasm of tonsil (~2009) S/p chemo, radiation Portal vein thrombosis Surgical History History of arthroplasty of right knee History of carpal tunnel surgery of left wrist History of colonoscopy (~01/2022) History of hip surgery Hx of right knee surgery (07/18/14) S/P appendectomy S/P ERCP spcinterotmy. no stones S/P partial thyroidectomy Left thyroid lobe S/P tonsillectomy (~2010) Status post cholecystectomy (04/2022) Family History Mother , 64 Diabetes Essential hypertension Father , 79 Essential hypertension Heart disease Hyperlipidemia Stroke Prostate cancer Sister Ovarian cyst Brother , age 67 Prostate cancer Non Hodgkin's lymphoma Son No problems noted. Son No problems noted. Social History Smoking/Tobacco Use Status: Former Tobacco Use tobacco type: smokeless tobacco Quit Date: 10/02/10 Tobacco: How many years used: 30 Smokeless tobacco user: snuff Second Hand Exposure: Yes Smoking risk assessment performed?: Yes Alcohol Intake: former Drug use: Never Substance use type: does not use Caregiver/Support person: No Household members: spouse Housing: house Communication Needs: Hard of Hearing Do you need help understanding health information?: Never current occupation: [employer] Pets and animals: No Sexually active: Yes Do you think of yourself as: straight/heterosexual Current gender identity: male What is your relationship status?: How often do you talk on the phone with friends or family?: decline to answer How often do you get together with friends or relatives?: decline to answer How often do you attend yazdanism or adventist services?: decline to answer Do you belong to any clubs or organized social groups?: decline to answer Panel score (0-1 are the most socially isolated patients): 1 What type of physical activity do you participate in: walking Duration: 15-30 minutes/day Frequency: 5-6 times per week Yelena/Hoahaoism: Protestant Special yelena needs: No Seatbelt use: always Helmet use: Yes Helmet use: always Drive intox 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 Do you feel safe at home: Yes Do you feel safe in your relationship?: Yes Victim of physical abuse: No Victim of emotional abuse: No Victim of sexual abuse: No Would you like helpful sources: No Meds Allergies and Home Medications Allergies Allergy/AdvReac Type Severity Reaction Status Date / Time tramadol AdvReac Intermediate Dizziness/Lightheaded, Verified 12/17/22 12:09 shakes Home Medications Medication Instructions Recorded Confirmed Type sildenafil 100 mg tablet (Viagra) 100 mg PO PRN #30 tabs 01/30/21 12/17/22 Rx cholecalciferol (vitamin D3) 25 25 mcg PO DAILY 02/12/21 12/17/22 History mcg (1,000 unit) capsule multivitamin with minerals 1 tab PO DAILY 02/12/21 12/17/22 History (One-A-Day Maximum Formula tablet) levothyroxine 75 mcg tablet 75 mcg PO DAILY #90 tabs 11/24/21 12/17/22 Rx omega [id number]-[id number]-fish oil 60 mg-90 1 cap PO DAILY 01/26/22 12/17/22 History mg-500 mg capsule (Fish Oil) tamsulosin 0.4 mg capsule 0.8 mg PO HS 01/26/22 12/17/22 History ibuprofen 600 mg tablet 600 mg PO Q6H PRN #60 tab-caps 08/17/22 12/17/22 Rx fluoride (sodium) 1.1 % dental gel 1 applic dental DAILY #56 grams 09/06/22 12/06/22 Rx diclofenac sodium 1 % topical gel 4 g topical QID #100 grams 09/28/22 12/17/22 Rx (Voltaren Arthritis Pain) ondansetron 4 mg disintegrating 4 mg PO Q8H PRN 10/16/22 12/06/22 History tablet prochlorperazine maleate 10 mg 10 mg PO Q6H PRN 10/16/22 12/17/22 History tablet (Compazine) amoxicillin 875 mg tablet 875 mg PO BID 12/06/22 12/06/22 History hydrochlorothiazide 12.5 mg tablet 12.5 mg PO QAM #90 tabs 12/06/22 12/17/22 Rx amlodipine 2.5 mg tablet 2.5 mg PO DAILY 12/17/22 12/17/22 History calcium carbonate 600 mg calcium 1,200 mg PO DAILY 12/17/22 12/17/22 History (1,500 mg) tablet capecitabine 500 mg tablet 1,500 mg PO BID 12/17/22 12/17/22 History docusate sodium 100 mg capsule 100 mg PO QHS 12/17/22 12/17/22 History (Colace) omeprazole 20 mg capsule,delayed 20 mg PO DAILY 12/17/22 12/17/22 History release oxycodone 30 mg tablet,crush 30 mg PO BID 12/17/22 12/17/22 History resistant,extended release 12 hr (OxyContin) oxycodone 5 mg tablet 10 - 30 mg PO Q4H PRN 12/17/22 12/17/22 History polyethylene glycol 3350 17 17 g PO DAILY 12/17/22 12/17/22 History gram/dose oral powder (Miralax) Exam Narrative Exam Narrative: Middle-aged white male who is lying in bed in no acute distress. He is alert and oriented person place time circumstance. HEENT is unremarkable other than he has anterior cervical scar from previous thyroid surgery Lungs are clear anteriorly posterior he has diminished breath sounds at the bases no rhonchi or rales or wheezing Heart is regular rate and rhythm Abdomen normal bowel sounds soft mild tenderness with palpation in the epigastrium Lower extremities without peripheral cyanosis he does have 2+ edema of his calves and pretibial surfaces Neuro exam grossly intact no focal cranial nerve deficits no focal motor deficits Results Labs 12/17/22 12:40 12/17/22 12:40 Labs: Laboratory Results - last 24 hr 12/17/22 12/17/22 12/17/22 12:40 12:40 12:40 WBC 20.78 H RBC 2.37 L Hgb 7.8 L Hct 23.0 L MCV 97 H MCH 32.9 MCHC 33.9 RDW 19.5 H Plt Count 382 MPV 9.7 Immature Gran % 0.4 Neutrophils % 96.3 Lymphocytes % 0.5 Monocytes % 2.6 Eosinophils % 0.1 Basophils % 0.1 Nucleated RBC % 0.0 Absolute Neutrophils 20.01 H Absolute Lymphocytes 0.10 L Absolute Monocytes 0.54 Absolute Eosinophils 0.02 Absolute Basophils 0.02 Sodium 129 L Potassium 3.1 L Chloride 90 L Carbon Dioxide 32.5 H Anion Gap 6.5 BUN 17 Creatinine 0.8 Est GFR (CKD-EPI 2020) 98.83 Glucose 142 H Calcium 8.5 Magnesium 1.5 L Total Bilirubin 2.0 H Conjugated Bilirubin 1.1 H AST 77 H ALT 68 H Alkaline Phosphatase 325 H Troponin I < 50 Total Protein 7.4 Albumin 2.3 L Lipase 19 Urine Color Urine Clarity Urine pH Ur Specific [place] Urine Protein Urine Ketones Urine Blood Urine Nitrite Urine Bilirubin Urine Urobilinogen Ur Leukocyte Esterase Urine RBC Urine WBC Ur Epithelial Cells Urine Crystals Urine Bacteria Urine Casts Urine Mucus Ur Culture Indicated? Urine Glucose COVID-19 Source SARS-CoV-2 (PCR) Influenza Type A (PCR) Influenza Type B (PCR) RSV (PCR) Patient ABO/Rh Antibody Screen 12/17/22 12/17/22 12/17/22 13:19 13:30 13:43 WBC RBC Hgb Hct MCV MCH MCHC RDW Plt Count MPV Immature Gran % Neutrophils % Lymphocytes % Monocytes % Eosinophils % Basophils % Nucleated RBC % Absolute Neutrophils Absolute Lymphocytes Absolute Monocytes Absolute Eosinophils Absolute Basophils Sodium Potassium Chloride Carbon Dioxide Anion Gap BUN Creatinine Est GFR (CKD-EPI 2020) Glucose Calcium Magnesium Total Bilirubin Conjugated Bilirubin AST ALT Alkaline Phosphatase Troponin I Total Protein Albumin Lipase Urine Color Yellow Cancelled Urine Clarity Clear Cancelled Urine pH 6.0 Cancelled Ur Specific [place] 1.025 Cancelled Urine Protein 100 H Cancelled Urine Ketones Negative Cancelled Urine Blood Negative Cancelled Urine Nitrite Negative Cancelled Urine Bilirubin Small H Cancelled Urine Urobilinogen 1.0 H Cancelled Ur Leukocyte Esterase Negative Cancelled Urine RBC Negative Urine WBC Negative Ur Epithelial Cells Rare Urine Crystals Negative Urine Bacteria Negative Urine Casts 5-10 Hyaline Urine Mucus Trace Ur Culture Indicated? No Urine Glucose Negative Cancelled COVID-19 Source Nasopharynx SARS-CoV-2 (PCR) Negative Influenza Type A (PCR) Negative Influenza Type B (PCR) Negative RSV (PCR) Negative Patient ABO/Rh Antibody Screen 12/17/22 12/17/22 16:08 17:13 WBC RBC Hgb Hct MCV MCH MCHC RDW Plt Count MPV Immature Gran % Neutrophils % Lymphocytes % Monocytes % Eosinophils % Basophils % Nucleated RBC % Absolute Neutrophils Absolute Lymphocytes Absolute Monocytes Absolute Eosinophils Absolute Basophils Sodium Potassium Chloride Carbon Dioxide Anion Gap BUN Creatinine Est GFR (CKD-EPI 2020) Glucose Calcium Magnesium Total Bilirubin Conjugated Bilirubin AST ALT Alkaline Phosphatase Troponin I < 50 Total Protein Albumin Lipase Urine Color Urine Clarity Urine pH Ur Specific [place] Urine Protein Urine Ketones Urine Blood Urine Nitrite Urine Bilirubin Urine Urobilinogen Ur Leukocyte Esterase Urine RBC Urine WBC Ur Epithelial Cells Urine Crystals Urine Bacteria Urine Casts Urine Mucus Ur Culture Indicated? Urine Glucose COVID-19 Source SARS-CoV-2 (PCR) Influenza Type A (PCR) Influenza Type B (PCR) RSV (PCR) Patient ABO/Rh O Negative Antibody Screen NEGATIVE Last Vital Signs Temp 37.0 C 12/17/22 18:00 Pulse 77 12/17/22 18:00 Resp 20 12/17/22 18:00 BP 131/61 12/17/22 18:00 Pulse Ox 97 12/17/22 18:00 Time Spent Time spent with Patient: 55-74 minutes Time was spent: preparing to see the patient(eg.review tests), obtaining and/or reviewing separately otained hiistory, ordering medications,tests, procedures, referring, communicating with other health manager critical care unit (Discussion of case with Dr. Dong), indepentently interpreting results, counseling the patient and care coordination
[2022-12-17] MEDS: oxyCODONE 5 MG TAB PO (20:06)
[2022-12-17] MEDS: guaiFENesin 600 MG TABCR PO (20:06)
[2022-12-17] MEDS: Potassium Chloride 10 MEQ CAPCR 20 MEQ PO (20:07)
[2022-12-17] MEDS: Furosemide 20 MG TAB PO (20:07)
[2022-12-17] MEDS: Albuterol/Ipratropium 3 ML UPD VIAL UPD (20:14)
[2022-12-17] MEDS: POTASSIUM CHLORIDE 20 MEQ/100 ML BAG 50 MEQ IVPB ×2 (20:31→22:47)
[2022-12-17] MEDS: MAGNESIUM SULFATE 2 GM/50 ML BAG IVPB (20:31)
[2022-12-17] MEDS: oxyCODONE-CR 10 MG TABCR 30 MG PO (22:04)
[2022-12-17] MEDS: Tamsulosin 0.4 MG CAPCR 0.8 MG PO (22:04)
[2022-12-17] MEDS: Docusate Sodium 100 MG CAP PO (22:04)
[2022-12-18] VITALS (23 sets, daily range): BP systolic 104–131; BP diastolic 54–78; PULSE 67–85; RESP 2–18; TEMP 36.5–37.4; O2SAT 92–100
[2022-12-18] MEDS: oxyCODONE 5 MG TAB PO ×4 (00:34→19:07)
[2022-12-18] MEDS: CEFEPIME 2 GM in Normal Saline 100 ML IVPB ×3 (04:45→20:30)
[2022-12-18] MEDS: Levothyroxine 75 MCG TAB PO (04:56)
[2022-12-18 06:05] LABS: Abs Immature Grans 0.05 10^3/uL (0.0-0.06); Absolute Eosinophil Count 0.01 10^3/uL (0.0-0.7); Basophils % 0.2; Eosinophils % 0.1; HCT 21.8 % (40.0-50.0); HGB 7.4 g/dL (13.5-17.5); Immature Grans % 0.4; Lymphocytes % 1.6; MCH 32.9 pg (27.0-33.0); MCHC 33.9 % (32.0-36.0); MCV 97 fL (80-95); MPV 9.8 fL (8.0-11.0); Monocytes % 4.3; Neutrophils % 93.4; Platelet Count 271 10^3/uL (130-400); RBC 2.25 10^6/uL (4.36-5.78); RDW 19.9 % (11.8-14.1); WBC 12.89 10^3/uL (4.4-10.8)
[2022-12-18 06:06] LABS: Absolute Basophil Count 0.03 10^3/uL (0.0-0.2); Absolute Lymphocyte Count 0.21 10^3/uL (1.2-3.4); Absolute Monocyte Count 0.55 10^3/uL (0.1-0.8); Absolute Neutrophil Count 12.04 10^3/uL (1.2-6.7)
[2022-12-18 06:17] LABS: Anion Gap 3.7 mmol/L (3-11); BUN 16 mg/dL (7-18); CO2 33.3 mmol/L (21.0-32.0); CREATININE 0.7 mg/dL (0.70-1.30); Calcium 8.1 mg/dL (8.5-10.1); Chloride 94 mmol/L (98-107); Estimated GFR 102.89 (mL/min/1.73m2); Glucose 117 mg/dL (74-106); Magnesium 1.9 mg/dL (1.8-2.4); Potassium 3.8 mmol/L (3.5-5.1); Sodium 131 mmol/L (136-145)
[2022-12-18] MEDS: Albuterol/Ipratropium 3 ML UPD VIAL UPD ×4 (07:35→20:29)
[2022-12-18] MEDS: Omega-3 Fatty Acids 1000 MG CAP PO (07:39)
[2022-12-18] MEDS: oxyCODONE-CR 10 MG TABCR 30 MG PO (07:39)
[2022-12-18] MEDS: guaiFENesin 600 MG TABCR PO ×2 (07:40→20:29)
[2022-12-18] MEDS: Omeprazole 20 MG CAPCR PO (07:40)
[2022-12-18] MEDS: Furosemide 20 MG TAB PO ×2 (07:41→16:10)
[2022-12-18] MEDS: Potassium Chloride 10 MEQ CAPCR 20 MEQ PO ×3 (07:41→20:29)
[2022-12-18] MEDS: Cholecalciferol (Vitamin D3) 1,000 UNIT TAB 1000 UNITS PO (08:13)
[2022-12-18] MEDS: Calcium Carbonate 1.5 GM TAB PO (08:13)
--- NOTE | 2022-12-18 09:27 | INITIAL_ITS ---
- If Service Date Differs Date of service: 12/18/22 Time of Service: 09:27 Care Management Initial Assess REASON FOR HOSPITALIZATION:: Pneumonia PAST MEDICAL HISTORY/PAST SURGICAL HISTORY:: All Active Problems. Full code status (Acute). Community acquired bilateral lower lobe pneumonia (Acute). Anemia (Chronic). Acute hypokalemia (Acute). Hypomagnesemia (Acute). Cancer associated pain (Acute). Edema of both lower extremities (Acute). Acute on chr onic anemia (Acute). Intra-abdominal abscess (Acute). Discharge planning issues (Acute). Prostate cancer metastatic to bone (Chronic ~2020). High grade neuroendocrine carcinoma (Chronic ~07/2022). Of unknown primary. Elevated LFTs (Acute ~07/2022). Secondary to dilated hepatic ducts. S/p stent to right intraheptic duct Jul 2022. Prediabetes (Chronic). Hyperlipidemia (Chronic). Tubular adenoma of colon (Chronic). 2014. Medical History. COVID-19 (~07/2022). Fatty liver. Hypertension. Hypothyroidism. Secondary to radiation for tonsil cancer. Malignant neoplasm of tonsil (~2009). S/p chemo, radiation. Portal vein thrombosis. Surgical History. History of arthroplasty of right knee. History of carpal tunnel surgery of left wrist. History of colonoscopy (~01/2022). History of hip surgery. Hx of right knee surgery (07/18/14). S/P appendectomy. S/P ERCP. spcinterotmy. no stones. S/P partial thyroidectomy. Left thyroid lobe. S/P tonsillectomy (~2010). Status post cholecystectomy (04/2022) PREVIOUS FUNCTIONAL STATUS/SOCIAL/FAMILY SUPPORTS:: Johnathon lives in [facility] with his , Sandra. He has two adult sons who live locally and are supportive. Johnathon is retired but formerly worked many years for the [employer] [place]. He is independent at baseline. CURRENT FUNCTIONAL STATUS:: Johnathon was sitting up in bed, reading the paper with his , Sandra, who was visiting. He reported that he is feeling good today. He stated that he has met with the MD this morning, and the plan is for him to have a unit of blood, recheck labs tomorrow, and if he continues to improve, he may be ready for discharge as early as tomorrow. Palliative care has been consulted, which may be available on Tuesday, if he is still inpatient. His stated that he has an appointment with Palliative care at the end of the month, so if he doesn't see them during this visit, he will plan to go to that appointment. CM will continue to follow. ADVANCE DIRECTIVES:: Not on file. Has patient been provided with info about the portal/API?: Yes Did the patient sign up for the portal?: No CODE STATUS:: Full Code INSURANCE COVERAGE / FINANCIAL ISSUES:: [facility] CURRENT HOME/COMMUNITY SERVICES/EQUIPMENT:: No home services or equipment. Johnathon is currently receiving chemotherapy at [facility]. PRIMARY CARE PHYSICIAN:: Felicia Parikh NP ([facility]). POTENTIAL DISCHARGE NEEDS:: Follow up appointments with PCP. PATIENT/FAMILY EDUCATION NEEDS:: Review of discharge instructions re medications, limitations and follow up plan of care; discuss Ask Me Three. ANTICIPATED BARRIERS TO DISCHARGE:: None. TRANSPORTATION:: Via private vehicle by his . PLAN:: Anticipate Johnathon will return home once medically cleared. His will drive him home via private vehicle. He will follow up with his PCP and discharge plan of care. CM will continue to follow. Readmission - Within the Past 30 Days Yes or No: Y - Date of First Admission Date of 1st Admission: 11/30/22 - Date of this Admission Date of Admission: 12/17/22 This admission was: Through ED - Office Visit Since 1st Admission Have you seen your PCP in the office since discharge?: Yes Date of PCP Appointment: 12/06/22 Had an appointment Been Scheduled?: Yes - Speicalist Appointments Have you seen any other specialist since your 1st Admission?: Yes Date you saw the Specialist: 12/03/22 Specialist Seen: Dr. Payan, [facility] - [facility]. Interview patient and/or Family Difficulty reaching your doctor or getting an office appt?: No Have you had trouble purchasing/ or taking medication?: No How do you take your medications and set up your pills?: independently Have you had trouble with getting meals at home?: No Did you feel ready for discharge when you left the last time: Yes If patient did not receive services, were there orders at: No Reason there were no orders at discharge: None indicated at time of discharge. Did you call your physician beore you came to the ED?: Yes Did your physician tell you to come in?: Yes How do you think you became sick enough to come back?: Johnathon was at his radiation appointment and was found to have a fever, rigors and fatigue. Staff at [facility] sent him to the ED. - ED visits How many ED visits in the past 12 months: 5 - Assessment for Readmission Summary of readmission circumstances, based upon interviews: Johnathon was undergoing radiation for a pancreatic mass, and was found to have a fever, rigors and fatigue by staff at the [facility]. He was directed to go to the ED, and he was admitted to the ICU. Johnathon did not feel that his hospitalization was related to his previous visit in October. He stated that he felt ready for discharge at that time, and that this is a new and different presentation. He stated that he is very independent, and his , Sandra, who was present for this assessment, is very supportive. He has an appointment with palliative care in a couple weeks, which coincides with his next radiation therapy treatment.
--- NOTE | 2022-12-18 09:38 | W.PM.PROGNOT ---
Date of Service Date of service: 12/18/22 Time of Service: 09:38 Assessment and Plan Assessment and plan (1) Community acquired bilateral lower lobe pneumonia: Status: Acute Assessment and plan: Blood cultures are pending sputum grew normal oral kt. He remains on cefepime 2 g IV every 8 hours along with azithromycin 500 mg IV daily. Urine Legionella antigen and urine streptococcal antigen are pending. Sputum for mycoplasma PCR is pending. Patient remains normal oxygen levels not requiring supplemental oxygen. Went over his work-up and care in detail with both the patient and his . Told him my criteria for discharge is that he is afebrile for 24 hours tolerating p.o. and with stable blood counts. Professional time spent interviewing and examining patient, discussion of goals of care with hospital team (care management, nursing and consulting professionals) was 45 minutes. (2) Anemia: Status: Chronic Assessment and plan: Despite transfusion 1 unit of packed red cells last night hemoglobin dropped from 7.8 to 7.4 g. He will receive another unit of packed red cells. (3) Acute hypokalemia: Status: Acute Assessment and plan: Potassium up to 3.8 we will continue on oral supplementation and monitor levels (4) Hypomagnesemia: Status: Acute Assessment and plan: Magnesium level is up to 1.9. I will place him on oral supplementation and monitor levels. (5) Cancer associated pain: Status: Acute Assessment and plan: Patient currently takes OxyContin 30 mg twice a day as well as oxycodone 10 mg - 20 mg as needed breakthrough pain. I will work with our pharmacist to see if we can come up with his MME equivalents per day and try him on a Duragesic patch that will hopefully give him more sustained pain control. (6) Edema of both lower extremities: Status: Acute (7) High grade neuroendocrine carcinoma: Status: Chronic (8) Full code status: Status: Acute Assessment and plan: Patient had been scheduled to meet with palliative care on December 28 to assist with goals of care as well as management of his pain. Patient is are amenable to having palliative care see him while he is hospitalized. Exam Narrative Exam Narrative: Ray says he did not sleep well due to ongoing complaints of abdominal pain. Did tolerate some food this morning. No vomiting. I met with him and his this morning went over work-up and evaluation and treatment of his pneumonia as well as concern regarding increasing size of his abdominal mass in spite of starting radiation treatments. I have asked for his images to be sent to [facility] so I can discuss oncology regarding further management. Patient is afebrile this morning but had a Tmax of 39.1 yesterday. He denies any rigors or chills this morning. His cough is really not been very productive of any significant mucus. Sputum did get sent last night and is growing normal kt blood cultures are pending at this time HEENT is remarkable for scleral icterus Lungs are clear anteriorly posteriorly has bibasilar rales Heart is regular rate and rhythm Abdomen slightly distended normal bowel sounds with tenderness over the epigastrium Extremities 1+ pitting edema of his lower legs. Objective Last Vital Signs Temp 37.1 C 12/18/22 08:34 Pulse 75 12/18/22 07:55 Resp 16 12/18/22 05:00 BP 127/69 12/18/22 07:55 Pulse Ox 96 12/18/22 05:00 Laboratory Results - last 24 hr 12/17/22 12/17/22 12/17/22 12:40 12:40 12:40 WBC 20.78 H RBC 2.37 L Hgb 7.8 L Hct 23.0 L MCV 97 H MCH 32.9 MCHC 33.9 RDW 19.5 H Plt Count 382 MPV 9.7 Immature Gran % 0.4 Neutrophils % 96.3 Lymphocytes % 0.5 Monocytes % 2.6 Eosinophils % 0.1 Basophils % 0.1 Nucleated RBC % 0.0 Absolute Neutrophils 20.01 H Absolute Lymphocytes 0.10 L Absolute Monocytes 0.54 Absolute Eosinophils 0.02 Absolute Basophils 0.02 Sodium 129 L Potassium 3.1 L Chloride 90 L Carbon Dioxide 32.5 H Anion Gap 6.5 BUN 17 Creatinine 0.8 Est GFR (CKD-EPI 2020) 98.83 Glucose 142 H Calcium 8.5 Magnesium 1.5 L Total Bilirubin 2.0 H Conjugated Bilirubin 1.1 H AST 77 H ALT 68 H Alkaline Phosphatase 325 H Troponin I < 50 Total Protein 7.4 Albumin 2.3 L Lipase 19 Urine Color Urine Clarity Urine pH Ur Specific Chama Urine Protein Urine Ketones Urine Blood Urine Nitrite Urine Bilirubin Urine Urobilinogen Ur Leukocyte Esterase Urine RBC Urine WBC Ur Epithelial Cells Urine Crystals Urine Bacteria Urine Casts Urine Mucus Ur Culture Indicated? Urine Glucose COVID-19 Source SARS-CoV-2 (PCR) Influenza Type A (PCR) Influenza Type B (PCR) RSV (PCR) Patient ABO/Rh Antibody Screen Crossmatch 12/17/22 12/17/22 12/17/22 13:19 13:30 13:43 WBC RBC Hgb Hct MCV MCH MCHC RDW Plt Count MPV Immature Gran % Neutrophils % Lymphocytes % Monocytes % Eosinophils % Basophils % Nucleated RBC % Absolute Neutrophils Absolute Lymphocytes Absolute Monocytes Absolute Eosinophils Absolute Basophils Sodium Potassium Chloride Carbon Dioxide Anion Gap BUN Creatinine Est GFR (CKD-EPI 2020) Glucose Calcium Magnesium Total Bilirubin Conjugated Bilirubin AST ALT Alkaline Phosphatase Troponin I Total Protein Albumin Lipase Urine Color Yellow Cancelled Urine Clarity Clear Cancelled Urine pH 6.0 Cancelled Ur Specific Chama 1.025 Cancelled Urine Protein 100 H Cancelled Urine Ketones Negative Cancelled Urine Blood Negative Cancelled Urine Nitrite Negative Cancelled Urine Bilirubin Small H Cancelled Urine Urobilinogen 1.0 H Cancelled Ur Leukocyte Esterase Negative Cancelled Urine RBC Negative Urine WBC Negative Ur Epithelial Cells Rare Urine Crystals Negative Urine Bacteria Negative Urine Casts 5-10 Hyaline Urine Mucus Trace Ur Culture Indicated? No Urine Glucose Negative Cancelled COVID-19 Source Nasopharynx SARS-CoV-2 (PCR) Negative Influenza Type A (PCR) Negative Influenza Type B (PCR) Negative RSV (PCR) Negative Patient ABO/Rh Antibody Screen Crossmatch 12/17/22 12/17/22 12/18/22 16:08 17:13 05:20 WBC RBC Hgb Hct MCV MCH MCHC RDW Plt Count MPV Immature Gran % Neutrophils % Lymphocytes % Monocytes % Eosinophils % Basophils % Nucleated RBC % Absolute Neutrophils Absolute Lymphocytes Absolute Monocytes Absolute Eosinophils Absolute Basophils Sodium 131 L Potassium 3.8 Chloride 94 L Carbon Dioxide 33.3 H Anion Gap 3.7 BUN 16 Creatinine 0.7 Est GFR (CKD-EPI 2020) 102.89 Glucose 117 H Calcium 8.1 L Magnesium 1.9 Total Bilirubin Conjugated Bilirubin AST ALT Alkaline Phosphatase Troponin I < 50 Total Protein Albumin Lipase Urine Color Urine Clarity Urine pH Ur Specific Chama Urine Protein Urine Ketones Urine Blood Urine Nitrite Urine Bilirubin Urine Urobilinogen Ur Leukocyte Esterase Urine RBC Urine WBC Ur Epithelial Cells Urine Crystals Urine Bacteria Urine Casts Urine Mucus Ur Culture Indicated? Urine Glucose COVID-19 Source SARS-CoV-2 (PCR) Influenza Type A (PCR) Influenza Type B (PCR) RSV (PCR) Patient ABO/Rh O Negative Antibody Screen NEGATIVE Crossmatch See Detail 12/18/22 05:20 WBC 12.89 H RBC 2.25 L Hgb 7.4 L Hct 21.8 L MCV 97 H MCH 32.9 MCHC 33.9 RDW 19.9 H Plt Count 271 MPV 9.8 Immature Gran % 0.4 Neutrophils % 93.4 Lymphocytes % 1.6 Monocytes % 4.3 Eosinophils % 0.1 Basophils % 0.2 Nucleated RBC % 0.0 Absolute Neutrophils 12.04 H Absolute Lymphocytes 0.21 L Absolute Monocytes 0.55 Absolute Eosinophils 0.01 Absolute Basophils 0.03 Sodium Potassium Chloride Carbon Dioxide Anion Gap BUN Creatinine Est GFR (CKD-EPI 2020) Glucose Calcium Magnesium Total Bilirubin Conjugated Bilirubin AST ALT Alkaline Phosphatase Troponin I Total Protein Albumin Lipase Urine Color Urine Clarity Urine pH Ur Specific Chama Urine Protein Urine Ketones Urine Blood Urine Nitrite Urine Bilirubin Urine Urobilinogen Ur Leukocyte Esterase Urine RBC Urine WBC Ur Epithelial Cells Urine Crystals Urine Bacteria Urine Casts Urine Mucus Ur Culture Indicated? Urine Glucose COVID-19 Source SARS-CoV-2 (PCR) Influenza Type A (PCR) Influenza Type B (PCR) RSV (PCR) Patient ABO/Rh Antibody Screen Crossmatch Time Spent with Patient Time Spent with Patient: 35-49 minutes Time was spent: preparing to see the patient(eg.review tests), obtaining and/or reviewing separately otained hiistory, ordering medications,tests, procedures, referring, communicating with other health post acute care nurse practitioner, indepentently interpreting results, counseling the patient and care coordination
[2022-12-18] MEDS: fentaNYL 50 MCG PATCH TD (11:21)
[2022-12-18] MEDS: Magnesium Oxide 400 MG TAB PO ×2 (11:21→20:29)
[2022-12-18] MEDS: Polyethylene Glycol 3350 17 GM PACKET PO (11:21)
[2022-12-18 14:12] LABS: HCT 24.6 % (40.0-50.0); HGB 8.1 g/dL (13.5-17.5)
[2022-12-18] MEDS: AZITHROMYCIN 500 MG in Normal Saline 250 ML 250 MG IVPB (16:10)
[2022-12-18] MEDS: Prochlorperazine 10 MG TAB PO (17:33)
[2022-12-18] MEDS: Milk of Magnesia 30 ML CUP PO (20:28)
[2022-12-18] MEDS: Docusate Sodium 100 MG CAP PO (20:29)
[2022-12-18] MEDS: Normal Saline Flush 10 ML SYR IVP (20:57)
[2022-12-18] MEDS: Tamsulosin 0.4 MG CAPCR 0.8 MG PO (22:27)
[2022-12-19] VITALS (15 sets, daily range): BP systolic 111–143; BP diastolic 70–94; PULSE 72–85; RESP 1–20; TEMP 36.4–37; O2SAT 70–100
[2022-12-19] MEDS: CEFEPIME 2 GM in Normal Saline 100 ML IVPB ×3 (03:54→17:02)
[2022-12-19] MEDS: oxyCODONE 5 MG TAB PO ×2 (03:54→08:32)
[2022-12-19] MEDS: Levothyroxine 75 MCG TAB PO (04:39)
[2022-12-19 06:37] LABS: Abs Immature Grans 0.04 10^3/uL (0.0-0.06); Absolute Basophil Count 0.03 10^3/uL (0.0-0.2); Absolute Eosinophil Count 0.05 10^3/uL (0.0-0.7); Absolute Lymphocyte Count 0.17 10^3/uL (1.2-3.4); Absolute Monocyte Count 0.85 10^3/uL (0.1-0.8); Absolute Neutrophil Count 8.24 10^3/uL (1.2-6.7); Basophils % 0.3; Eosinophils % 0.5; HCT 24.6 % (40.0-50.0); HGB 8.3 g/dL (13.5-17.5); Immature Grans % 0.4; Lymphocytes % 1.8; MCH 32.4 pg (27.0-33.0); MCHC 33.7 % (32.0-36.0); MCV 96 fL (80-95); MPV 9.6 fL (8.0-11.0); Monocytes % 9.1; Neutrophils % 87.9; Platelet Count 291 10^3/uL (130-400); RBC 2.56 10^6/uL (4.36-5.78); RDW 20.1 % (11.8-14.1); RDW-SD 70.4 fL; WBC 9.38 10^3/uL (4.4-10.8)
[2022-12-19 06:47] LABS: Anion Gap 5.3 mmol/L (3-11); BUN 21 mg/dL (7-18); CO2 29.7 mmol/L (21.0-32.0); CREATININE 0.7 mg/dL (0.70-1.30); Calcium 8.5 mg/dL (8.5-10.1); Chloride 96 mmol/L (98-107); Estimated GFR 102.89 (mL/min/1.73m2); Glucose 131 mg/dL (74-106); Magnesium 1.7 mg/dL (1.8-2.4); Potassium 4.3 mmol/L (3.5-5.1); Sodium 131 mmol/L (136-145)
[2022-12-19 07:04] LABS: Anisocytosis 1+; Hypochromasia 2+; Polychromasia Present
[2022-12-19] MEDS: Albuterol/Ipratropium 3 ML UPD VIAL UPD ×2 (07:53→20:10)
[2022-12-19] MEDS: Calcium Carbonate 1.5 GM TAB PO (08:09)
[2022-12-19] MEDS: Cholecalciferol (Vitamin D3) 1,000 UNIT TAB 1000 UNITS PO (08:09)
[2022-12-19] MEDS: Polyethylene Glycol 3350 17 GM PACKET PO (08:09)
[2022-12-19] MEDS: Potassium Chloride 10 MEQ CAPCR 20 MEQ PO (08:09)
[2022-12-19] MEDS: Omega-3 Fatty Acids 1000 MG CAP PO (08:09)
[2022-12-19] MEDS: guaiFENesin 600 MG TABCR PO ×2 (08:10→20:48)
[2022-12-19] MEDS: Omeprazole 20 MG CAPCR PO (08:10)
[2022-12-19] MEDS: Furosemide 20 MG TAB PO ×2 (08:10→17:02)
[2022-12-19] MEDS: Multivitamin TAB 1 TAB PO (08:10)
[2022-12-19] MEDS: fentaNYL 50 MCG PATCH TD (08:11)
[2022-12-19] MEDS: Magnesium Oxide 400 MG TAB PO (08:12)
[2022-12-19] MEDS: Normal Saline Flush 10 ML SYR IVP (08:12)
--- NOTE | 2022-12-19 09:19 | PGE_ITS ---
Date of Service Date of service: 12/19/22 Time of Service: : Assessment and Plan Assessment and plan (1) Community acquired bilateral lower lobe pneumonia: Status: Acute Assessment and plan: Continue cefepime and azithromycin. Blood cultures no growth to date, sputum culture grew normal oral kt. Patient not requiring any supplemental oxygenation and has been afebrile for over 24 hours. Upon discharge she will be sent home on a oral prescription either Levaquin or third-generation cephalosporin along with azithromycin. (2) Anemia: Status: Chronic Assessment and plan: Anemia has improved hemoglobin is up to 8.3 g posttransfusion. Continue GI protection with PPI. (3) Acute hypokalemia: Status: Acute Assessment and plan: Hypokalemia is now resolved potassium is up to 4.3. I will decrease his potassium supplementation to 20 mill equivalents daily as long as he is on a diuretic. He remains on furosemide 20 mg twice a day which replaces hydrochlorothiazide which was not helping his edema. (4) Hypomagnesemia: Status: Acute Assessment and plan: Magnesium is slightly decreased at 1.7. I have increased his oral supplementation 800 mg twice a day. (5) Cancer associated pain: Status: Acute Assessment and plan: Currently incompletely controlled. Will increase Duragesic patch to 75 mcg every 72 hours. He also has oxycodone 10 to 20 mg every 4 hours as needed for breakthrough pain (6) Edema of both lower extremities: Status: Acute Assessment and plan: Continue furosemide 20 mg twice a day. Monitor BUN and creatinine and electrolyte. (7) High grade neuroendocrine carcinoma: Status: Chronic Assessment and plan: Upon completion of his antibiotics for his pneumonia he will return to his onc ologist for continued chemotherapy and radiation therapy. (8) Full code status: Status: Acute Assessment and plan: Patient had been scheduled to meet with palliative care on December 28 to assist with goals of care as well as management of his pain. Patient is are amenable to having palliative care see him while he is hospitalized. Subjective Subjective Interval history since last seen: Patient still w/ significant epigastric abdominal pains. He is still taking oxycodone IR 3 to 4 x since going on the duragesic 50 mcg patch. I had planned on dc him home today as his anemia has responded to the blood transfusion and he has been afebrile for over 24hr w/ resolution of his leukocytosis; however, w/ his pain not adequately controlled, I will increase his duragesic patch today and monitor his response. If he is feeling improved this afternoon, he may be discharged otherwise will plan dc in the morning on outpatient antibiotics. For now will continue cefepime and azithromycin parenterally. His potassium and magensium are being corrected. Exam Narrative Exam Narrative: Ray is sitting up at the bedside he is alert and oriented person place time circumstance he appears to be uncomfortable Lungs are clear anteriorly posterior there is some faint basilar rales no rhonchi no wheezes Heart is regular rate and rhythm Abdomen is firm but not hard with normal bowel sounds. Patient states he had a bowel movements this morning. Extremities legs have 2+ pitting edema over the pretibial surfaces Feet and Ankles Objective Last Vital Signs Temp 36.7 C 12/19/22 04:00 Pulse 85 12/19/22 08:21 Resp 14 12/19/22 04:00 BP 111/94 H 12/19/22 08:21 Pulse Ox 98 12/19/22 08:30 Laboratory Results - last 24 hr 12/17/22 12/18/22 12/19/22 17:13 14:05 06:20 WBC RBC Hgb 8.1 L Hct 24.6 L MCV MCH MCHC RDW Plt Count MPV Immature Gran % Neutrophils % Lymphocytes % Monocytes % Eosinophils % Basophils % Nucleated RBC % Absolute Neutrophils Absolute Lymphocytes Absolute Monocytes Absolute Eosinophils Absolute Basophils RBC Morphology Polychromasia Hypochromasia Anisocytosis Sodium 131 L Potassium 4.3 Chloride 96 L Carbon Dioxide 29.7 Anion Gap 5.3 BUN 21 H Creatinine 0.7 Est GFR (CKD-EPI 2020) 102.89 Glucose 131 H Calcium 8.5 Magnesium 1.7 L Patient ABO/Rh O Negative Antibody Screen NEGATIVE Crossmatch See Detail 12/19/22 06:20 WBC 9.38 RBC 2.56 L Hgb 8.3 L Hct 24.6 L MCV 96 H MCH 32.4 MCHC 33.7 RDW 20.1 H Plt Count 291 MPV 9.6 Immature Gran % 0.4 Neutrophils % 87.9 Lymphocytes % 1.8 Monocytes % 9.1 Eosinophils % 0.5 Basophils % 0.3 Nucleated RBC % 0.0 Absolute Neutrophils 8.24 H Absolute Lymphocytes 0.17 L Absolute Monocytes 0.85 H Absolute Eosinophils 0.05 Absolute Basophils 0.03 RBC Morphology See Below Polychromasia Present Hypochromasia 2+ Anisocytosis 1+ Sodium Potassium Chloride Carbon Dioxide Anion Gap BUN Creatinine Est GFR (CKD-EPI 2020) Glucose Calcium Magnesium Patient ABO/Rh Antibody Screen Crossmatch Time Spent with Patient Time Spent with Patient: 25-34 minutes Time was spent: preparing to see the patient(eg.review tests), ordering medications,tests, procedures, indepentently interpreting results, counseling the patient and care coordination
[2022-12-19] MEDS: fentaNYL 75 MCG PATCH TD (10:34)
[2022-12-19] MEDS: Normal Saline 500 ML 30 ML IV (12:45)
[2022-12-19] MEDS: AZITHROMYCIN 500 MG in Normal Saline 250 ML 250 MG IVPB (17:38)
[2022-12-19 18:03] LABS: Legionella Ag Detection Urine Negative (Negative)
[2022-12-19] MEDS: Magnesium Oxide 400 MG TAB 800 MG PO (20:48)
[2022-12-19] MEDS: Tamsulosin 0.4 MG CAPCR 0.8 MG PO (20:48)
[2022-12-19] MEDS: Docusate Sodium 100 MG CAP PO (21:01)
[2022-12-20 03:36] VITALS: BP 128/76; PULSE 73; RESP 16; TEMP 36.8; O2SAT 98
[2022-12-20] MEDS: oxyCODONE 5 MG TAB PO (03:40)
[2022-12-20] MEDS: Normal Saline 500 ML 30 ML IV (03:41)
[2022-12-20] MEDS: CEFEPIME 2 GM in Normal Saline 100 ML IVPB ×2 (03:41→12:39)
[2022-12-20] MEDS: Normal Saline Flush 10 ML SYR IVP (03:42)
[2022-12-20] MEDS: Levothyroxine 75 MCG TAB PO (06:38)
[2022-12-20 06:51] LABS: Abs Immature Grans 0.05 10^3/uL (0.0-0.06); Absolute Basophil Count 0.02 10^3/uL (0.0-0.2); Absolute Eosinophil Count 0.07 10^3/uL (0.0-0.7); Absolute Lymphocyte Count 0.23 10^3/uL (1.2-3.4); Absolute Monocyte Count 0.83 10^3/uL (0.1-0.8); Absolute Neutrophil Count 7.93 10^3/uL (1.2-6.7); Basophils % 0.2; Eosinophils % 0.8; HCT 24.8 % (40.0-50.0); HGB 8.1 g/dL (13.5-17.5); Immature Grans % 0.5; Lymphocytes % 2.5; MCH 31.5 pg (27.0-33.0); MCHC 32.7 % (32.0-36.0); MCV 97 fL (80-95); MPV 9.9 fL (8.0-11.0); Monocytes % 9.1; Neutrophils % 86.9; Platelet Count 298 10^3/uL (130-400); RBC 2.57 10^6/uL (4.36-5.78); RDW 19.8 % (11.8-14.1); WBC 9.13 10^3/uL (4.4-10.8)
[2022-12-20 07:28] LABS: ALT 42 U/L (16-63); AST 67 U/L (15-37); Albumin 1.9 g/dL (3.4-5.0); Alkaline Phosphatase 237 U/L (46-116); Anion Gap 5.2 mmol/L (3-11); BUN 20 mg/dL (7-18); Bilirubin, Direct 0.8 mg/dL (0.0-0.2); Bilirubin, Total 1.6 mg/dL (0.2-1.0); C-Reactive Protein 8.23 mg/dL (0.0-0.3); CO2 30.8 mmol/L (21.0-32.0); CREATININE 0.7 mg/dL (0.70-1.30); Calcium 8.5 mg/dL (8.5-10.1); Chloride 97 mmol/L (98-107); Estimated GFR 102.89 (mL/min/1.73m2); Glucose 117 mg/dL (74-106); Magnesium 1.7 mg/dL (1.8-2.4); Potassium 4.6 mmol/L (3.5-5.1); Sodium 133 mmol/L (136-145); Total Protein 6.6 g/dL (6.4-8.2)
[2022-12-20 08:06] VITALS: BP 145/55; PULSE 82; RESP 17; TEMP 36.3; O2SAT 97
--- NOTE | 2022-12-20 08:07 | PCNE_ITS ---
Date of service: 12/20/22 Time of Service: 08:07 History of Present Illness History of Present Illness Chief Complaint: fatigue and nausea Narrative: From H and P: History of Present Illness?Chief Complaint: ill appearing per his oncologist, sent to ED by cancer center?Narrative: 62-year-old male former smokeless tobacco user and former drinker has been abstinent since 2009 who has had metastatic prostate cancer on hormonal treatment was diagnosed in July with a pancreatic mass and diagnosed with a neuroendocrine tumor high-grade of unknown primary source. He also has hx of tonsillar cancer s/p tonsillectomy, and portal vein thrombosis treated w/ Eliquis. He was recently hospitalized at [facility] 11/30 to 12/02/22 for intraabdominal necrotic mass vs abscess in the GB fossa (he is s/p remote cholecystecomy) and he underwent a down and back trip to [facility] [place] for IR guided biopsy of the abdominal mass. Patient was taken off his Eliquis. he has required transfusions for his anemia. It is unclear as to whether or not he had any intraabdominal bleeding.? Patient's been on radiation treatment for this as well as on oral chemotherapy medications including Xeloda.? Initially the patient denied any symptoms to me such as shortness of breath chest pain or fever however per ED report patient presented after his first radiation treatment and presented to the cancer center was found to be febrile with rigors and fatigue and was sent to the emergency department.? Work-up in the ED showed bilateral pneumonia with elevated white cell count.? Blood cultures were obtained he was started on parenteral antibiotics including cefepime and azithromycin. For the lab work showed he was anemic hemoglobin 7.8 g hematocrit 23% which is a decrease from his hematocrit 26% 2 weeks ago.? He was found to be hypomagnesemic with a magnesium of 1.5 for which she received 1 g IV in the emergency department.? He is also found to be hyponatremic serum sodium 129 and hypokalemic 3.1.? Patient is now being admitted for treatment of his pneumonia.? Patient's case was discussed with Dr. Eric Dong emergency room department.? Dr. Dong also discussed the case with the patient's oncologist Dr. Vyas who request that he not receive his oral chemotherapy. ? Interim Hx: Ray states that he is starting to feel better but still does not feel like he can eat. He feels like he is got a bowling ball in his stomach and that when he eats it cannot get by it. He does not have much in the way of energy. He knows that Dr. Farias is on top of what needs to happen prior to his discharge. He was hoping to be discharged soon as possible. He really wants to be at home. He lives with his who works 5 to 6 days/week. He understands that he has a bad cancer and that he will not make it through this. He is working with his oncologist for strategies on how to improve and prolong his life. He states in some ways he wishes he could just take a pill and be done with this. His pain has been severe. Dr. Farias has has increased his fentanyl patch to 75 mcg and is feeling much better. It is more evened out. Additionally he does have oxycodone that he can use for intermittent pain. 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 He did like to luong and [place] but has not done that recently. He wants his involved in all decisions. He states that she is his DPOA and will take over decision-making when he is no longer able to. 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 He states he feels CPR is futile and wouldn't work, and feels he would be willing to sign a COLST form, but again, he wants his to be present Pain continue with the fentanyl patch. I suspect that this will need to be increased sometime in the near future. Continue with the breakthrough pain control of oxycodone He understands the importance of not getting constipated. 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 We did not accomplish much today. I did speak to hospitalist who also confirmed that he was quite angry during their encounter. I think it would be a much better appointment if his could be there also. Review of Systems Narrative: Raise big problems are his ongoing nausea, inability or lack of desire to eat, fatigue and pain. All of these are better since coming into the hospital he also can breathe better. He states he was found to have a pneumonia PFSH All Active Problems (Updated 12/21/22 @ 00:04 by PING HERMOSILLO) Palliative care patient (Acute) Full code status (Acute) Community acquired bilateral lower lobe pneumonia (Acute) Anemia (Chronic) Cancer associated pain (Acute) Edema of both lower extremities (Acute) Acute on chronic anemia (Acute) Intra-abdominal abscess (Acute) Discharge planning issues (Acute) Prostate cancer metastatic to bone (Chronic ~2020) High grade neuroendocrine carcinoma (Chronic ~07/2022) Of unknown primary Elevated LFTs (Acute ~07/2022) Secondary to dilated hepatic ducts. S/p stent to right intraheptic duct Jul 2022. Prediabetes (Chronic) Hyperlipidemia (Chronic) Tubular adenoma of colon (Chronic) 2014 Medical History COVID-19 (~07/2022) Fatty liver Hypertension Hypothyroidism Secondary to radiation for tonsil cancer Malignant neoplasm of tonsil (~2009) S/p chemo, radiation Portal vein thrombosis Surgical History History of arthroplasty of right knee History of carpal tunnel surgery of left wrist History of colonoscopy (~01/2022) History of hip surgery Hx of right knee surgery (07/18/14) S/P appendectomy S/P ERCP spcinterotmy. no stones S/P partial thyroidectomy Left thyroid lobe S/P tonsillectomy (~2010) Status post cholecystectomy (04/2022) Family History Mother , 64 Diabetes Essential hypertension Father , 79 Essential hypertension Heart disease Hyperlipidemia Stroke Prostate cancer Sister Ovarian cyst Brother , age 67 Prostate cancer Non Hodgkin's lymphoma Son No problems noted. Son No problems noted. Social History Smoking/Tobacco Use Status: Former Tobacco Use tobacco type: smokeless tobacco Quit Date: 10/02/10 Tobacco: How many years used: 30 Smokeless tobacco user: snuff Second Hand Exposure: Yes Smoking risk assessment performed?: Yes Alcohol Intake: former Drug use: Never Substance use type: does not use Caregiver/Support person: No Household members: spouse Housing: house Communication Needs: Hard of Hearing Do you need help understanding health information?: Never current occupation: [employer] Pets and animals: No Sexually active: Yes Do you think of yourself as: straight/heterosexual Current gender identity: male What is your relationship status?: How often do you talk on the phone with friends or family?: decline to answer How often do you get together with friends or relatives?: decline to answer How often do you attend hoahaoism or alevism services?: decline to answer Do you belong to any clubs or organized social groups?: decline to answer Panel score (0-1 are the most socially isolated patients): 1 What type of physical activity do you participate in: walking Duration: 15-30 minutes/day Frequency: 5-6 times per week Yelena/Temple: Restorationism Special yelena needs: No Seatbelt use: always Helmet use: Yes Helmet use: always Drive intox or ride w/intox route driver coin machines: No Do you feel safe at home: Yes Do you feel safe in your relationship?: Yes Victim of physical abuse: No Victim of emotional abuse: No Victim of sexual abuse: No Would you like helpful sources: No Exam Narrative Exam Narrative: Johnathon is a 62-year-old male unfortunate with a new cancer which is aggressive. He has also had tonsillar and prostate cancer. He understands that the and is near. His big goal is to get home as soon as possible. During this initial meeting Johnathon appeared quite angry. He could talk in complete sentences and was not short of breath. Results Last Vital Signs Temp 98.2 F 12/20/22 03:36 Pulse 73 12/20/22 03:36 Resp 16 12/20/22 03:36 BP 128/76 12/20/22 03:36 Pulse Ox 98 12/20/22 03:36 Labs 12/20/22 06:06 12/20/22 06:06 Labs: Laboratory Results - last 24 hr 12/20/22 12/20/22 06:06 06:06 WBC 9.13 RBC 2.57 L Hgb 8.1 L Hct 24.8 L MCV 97 H MCH 31.5 MCHC 32.7 RDW 19.8 H Plt Count 298 MPV 9.9 Immature Gran % 0.5 Neutrophils % 86.9 Lymphocytes % 2.5 Monocytes % 9.1 Eosinophils % 0.8 Basophils % 0.2 Nucleated RBC % 0.0 Absolute Neutrophils 7.93 H Absolute Lymphocytes 0.23 L Absolute Monocytes 0.83 H Absolute Eosinophils 0.07 Absolute Basophils 0.02 Sodium 133 L Potassium 4.6 Chloride 97 L Carbon Dioxide 30.8 Anion Gap 5.2 BUN 20 H Creatinine 0.7 Est GFR (CKD-EPI 2020) 102.89 Glucose 117 H Calcium 8.5 Magnesium 1.7 L Total Bilirubin 1.6 H Conjugated Bilirubin 0.8 H AST 67 H ALT 42 Alkaline Phosphatase 237 H C-Reactive Protein 8.23 H Total Protein 6.6 Albumin 1.9 L
[2022-12-20] MEDS: guaiFENesin 600 MG TABCR PO (08:18)
[2022-12-20] MEDS: Omeprazole 20 MG CAPCR PO (08:18)
[2022-12-20] MEDS: Furosemide 20 MG TAB PO ×2 (08:18→15:39)
[2022-12-20] MEDS: Potassium Chloride 10 MEQ CAPCR 20 MEQ PO (09:43)
[2022-12-20] MEDS: Magnesium Oxide 400 MG TAB 800 MG PO (09:43)
--- NOTE | 2022-12-20 09:44 | CMPROGNOTE_ITS ---
- If Service Date Differs Date of service: 12/20/22 Time of Service: 09:44 Care Management Progress Note S/O: Ray continues to be closely monitored and treated. CM continues to follow. A: 62 year old male admitted to [facility] 12/17/22 for Pneumonia P: Blayne will return home once medically cleared. His s/o, Claudia will drive him home via private vehicle. He will follow up with his PCP and discharge plan of care. CM will continue to follow.
[2022-12-20 11:07] VITALS: BP 134/68; PULSE 79; RESP 19; TEMP 36.2; O2SAT 99
--- NOTE | 2022-12-20 13:04 | DSE_ITS ---
Date of service: 12/20/22 Time of Service: 13:04 DS: Diagnosis Discharge Diagnosis (1) Community acquired bilateral lower lobe pneumonia: Status: Acute Asessment and Plan: Treated inpatient with Cefepime and azithromycin. His WBC count normalized. He required no supplemental oxygen. He will d/c on 7 days of oral cefpodoxime 200mg BID and 3 days of azithromycin 500mg daily. (2) Anemia: Status: Chronic Asessment and Plan: He received 2 units of pRBCs during this admission. Hgb at time of d/c was 8.1. This will be followed by oncologist. (3) Cancer associated pain: Status: Acute (4) Prostate cancer metastatic to bone: Status: Chronic Asessment and Plan: Extended release oxycodone stopped. Fentanyl 75 mcg patch initiated with impro tasha pain control. Cont oxycodone IR as previously prescribed. (5) High grade neuroendocrine carcinoma: Status: Chronic Asessment and Plan: Cont treatments and f/u per oncology. (6) Palliative care patient: Status: Acute Asessment and Plan: Has been seen by palliative. Discharge Plan Disposition Patient Disposition: Home Condition: Improving Discharge Details Reason For Visit: Pneumonia Admit Date/Time: 12/17/22 16:02 Admit Provider: Daron Koroma Attending Provider: Daron Koroma [facility] Hospital Course: 62-year-old male former smokeless tobacco user and former drinker has been abstinent since 2009 who has had metastatic prostate cancer on hormonal treatment was diagnosed in July with a pancreatic mass and diagnosed with a neuroendocrine tumor high-grade of unknown primary source. He also has hx of tonsillar cancer s/p tonsillectomy, and portal vein thrombosis treated w/ Eliquis. He was recently hospitalized at [facility] 11/30 to 12/02/22 for intraabdominal necrotic mass vs abscess in the GB fossa (he is s/p remote cholecystecomy) and he underwent a down and back trip to [facility] [place] for IR guided biopsy of the abdominal mass. Patient was taken off his Eliquis. he has required transfusions for his anemia. It is unclear as to whether or not he had any intraabdominal bleeding.? Patient's been on radiation treatment for this as well as on oral chemotherapy medications including Xeloda.? Initially the patient denied any symptoms to me such as shortness of breath chest pain or fever however per ED report patient presented after his first radiation treatment and presented to the cancer center was found to be febrile with rigors and fatigue and was sent to the emergency department.? Work-up in the ED showed bilateral pneumonia with elevated white cell count.? Blood cultures were obtained he was started on parenteral antibiotics including cefepime and azithromycin. For the lab work showed he was anemic hemoglobin 7.8 g hematocrit 23% which is a decrease from his hematocrit 26% 2 weeks ago.? He was found to be hypomagnesemic with a magnesium of 1.5 for which she received 1 g IV in the emergency department.? He is also found to be hyponatremic serum sodium 129 and hypokalemic 3.1.? Patient was admitted for treatment of his pneumonia.? Patient's case was discussed with Dr. Eric Dong emergency room department.? Dr. Dong also discussed the case with the patient's oncologist Dr. Vyas who request that he not receive his oral chemotherapy. See Diagnosis PCP follow up in 1 week Continue oncology appts as per their recommendation. Home Meds and New Rx's Prescriptions: New magnesium oxide 400 mg (241.3 mg magnesium) Tablet 400 mg PO DAILY Qty: 0 0RF guaifenesin [Mucus Relief ER] 600 mg Tablet Extended Release 12hr 600 mg PO BID Qty: 20 0RF azithromycin 500 mg tablet 500 mg PO DAILY 3 Days Qty: 3 0RF cefpodoxime 200 mg tablet 200 mg PO BID Qty: 14 0RF Rx Instructions: must administer with a meal/food fentanyl 75 mcg/hr patch 72 hour 1 patch transdermal Q72H Qty: 5 0RF Continued cholecalciferol (vitamin D3) 25 mcg (1,000 unit) capsule 25 mcg PO DAILY One-A-Day Maximum Formula Tablet 1 tab PO DAILY levothyroxine 75 mcg tablet 75 mcg PO DAILY Qty: 90 4RF tamsulosin 0.4 mg capsule 0.8 mg PO HS omega 8-exs-iqf-fish oil [Fish Oil] 60-90-500 mg capsule 1 cap PO DAILY fluoride (sodium) 1.1 % gel 1 applic dental DAILY Qty: 56 3RF hydrochlorothiazide 12.5 mg tablet 12.5 mg PO QAM Qty: 90 1RF sildenafil [Viagra] 100 mg tablet 100 mg PO PRN Qty: 30 3RF Rx Instructions: take one hour prior to intercourse diclofenac sodium [Voltaren Arthritis Pain] 1 % gel 4 g topical QID Qty: 100 1RF Rx Instructions: apply to single knee, ankle, foot; for foot includes sole/toes/top of foot ibuprofen 600 mg tablet 600 mg PO Q6H PRN Qty: 60 5RF prochlorperazine maleate [Compazine] 10 mg Tablet 10 mg PO Q6H PRN ondansetron 4 mg Tablet,Disintegrating 4 mg PO Q8H PRN amlodipine 2.5 mg Tablet 2.5 mg PO DAILY capecitabine 500 mg Tablet 1,500 mg PO BID Rx Instructions: take within 30 minutes of eating calcium carbonate 600 mg calcium (1,500 mg) Tablet 1,200 mg PO DAILY docusate sodium [Colace] 100 mg Capsule 100 mg PO QHS omeprazole 20 mg Capsule,Delayed Release(Dr/Ec) 20 mg PO DAILY polyethylene glycol 3350 [Miralax] 17 gram/dose Powder 17 g PO DAILY oxycodone 5 mg Tablet 10 - 30 mg PO Q4H PRN oxycodone [OxyContin] 30 mg Tablet,Oral Only,Ext.Rel.12 Hr 30 mg PO BID Discontinued amoxicillin 875 mg tablet 875 mg PO BID Discharge Instructions Instructions: Community Acquired Pneumonia (DC) Activity:: Activity as Tolerated Equipment/Supplies:: No Equipment Needed Diet:: As Tolerated Discharge Orders Discharge Orders: Discharge Order (Routine); Ordered 12/20/22 Ordered By: Pete Alvarez DS: Summary Time Spent with Patient providing and/or coordinating discharge services: Greater than 30 minutes Status at Discharge Functional status at discharge: independent ambulation Overall status at discharge: patient is progressing back to baseline Mental Status: mental status grossly normal Speech and Movement: speech clear Mood: irritable mood Affect: blunted Exam Narrative Exam Narrative: Ray is sitting up at the bedside he is alert and oriented person place time circumstance. NAD Lungs: clear anteriorly. Normal WOB Heart is regular rate and rhythm Abdomen is firm but not hard with normal bowel sounds. Tender in upper mid abd. Extremities legs have 1+ pitting edema over the pretibial surfaces Feet and Ankles Psych: Flat affect. Psych Mental Status: mental status grossly normal Speech and Movement: speech clear Mood: irritable mood Affect: blunted DS: Data Vitals/I&O Vitals and I&O: Vital Signs Temperature 36.2 C L 12/20/22 11:07 Temperature Source Tympanic 12/20/22 11:07 Pulse 79 12/20/22 11:07 Pulse Rhythm Regular 12/20/22 09:15 Pulse 76 12/17/22 17:00 Respiratory Rate 19 12/20/22 11:07 Respiratory Effort Normal, Non-Labored 12/20/22 09:15 Respiratory Depth Normal 12/20/22 09:15 Respiratory Pattern Normal 12/20/22 09:15 Blood Pressure 134/68 12/20/22 11:07 Blood Pressure Mean 91 12/19/22 17:53 Blood Pressure Position Supine 12/17/22 18:00 Pulse Oximetry 99 12/20/22 11:07 Oxygen Delivery Method Room Air 12/20/22 11:07 Oxygen Flow Rate 0 12/20/22 11:07 Fraction of Inspired Oxygen (FIO2) 97 12/19/22 08:21 Pain Level 4 12/20/22 08:06 Comment Offered PRN pain medication, patient said he is ok for now. 12/19/22 22:03 Intake & Output 12/19/22 12/20/22 12/20/22 23:59 11:59 23:59 Intake Total 1697.5 / 2047.5 320 / 570 250 / 570 Output Total 275 / 800 Balance 1422.5 / 1247.5 320 / 570 250 / 570 Weight 105.318 kg Intake: IV 697.5 / 1047.5 140 / 140 Oral 1000 / 1000 180 / 430 250 / 430 Output: Urine 275 / 800 Other: Urine Color [place] Yellow Urine Appearance Clear Clear Urine Odor None Comment Unmeasured urine amount. Voiding Methods Urinal Toilet Data Completed and Pending Labs on day of discharge: Labs from last 24 hours 12/20/22 12/20/22 12/17/22 06:06 06:06 22:30 WBC 9.13 RBC 2.57 L Hgb 8.1 L Hct 24.8 L MCV 97 H MCH 31.5 MCHC 32.7 RDW 19.8 H Plt Count 298 MPV 9.9 Immature Gran % 0.5 Neutrophils % 86.9 Lymphocytes % 2.5 Monocytes % 9.1 Eosinophils % 0.8 Basophils % 0.2 Nucleated RBC % 0.0 Absolute Neutrophils 7.93 H Absolute Lymphocytes 0.23 L Absolute Monocytes 0.83 H Absolute Eosinophils 0.07 Absolute Basophils 0.02 Sodium 133 L Potassium 4.6 Chloride 97 L Carbon Dioxide 30.8 Anion Gap 5.2 BUN 20 H Creatinine 0.7 Est GFR (CKD-EPI 2020) 102.89 Glucose 117 H Calcium 8.5 Magnesium 1.7 L Total Bilirubin 1.6 H Conjugated Bilirubin 0.8 H AST 67 H ALT 42 Alkaline Phosphatase 237 H C-Reactive Protein 8.23 H Total Protein 6.6 Albumin 1.9 L Urine Legionella Ag Negative Preliminary micro results at discharge 12/17/22 13:05 Blood Culture - Preliminary Blood NO GROWTH 48 HOURS 12/17/22 13:00 Blood Culture - Preliminary Blood NO GROWTH 48 HOURS PFSH All Active Problems Palliative care patient (Acute) Full code status (Acute) Community acquired bilateral lower lobe pneumonia (Acute) Anemia (Chronic) Acute hypokalemia (Acute) Hypomagnesemia (Acute) Cancer associated pain (Acute) Edema of both lower extremities (Acute) Acute on chronic anemia (Acute) Intra-abdominal abscess (Acute) Discharge planning issues (Acute) Prostate cancer metastatic to bone (Chronic ~2020) High grade neuroendocrine carcinoma (Chronic ~07/2022) Of unknown primary Elevated LFTs (Acute ~07/2022) Secondary to dilated hepatic ducts. S/p stent to right intraheptic duct Jul 2022. Prediabetes (Chronic) Hyperlipidemia (Chronic) Tubular adenoma of colon (Chronic) 2014 Medical History COVID-19 (~07/2022) Fatty liver Hypertension Hypothyroidism Secondary to radiation for tonsil cancer Malignant neoplasm of tonsil (~2009) S/p chemo, radiation Portal vein thrombosis Surgical History History of arthroplasty of right knee History of carpal tunnel surgery of left wrist History of colonoscopy (~01/2022) History of hip surgery Hx of right knee surgery (07/18/14) S/P appendectomy S/P ERCP spcinterotmy. no stones S/P partial thyroidectomy Left thyroid lobe S/P tonsillectomy (~2010) Status post cholecystectomy (04/2022) Family History Mother , 64 Diabetes Essential hypertension Father , 79 Essential hypertension Heart disease Hyperlipidemia Stroke Prostate cancer Sister Ovarian cyst Brother , age 67 Prostate cancer Non Hodgkin's lymphoma Son No problems noted. Son No problems noted. Social History Smoking/Tobacco Use Status: Former Tobacco Use tobacco type: smokeless tobacco Quit Date: 10/02/10 Tobacco: How many years used: 30 Smokeless tobacco user: snuff Second Hand Exposure: Yes Smoking risk assessment performed?: Yes Alcohol Intake: former Drug use: Never Substance use type: does not use Caregiver/Support person: No Household members: spouse Housing: house Communication Needs: Hard of Hearing Do you need help understanding health information?: Never current occupation: [employer] Pets and animals: No Sexually active: Yes Do you think of yourself as: straight/heterosexual Current gender identity: male What is your relationship status?: How often do you talk on the phone with friends or family?: decline to answer How often do you get together with friends or relatives?: decline to answer How often do you attend latter-day or hoahaoism services?: decline to answer Do you belong to any clubs or organized social groups?: decline to answer Panel score (0-1 are the most socially isolated patients): 1 What type of physical activity do you participate in: walking Duration: 15-30 minutes/day Frequency: 5-6 times per week Yelena/Gnosticism: Confucianist Special yelena needs: No Seatbelt use: always Helmet use: Yes Helmet use: always Drive intox or ride w/intox limo driver: No Do you feel safe at home: Yes Do you feel safe in your relationship?: Yes Victim of physical abuse: No Victim of emotional abuse: No Victim of sexual abuse: No Would you like helpful sources: No Time Spent with Patient Time Spent with Patient: <45 minutes Time was spent: preparing to see the patient(eg.review tests), indepentently interpreting results, counseling the patient and care coordination
[2022-12-20] MEDS: Heparin 500 UNITS/5 ML SYRINGE IVP (13:50)
--- NOTE | 2022-12-20 15:32 | PDOC.CMDIS ---
- If Service Date Differs Date of service: 12/20/22 Time of Service: 15:32 LACE Index Scoring Tool - Questions: Length of Stay (in days): 3 Acuity (Admit via E.D.?): Yes Comorbidities: Metastatic Solid Tumor E.D. Visits: 5 - Answers: Total Score: 15 Risk of Readmission: High Risk Care Management Discharge Reason for Hospitalization: Pneumonia Discharge Plan: Ray will return home once medically cleared. His will drive him home via private vehicle. He will follow up with his PCP and discharge plan of care. Patient/Family Education Needs: Review discharge instructions, discuss Ask Me Three.
[2022-12-20 23:38] LABS: Streptococcus Pneumoniae Ag, U Negative (Negative)
[2022-12-22 16:28] LABS: Mycoplasma Pneumoniae PCR Negative; Specimen source sputum
== END 2022-12-20 17:24 | disposition home or self-care (01) | DRG 194 ==
LOC: ER 16:44 → ICU 17:39 → MS 12-20 09:55
PROVIDERS: Admitting Provider Internal Medicine; Emergency Provider Emergency Medicine; PCP Nurse Practitioner Family; Visit Provider Internal Medicine
DX: J18.9 Pneumonia, unspecified organism (principal); C79.51 Secondary malignant neoplasm of bone; C7A.1 Malignant poorly differentiated neuroendocrine tumors; E87.1 Hypo-osmolality and hyponatremia; D64.9 Anemia, unspecified; E87.6 Hypokalemia; E83.42 Hypomagnesemia; R60.0 Localized edema; G89.3 Neoplasm related pain (acute) (chronic); C61 Malignant neoplasm of prostate; Z86.718 Personal history of other venous thrombosis and embolism; Z79.01 Long term (current) use of anticoagulants; Z85.89 Personal history of malignant neoplasm of other organs and systems; Z79.899 Other long term (current) drug therapy; R73.03 Prediabetes; E78.5 Hyperlipidemia, unspecified; K76.0 Fatty (change of) liver, not elsewhere classified; I10 Essential (primary) hypertension; E89.0 Postprocedural hypothyroidism; Y84.2 Radiological procedure and radiotherapy as the cause of abnormal reaction of the patient, or of later complication, without mention of misadventure at the time of the procedure
CPT/HCPCS: 36415; 36591; 80048; 80076; 83690; 86850; 86900; 86901; 86920; 87040; 87449; 87637; 93005; 96361; 96365; 96366; 96368; 99285; 71046; 74177; 81003; 81015; 83735; 84484; 85014; 85018; 85025; 86140; 87070; 87205; 87581; 87899; 93010; 94640; 94667; 99223; 99232; 99239; J0456; J3475; J3480; J3490; J7620; P9016

== ENCOUNTER 2022-12-24 07:12 | Outpatient (RCR) | payer BC, SELFPAY ==
[2022-12-24] MEDS: Normal Saline Flush 10 ML SYR IVP (07:21)
[2022-12-24] MEDS: Heparin 500 UNITS/5 ML SYRINGE (07:21)
[2022-12-24 07:28] LABS: Abs Immature Grans 0.05 10^3/uL (0.0-0.06); Absolute Basophil Count 0.02 10^3/uL (0.0-0.2); Absolute Eosinophil Count 0.05 10^3/uL (0.0-0.7); Absolute Lymphocyte Count 0.22 10^3/uL (1.2-3.4); Absolute Monocyte Count 0.76 10^3/uL (0.1-0.8); Absolute Neutrophil Count 6.22 10^3/uL (1.2-6.7); Basophils % 0.3; Eosinophils % 0.7; HCT 24.6 % (40.0-50.0); Immature Grans % 0.7; MCHC 32.5 % (32.0-36.0); MCV 98 fL (80-95); MPV 9.3 fL (8.0-11.0); Monocytes % 10.4; Neutrophils % 84.9; Platelet Count 278 10^3/uL (130-400); RDW 19.3 % (11.8-14.1); RDW-SD 70.2 fL; WBC 7.32 10^3/uL (4.4-10.8)
[2022-12-24 07:54] LABS: ALT 38 U/L (16-63); AST 85 U/L (15-37); Albumin 2.2 g/dL (3.4-5.0); Alkaline Phosphatase 163 U/L (46-116); Anion Gap 7.1 mmol/L (3-11); BUN 21 mg/dL (7-18); Bilirubin, Total 1.4 mg/dL (0.2-1.0); CO2 30.9 mmol/L (21.0-32.0); CREATININE 0.7 mg/dL (0.70-1.30); Calcium 8.5 mg/dL (8.5-10.1); Chloride 93 mmol/L (98-107); Estimated GFR 102.89 (mL/min/1.73m2); Glucose 138 mg/dL (74-106); Potassium 3.3 mmol/L (3.5-5.1); Sodium 131 mmol/L (136-145); Total Protein 7.1 g/dL (6.4-8.2)
[2022-12-27 19:54] LABS: PSA, Ultrasensitive 0.07 ng/mL (<= 4.5)
[2022-12-30 17:41] LABS: Testosterone, Total 13 ng/dL (240-950)
== END 2022-12-28 23:59 | disposition home or self-care (01) ==
LOC: INF 07:12
PROVIDERS: PCP Nurse Practitioner Family; Visit Provider Internal Medicine Hematology & Oncology
DX: Z45.2 Encounter for adjustment and management of vascular access device (principal); C61 Malignant neoplasm of prostate; C79.51 Secondary malignant neoplasm of bone
CPT/HCPCS: 36591; 80053; 84153; 84403; 85025

== ENCOUNTER 2023-01-05 02:33 | Outpatient (RCR) | payer BC, SELFPAY ==
[2022-12-29] MEDS: Normal Saline Flush 10 ML SYR IVP (07:33)
[2022-12-29] MEDS: Heparin 500 UNITS/5 ML SYRINGE (07:33)
[2022-12-29 07:51] LABS: Abs Immature Grans 0.03 10^3/uL (0.0-0.06); Absolute Basophil Count 0.02 10^3/uL (0.0-0.2); Absolute Eosinophil Count 0.14 10^3/uL (0.0-0.7); Absolute Lymphocyte Count 0.09 10^3/uL (1.2-3.4); Absolute Monocyte Count 0.64 10^3/uL (0.1-0.8); Absolute Neutrophil Count 5.19 10^3/uL (1.2-6.7); Basophils % 0.3; Eosinophils % 2.3; HCT 23.5 % (40.0-50.0); HGB 7.5 g/dL (13.5-17.5); Immature Grans % 0.5; Lymphocytes % 1.5; MCH 31.5 pg (27.0-33.0); MCHC 31.9 % (32.0-36.0); MCV 99 fL (80-95); MPV 9.2 fL (8.0-11.0); Monocytes % 10.5; Neutrophils % 84.9; Platelet Count 307 10^3/uL (130-400); RBC 2.38 10^6/uL (4.36-5.78); RDW 19.7 % (11.8-14.1); RDW-SD 70.9 fL; WBC 6.11 10^3/uL (4.4-10.8)
[2022-12-29 08:09] LABS: ALT 44 U/L (16-63); AST 116 U/L (15-37); Albumin 1.9 g/dL (3.4-5.0); Alkaline Phosphatase 127 U/L (46-116); Anion Gap 2.1 mmol/L (3-11); BUN 16 mg/dL (7-18); Bilirubin, Total 0.9 mg/dL (0.2-1.0); CO2 32.9 mmol/L (21.0-32.0); CREATININE 0.6 mg/dL (0.70-1.30); Calcium 8.2 mg/dL (8.5-10.1); Chloride 97 mmol/L (98-107); Glucose 124 mg/dL (74-106); Potassium 3.5 mmol/L (3.5-5.1); Sodium 132 mmol/L (136-145); Total Protein 6.5 g/dL (6.4-8.2)
[2022-12-30 10:33] VITALS: BP 117/67; PULSE 73; RESP 18; TEMP 36.1; O2SAT 95
[2022-12-30] MEDS: Normal Saline Flush 10 ML SYR IVP (10:44)
[2022-12-30] MEDS: Heparin 500 UNITS/5 ML SYRINGE IV (10:45)
[2022-12-30 10:54] VITALS: BP 118/68; PULSE 71; TEMP 36.1
[2022-12-30 11:11] VITALS: BP 117/70; PULSE 70; TEMP 36.2
[2022-12-30 11:46] VITALS: BP 114/68; PULSE 70; RESP 16; TEMP 36.7; O2SAT 97
[2022-12-30 12:15] VITALS: BP 137/75; PULSE 74; RESP 18; TEMP 36.5; O2SAT 98
[2022-12-30 22:35] LABS: PSA, Ultrasensitive 0.05 ng/mL (<= 4.5)
[2023-01-01 17:38] LABS: Testosterone, Total <7.0 ng/dL (240-950)
[2023-01-05 07:48] LABS: Abs Immature Grans 0.03 10^3/uL (0.0-0.06); Absolute Basophil Count 0.01 10^3/uL (0.0-0.2); Absolute Eosinophil Count 0.02 10^3/uL (0.0-0.7); Absolute Lymphocyte Count 0.12 10^3/uL (1.2-3.4); Absolute Monocyte Count 1.06 10^3/uL (0.1-0.8); Absolute Neutrophil Count 6.46 10^3/uL (1.2-6.7); Basophils % 0.1; Eosinophils % 0.3; HCT 26.7 % (40.0-50.0); HGB 8.7 g/dL (13.5-17.5); Immature Grans % 0.4; Lymphocytes % 1.6; MCH 32.1 pg (27.0-33.0); MCHC 32.6 % (32.0-36.0); MCV 99 fL (80-95); MPV 9.7 fL (8.0-11.0); Monocytes % 13.8; Neutrophils % 83.8; Platelet Count 240 10^3/uL (130-400); RBC 2.71 10^6/uL (4.36-5.78); RDW 20.9 % (11.8-14.1); RDW-SD 75.1 fL
[2023-01-05] MEDS: Normal Saline Flush 10 ML SYR IVP (08:02)
[2023-01-05 08:04] LABS: ALT 75 U/L (16-63); AST 206 U/L (15-37); Albumin 1.8 g/dL (3.4-5.0); Alkaline Phosphatase 123 U/L (46-116); Anion Gap 6.2 mmol/L (3-11); BUN 30 mg/dL (7-18); Bilirubin, Total 1.1 mg/dL (0.2-1.0); CO2 29.8 mmol/L (21.0-32.0); CREATININE 0.9 mg/dL (0.70-1.30); Calcium 8.4 mg/dL (8.5-10.1); Chloride 95 mmol/L (98-107); Estimated GFR 95.37 (mL/min/1.73m2); Glucose 133 mg/dL (74-106); Potassium 4.1 mmol/L (3.5-5.1); Sodium 131 mmol/L (136-145); Total Protein 6.5 g/dL (6.4-8.2)
[2023-01-05 08:05] LABS: Anisocytosis 2+; Diff Comment RBC Morph Reviewed
== END 2023-01-28 23:59 | disposition home or self-care (01) ==
LOC: INF 02:33
PROVIDERS: Internal Medicine; PCP Nurse Practitioner Family; Visit Provider Internal Medicine Hematology & Oncology
DX: Z45.2 Encounter for adjustment and management of vascular access device (principal); C61 Malignant neoplasm of prostate; C79.51 Secondary malignant neoplasm of bone; C7A.8 Other malignant neuroendocrine tumors
CPT/HCPCS: 36430; 36591; 80053; 84153; 84403; 86850; 86900; 86901; 86920; 85025; P9016